=== PATIENT | female | born 2005 | race Caucasian/White ===

== ENCOUNTER 2024-06-20 12:36 | Outpatient (OUT) | payer OTHER, SELFPAY ==
[2024-06-20 12:51] VITALS: BP 132/81; PULSE 130
--- NOTE | 2024-06-20 13:37 | US_ITS ---
[place] [id number] Patient Name: FREYA HERR MRN: [id number] date: 2005 Sex: F Assigned Patient Location: [facility] Current Patient Location: Accession/Order Number: [id number] Exam Date: 06/20/2024 14:36 Report Date: 06/20/2024 14:37 At the request of: KAYODE TOVAR DO Procedure: US OB BPP w non-stress Ultrasound biophysical profile HISTORY: Decreased movement There is adequate breathing movement, gross body movement, tone and amniotic fluid volume for total score of 8 out of 8. Amniotic fluid index is 12.5 cm within normal limits. The heart rate is 156 bpm. US/US OB BPP w non-stress IMPRESSION: Adequate ultrasound biophysical profile. Impression dictated by: Golden Barry M.D.06/20/2024 2:37 PM Dictation Location: [email or web address] Electronically authenticated by: [id number] Y Date: 06/20/2024 14:37
== END 2024-06-20 13:55 | disposition home or self-care (01) ==
LOC: FBCO 12:40 → FBC 12:43
PROVIDERS: PCP Nurse Practitioner Family; Visit Provider Obstetrics & Gynecology
DX: O36.8130 Decreased fetal movements, third trimester, not applicable or unspecified (principal)
CPT/HCPCS: 76818

== ENCOUNTER 2025-01-20 21:21 | Emergency (ER) | payer OTHER, SELFPAY ==
--- OUTSIDE RECORDS SUMMARY | 2023-12-27 08:00 | XMS_ITS ---
Author Organization [facility] Address [address] [facility] [place] [address] Care Team Providers Care Marketing Operations Manager Name Role Phone Manda Randall Primary Care Provider REASON FOR VISIT 3 month f/u Encounters Encounter Location Date Provider Diagnosis [facility] [address] [facility] [place] [address] 12/27/2023 Manda Randall Plan Of Treatment Next Appt Details Provider Name:Carmelina Leighmary anne ruben, 01/24/2025 03:00:00 PM, [address] [place], [address], Progress Notes * FREYA HERR CDOB: [birth year] (19 yo F)Acc No.[id number]:12/27/2023 Behavioral Health Patient: PAULINA RUSSOTINAA Mast Provider:?Manda RandallDOB:2005???Age:18 Y ???Sex:FemaleDate:12/27/2023hone:[phone]:[address] [place], [place]-[address] Subjective: * Chief Complaints: * 3 month f/u * Electronic signature of LEONARD Morillo FNP on 01/20/2025 at 09:31 PM EST Sign off status: Pending * Appointment Provider: Benjamín Randall Date: 1 Generated for Printing/Faxing/eTransmitting on:?01/20/2025 09:31 PM EST
--- OUTSIDE RECORDS SUMMARY | 2024-12-21 09:00 | XMS_ITS ---
Author Organization [facility] Address [address] [facility] [place] [address] Care Team Providers Care Php Developer Name Role Phone Manda Randall Primary Care Provider [phone] Carmelina Wong Unavailable [phone] REASON FOR VISIT BH 1 month f/u Encounters Encounter Location Date Provider Diagnosis [facility] [address] [place] [address] 12/21/2024 Carmelina Wong Plan Of Treatment Next Appt Details Provider Name:Carmelina miranda, 01/24/2025 03:00:00 PM, [address] [place], [address], Progress Notes * FREYA HERR CDOB: [birth year] (19 yo F)Acc No.[id number]:12/21/2024 Behavioral Health Patient: Yvonne FREYA GALLEGO :?Carmelina Wong CNPDOB:2005???Age:19 Y ???Sex:FemaleDate:12/21/2024Phone:[phone]:[address] [place], [place]-[address]Pcp:Manda Randall Subjective: * Chief Complaints: * B H 1 month f/u Billing Information: * Procedure Codes: * Electronic signature of JALEN Palm on 01/20/2025 at 09:31 PM ESTSign off status: Pending * Provider: Chava Wong CNP Date: 1 Generated for Printing/Faxing/eTransmitting on:?01/20/2025 09:31 PM EST
[2025-01-20 21:25] VITALS: BP 162/92; PULSE 117; TEMP 36.6; O2SAT 100; BMI 35.9
--- NOTE | 2025-01-20 21:31 | ED.SOB1 ---
HPI - SOB/Dyspnea General Chief Complaint: Shortness of Breath/Dyspnea Stated Complaint: SOB, NAUSEA Time Seen by Provider: 01/20/25 21:22 Source: patient Mode of arrival: walk-in Limitations: no limitations History of Present Illness HPI Narrative: past history of anxiety attack. Now presents with 2 hour sensation like she is having a hard time breathing. Similar to past panic attacks. No nausea , vomiting or chest pain. No fever. Related Data Home Medications ?Medication ?Instructions ?Recorded ?Confirmed lisdexamfetamine 30 mg capsule 30 mg PO DAILY 01/20/25 01/20/25 (Vyvanse) Allergies Allergy/AdvReac Type Severity Reaction Status Date / Time No Known Drug Allergies Allergy Verified 01/20/25 21:30 Review of Systems ROS Status of ROS 10 or more systems reviewed and unremarkable except as noted in history and below PFSH PFSH Social History Little interest or pleasure in doing things: not at all Feeling down, depressed, or hopeless: not at all Exam Constitutional Vital Signs, click to edit/add: Last Vital Signs Temp 98 F 01/20/25 21:25 Pulse 98 H 01/20/25 22:12 Resp 18 01/20/25 22:12 BP 138/82 01/20/25 22:12 Pulse Ox 99 01/20/25 22:12 O2 Del Method Room Air 01/20/25 22:12 Common normals: average body habitus, oriented x3, no limitations, healthy appearing, alert and well nourished General appearance: anxious HENMT Common normals: normocephalic and head/scalp atraumatic Eye Common normals: EOMs intact bilaterally and conjunctivae normal Respiratory Common normals: normal respiratory effort, no retractions, no use of accessory muscles and clear to auscultation bilaterally Cardio Common normals: S1 normal heart sound and S2 normal heart sound Rate: tachycardic Extremity Common normals: normal to inspection and full ROM Neuro Common normals: oriented x3, CN's II-XII intact bilaterally, moves all extremities and no focal motor deficits Psych Appearance: grossly normal Course Vital Signs Vital signs: Vital Signs Temperature 98 F 01/20/25 21:25 Pulse Rate 117 H 01/20/25 21:25 Respiratory Rate 20 01/20/25 21:25 Blood Pressure 162/92 H 01/20/25 21:25 Pulse Oximetry 100 01/20/25 21:25 Oxygen Delivery Method Room Air 01/20/25 21:25 Temperature 98 F 01/20/25 21:25 Pulse Rate 98 H 01/20/25 22:12 Respiratory Rate 18 01/20/25 22:12 Blood Pressure 138/82 01/20/25 22:12 Pulse Oximetry 99 01/20/25 22:12 Oxygen Delivery Method Room Air 01/20/25 22:12 MDM - SOB/Dyspnea MDM Narrative Medical decision making narrative: patient has past history of anxiety. Presents with 2 hour complaint of feeling like she can't breathe. RA pulse ox 100% and chest is clear. exam normal. Given dose of vistaril and observed in the department. Patient feeling better and requesting to go home. Discharged and advised to follow up with her doctor for recheck Discharge Plan Discharge Chief Complaint: Shortness of Breath/Dyspnea Clinical Impression: Anxiety Patient Disposition: Home, Self-Care Prescriptions / Home Meds: No Action lisdexamfetamine [Vyvanse] 30 mg capsule 30 mg PO DAILY Print Language: Brazilian Instructions: Anxiety (ED) Additional Instructions: follow up with your doctor this week for recheck Referrals: Olivia Back NP [Primary Care Provider] - 1 week
--- OUTSIDE RECORDS SUMMARY | 2025-01-20 21:31 | XMS_ITS | Patient Health Record ---
Author Organization [facility] Address [address] [place] [address] Care Team Providers Care Data Programmer Name Role Phone Manda Randall Primary Care Provider Carmelina Wong Unavailable [phone] Allergies No Known Allergies Reason For Referral No Information Medications Medication SIG (Take, Route, Frequency, Duration) Notes Start Date End Date Status Vyvanse 30 MG Capsule 1 capsule in the m orning Orally Once a day; Duration: 30 days 5ActiveVyvanse 40 MG Capsule1 capsule in the morning Orally Once a day; Duration: 30 daysDNF until Not-Taking/PRNVyvanse 50 MG Capsule1 capsule in the morning Orally Once a day; Duration: 30 days01/01/2025 Active Social History Tobacco Use: Social History Observation Description Date Details (start date - stop date) Current Smoker NA - NA Social History GeneralSocial InfoQuestionAnswerNotesTransition of Care:ER/UC/hospital since last office visit?Yes, report on fileanxiety attack, ER at [facility] 09/09/20 Depression Screening (PHQ-9):Little interest or pleasure in doing thingsNot at allFeeling down, depressed, or hopelessNot at allTrouble falling or staying asleep, or sleeping too muchNot at allFeeling tired or having little energy Several daysPoor appetite or overeatingNearly every dayFeeling bad about yourself-or that you are a failure or have let yourself or your family downNot at allTrouble concentrating on things, such as reading the newspaper or watching televisionNot at allMoving or speaking so slowly that other people could have noticed. Or the opposite being so fidgetyor restless that you have been moving around a lot more than usualNot at allThoughts that you would be better off , or of hurting yourself in some wayNot at allTotal Rgvqk9Ckizdeggojjiu Minimal DepressionSubstance abuse/mental health issues of patient/familyPatient -DeniesDrug/Alcohol:Social InfoQuestionAnswerNotesAUDIT-C (Standard)Did you have a drink containing alcohol in the past year?YoAzlwjd4JwbhapnbwfbnwxMiwpsyyb Tobacco Use:Social VideostripQuestionAnswerNotesTobacco Control (Standard)Tobacco use: Current smoker? How often do you smoke cigarettes?Every day? How many cigarettes a day do you smoke?5 or less? Are you interested in quitting?Ready to quit Problems Problem Type SNOMED Code ICD Code Onset Dates Problem Status W/U Status Risk Notes Problem Attention deficit hy peractivity disorder, predominantly inattentive type (22326359) ADHD, predominantly inattentive type (F90.0) Activeconfirmed Vital Signs Heart Rate 112 /min 01/01/2025 Igusiaduwmv19.3 degrees Wikfwdlxok44/05/4330Gqulswbi16 %01/01/2025lood pressure unnnwfzxh75 mm Hg01/01/20259205Xmlfjc53 in01/01/2025lood pressure vgrfljic615 mm Hg 01/01/20256335Bujhkn542.6 lbs1MI37.14 kg/m201/01/2025 Encounters Encounter Location Date Provider Diagnosis [facility] [address] [place] [address] 11/23/2024 Carmelina Marvin ADHD, predominant ly inattentive type F90.0 [facility] [address] [place] [address] 01/01/2025 Carmelina Marvin ADHD, predominant ly inattentive type F90.0 Assessments Encounter Date Diagnosis (ICD Code) Assessment Notes Treatment Notes Treatment Clinical Notes Section Notes 11/23/2024 ADHD, predominantly inattentive type (ICD-10 - F90.0) Patient meets the criteria for the diagnosis of Attention Deficit Hyperactivity Disorder. Recommended treatment is FDA approved stimulant medication for this age group. At this time, will restart Vyvanse 30mg daily*. Discussed adverse effects from medication including HTN, tachycardia, insomnia, irritability, headache, or decreased appetite. OARRS reviewed, patient history consistent with report.The patient verbalizes understanding with all questions answered thoroughly and is in agreement with treatment plan. Currently at low risk for self harm. Denies ongoing feelings of hopelessness. Denies ongoing suicidal ideation, intent or plan in session. Follow up in 1 month & PRN. 5ADHD, predominantly inattentive type (ICD-10 - F90.0) ADHD symptoms persist. At this time will increase dose of *Vyvanse to 50mg*. Discussed adverse effects from medication including HTN, tachycardia, insomnia, irritability, headache, or decreased appetite. OARRS reviewed, patient history consistent with report. The patient verbalizes understanding with all questions answered thoroughly and is in agreement with treatment plan. Currently at low risk for self harm. Denies ongoing feelings of hopelessness. Denies ongoing suicidal ideation, intent or plan in session. Follow up in 1 month & PRN. Plan Of Treatment Next Appt Details Provider Name:Carmelina miranda, 01/24/2025 03:00:00 PM, [address] [place] [address], [address], Insurance Providers Payer Name Payer Address Payer Phone Subscriber Number Group Number Insured Name Patient Relationship to Insured Coverage Start Date Coverage End Date EMERALD MENDES [address] [place] [address] [phone] [id number] CHAY KRAMER [address] [facility] MedicaidPO [address] [address] [place] [address] [id number] HERR - patient is the [id number] 2024[facility] [address] [place] [id number] Sania HERR - patient is the [id number] 2024 Medical (General) History Medical History History ICD Code cellulitis headachespoor impulse controlchronic concussionslazy eyeherniaADHDSurgical History Surgery Date(Month/Year) I & D debridement of left knee myringotomyc-sectionHospitalization History Reason Date(Month/Year) knee surgery see surgeries
--- OUTSIDE RECORDS SUMMARY | 2025-01-20 21:31 | XMS_ITS | CCD ---
Author Organization [facility] Care Team Providers Care It Service Manager Name Role Phone ТАТЬЯНА CANNON Primary Care Physician Easterwood, Alvarez Unavailable Lacho Andrade Attending Unavailable Miky Sanders Attending Unavailable EASTERWOOD, ALVAREZ Primary Care Physician [place]wood INTERNET MARKETING SPECIALIST, Alvarez Unavailable [phone] Easterwood CNNP, Alvarez Primary Care Provider [phone] RAQUEL Sanabria Attending Provider [phone] Wong, Alvarez J Admitting Unavailable Easterwood, Alvarez J Attending Unavailable POOL, YI E Referring Unavailable EASTERWOOD, ALVAREZ Primary Care Unavailable EASTERWOOD, ALVAREZ Primary Care Unavailable MERYL CANADA Attending Unavailable POOL, YI E Referring Unavailable EASTERWOOD, ALVAREZ Primary Care Unavailable POOL, YI E Referring Unavailable EASTERWOOD, ALVAREZ Primary Care Unavailable POOL, YI E Referring Unavailable EASTERWOOD, ALVAREZ Primary Care Unavailable Nic Arora Admitting Unavailable Nic Arora Attending Unavailable DO Marcus Salazar Attending Unavailable Nic Arora Attending Unavailable EASTERWOOD, ALVAREZ Admitting Unavailable EASTERWOOD, ALVAREZ Attending Unavailable EASTERWOOD, ALVAREZ Admitting Unavailable EASTERWOOD, ALVAREZ Attending Unavailable CINDY GLEASON Attending Unavailable Dangelo Flores DO Primary Care Provider POOL, YI E Referring Unavailable EASTERWOOD, ALVAREZ Primary Care Unavailable POOL, YI E Referring Unavailable EASTERWOOD, ALVAREZ Primary Care Unavailable POOL, YI E Attending Unavailable POOL, YI E Referring Unavailable EASTERWOOD, ALVAREZ Primary Care Unavailable EASTERLEAKEY, ALVAREZ Primary Care Unavailable CECE PIERRE Attending Unavail able CECE PIERRE Admitting Unavail able EASTERWOOD, ALVAREZ Primary Care Unavailable EASTERWOOD, ALVAREZ Primary Care Unavailable POOL, YI E Referring Unavailable EASTERWOOD, ALVAREZ Primary Care Unavailable POOL, YI E Referring Unavailable EASTERLEAKEY, ALVAREZ Primary Care Unavailable EASTERLEAKEY, ALVAREZ Primary Care Unavailable LORRIE MORALES Unavailable LORRIE SÁNCHEZ Admitting Unavailable LORRIE SÁNCHEZ Attending Unavailable Medications Current Medications MedicationDrug Class(es)DatesSig (Normalized)Sig (Original)168 HR ethinyl estradiol 0.07958 MG/HR / norelgestromin 0.66920 MG/HR Transdermal System [Zafemy] (1 source)Start: 21-17-7623Jngieh 150-35 MCG/24HR 1 patch weekly x 3 weeks then 1 week off Transdermal weekly for 90 days May, Activeazithromycin 500 mg oral tablet (1 source)Macrolide AntimicrobialStart: 02-14-2023 End: 96-48-7340mrqd 2 tablets by mouth onceazithromycin (ZITHROMAX) 500 mg tablet Indications: Chlamydia infection during Take 2 tablets by mouth one time only for 1 dose. 2 tablet 0 02/14/2023 02/14/2023 ActiveComment on above:Take 2 tablets by mouth one time only for 1 dose.brompheniramine maleate 0.4 mg/ml / dextromethorphan hydrobromide 2 mg/ml / pseudoephedrine hydrochl oride 6 mg/ml oral solution (5 sources)alpha-Adrenergic Agonist, Uncompetitive K-jzjmgj-S-aspartate Receptor Antagonist, Sigma-1 AgonistStart: 57-62-3543ppfq 10 mL by mouth four times dailyBromfed DM oral syrup 10 mL, Oral, QID for cold symptoms, 200 mL, Refill(s) 1, [facility]ULIA GUY, 152, cm, 06/02/21 12:01:00 EDT, Height/Length Dosing, 67.9, kg, 06/02/21 12:01:00 EDT, Weight Dosing Start Date: 06/02/21 Status: Patmcwf67 ml calcium gluconate 100 mg/ml injection (1 source)Start: 40-90-2173sryrrqiy 300 mg oral capsule (1 source)Cephalosporin AntibacterialStart: 11-30-2021 End: 48-13-9600wnlz 1 capsule by mouth every twelve hourscefdinir 300 mg Cap 300 mg = 1 cap(s), Oral, q12hr, X 7 day(s), # 14 cap(s), Refills(s) 0, Pharmacy: [id number], 152, cm, 11/30/21 8:27:00 EDT, Height/Length Dosing, 67.9, kg, 11/30/21 8:27:00 EDT, Weight Dosing Start Date: 11/30/21 Stop Date: 12/07/21 Status: OrderedCephalexin (2 sources)Cephalosporin AntibacterialStart: 08-01-2024 End: 10-68-6143uzdyEYXLrm (KEFLEX) capsule 500 mgStart: 07-03-2024 End: 01-02-7549itjc 1 capsule by mouth twice dailycephALEXin (KEFLEX) 500 MG capsule Take 1 capsule by mouth 2 times daily for 7 days 14 capsule 07/03/2024 07/10/2024 Activecyclobenzaprine hydrochloride 5 mg oral tablet (4 sources)Muscle RelaxantStart: 89-54-0892wnkb 1 tablet by mouth once daily at bedtimeCyclobenzaprine HCl 5 MG 1 tablet HS Orally Once a day for 7 days Nov, Activedocusate sodium 100 mg oral capsule (6 sources)Start: 08-01-2024 End: 81-11-5729IPHkysutce 10 mg oral capsule (5 sources)Serotonin Reuptake InhibitorStart: 01-10-2024 End: 85-13-6194kxan 1 capsule by mouth once dailyFLUoxetine (PROZAC) 10 MG capsule Take 1 capsule by mouth daily 30 capsule 3 01/10/2024 08/02/2024 D iscontinued (Stop Taking at Discharge)12 hr guaiFENesin 600 mg extended release oral tablet (1 source)Start: 03-16-2024 End: 21-53-7278xaof 1 tablet by mouth twice dailyguaiFENesin (MUCINEX) 600 MG extended release tablet Take 1 tablet by mouth 2 times daily for 5 days 10 tablet 03/16/2024 03/21/2024 Activelabetalol hydrochloride 400 mg oral tablet (11 sources)beta-Adrenergic BlockerStart: 25-40-6232daxs 1 tablet by mouth every eight hourslabetalol 400 MG TABS Take 400 mg by mouth every 8 hours 60 tablet 3 08/05/2024 ActiveStart: 66-71-608986 mg, IntraVENous, ONCE, 1 dose, On 08/04/24 at 0200Start: 49-55-847271 mg, IntraVENous, ONCE, 1 dose, On 08/04/24 at 0230Start: 08-04-2024 End: 55-37-9022zwad 1 dose by mouth three times lesyc859 mg, Oral, EVERY 8 HOURS SCHEDULED (3 times per day), First dose (after last modification) on Tue08/05/24 at 0000, Until DiscontinuedStart: 08-02-2024 End: 83-91-1655ezra 1 tablet by mouth every twelve hourslabetalol (NORMODYNE) 200 MG tablet Take 1 tablet by mouth every 12 hours 60 tablet 3 08/02/2024 Discontinued (Stop Taking at Discharge)Start: 07-31-2024 End: 65-62-2562ivao 1 dose by mouth twice kisvx713 mg, Oral, EVERY 12 HOURS SCHEDULED (2 times per day), First dose on Tue08/01/24 at 0800, Until D iscontinuedStart: 07-30-2024 End: 10-50-4249089 mg, Oral, 2 times daily, First dose on Tue07/30/24 at 2015, Until Discontinued, Hold for BP that is less than 120/80lanolin 1000 mg/ml topical cream (1 source)Start: 23-96-4417ulcsyupnnewqbiau dimesylate 60 mg oral capsule (15 sources)Central Nervous System StimulantStart: 11-14-2023 End: 02-34-8249keaw 1 capsule by mouth once daily in the morningVYVANSE 60 MG CAPS TAKE 1 CAPSULE BY MOUTH DAILY IN THE MORNING 11/14/2023 08/02/2024 Discontinued (Stop Taking at Discharge)Start: 72-85-5703cxoh 1 capsule by mouth once dailyLisdexamfetamine (Vyvanse) 60 mg capsule Active 60 MG PO Daily October 25, 2023 12:00amStart: 10-21-2023 End: 33-48-1858pfub 40 mg by mouth once dailyLisdexamfetamine Discontinued 40 MG PO Daily October 21, 2023 12:00am October 25, 2023 3:04pmtake 1 capsule by mouth every twenty-four hoursVyvanse 40 MG 1 capsule in the morning Orally Once a day Active1 ml methylergonovine maleate 0.2 mg/ml injection (1 source)Ergot DerivativeStart: 12-62-1148eePQPAUZclq 0.1 mg oral tablet (1 source)Prostaglandin E1 AnalogStart: 03-76-2618hcokyurh 500 mg oral tablet (4 sources)Nonsteroidal Anti-inflammatory DrugStart: 87-22-6826hdsf 1 tablet by mouth twice daily as needed for painnaproxen 500 mg Tab 500 mg = 1 tab(s), Oral, BID, PRN Pain, with food, # 20 tab(s), Refills(s) 0, Pharmacy: [facility] #[id number], 154, cm, 08/18/22 15:11:00 EDT, Height/Length Dosing, 73, kg, 0 08/18/22 15:11:00 EDT, Weight Dosing Start Date: 08/18/22 Status: Ordered NIFEdipine 30 mg osmotic 24 hr extended release oral tablet (1 source)Dihydropyridine Calcium Channel BlockerStart: 83-14-4777tdjt 1 tablet by mouth once dailyNIFEdipine (PROCARDIA XL) 30 MG extended release tablet Indications: Pre-eclampsia in period Take 1 tablet by mouth daily 30 tablet 1 08/07/2024 Activeomeprazole 20 mg delayed release oral capsule (8 sources)Proton Pump InhibitorStart: 05-87-2035omdhyebmcb (PRILOSEC) 20 MG delayed release capsule Take by mouth daily 06/11/2024 ActiveStart: 06-11-2024 End: 07-58-1932adqf 1 tablet by mouth once dailyomeprazole (PRILOSEC OTC) 20 MG tablet Indications: 30 weeks gestation of , Heartburn during in third trimester Take 1 tablet by mouth daily 90 tablet 3 06/11/2024 08/02/2024 Discontinued (Stop Taking at Discharge)ondansetron (ZOFRAN-ODT) disintegrating tablet 4 mg (2 sources)Start: 07-29-0206mxtlcdwkqsk (ZOFRAN-ODT) disintegrating tablet 4 mg Start: 18-98-6959fxeycchffuc (ZOFRAN-ODT) disintegrating tablet 4 mgpediatric multivitamin no.49 (FLINTSTONES GUMMIES ORAL) (1 source)pediatric multivitamin no.49 (FLINTSTONES GUMMIES ORAL) Take by mouth. ActivepredniSONE 20 mg oral tablet (4 sources)Start: 03-75-4403amktlrIHYG 20 MG 1 Orally Once a day for 5 days Nov, ActivePrenatal MV-Min-Fe Fum-FA-DHA ( 1 PO) (6 sources) End: 30-05-1137Irucgmxa MV-Min-Fe Fum-FA-DHA ( 1 PO) Take by mouth 08/02/2024 Discontinued (Stop Taking atDischarge) MV-Min-Fe Fum-FA-DHA ( 1 PO) Take by mouth ActivePrenatal MV-Min-Fe Fum-FA-DHA ( 1 PO) Take by mouth 0 Activeprenatal vits62/FA/om3/dha/epa ( GUMMY ORAL) (5 sources) vits62/FA/om3/dha/epa ( GUMMY ORAL) Take by mouth. Activeprenatal vits62/FA/om3/dha/epa ( GUMMY ORAL) Take by mouth. 0 ActiveComment on above:Take by mouth.Robitussin Cough + Chest Congestion DM 20 mg-200 mg/20 mL oral liquid (4 sources)Start: 41-24-5576pwgi 20 mL by mouth every four hoursRobitussin Cough + Chest Congestion DM 20 mg-200 mg/20 mL oral liquid 20 mL, Oral, q4hr, 200 mL, Refill(s) 0 Start Date: 07/16/22 Status: Ordered5 ml sodium chloride 9 mg/ml injection (7 sources)Start: 23-38-3233Lhkpw: 55-18-1116Cupti: 91-63-5648Sippe: 07-31-2024 Start: -40 mL, IntraVENous, PRN, Starting on Tue07/31/24 at 2349, Until Discontinued, Line Care, After every IV line use, For Line Patency: Peripheral IV = 5 mL; Midline or Central Line = 10 mL/lumen. If following IV push medication, administer flush at same rate as the IV push. Flush volume is determined by type of infusion therapy being given. For non-viscous solutions use: Peripheral IV = 5 mL Midline or Central Line = 10 mL/lumen For viscous solutions (i.e. blood components, parenteral nutrition,contrast media, or after obtaining blood sample) use: Peripheral IV = 10 mL Midline or Central Line= 20 mL/lumen, PostpartumStart: 07-30-2024 End: -40 mL, IntraVENous, EVERY 12 HOURS SCHEDULED (2 times per day), First dose on Tue07/30/24 at 2100, Until Discontinued, For Line Patency: Peripheral IV = 5 mL; Midline or Central Line = 10 mL/lumen.If following IV push medication, administer flush at same rate as the IV push. Flush volume is deter mined by type of infusion therapy being given. For non-viscous solutions use: Peripheral IV = 5 mL Midline or Central Line = 10 mL/lumen For viscous solutions (i.e. blood components, parenteral nutrition, contrast media, or after obtaining blood sample) use: Peripheral IV = 10 mL Midline or CentralLine = 20 mL/lumen, Labor and Deliveryterconazole 4 mg/ml vaginal cream (3 sources)Azole AntifungalStart: 07-09-2024 End: 46-38-2433vtxtkvjliba (TERAZOL 7) 0.4 % vaginal cream Indications: 34 weeks gestation of , Vagina, candidiasis Place vaginally nightly. For 7 nights 45 g 07/09/2024 08/02/2024 Discontinued (Stop Taking at Discharge) tranexamic acid (CYKLOKAPRON) 1,000 mg in sodium chloride 0.9 % 100 mL IVPB (Bpez7Bsa) (1 source)Start: 60-22-6955Uyaktw ODT 4 mg Tab-Dis (4 sources)Start: 60-99-7839kexm 1 tablet by mouth every eight hours as needed for nauseaZofran ODT 4 mg Tab-Dis 4 mg = 1 tab(s), Oral, q8hr, PRN Nausea/Vomiting, # 12 tab(s), Refills(s) 0, Pharmacy: [facility] #[id number], 154, cm, 08/18/22 15:11:00 EDT, Height/Length Dosing, 73, kg, 08/18/22 15:11:00 EDT, Weight Dosing Start Date: 08/18/22 Status: Ordered Completed/Discontinued Medications MedicationDrug Class(es)DatesSig (Normalized)Sig (Original)acetaminophen 500 mg oral tablet (8 sources)Start: ,000 mg, Oral, EVERY 6 HOURS PRN, Starting on 08/04/24 at 0254, Until Discontinued, Pain Mild (1-3), allowed for higher pain score per patient request, Maximum dose of acetaminophen is 4000 mg from all sources in 24 hours.Start: 08-02-2024 End: 87-29-6039utyh 2 tablets by mouth every eight hoursacetaminophen (TYLENOL) 500 MG tablet Take 2 tablets by mouth every 8 hours 120 tablet 3 08/02/2024 ActiveStart: ,000 mg, Oral, EVERY 8 HOURS SCHEDULED (3 times per day), First dose on Tue08/01/24 at 0330, UntilDiscontinued, Maximum dose of acetaminophen is 4000mg from all sources in 24 hours. Alternate ibuprofen and acetaminophen every 4 hours., PostpartumStart: 04-48-7371gbbl 1 dose by mouth bnpe299 mg, Oral, ONCE, 1 dose, On Tue07/31/24 at 2030, Administer with sips of water., Labor and DeliveryStart: 07-30-2024 End: 14-81-5402bvmt 4000 mg by mouth every twenty-four hours as plulae538 mg, Oral, EVERY 4 HOURS PRN, Starting on Tue07/30/24 at 1941, Until Tue07/31/24 at 2349, Pain Mild (1-3), allowed for higher pain score per patient request, Fever, Fever >100.5 F (38 C), Maximum dose of acetaminophen is 4000 mg from all sources in 24 hours., Labor and Deliverycalcium chloride 0.0014 meq/ml / potassium chloride 0.004 meq/ml / sodium chloride 0.103 meq/ml / sodium lactate 0.028 meq/ml injectable solution (5 sources)Start: 08-04-2024 End: 67-45-2431BqwcfFRLixh, at 50 mL/hr, CONTINUOUS, Starting on Tue08/04/24 at 1845Start: 07-31-2024 End: ,000 mL, IntraVENous, at 1,000 mL/hr, Administer over 1 Hours, ONCE, On Tue07/31/24 at 2030, For 1dose, Labor and Delivery. Administer bolus one hour prior to surgery., Labor and DeliveryStart: 07-30-2024 End: 71-03-9574TvcifUZWosu, at 125 mL/hr, CONTINUOUS, Starting on Tue08/01/24 at 0100cefOXitin (MEFOXIN) 2,000 mg in sterile water 20 mL IV syringe (1 source)Start: 07-31-2024 End: ,000 mg, IntraVENous, REMARKETING MANAGER TO O.R., 1 dose, On Tue07/31/24 at 2030, Antimicrobial Indications: Surgical Prophylaxis, Administer within 1 hour of incision. Administer as slow IV Push over 5 mins Reconstitute 2 gram vial with 20mL Sterile Water, Labor and Deliverycitric acid 66.8 mg/ml / sodium citrate 100 mg/ml oral solution (1 source)Calculi Dissolution Agent, Anti-coagulantStart: 07-31-2024 End: 17-50-3452jmtg 1 dose by mouth once30 mL, Oral, ONCE, 1 dose, On Tue07/31/24 at 2030, Give prior to epidural placement., Labor and DeliveryStart: 07-31-2024 End: 09-66-4272whlf 1 dose by mouth once30 mL, Oral, ONCE, 1 dose, On Tue07/31/24 at 2030, Give prior to epidural placement., Labor and Delivery diphenhydrAMINE hydrochloride 25 mg oral tablet (1 source)Histamine-1 Receptor AntagonistStart: 24-22-0207drfm 25 mg by mouth every six hours as mg, Oral, EVERY 6 HOURS PRN, Starting on Tue08/04/24 at 1814, Until Discontinued, Itching0.4 ml enoxaparin sodium 100 mg/ml prefilled syringe (1 source)Low Molecular Weight HeparinStart: 88-70-6506ewcrzf 40 mg by subcutaneous injection once daily40 mg, SubCUTAneous, DAILY, First dose on Tue08/01/24 at 0900, Until Discontinued, Indication of Use: Prophylaxis-DVT/PE, Administer by deep subCUTAneous injection with pt lying down. Alternate inject ion sites on abdominal wall. Do not rub site after injection. Check with provider prior to any invasive procedure., Postpartumfamotidine (PEPCID) 20 MG/2ML 20 mg in sodium chloride (PF) 0.9 % 10 mL injection (1 source)Start: 07-31-2024 End: 31-72-827487 mg, IntraVENous, ONCE, 1 dose, On Tue07/31/24 at 2030, Give 60 minutes before surgery., Labor and Deliveryferrous sulfate 325 mg delayed release oral tablet (3 sources)Start: 92-04-9185hnwj 325 mg by mouth once daily at mg, Oral, DAILY WITH BREAKFAST, First dose on Tue08/05/24 at 0800, Until DiscontinuedStart: 08-04-2024 End: 48-47-1803wynx 1 tablet by mouth once daily at breakfastferrous sulfate (IRON 325) 325 (65 Fe) MG tablet Take 1 tablet by mouth daily (with breakfast) 90 tablet 08/04/2024 11/02/2024 Activeibuprofen 600 mg oral tablet (10 sources)Nonsteroidal Anti-inflammatory DrugStart: 83-94-5679mvvp 600 mg by mouth every six hours as needed for gbbr168 mg, Oral, EVERY 6 HOURS PRN, Starting on 08/04/24 at 0254, Until Discontinued, Pain Mild (1-3), allowed for higher pain score per patient requestStart: 08-02-2024 End: 61-37-5385jcyhiuuyx (ADVIL;MOTRIN) 800 MG tablet Take 1 tablet by mouth in the morning and 1 tablet at noon and 1 tablet in the evening. 120 tablet 3 08/02/2024 ActiveStart: 69-93-9662rmyg 1 tablet by mouth every six hours ibuprofen 600 mg Tab 600 mg = 1 tab(s), Oral, q6hr, # 20 tab(s), Refills(s) 0 Start Date: 07/16/22 Status: Orderedloperamide hydrochloride 2 mg oral capsule (1 source)Opioid AgonistStart: 08-04-2024 End: mg, Oral, Once, 1 dose, On 08/04/24 at 0500, After each loose stool.100 ml magnesium sulfate 40 mg/ml injection (3 sources)Start: 08-04-2024 End: ,000 mg, IntraVENous, at 300 mL/hr, Administer over 20 Minutes, ONCE, On 08/04/24 at 0200, For 1 dose, Pre-Infusion: Assess baseline vital signs, breath sounds, oxygen saturation level, intake and output, and neurologic status (deep tendon reflexes, presence or absence of clonus, and level of co nsciousness (LOC). Vitals to include baseline temperature. Temperature to be reassessed every 4 hours if membranes are intact or every 2 hours if membranes have ruptured. Loading Dose/Infusion: Stay with the patient during the loading dose to monitor for adverse drug reactions. - Monitor pulse oximetry continuously throughout the infusion - Monitor vital signs, deep tendon reflexes, and LOC every15 minutes for one hour, then every 30 minutes for one hour, then hourly while infusing Notify careprovider immediately of absent deep tendon reflexes, a urine output of less than 30 mL/hour, respirations of less than 12 breaths/minute, or an oxygen saturation level of less than 90%.Start: 08-04-2024 End: ,000 mg/hr (50 mL/hr), IntraVENous, CONTINUOUS, Starting on 08/04/24 at 0315, Until 08/05/24at 0200, Pre-Infusion: Assess baseline vital signs, breath sounds, oxygen saturation level, intake and output, and neurologic status (deep tendon reflexes, presence or absence of clonus, and level of consciousness (LOC), presence of headaches or visual disturbances, presence or absence of epigastric pain. Vitals to include baseline temperature. Temperature to be reassessed every 4 hours if membranes are intact or every 2 hours if membranes have ruptured. Loading Dose/Infusion: Stay with the patient during the loading dose to monitor for adverse drug reactions. - Monitor pulse oximetry continuously throughout the infusion - Monitor vital signs, deep tendon reflexes, and LOC every 15 minutes for one hour, then every 30 minutes for one hour, then hourly while infusing Notify care provider immediately of absent deep tendon reflexes, a urine output of less than 30 mL/hour, respirations of less than 12 breaths/minute, or an oxygen saturation level of less than 90%. Grams to milligrams conversion table: 1 gram = 1000 mg 2 grams = 2000 mg 4 grams = 4000 mg 6 grams = 6000 mg 20 grams = 20,000 mgmetoclopramide 10 mg oral tablet (2 sources)Dopamine-2 Receptor AntagonistStart: 60-79-1852wamg 10 mg by mouth three times daily before gdhhodyj12 mg, Oral, 3 TIMES DAILY BEFORE MEALS, First dose on Tue08/04/24 at 1830, Until DiscontinuedStart: 07-31-2024 End: mg, IntraVENous, ONCE, 1 dose, On Tue07/31/24 at 2030, Give 60 minutes before surgery., Labor and DeliverymiSOPROStol (CYTOTEC) pre-split tablet TABS 25 mcg (1 source)Start: 07-30-2024 End: mcg, Vaginal, EVERY 4 HOURS, 3 doses, First dose (after last modification) on Tue07/30/24 at 2030, Last dose on Tue07/31/24 at 84723 ml nalbuphine hydrochloride 10 mg/ml injection (1 source)Opioid Agonist/AntagonistStart: 07-30-2024 End: mg, IntraVENous, EVERY 2 HOURS PRN, Starting on Tue07/30/24 at 1941, Until Tue07/31/24 at 2349, Pain Moderate (4-6), allowed for higher pain score per patient request, Pain Severe (7-10), For moderate pain 4-6, PRN for pain, Labor and Delivery2 ml ondansetron 2 mg/ml injection (8 sources)Serotonin-3 Receptor AntagonistStart: 08-04-2024 End: mg, IntraVENous, ONCE, 1 dose, On Tue08/04/24 at 0200Start: 02-29-8859vvie 1 tablet by mouth three times daily as needed for nausea ondansetron (ZOFRAN) 4 MG tablet Take 1 tablet by mouth 3 times daily as needed for Nausea or Vomiting 30 tablet 2 03/08/2024 ActiveoxyCODONE hydrochloride 5 mg oral tablet (5 sources)Opioid AgonistStart: 36-03-1875txft 5 mg by mouth every six hours as needed5 mg, Oral, EVERY 6 HOURS PRN, Starting on Tue08/04/24 at 2038, Until Discontinued, Pain Severe (7-10)Start: 08-02-2024 End: 67-31-1180ttxa 1 tablet by mouth every eight hours as needed for pain oxyCODONE (ROXICODONE) 5 MG immediate release tablet Indications: delivery delivered Take 1 tablet by mouth every 8 hours as needed for Pain for up to 3 days. Max Daily Amount: 15 mg 8 tablet 08/02/2024 08/05/2024 Active Start: 89-79-9784qvlECMCDH (ROXICODONE) immediate release tablet 5 mgoxytocin (PITOCIN) 30 units in 500 mL infusion (1 source)Start: 07-31-2024 End: -24 tye-units/min (1-24 mL/hr), IntraVENous, CONTINUOUS, Starting on Tue07/31/24 at 0900, Until Tue07/31/24 at 2349, Begin infusion at 1 tye-unit/min (1 tye-unit per min = 1 mL per hour) . Then increase by 2 tye-units/min as needed, no faster than every 30 minutes, until labor is achieved.Labor is defined as contractions every 2-3 minutes with cervical changes or Mcgregor units (MVU) greater than 200 in a 10-minute window. Maximum infusion rate: 24 tye-unit/min. Contact provider if maximum rate does not achieve desired response. Provider may order alternative titration goal or other clinically appropriate goal of titration rate (s). Smaller titration increments of 1 tye-units/min, not faster than every 30 minutes, may be used when approaching therapeutic goal after discussion with provider. If unable to increase call provider and let them know. At time of needed increase, Labor and Deliverymicroencapsulated potassium chloride 20 meq extended release oral tablet (1 source)Start: 07-31-2024 End: mEq, Oral, 2 TIMES DAILY, First dose on Tue07/31/24 at 0230, Until Discontinued, Do not crush, chew, or suck on tablet. Tablet may also be broken in half and each half swallowed separately.200 ml ropivacaine hydrochloride 2 mg/ml injection (1 source)Amide Local AnestheticStart: 07-31-2024 End: mL/hr, Epidural, CONTINUOUS, Starting on Tue07/31/24 at 1330, Until Tue07/31/24 at 2349, Labor and Deliverysimethicone 80 mg chewable tablet (1 source)Start: 83-04-3762dyec 80 mg by mouth every six hours as odurvf90 mg, Oral, EVERY 6 HOURS PRN, Starting on Tue08/01/24 at 2005, Until Discontinued, Cramping Problems Active Problems Problem ClassificationProblemDateDocumented DateEpisodic/ChronicAbdominal hernia (7 sources)Umbilical hernia; Translations: [Umbilical hernia without obstruction or gangrene]03-64-7258PkotvvtaTmwpabbgv pain (1 source)Abdominal pain; Translations: [Unspecified abdominal pain]Onset: 76-85-8585UfbnzgibIviewlucj-deficit, conduct, and disruptive behavior disorders (20 sources)Attention deficit hyperactivity disorder; Translations: [Attention- deficit hyperactivity disorder, unspecified type]Onset: 81-97-7040Dbcqoeu Contraceptive and procreative management (1 source)Encounter for initial prescription of transdermal patch hormonal contraceptive deviceEpisodicFetal distress and abnormal forces of labor (4 sources)Failure to progress in first stage of labor; Translations: [Prolonged first stage (of labor)]Onset: [id number] congenital anomalies (2 sources)H/O: kidney disease; Translations: [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]Onset: [id number]u symptoms and ill-defined conditions (11 sources)Dysuria; Translations: [Dysuria]Onset: [id number] Headache; including migraine (7 sources)Uauextps07-33-0557XvqsxsvdNmxjssbezmcj complicating ; childbirth and the puerperium (11 sources)Hypertension AND/OR vomiting complicating childbirth AND/OR puerperium; Translations: [Gestational [-induced] hypertension without significant proteinuria, third trimester]Onset: 07-31-2024 Resolved: [id number] injury (14 sources)Concussion injury of brain; Translations: [History of concussion injury of brain]23-58-1718BggekalbYytpcjh on above:multipleMenstrual disorders (1 source)Amenorrhea, unspecified; Translations: [Amenorrhea, unspecified]Onset: 80-43-1991JxdowsqOgxasov (1 source)Candidiasis of vagina; Translations: [Vagina, candidiasis]07-09-2024 EpisodicOther acquired deformities (15 sources)Scoliosis deformity of spine; Translations: [Scoliosis, unspecified] 21-04-0942LvgjfbtLbqlj acquired deformities (1 source)Scoliosis, unspecifiedChronicOther aftercare (1 source)Long-term current use of drug therapy; Translations: [Other skilled nursing (current) drug therapy]EpisodicOther circulatory disease (1 source)Elevated blood-pressure reading without diagnosis of hypertension; Translations: [Elevated blood-pressure reading, without diagnosis of hypertension]66-17-4648OaalmehqIxewa circulatory disease (1 source)Postural orthostatic tachycardia syndrome ; Translations: [Postural orthostatic tachycardia syndrome (POTS)]Onset: 17-04-3550HhwbiqqsBhazd complications of ; puerperium affecting management of mother (5 sources)Deliveries by ; Translations: [Encounter for delivery without indication]Onset: 073983-77-3107WyjrzbjwWorcd complications of ; puerperium affecting management of mother (1 source)Encounter for delivery without indication; Translations: [Encounter for delivery without indication]Onset: 39-95-5917Gurmoewn Other complications of (1 source)Uncertain viability of ; Translations: [ with inconclusive viability, not applicable or unspecified]47-93-3556Riaawbbj Other complications of (1 source)Swelling of lower limb; Translations: [Gestational edema, third trimester]12-20-6723EpwqiwvzVjslr complications of (1 source)Gestational edema, third trimester; Translations: [Gestational edema, third trimester]Onset: 51-97-6316GiubkjqaZiczy lower respiratory disease (1 source)Cough; Translations: [Cough, unspecified]Onset: 09-74-9552Yqyakqac Other lower respiratory disease (1 source)Dyspnea; Translations: [Shortness of breath]62-94-3979KuovceaoJgkvs lower respiratory disease (1 source)Shortness of breath; Translations: [Shortness of breath]Onset: 21-10-9131UotwgtodXpqsl nutritional; endocrine; and metabolic disorders (3 sources)Obesity; Translations: [Obesity complicating , unspecified trimester]Onset: 087598-26-0116MfeqkliZtivj nutritional; endocrine; and metabolic disorders (1 source)Body mass index 30+ - obesity; Translations: [Body mass index (BMI) 37.0-37.9, adult]91-56-6243DswvoraVamxd nutritional; endocrine; and metabolic disorders (1 source)Hypomagnesemia; Translations: [Hypomagnesemia]Onset: 21-77-8167Mdsljoa Other and delivery including normal (12 sources)Patient encounter status; Translations: [Encounter for supervision of normal , unspecified, first trimester]Onset: 05-15-2024 Resolved: 409464-20-1706BntxbhsiXgsiqib cyst (4 sources)Cyst of ovary; Translations: [Unspecified ovarian cyst, unspecified side]EpisodicResidual codes; unclassified (7 sources)Pnrhnod69-98-6066FpnutwitWbzkqdmi codes; unclassified (2 sources)Gestation period, 26 weeks; Translations: [26 weeks gestation of ]38-14-7952FbygoeqoZpovshpy codes; unclassified (1 source)Gestation period, 27 weeks; Translations: [27 weeks gestation of ]05-94-6335UiirrsjuNrbognvw codes; unclassified (1 source)Gestation period, 36 weeks; Translations: [36 weeks gestation of ]66-98-8381AkjszfdwMiqkdakp codes; unclassified (1 source)36 weeks gestation of ; Translations: [36 weeks gestation of ]Onset: 80-96-0472BzemqmkyDowxwvvh codes; unclassified (1 source)27 weeks gestation of ; Translations: [27 weeks gestation of ]Onset: 22-83-3748QzgnixakUzicghnvrha; intervertebral disc disorders; other back problems (7 sources)Neck gnoo82-24-5480PlpfewksAgiyponmrybq (7 sources)Methicillin resistant Staphylococcus aureus (organism)Onset: 915463-88-3331Oyfvebi on above:MRSA lt knee abscess 03/24/2012Unclassified (1 source)Acute candidiasis of vulva and vagina; Translations: [Acute candidiasis of vulva and vagina]Onset: 07-09-2024 Past or Other Problems Problem ClassificationProblemDateDocumented DateEpisodic/ChronicEssential hypertension (4 sources)Hypertensive disorder; Translations: [Essential (primary) hypertension]Onset: 07-30-2024 Resolved: 318636-40-9290MzsiecsKdbscntrtc during ; abruptio placenta; placenta previa (2 sources)Threatened miscarriage; Translations: [Threatened ]Onset: 52-68-2487HlutfgruZjokh complications of (12 sources)Chlamydial infection; Translations: [Other maternal infectious and parasitic diseases complicating , unspecified trimester]Onset: 02-14-2023 Resolved: 124452-47-1504TeroqtwkSdzda nervous system disorders (8 sources)Coordination problem; Translations: [Unspecified lack of coordination]Onset: 05-23-2012 Resolved: 984003-00-1410ViattznfFsusm nervous system disorders (8 sources)Abnormal gait; Translations: [Unspecified abnormalities of gait and mobility]Onset: 05-23-2012 Resolved: 270295-98-6155DouchlmaPnrga upper respiratory infections (19 sources)Acute pharyngitis; Translations: [Acute pharyngitis, unspecified] Onset: 51-92-6057JcnlljkcOnevodjm codes; unclassified (15 sources)Impulsive character; Translations: [Impulsiveness]Onset: 02-21-2023 39-09-9568UiukedseHdwellao codes; unclassified (2 sources)Less than 8 weeks gestation of ; Translations: [Less than 8 weeks gestation of ]Onset: 20-73-0975DarnlblwVhvptdgm codes; unclassified (7 sources)H/O: miscarriage; Translations: [Personal history of other complications of , childbirth and the puerperium]Onset: 01-30-2024 21-67-5898NvoehcpfRuoxjpmd codes; unclassified (4 sources)Gestation period, 37 weeks; Translations: [37 weeks gestation of ]Onset: 07-31-2024 Resolved: 981936-35-7051UnwpzcdpLccswapb codes; unclassified (1 source)Personal history of other complications of , childbirth and the puerperium; Translations: [Personal history of other complications of , childbirth and the puerperium]Onset: 39-37-7469FjneczlzWkle and subcutaneous tissue infections (15 sources)Pyoderma; Translations: [Cellulitis of right foot]Onset: 03-23-2012 Resolved: 625478-60-9808RrftdpqzRkhvdtawrlu (2 sources)Miscarriage; Translations: [Complete or unspecified spontaneous without complication]Onset: 448316-14-2335SowxydlrRvrzfckfeeng (7 sources)DebridementOnset: 196777-66-0808Xlcunqx on above:I&D of wound in right leg in MarchUnclassified (1 source)Acute left-sided low back pain without sciatica M54.50Viral infection (12 sources)Molluscum contagiosum infection; Translations: [Herpangina]Onset: 338423-13-0250Cxiiphul Results Test NameValueInterpretationReference RangeFacilityCBCon 59-42-7731Rwborkmgmgi distribution width (RBC) [Ratio]13.8 %11.8 - 14.4 %[facility] Hematocrit (Bld) [Volume fraction]28.4 %Low36.3 - 47.1 %[facility] Hemoglobin (Bld) [Mass/Vol]8.8 g/dLLow11.9 - 15.1 g/dLBon [facility] Interpretation and review of laboratory resultsAbnormalBon [facility] MCH (RBC) [Entitic mass]25 pgLow25.2 - 33.5 pgBon Secours Richmond Community HospitalMCHC (RBC) [Mass/Vol]31 g/dL28.4 - 34.8 g/dLBon Community Memorial HospitalMCV (RBC) [Entitic vol] 80.7 fLLow82.6 - 102.9 fLBon Secours Richmond Community HospitalNucleated RBC/100 WBC (Bld) [Ratio]0.2 %High0.0 per 100 WBCBon Community Memorial HospitalPlatelet mean volume (Bld) [Entitic vol]10 fL8.1 - 13.5 fLNorton Community Hospital HealthPlatelets (Bld) [#/Vol]349 10*3/uLBon Community Memorial HospitalRBC (Bld) [#/Vol]3.52 10*6/uLLow3.95 - 5.11 m/uLBon Community Memorial HospitalWBC other (Bld) [#/Vol]8.1Bon SecFroedtert West Bend HospitalErythrocyte distribution width (RBC) [Ratio]13.8 % Pxqmnz36.8-14.4[facility] HospitalComment on above:Performed By: #### FLUABA #### [address] [place] [address] Commercial Real Estate Attorney: Jose Valero MDHematocrit (Bld) [Volume fraction]28.4 %Low 36.3-47.1MHolmes County Joel Pomerene Memorial HospitalComment on above:Performed By: #### FLUABA #### [address] [place], [place] [id number] Commercial Real Estate Attorney: Jose Valero MDHemoglobin (Bld) [Mass/Vol]8.8 g/dLLow11.9-15.1 [facility] HospitalComment on above:Performed By: #### FLUABA #### [address] [place], [facility]83 Commercial Real Estate Attorney: JACKY SánchezCH (RBC) [Entitic mass]25.0 pgLow25.2-33.5[facility] HospitalComment on above:Performed By: #### FLUABA #### [address] [place] [address] Commercial Real Estate Attorney: TIFFANY SánchezC (RBC) [Mass/Vol]31.0 g/fDFdbtkv86.4-34.8[facility] HospitalComment on above:Performed By: #### FLUABA #### [address] [place] [address] Commercial Real Estate Attorney: JACKY SánchezCV (RBC) [Entitic vol]80.7 fLLow82.6-102.9[facility] HospitalComment on above:Performed By: #### FLUABA #### [address] [place] [address] Commercial Real Estate Attorney: PRITESH Sánchez Automated0.2 per [address] HospitalComment on above:Performed By: #### FLUABA #### [address] [place], [place] [id number] Commercial Real Estate Attorney: Vani Sánchez mean volume (Bld) [Entitic vol]10.0 fL Normal8.1-13.5[facility] HospitalComment on above:Performed By: #### FLUABA #### [address] [place] [address] Commercial Real Estate Attorney: Mojgan Sánchez (Bld) [#/Vol]349 10*3/kBRqkzbk368-[address] [facility] HospitalComment on above:Performed By: #### FLUABA #### [address] [place] [address] Commercial Real Estate Attorney: ALLYSON Sánchez (Bld) [#/Vol]3.52 10*6/uLLow3.95-5.11[facility] HospitalComment on above:Performed By: #### FLUABA #### [address] [place], [place] [id number] Commercial Real Estate Attorney: GALDINO Sánchez (Bld) [#/Vol]8.1 10*3/uLNormal4.5-13.5[facility] HospitalComment on above:Performed By: #### FLUABA #### [address] [place] [address] Commercial Real Estate Attorney: Jose Valero MDComp Metabolic Profon 96-23-9010Oyekiyk [Mass/Vol] 3.5 g/dLNormal3.5-5.2[facility] HospitalComment on above:Performed By: #### FLUABA #### [address] [place] [address] Commercial Real Estate Attorney: Jose Valero MDAlbumin/Glob Ratio1.0Ptxvmm5.0-2.5[facility] HospitalComment on above:Performed By: #### FLUABA #### [address] [place] [address] Commercial Real Estate Attorney: Dex Sánchezkaline Ywmk799 U/HXqyn99-177SbemhAvita Health System Ontario HospitalComment on above:Performed By: #### FLUABA #### [address] [place] [address] Commercial Real Estate Attorney: Jose Valero MDALT [Catalytic activity/Vol]12 U/IUplfil15-99AcbnwAvita Health System Ontario HospitalComment on above:Performed By: #### FLUABA #### [address] [place] [address] Commercial Real Estate Attorney: Jose Valero MDAnijennifer gap [Moles/Vol]13 mmol/LNormal9-16[facility] HospitalComment on above:Performed By: #### FLUABA #### [address] [place] [address] Commercial Real Estate Attorney: Jose Valero MDAST [Catalytic activity/Vol]16 U/AKuxtrv45-18HiomsAvita Health System Ontario HospitalComment on above:Performed By: #### FLUABA #### [address] [place] [address] Commercial Real Estate Attorney: Jose Valero MDBilirubin [Mass/Vol]0.2 mg/dLNormal0.00-1.20[facility] HospitalComment on above:Performed By: #### FLUABA #### [address] [place] [address] Commercial Real Estate Attorney: Jose Valero MDBUN/CRE Ytqcu73Yolhhq0-07Yyuub [facility] Comment on above:Performed By: #### FLUABA #### [address] [place], [facility]83 Commercial Real Estate Attorney: SHARAN Sánchezalcium [Mass/Vol]9.2 mg/dLNormal8.6-10.4[facility] HospitalComment on above:Performed By: #### FLUABA #### [address] [place], [place] [phone] Commercial Real Estate Attorney: SHARAN Sánchezhloride [Moles/Vol]103 mmol/BZmgypp86-657BiuzhAvita Health System Ontario HospitalComment on above:Performed By: #### FLUABA #### [address] [place] [address] Commercial Real Estate Attorney: Jose Valero MDCO2 [Moles/Vol]24 mmol/CXudpbd38-25GhlczAvita Health System Ontario HospitalComment on above:Performed By: #### FLUABA #### [address] [place], [place] [phone] Commercial Real Estate Attorney: SHARAN Sánchezreatinine [Mass/Vol]0.6 mg/dLNormal0.50-0.90[facility] HospitalComment on above:Performed By: #### FLUABA #### [address] [place], [facility]83 Commercial Real Estate Attorney: Jose Valero MDGFR/1.73 sq M.predicted among non-blacks MDRD (S/P/Bld) [Vol rate/Area]mL/min/{1.73_m2}Normal>60MerUniversity Hospitals Ahuja Medical Center HospitalComment on above:Result Comment: These results are not intended for use in patients <18 years of age. eGFR results are calculated without a race factor using the 2020 CKD-EPI equation. Careful clinical correlation is recommended, particularly when comparing to results calculated using previous equations. The CKD-EPI equation is less accurate in patients with extremes of muscle mass, extra-renal metabolism of creatine, excessive creatine ingestion, or following therapy that affects renal tubular secretion.Performed By: #### FLUABA #### [address] [place] [id number] Commercial Real Estate Attorney: Jose Valero MDGlucose [Mass/Vol]80 mg/xBMczqla19-38Ghfnu [facility] HospitalComment on above:Performed By: #### FLUABA #### [address] [place] [address] Commercial Real Estate Attorney: HENNY Sánchezotassium [Moles/Vol]4.2 mmol/LNormal3.7-5.3MWooster Community Hospital HospitalComment on above:Performed By: #### FLUABA #### [address] [place] [address] Commercial Real Estate Attorney: Jose Valero MDProtein [Mass/Vol]6.5 g/dLLow6.6-8.7[facility] HospitalComment on above:Performed By: #### FLUABA #### [address] [place] [address] Commercial Real Estate Attorney: Jose Valero MDSodium [Moles/Vol]140 mmol/RXecxnn558-803Iptnb [facility] HospitalComment on above:Performed By: #### FLUABA #### [address] [place] [address] Commercial Real Estate Attorney: Jose Valero MDUrea nitrogen [Mass/Vol]6 mg/dLNormal6-20MerUniversity Hospitals Ahuja [facility] Center HospitalComment on above:Performed By: #### FLUABA #### [address] [place] [facility]42 Commercial Real Estate Attorney: Jose Valero, [facility] Centerensive Metabolic Panelon [phone] [Mass/Vol]3.5 g/dL3.5 - 5.2 g/dLBon SecAtlantic Healthcarey HealthAlbumin/Globulin [Mass ratio]1.2 {ratio}1.0 - 2.5[facility] Bio[facility] HealthALP [Catalytic activity/Vol] 139 U/LHigh35 - 104 U/LBon Secours Bioceptivey HealthALT [Catalytic activity/Vol]12 U/L10 - 35 U/LBon Secours Bioceptivey HealthAnion gap [Moles/Vol]13 mmol/L9 - 16 mmol/LBon Secours Bioceptivey HealthAST [Catalytic activity/Vol]16 U/L10 - 35 U/LBon Secours Bioceptivey HealthBilirubin [Mass/Vol]0.2 mg/dL0.00 - 1.20 mg/dLBon [facility]ours PayDragon HealthCalcium [Mass/Vol]9.2 mg/dL8.6 - 10.4 mg/dLBon [facility] Chloride [Moles/Vol]103 mmol/L98 - 107 mmol/LBon [facility]ours PayDragon HealthCO2 [Moles/Vol]24 mmol/L20 - 31 mmol/LBon [facility]ours PayDragon HealthCreatinine [Mass/Vol] 0.6 mg/dL0.50 - 0.90 mg/dLBon Secours PayDragon HealthEst, Glom Filt Rate- PINFBon SecOilAndGasRecruiterComment on above: These results are not intended for use in patients <18 years of age. eGFR results are calculated without a race factor using the 2020 CKD-EPI equation. Careful clinical correlation is recommended, particularly when comparing to results calculated using previous equations. The CKD-EPI equation is less accurate in patients with extremes of muscle mass, extra-renal metabolism of creatine, excessive creatine ingestion, or following therapy that affects renal tubular secretion. Glucose [Mass/Vol]80 mg/dL74 - 99 mg/dLBon KeTechy HealthInterpretation and review of laboratory resultsAbnormalBon Secours Bioceptivey HealthPotassium [Moles/Vol]4.2 mmol/L3.7 - 5.3 mmol/LBon Secours Bioceptivey HealthProtein [Mass/Vol] 6.5 g/dLLow6.6 - 8.7 g/dLBon Community Memorial HospitalSodium [Moles/Vol]140 mmol/L136 - 145 mmol/LBon Community Memorial HospitalUrea nitrogen [Mass/Vol]6 mg/dL6 - 20 mg/dL [facility] HospitalUrea nitrogen/Creatinine [Mass ratio]10 mg/mg9 - 20Bon [facility] HealthProtein / creatinine ratio, urineon 16-35-8413Ygavbroqia (U) [Mass/Vol]42.5 mg/dL28.0 - 217.0 mg/dLBon [facility] Memorial HospitalInterpretation and review of laboratory resultsAbnormalBon [facility]ours Richmond Community HospitalProtein (U) [Mass/Vol]10 mg/dLBHealthSouth Medical CenterComment on above:No normal range established.Urine Total Protein Creatinine Ratio0.27Oemg0.00 - 0.20 [facility] HospitalProtein,Tot,Alpha Uron 08-07-2024 Creatinine [Mass/Vol]42.5 mg/iPCcxzom28.0-217.0[facility] HospitalComment on above:Performed By: #### FLUABA #### [address] [place] [address] Commercial Real Estate Attorney: Jose Valero MDTotess Prot. Conc.10 mg/dLFirelands Regional Medical Center Comment on above:Result Comment: No normal range established.Performed By: #### FLUABA #### [address] [place] [address] Commercial Real Estate Attorney: Jose Valero MDTP/Cre Ratio0.45Ngec7.00-0.20[facility] Comment on above:Performed By: #### FLUABA #### [address] [place] [address] Commercial Real Estate Attorney: Jose Valero [facility] 44-66-7733Ioixywsfzpb distribution width (RBC) [Ratio]14.2 %11.8 - 14.4 %[facility] HospitalHematocrit (Bld) [Volume fraction]27.1 %Low36.3 - 47.1 %[facility] HospitalHemoglobin (Bld) [Mass/Vol]8.9 g/dLLow11.9 - 15.1 g/dLBon Community Memorial HospitalInterpretation and review of laboratory resultsAbnormalBon [facility] YoungstownH (RBC) [Entitic mass]25.6 pg25.2 - 33.5 pgBon [facility] YoungstownHC (RBC) [Mass/Vol]32.8 g/dL 28.4 - 34.8 g/dLBon [facility] - YoungstownV (RBC) [Entitic vol]77.9 fLLow82.6 - 102.9 fLBon Secours Richmond Community HospitalNucleated RBC/100 WBC (Bld) [Ratio]0 %0.0 per 100 WBCBon Secours Richmond Community HospitalPlatelet mean volume (Bld) [Entitic vol]10.6 fL 8.1 - 13.5 fLBon Secours Richmond Community HospitalPlatelets (Bld) [#/Vol]294 10*3/uLBon Secours Richmond Community HospitalRBC (Bld) [#/Vol]3.48 10*6/uLLow3.95 - 5.11 m/uLBon Secours Richmond Community HospitalWBC other (Bld) [#/Vol]9.4Bon [facility] Regional HospitalErythrocyte distribution width (RBC) [Ratio]14.2 %Esmqps16.8-14.4[facility] Hospitalcy [facility]c Specialty HospitalComment on above:Performed By: #### CBC, CP #### [facility] [address] [place], [place] [id number] Commercial Real Estate Attorney: Devin Mera MDHematocrit (Bld) [Volume fraction]27.1 %Low 36.3-47.1MercKaiser HospitalComment on above:Performed By: #### CBC, CP #### [facility] [address] [place], [place] [address] Commercial Real Estate Attorney: Devin Mera MDHemoglobin (Bld) [Mass/Vol]8.9 g/dLLow11.9-15.1 [facility] SouthComment on above:Performed By: #### CBC, CP #### [place] [address] Commercial Real Estate Attorney: JACKY OvertonCH (RBC) [Entitic mass]25.6 tzFqwbyg27.2-33.5 [facility] SouthComment on above:Performed By: #### CBC, CP #### [place] [address] Commercial Real Estate Attorney: JACKY OvertonCHC (RBC) [Mass/Vol]32.8 g/hRBzadxh10.4-34.8 [facility] SouthComment on above:Performed By: #### CBC, CP #### [place] [address] Commercial Real Estate Attorney: JACKY OvertonCV (RBC) [Entitic vol]77.9 fLLow82.6-102.9[facility] SouthComment on above:Performed By: #### CBC, CP #### [place] [address] Commercial Real Estate Attorney: PRITESH Overton Automated0.0 per 100 WBCNormal0.0[facility] SouthComment on above:Performed By: #### CBC, CP #### [place] [address] Commercial Real Estate Attorney: Bang Overtontelet mean volume (Bld) [Entitic vol]10.6 fL Normal8.1-13.5[facility] SouthComment on above:Performed By: #### CBC, CP #### [place] [address] Commercial Real Estate Attorney: Devin Mera MDPlatelets (Bld) [#/Vol]294 10*3/tCNqmfcz919-631 [facility] SouthComment on above:Performed By: #### CBC, CP #### [address] [address] Commercial Real Estate Attorney: CHELSIE OvertonBC ([facility]) [#/Vol]3.48 10*6/uLLow3.95-5.11[facility] SouthComment on above:Performed By: #### CBC, CP #### [address] [address] Commercial Real Estate Attorney: CHAVA Overton ([facility]) [#/Vol]9.4 10*3/uLNormal4.5-13.5[facility] SouthComment on above:Performed By: #### CBC, CP #### [address] [address] Commercial Real Estate Attorney: SHARAN [facility]toncentral [facility] center Metabolic Profon 34-06-5092Megftdd [Mass/Vol]3.3 g/dLLow3.5-5.2MProvidence Tarzana Medical CenterComment on above: Performed By: #### CBC, CP #### [address] [address] Commercial Real Estate Attorney: Devin Mera MDAlbumin/Glob Ratio1.3Zzsqvy0.0-2.5[facility] SouthComment on above:Performed By: #### CBC, CP #### [address] [address] Commercial Real Estate Attorney: Devin Mera MDAlkaline Tabq857 U/ATrls10-492PclviPremier Health [facility] Hospital SouthComment on above:Performed By: #### CBC, CP #### [address] [address] Commercial Real Estate Attorney: Devin Mera MDALT [Catalytic activity/Vol]11 U/NAmtdln07-85 [facility] SouthComment on above:Performed By: #### CBC, CP #### [address] [place] [address] Commercial Real Estate Attorney: Devin Mera MDAnion gap [Moles/Vol]11 mmol/LNormal9-16[facility] SouthComment on above:Performed By: #### CBC, CP #### [facility] [address] [place] [address] Commercial Real Estate Attorney: Devin Mera MDAST [Catalytic activity/Vol]22 U/BAvivpx25-87 [facility] SouthComment on above:Performed By: #### CBC, CP #### [facility] [address] [place] [address] Commercial Real Estate Attorney: Devin Mera MDBilirubin [Mass/Vol]0.2 mg/dLNormal0.0-1.2MProvidence Tarzana Medical CenterComment on above:Performed By: #### CBC, CP #### [facility] [address] [place] [address] Commercial Real Estate Attorney: Devin Mera MDCalcium [Mass/Vol]9.1 mg/dLNormal8.6-10.4[facility] SouthComment on above:Performed By: #### CBC, CP #### [facility] [address] [place] [address] Commercial Real Estate Attorney: Devin Mera MDChloride [Moles/Vol]106 mmol/UPweeva35-465NwhzfPremier Health [facility] Hospital SouthComment on above:Performed By: #### CBC, CP #### [facility] [address] [place] [address] Commercial Real Estate Attorney: Devin Mera MDCO2 [Moles/Vol]21 mmol/XYtjhps86-24QfnpiPremier Health [facility] Hospital SouthComment on above:Performed By: #### CBC, CP #### [facility] [address] [place] [address] Commercial Real Estate Attorney: SHARAN Overtonreatinine [Mass/Vol]0.6 mg/dLNormal0.6-0.9[facility] SouthComment on above:Performed By: #### CBC, CP #### [facility] [employer] [address] [place] [address] Commercial Real Estate Attorney: Devin Mera MDGFR/1.73 sq M.predicted among non-blacks MDRD (S/P/Bld) [Vol rate/Area]mL/min/{1.73_m2}Normal>60[facility] Hospital SouthComment on above:Result Comment: These results are not intended for use in patients <18 years of age. eGFR results are calculated without a race factor using the 2020 CKD-EPI equation. Careful clinical correlation is recommended, particularly when comparing to results calculated using previous equations. The CKD-EPI equation is less accurate in patients with extremes of muscle mass, extra-renal metabolism of creatine, excessive creatine ingestion, or following therapy that affects renal tubular secretion.Performed By: #### CBC, CP #### [facility] [employer] [address] [place] [address] Commercial Real Estate Attorney: Devin Mera MDGlucose [Mass/Vol]101 mg/zAJorx56-33CpojxProvidence Tarzana Medical CenterComment on above:Performed By: #### CBC, CP #### [facility] [employer] [address] [place] [address] Commercial Real Estate Attorney: HENNY Overtonotassium [Moles/Vol]3.9 mmol/LNormal3.7-5.3 [facility] SouthComment on above:Performed By: #### CBC, CP #### [facility] [employer] [address] [place] [address] Commercial Real Estate Attorney: Devin Mear MDProtein [Mass/Vol]6.1 g/dLLow6.6-8.7Prem[facility] Hospital SouthComment on above:Performed By: #### CBC, CP #### [facility] [employer] [address] [place] [address] Commercial Real Estate Attorney: Devin Mera MDSodium [Moles/Vol]138 mmol/XGskxbz907-013ZdutqPremier Health Miami Valley Hospital SouthComment on above:Performed By: #### CBC, CP #### [facility] [address] [place] [address] Commercial Real Estate Attorney: Devin Mera MDUrea nitrogen [Mass/Vol]9 mg/dLNormal6-20[facility] SouthComment on above:Performed By: #### CBC, CP #### [facility] [address] [place] [address] Commercial Real Estate Attorney: Devin Mera [facility] [place] CITYomprehensive Metabolic Panelon 08-04-2024 Albumin [Mass/Vol]3.3 g/dLLow3.5 - 5.2 g/dLBon [facility] Albumin/Globulin [Mass ratio]1.2 {ratio}1.0 - 2.5Bon SecWillapa Harbor Hospitaly HealthALP [Catalytic activity/Vol]156 U/LHigh35 - 104 U/LBon [facility] HospitalFlyfit HealthALT [Catalytic activity/Vol]11 U/L10 - 35 U/LBon SecWillapa Harbor Hospitaly HealthAnion gap [Moles/Vol]11 mmol/L9 - 16 mmol/LBon SecWillapa Harbor Hospitaly HealthAST [Catalytic activity/Vol]22 U/L10 - 35 U/LBon SecWillapa Harbor Hospitaly HealthBilirubin [Mass/Vol]0.2 mg/dL0.0 - 1.2 mg/dLBon SecWillapa Harbor Hospitaly HealthCalcium [Mass/Vol]9.1 mg/dL8.6 - 10.4 mg/dLBon [facility] Hospitaly HealthChloride [Moles/Vol]106 mmol/L98 - 107 mmol/L Bon SecWill[facility] Hospitaly HealthCO2 [Moles/Vol]21 mmol/L20 - 31 mmol/LBon SecWillapa Harbor Hospitaly HealthCreatinine [Mass/Vol]0.6 mg/dL0.6 - 0.9 mg/dLBon [facility] Hospitaly HealthEst, Glom Filt Rate- PINFBon Community Memorial HospitalComment on above: These results are not intended for use in patients <18 years of age. eGFR results are calculated without a race factor using the 2020 CKD-EPI equation. Careful clinical correlation is recommended, particularly when comparing to results calculated using previous equations. The CKD-EPI equation is less accurate in patients with extremes of muscle mass, extra-renal metabolism of creatine, excessive creatine ingestion, or following therapy that affects renal tubular secretion. Glucose [Mass/Vol]101 mg/uMIlle72 - 99 mg/dLBon [facility] Interpretation and review of laboratory resultsAbnormalBon [facility] Potassium [Moles/Vol]3.9 mmol/L3.7 - 5.3 mmol/LBon [facility] NetworkProtein [Mass/Vol]6.1 g/dLLow6.6 - 8.7 g/dLBon [facility] NetworkSodium [Moles/Vol]138 mmol/L136 - 145 mmol/LBon [facility] NetworkUrea nitrogen [Mass/Vol]9 mg/dL6 - 20 mg/dLBon YabiduEKG 12 LeadOrdered By: Abel Manzano on [id number] [id number] Orthopedic Technologies Work Phone: P Ndep98ykszxkkDnbNOBLE [employer] Work Phone: P-R [id number] [email or web address] Phone: Q-T [id number] [email or web address] Phone: QRS [id number] [email or web address] Phone: QTc Calculation (Bazett)441 [email or web address] Phone: R Gewc93dsxzkawCwlArea [employer] Phone: T Keiw93kaeaknbUmyArea 52 [employer] Phone: Ventricular Afek172GPCDkdKaprica [employer] Phone: Bon [employer] Phone: EKG 12 Leadon [id number] sinus rhythm Normal ECG No previous ECGs availableALLEGHENY HEALTH NETWORKAbel Villarreal MD - 08/04/2024 Normal sinus rhythm Normal ECG No previous ECGs available [facility] HospitalMicroscopic Urinalysison [id number] LM Ql (Urine sed)NoneNoneBon Community Memorial HospitalCasts LM.LPF (Urine sed) [#/Area]0 TO 2 HYALINE Reference range defined for non-centrifuged specimen.[facility] HospitalEpithelial cells LM.HPF (Urine sed) [#/Area]2 TO 5Bon [facility] RBC LM.HPF (Urine sed) [#/Area]50 TO 100Bon [facility] HospitalComment on above:Reference range defined for non-centrifuged specimen.WBC LM.HPF (Urine sed) [#/Area]5 TO 10Bon [facility]wood Regional HospitalProtein / creatinine ratio, urineon 20-50-0292Wvepxrfwto (U) [Mass/Vol]29.3 mg/dL28.0 - 217.0 mg/dLBMary Washington Hospital on above:Reference range defined for 1st morning urineInterpretation and review of laboratory resultsAbnormalBon [facility] Richmond Community HospitalProtein (U) [Mass/Vol]8 mg/dLBon Community Memorial HospitalCommunson healthcare manistee hospital on above:No normal range established.Urine Total Protein Creatinine Ratio0.27 High0.00 - 0.20Bon [facility]-Deadwood Regional HospitalProtein,Tot,Alpha Uron 81-34-4029Hlyxkkasba [Mass/Vol]29.3 mg/aQJjkkof10.0-217.0[facility] Hospital SouthComment on above:Result Comment: Reference range defined for 1st morning urinePerformed By: #### URTPRT #### [employer] [address] [place] [address] Commercial Real Estate Attorney: Estrella Overton Prot. Conc.8 mg/dLNormalPremier Health Miami Valley Hospital SouthCommunson healthcare manistee hospital on above:Result Comment: No normal range established. Performed By: #### URTPRT #### [facility] [address] [place] [id number] Commercial Real Estate Attorney: Devin Mera MDTP/Cre Ratio0.19Jvzj8.00-0.20[facility] Hospital SouthComment on above:Performed By: #### URTPRT #### [facility] [address] [place] [address] Commercial Real Estate Attorney: MARITO Overton w/Reflex Cultureon 96-93-1494Svyiydcjy, SemiQt,UrNegativeNormalNEGPremier Health Miami Valley Hospital SouthComment on above: Performed By: #### UAX, UMICAO #### [facility] [address] [place] [address] Commercial Real Estate Attorney: Urszula Overton UrineLARGEAbnormalHarrison Community HospitalComment on above:Performed By: #### UAX, UMICAO #### [facility] [address] [place] [address] Commercial Real Estate Attorney: SHARAN Overtonlarity (U)ClearNormalCLEARMerFairchild Medical CenterComment on above:Performed By: #### UAX, UMICAO #### [facility] [address] [place] [address] Commercial Real Estate Attorney: SHARAN Overtonolor (U)YellowNormalYELMerFairchild Medical CenterComment on above:Performed By: #### UAX, UMICAO #### [facility] [address] [place] [address] Commercial Real Estate Attorney: Devin Mera MDGlucose Ql (U)NegativeNormalNEGPremier Health Miami Valley Hospital SouthComment on above:Performed By: #### UAX, UMICAO #### [facility] [address] [place] [address] Commercial Real Estate Attorney: Devin Mera MDKetones Ql (U)NegativeNormalNEGPremier Health Miami Valley Hospital SouthComment on above:Performed By: #### UAX, UMICAO #### [facility] [address] [place] [address] Commercial Real Estate Attorney: Devin Mera MDLeukocyte esterase Test strip Ql (U)TRACE AbnormalNEGPremier Health Miami Valley Hospital SouthComment on above:Performed By: #### KELVIN GRULLON #### [facility] [address] [place] [address] Commercial Real Estate Attorney: Scott Overtontrite,UrNegativeNormalNEGPremier Health Miami Valley Hospital SouthComment on above:Performed By: #### MITCHEL UMSAMAN #### [facility] [address] [place] [address] Commercial Real Estate Attorney: HENNY Overton,Ur7.8Zdyyrr4.0-8.0[facility] Hospital SouthComment on above:Performed By: #### KELVIN GRULLON #### [facility] [address] [place] [address] Commercial Real Estate Attorney: HENNY Overtonrotein Ql (U)NegativeNormalNEGPremier Health Miami Valley Hospital SouthComment on above:Performed By: #### KELVIN GRULLON #### [facility] [address] [place] [address] Commercial Real Estate Attorney: JORDEN Overtonpec. Wilson,Ur1.581Imgbkl4.005-1.030[facility] Hospital SouthComment on above:Performed By: #### KELVIN GRULLON #### [facility] [address] [place] [address] Commercial Real Estate Attorney: Devin Mera MDUrobilinogen,UrNormalNormal0.0-1.0[facility] SouthComment on above:Performed By: #### MITCHEL UMICANoy #### [facility] [address] [place] [address] Commercial Real Estate Attorney: Devin Mrea MDUrinalysis with Reflex to Cultureon 08-04-2024 Bilirubin Ql (U)NegativeNEGATIVEBon [facility] HealthClarity (U)ClearClearBon SecThibodaux Regional Medical Center HealthColor (U)YellowYellowBon SecVeterans Health AdministrationGlucose Test strip (U) [Mass/Vol]NegativeNEGATIVE mg/dLBon SecVeterans Health AdministrationHemoglobin Auto test strip Ql (U)LARGEAbnormalNEGATIVEBon [facility] Interpretation and review of laboratory resultsAbnormalBon [facility] Ketones (U) [Mass/Vol]NegativeNEGATIVE mg/dLBon SecVeterans Health AdministrationLeukocyte esterase Test strip Ql (U)TRACEAbnormalNEGATIVEBon SecThibodaux [facility] Center HealthNitrite Ql (U)NegativeNEGATIVEBon SecThibodaux Regional Medical Center HealthpH (U)7 [pH]5.0 - 8.0Bon [facility] HealthProtein (U) [Mass/Vol]NegativeNEGATIVE mg/dLBon [facility] Health Specific gravity (U) [Rel density]1.0061.005 - 1.030[facility] Urobilinogen Qn (U)Normal0.0 - 1.0 EU/dLBon SecFroedtert West Bend HospitalUrinalysis,Microon 92-66-5121ZajvmkjlFvipOzqshnWUALRfeyd St. Vincent Medical CenterComment on above:Performed By: #### KELVIN GRULLON #### [facility] [employer] [address] [place] [address] Commercial Real Estate Attorney: SHARAN Overtonasts0 TO 2 HYALINENormal0-8Prem[facility] Hospital SouthComment on above:Result Comment: Reference range defined for non- centrifuged specimen.Performed By: #### UAX UMICAO #### [facility] [address] [place] [address] Commercial Real Estate Attorney: Devin Mera MDEpithelial cells LM Ql (Urine sed)2 TO 5Normal 0-5[facility] SouthComment on above:Performed By: #### UAX, UMICAO #### [facility] [employer] [address] [place], [place] [phone] Commercial Real Estate Attorney: Tami Overton RBC's50 TO 586Zwipiz8-7NycjePremier Health Miami Valley Hospital SouthComment on above:Result Comment: Reference range defined for non- centrifuged specimen.Performed By: #### KELVIN GRULLON #### [facility] [address] [place] [address] Commercial Real Estate Attorney: Tami Overton WBC's5 TO 19Zaminl6-2AiuqmPremier Health Miami Valley Hospital SouthComment on above:Performed By: #### KELVIN GRULLON #### [facility] [address] [place], [place] [phone] Commercial Real Estate Attorney: Hammad Overton 57-07-7613Pfcwirljfqs distribution width (RBC) [Ratio]13.9 %11.8 - 14.4 %[facility] HospitalHematocrit (Bld) [Volume fraction]30.5 %Low36.3 - 47.1 %[facility] HospitalHemoglobin (Bld) [Mass/Vol]10 g/dLLow11.9 - 15.1 g/dLBon Community Memorial HospitalInterpretation and review of laboratory resultsAbnormalBon [facility] YoungstownH (RBC) [Entitic mass]25.6 pg25.2 - 33.5 pgRiverside Regional Medical CenterHC (RBC) [Mass/Vol]32.8 g/dL 28.4 - 34.8 g/dLBon [facility] YoungstownV (RBC) [Entitic vol]78.2 fLLow82.6 - 102.9 fLBon [facility]ours Richmond Community HospitalNucleated RBC/100 WBC (Bld) [Ratio]0 %0.0 per 100 WBCBon Community Memorial HospitalPlatelet mean volume (Bld) [Entitic vol]10.9 fL 8.1 - 13.5 fLBon Secours Richmond Community HospitalPlatelets (Bld) [#/Vol]266 10*3/uLBon [facility] Memorial HospitalRBC (Bld) [#/Vol]3.9 10*6/uLLow3.95 - 5.11 m/uLBon Community Memorial HospitalWBC other (Bld) [#/Vol]15.3HighBon [facility] HealthBon SecVeterans Health AdministrationErythrocyte distribution width (RBC) [Ratio]13.9 %Wmzgeg24.8-14.[address] [facility] HospitalComment on above:Performed By: #### PRTYS #### [address] [place], [place] [phone] Commercial Real Estate Attorney: Jose Valero MDHematocrit (Bld) [Volume fraction]30.5 %Low 36.3-47.1MWooster Community Hospital HospitalComment on above:Performed By: #### PRTYS #### [address] [place], [place] [phone] Commercial Real Estate Attorney: Jose Valero MDHemoglobin (Bld) [Mass/Vol]10.0 g/dLLow11.9-15.[address] [facility] HospitalComment on above:Performed By: #### PRTYS #### [address] [place], [facility]83 Commercial Real Estate Attorney: JACKY SánchezCH (RBC) [Entitic mass]25.6 vgYajogt33.2-33.[address] [facility] HospitalComment on above:Performed By: #### PRTYS #### [address] [place], [place] [phone] Commercial Real Estate Attorney: TIFFANY SánchezC (RBC) [Mass/Vol]32.8 g/uOLttvra50.4-34.8[facility] HospitalComment on above:Performed By: #### PRTYS #### [address] [place] [address] Commercial Real Estate Attorney: JACKY SánchezCV (RBC) [Entitic vol]78.2 fLLow82.6-102.9[facility] HospitalComment on above:Performed By: #### PRTYS #### [address] [place] [address] Commercial Real Estate Attorney: PRITESH Sánchez Automated0.0 per 100 WBCNormal0.0[facility] HospitalComment on above:Performed By: #### PRTYS #### [address] [place] [address] Commercial Real Estate Attorney: Vani Sánchez mean volume (Bld) [Entitic vol]10.9 fL Normal8.1-13.5[facility] HospitalComment on above:Performed By: #### PRTYS #### [address] [place] [address] Commercial Real Estate Attorney: Mojgan Sánchez (Bld) [#/Vol]266 10*3/nWAuyhpd923-857 [facility] HospitalComment on above:Performed By: #### PRTYS #### [address] [place] [address] Commercial Real Estate Attorney: ALLYSON Sánchez (Bld) [#/Vol]3.90 10*6/uLLow3.95-5.11[facility] HospitalComment on above:Performed By: #### PRTYS #### [address] [place] [address] Commercial Real Estate Attorney: GALDINO Sánchez (Bld) [#/Vol]15.3 10*3/uLHigh4.5-13.5[facility] HospitalComment on above:Performed By: #### PRTYS #### [address] [place] [address] Commercial Real Estate Attorney: MONIQUE Sánchez with Auto Differentialon 17-55-2862Klbzfakso (Bld) [#/Vol]0.05 10*3/uLBon Secours Brown Memorial HospitalBasophils/100 WBC (Bld)0 %0 - 2 %[facility] HospitalEosinophils (Bld) [#/Vol]0.23 10*3/uLBon [facility]ours [facility] Centery HealthEosinophils/100 WBC (Bld)2 %1 - 4 %[facility] HospitalErythrocyte distribution width (RBC) [Ratio]14 %11.8 - 14.4 %[facility] Hematocrit (Bld) [Volume fraction]32 %Low36.3 - 47.1 %[facility] Hemoglobin (Bld) [Mass/Vol]10.3 g/dLLow11.9 - 15.1 g/dLBon [facility] Immature granulocytes (Bld) [#/Vol]0.09 10*3/uLBon Community Memorial HospitalImmature granulocytes/100 WBC (Bld)1 %Hkkz9WsdBon [facility] Community HospitalInterpretation and review of laboratory resultsAbnormalBon [facility]ours Richmond Community HospitalLymphocytes/100 WBC (Bld)15 %Low25 - 45 %[facility] HospitalLymphocytes/100 WBC (Bld)1.77 %[facility] CenterH (RBC) [Entitic mass]25.4 pg25.2 - 33.5 pgBon Secours Richmond Community HospitalMCHC (RBC) [Mass/Vol]32.2 g/dL28.4 - 34.8 g/dLBon Community Memorial HospitalMCV (RBC) [Entitic vol]78.8 fLLow82.6 - 102.9 fLBon [facility]ours [facility] Monocytes/100 WBC (Bld)7 %2 - 8 %[facility] HospitalMonocytes/100 WBC (Bld) 0.86 %[facility] HospitalNeutrophils/100 WBC (Bld)75 %High34 - 64 %[facility] HospitalNucleated RBC/100 WBC (Bld) [Ratio]0 %0.0 per 100 WBCBon Secours Richmond Community HospitalPlatelet mean volume (Bld) [Entitic vol]10.7 fL8.1 - 13.5 fL [facility] HospitalPlatelets (Bld) [#/Vol]230 10*3/uLBon [facility] Memorial HospitalRBC (Bld) [#/Vol]4.06 10*6/uL3.95 - 5.11 m/uLBon [facility] Segmented neutrophils/100 WBC (Bld)8.93 %[facility] HospitalWBC other (Bld) [#/Vol]11.9Bon [facility] with Diffon 70-65-7448Txw. Basophil0.05 k/uLNormal0.00-0.20MerUniversity Hospitals Ahuja Medical Center HospitalComment on above:Performed By: #### FLUABA #### [address] [place] [address] Commercial Real Estate Attorney: Lance Sánchez.Imm.Granulocyte0.09 k/uLNormal0.00-0.30MerUniversity Hospitals Ahuja Medical Center HospitalComment on above:Performed By: #### FLUABA #### [address] [place] [address] Commercial Real Estate Attorney: Lance Sánchez.Neutrophil (Seg)8.93 k/uLHigh1.80-8.00MerUniversity Hospitals Ahuja Medical Center HospitalComment on above:Performed By: #### FLUABA #### [address] [place] [address] Commercial Real Estate Attorney: Jose Valero MDBasophils/100 WBC (Bld)0 %Normal0-2[facility] HospitalComment on above:Performed By: #### FLUABA #### [address] [place] [address] Commercial Real Estate Attorney: Jose Valero MDEosinophils (Bld) [#/Vol]0.23 10*3/uLNormal 0.00-0.44MerUniversity Hospitals Ahuja Medical Center HospitalComment on above:Performed By: #### FLUABA #### [address] [place] [phone] Commercial Real Estate Attorney: GIULIANA Sánchezosinophils/100 WBC (Bld)2 %Normal1-4MerUniversity Hospitals Ahuja Medical Center HospitalComment on above:Performed By: #### FLUABA #### [address] [place] [facility]83 Commercial Real Estate Attorney: Jose Valero MDErythrocyte distribution width (RBC) [Ratio]14.0 % Vcuimi76.8-14.4[facility] HospitalComment on above:Performed By: #### FLUABA #### [address] [place] [address] Commercial Real Estate Attorney: Jose Valero MDHematocrit (Bld) [Volume fraction]32.0 %Low 36.3-47.1MWooster Community Hospital HospitalComment on above:Performed By: #### FLUABA #### [address] [place] [address] Commercial Real Estate Attorney: Jose Valero MDHemoglobin (Bld) [Mass/Vol]10.3 g/dLLow11.9-15.1 [facility] HospitalComment on above:Performed By: #### FLUABA #### [address] [place] [address] Commercial Real Estate Attorney: Jose Valero MDImmature granulocytes/100 WBC (Bld)1 %Laia1UnfcxAvita Health System Ontario HospitalComment on above:Performed By: #### FLUABA #### [address] [place], [place] [address] Commercial Real Estate Attorney: Jose Valero MDLymphocytes (Bld) [#/Vol]1.77 10*3/uLNormal 1.20-5.20[facility] HospitalComment on above:Performed By: #### FLUABA #### [address] [place], [facility]83 Commercial Real Estate Attorney: Nas Sánchezmphocytes/100 WBC (Bld)15 %Axe42-22QnuioAvita Health System Ontario HospitalComment on above:Performed By: #### FLUABA #### [address] [place], [facility]83 Commercial Real Estate Attorney: JACKY SánchezCH (RBC) [Entitic mass]25.4 ynLqvhrg34.2-33.5 [facility] HospitalComment on above:Performed By: #### FLUABA #### [address] [place], [place] [id number] Commercial Real Estate Attorney: JACKY SánchezCHC (RBC) [Mass/Vol]32.2 g/hFCttouz87.4-34.8[facility] HospitalComment on above:Performed By: #### FLUABA #### [address] [place] [address] Commercial Real Estate Attorney: JACKY SánchezCV (RBC) [Entitic vol]78.8 fLLow82.6-102.9[facility] HospitalComment on above:Performed By: #### FLUABA #### [address] [place] [address] Commercial Real Estate Attorney: JACKY Sánchezonocytes (Bld) [#/Vol]0.86 10*3/uLNormal0.10-1.40 [facility] HospitalComment on above:Performed By: #### FLUABA #### [address] [place] [address] Commercial Real Estate Attorney: JACKY Sánchezonocytes/100 WBC (Bld)7 %Normal2-8[facility] HospitalComment on above:Performed By: #### FLUABA #### [address] [place] [address] Commercial Real Estate Attorney: Jose Valero MDNeutrophil (Seg)75 %Fbol34-51HkwghAvita Health System Ontario Hospital Comment on above:Performed By: #### FLUABA #### [address] [place] [address] Commercial Real Estate Attorney: Jose Valero MDNRBC Automated0.0 per 100 WBCNormal0.0[facility] HospitalComment on above:Performed By: #### FLUABA #### [address] [place] [address] Commercial Real Estate Attorney: Vani Sánchez mean volume (Bld) [Entitic vol]10.7 fL Normal8.1-13.5[facility] HospitalComment on above:Performed By: #### FLUABA #### [address] [place] [address] Commercial Real Estate Attorney: Mojgan Sánchez (Bld) [#/Vol]230 10*3/lWEsxfjk297-[address] [facility] HospitalComment on above:Performed By: #### FLUABA #### [address] [place] [address] Commercial Real Estate Attorney: CHELSIE SánchezBC (Bld) [#/Vol]4.06 10*6/uLNormal3.95-5.11[facility] HospitalComment on above:Performed By: #### FLUABA #### [address] [place] [address] Commercial Real Estate Attorney: CHAVA SánchezBC (Bld) [#/Vol]11.9 10*3/uLNormal4.5-13.5[facility] HospitalComment on above:Performed By: #### FLUABA #### [address] [place] [address] Commercial Real Estate Attorney: SHARAN Sánchezomp Metabolic Profon 03-77-1717Qjiqswp [Mass/Vol] 3.6 g/dLNormal3.5-5.2MercMercy Health [facility] Hospital HospitalComment on above:Performed By: #### PRENAT #### [address] [id number] Commercial Real Estate Attorney: Devin Mera MD [address] [place] [address] Commercial Real Estate Attorney: Jose Valero MDAlbumin/Glob Ratio1.9Wqhqak8.0-2.5[facility] HospitalComment on above:Performed By: #### PRENAT #### [facility] [place] [address] Commercial Real Estate Attorney: Devin Mera MD [address] [place] [phone] Commercial Real Estate Attorney: Blaine Sánchezline Dutx243 U/GPfis26-444BnrqrAvita Health System Ontario HospitalComment on above:Performed By: #### PRENAT #### [address] [address] Commercial Real Estate Attorney: Devin Mera MD [address] [place] [phone] Commercial Real Estate Attorney: Jose Valero MDALT [Catalytic activity/Vol]9 U/PCpv70-25Agzpy Tiffin HospitalComment on above:Performed By: #### PRENAT #### [address] [address] Commercial Real Estate Attorney: Devin Mera MD [address] [place] [address] Commercial Real Estate Attorney: Jorge Sánchez gap [Moles/Vol]15 mmol/LNormal9-16[facility] HospitalComment on above:Performed By: #### PRENAT #### [address] [address] Commercial Real Estate Attorney: Devin Mera MD [address] [place] [address] Commercial Real Estate Attorney: Jose Valero MDAST [Catalytic activity/Vol]18 U/OHuosbw94-70Farkm Tiffin HospitalComment on above:Performed By: #### PRENAT #### [address] [address] Commercial Real Estate Attorney: Devin Mera MD [address] [place] [address] Commercial Real Estate Attorney: Jose Valero MDBilirubin [Mass/Vol]0.4 mg/dLNormal0.00-1.20[facility] HospitalComment on above:Performed By: #### PRENAT #### [facility] [address] [place] [address] Commercial Real Estate Attorney: Devin Mera MD [address] [place], [place] [phone] Commercial Real Estate Attorney: Jose Valero MDBUN/CRE Xllpp4Gsn5-87YmzpbAvita Health System Ontario HospitalComment on above:Performed By: #### PRENAT #### [address] [address] Commercial Real Estate Attorney: Devin Mera MD [address] [place] [phone] Commercial Real Estate Attorney: SHARAN Sánchezalcium [Mass/Vol]8.9 mg/dLNormal8.6-10.4[facility] HospitalComment on above:Performed By: #### PRENAT #### [facility] [address] [place] [address] Commercial Real Estate Attorney: Devin Mera MD [address] [place], [place] [address] Commercial Real Estate Attorney: SHARAN Sánchezhloride [Moles/Vol]103 mmol/OSfxdbk08-803ImjqiAvita Health System Ontario HospitalComment on above:Performed By: #### PRENAT #### [facility] [address] [place] [address] Commercial Real Estate Attorney: Devin Mera MD [address] [place], [place] [phone] Commercial Real Estate Attorney: Jose Valero MDCO2 [Moles/Vol]19 mmol/CCnn70-73Gbauo [place] HospitalComment on above:Performed By: #### PRENAT #### [address] [place] [address] Commercial Real Estate Attorney: Devin Mera MD [address] [place] [address] Commercial Real Estate Attorney: SHARAN Sánchezreatinine [Mass/Vol]0.5 mg/dLNormal0.50-0.90[facility] HospitalCommunson healthcare [facility] hospital on above:Performed By: #### PRENAT #### [address] [address] Commercial Real Estate Attorney: Devin Mera MD [address] [place] [address] Commercial Real Estate Attorney: Jose Valero MDGFR/1.73 sq M.predicted among non-blacks MDRD (S/P/Bld) [Vol rate/Area]mL/min/{1.73_m2}Normal>60[facility] HospitalCommunson healthcare manistee hospital on above:Result Comment: These results are not intended for use in patients <18 years of age. eGFR results are calculated without a race factor using the 2020 CKD-EPI equation. Careful clinical correlation is recommended, particularly when comparing to results calculated using previous equations. The CKD-EPI equation is less accurate in patients with extremes of muscle mass, extra-renal metabolism of creatine, excessive creatine ingestion, or following therapy that affects renal tubular secretion.Performed By: #### PRENAT #### [address] [address] Commercial Real Estate Attorney: Devin Mera MD [address] [place], [place] [address]83 Commercial Real Estate Attorney: Jose Valero MDGlucose [Mass/Vol]91 mg/eLDmbnpg12-55MxirsHolmes County Joel Pomerene Memorial HospitalCommunson healthcare [facility]ist[facility] hospital on above:Performed By: #### PRENAT #### [address] [address] Commercial Real Estate Attorney: Devin Mera MD [address] [place] [address] Commercial Real Estate Attorney: Jose Valero MDPotassium [Moles/Vol]3.6 mmol/LLow3.7-5.3MHolmes County Joel Pomerene Memorial HospitalComment on above:Performed By: #### PRENAT #### [facility] [address] [place] [address] Commercial Real Estate Attorney: Devin Mera MD [address] [place] [address] Commercial Real Estate Attorney: Jose Valero MDProtein [Mass/Vol]6.5 g/dLLow6.6-8.7[facility] HospitalComment on above:Performed By: #### PRENAT #### [address] [address] Commercial Real Estate Attorney: Devin Mera MD [address] [place] [address] Commercial Real Estate Attorney: JORDEN Sánchezodium [Moles/Vol]137 mmol/AWlwpvz281-783ZqolnAvita Health System Ontario HospitalComment on above:Performed By: #### PRENAT #### [address] [address] Commercial Real Estate Attorney: Devin Mera MD [address] [place] [address] Commercial Real Estate Attorney: Jose Valero MDUrea nitrogen [Mass/Vol]4 mg/dLLow6-20[facility] HospitalComment on above:Performed By: #### PRENAT #### [facility] [address] [place] [address] Commercial Real Estate Attorney: Devin Mera MD [address] [place] [address] Commercial Real Estate Attorney: SHARAN Sánchezomprehensive Metabolic Panelon [id number] [Mass/Vol]3.6 g/dL3.5 - 5.2 g/dLBon Secours Mercy HealthAlbumin/Globulin [Mass ratio]1.3 {ratio}1.0 - 2.5Bon SecWillapa Harbor HospitalFlyfit HealthALP [Catalytic activity/Vol] 196 U/LHigh35 - 104 U/LBon SecWillapa Harbor HospitalFlyfit HealthALT [Catalytic activity/Vol]9 U/L Low10 - 35 U/LBon SecWillapa Harbor HospitalHugo & Debra NaturalAnion gap [Moles/Vol]15 mmol/L9 - 16 mmol/LBon [facility] HealthAST [Catalytic activity/Vol]18 U/L10 - 35 U/LBon Secours [facility] Hospit[facility] Geneva Medical CenterFlyfit HealthBilirubin [Mass/Vol]0.4 mg/dL0.00 - 1.20 mg/dLBon SecThibodaux Regional [facility] Center HealthCalcium [Mass/Vol]8.9 mg/dL8.6 - 10.4 mg/dLBon [facility] Chloride [Moles/Vol]103 mmol/L98 - 107 mmol/LBon [facility] HealthCO2 [Moles/Vol]19 mmol/LLow20 - 31 mmol/LBon [facility] AugureCreatinine [Mass/Vol]0.5 mg/dL0.50 - 0.90 mg/dLBon [facility] HospitalHugo & Debra NaturalEst, Glom Filt Rate- PINFBon Community Memorial HospitalComment on above: These results are not intended for use in patients <18 years of age. eGFR results are calculated without a race factor using the 2020 CKD-EPI equation. Careful clinical correlation is recommended, particularly when comparing to results calculated using previous equations. The CKD-EPI equation is less accurate in patients with extremes of muscle mass, extra-renal metabolism of creatine, excessive creatine ingestion, or following therapy that affects renal tubular secretion. Glucose [Mass/Vol]91 mg/dL74 - 99 mg/dLBon [facility] HospitalHugo & Debra NaturalInterpretation and review of laboratory resultsAbnormalBon SecWillapa Harbor HospitalHugo & Debra NaturalPotassium [Moles/Vol]3.6 mmol/LLow3.7 - 5.3 mmol/LBon [facility] HospitalFlyfit HealthProtein [Mass/Vol]6.5 g/dLLow6.6 - 8.7 g/dLBon [facility] HospitalFlyfit Avita Health SystemSodium [Moles/Vol]137 mmol/L136 - 145 mmol/LBon [facility] HospitalHugo & Debra NaturalUrea nitrogen [Mass/Vol]4 mg/dL Low6 - 20 mg/dLBon Community Memorial HospitalUrea nitrogen/Creatinine [Mass ratio]8 mg/mgLow9 - 20Bon [facility] HealthProtein / creatinine ratio, urineon 25-84-5540Zrkjhxxvts (U) [Mass/Vol]117 mg/dL28.0 - 217.0 mg/dLBon Community Memorial HospitalInterpretation and review of laboratory resultsAbnormalBon Community Memorial HospitalProtein (U) [Mass/Vol]29 mg/dLBon Community Memorial HospitalComment on above:No normal range established.Urine Total Protein Creatinine Ratio0.60Evig4.00 - 0.20Bon [facility] Regional HospitalProtein,Tot,Alpha Uron 32-33-1411Omksxhundw [Mass/Vol]117.0 mg/dLNormal 28.0-217.0[facility] HospitalComment on above:Performed By: #### URTPRT #### [facility] [address] [place] [address] [place] [address] Commercial Real Estate Attorney: Jose Valero MDTot Prot. Conc.29 mg/dLNoChillicothe Hospital Comment on above:Result Comment: No normal range established.Performed By: #### URTPRT #### [address] [place] [address] Commercial Real Estate Attorney: Jose Valero MDTP/Cre Ratio0.82Wqsw7.00-0.20[facility] Comment on above:Performed By: #### URTPRT #### [address] [place] [address] Commercial Real Estate Attorney: Jose Valero [facility] with Auto Differentialon 86-77-1301Zfibswdrk (Bld) [#/Vol]0.03 10*3/uLBon Community Memorial HospitalBasophils/100 WBC (Bld)0 %0 - 2 %Bon [facility] Memorial HospitalEosinophils (Bld) [#/Vol]0.21 10*3/uLBon [facility] Hospitalours [facility] Memorial HospitalEosinophils/100 WBC (Bld)2 %1 - 4 %[facility] HospitalErythrocyte distribution width (RBC) [Ratio]13.8 %11.8 - 14.4 %[facility] Hematocrit (Bld) [Volume fraction]31.8 %Low36.3 - 47.1 %[facility] Hemoglobin (Bld) [Mass/Vol]10.4 g/dLLow11.9 - 15.1 g/dLBon [facility] Immature granulocytes (Bld) [#/Vol]0.09 10*3/uLBon Community Memorial HospitalImmature granulocytes/100 WBC (Bld)1 %Jgjx4Adi Community Memorial HospitalInterpretation and review of laboratory resultsAbnormalBon Community Memorial HospitalLymphocytes/100 WBC (Bld)14 %Low25 - 45 %[facility] HospitalLymphocytes/100 WBC (Bld)1.29 %[facility] CenterH (RBC) [Entitic mass]25.1 pgLow25.2 - 33.5 pgRiverside Regional Medical CenterHC (RBC) [Mass/Vol]32.7 g/dL28.4 - 34.8 g/dLBon [facility] Hospital - YoungstownV (RBC) [Entitic vol]76.8 fLLow82.6 - 102.9 fLBon Secours [facility] Monocytes/100 WBC (Bld)8 %2 - 8 %[facility] HospitalMonocytes/100 WBC (Bld) 0.75 %[facility] HospitalNeutrophils/100 WBC (Bld)75 %High34 - 64 %[facility] HospitalNucleated RBC/100 WBC (Bld) [Ratio]0 %0.0 per 100 WBCBon Secours Richmond Community HospitalPlatelet mean volume (Bld) [Entitic vol]10.9 fL8.1 - 13.5 fL [facility] HospitalPlatelets (Bld) [#/Vol]246 10*3/uLBon Community Memorial HospitalRBC (Bld) [#/Vol]4.14 10*6/uL3.95 - 5.11 m/uLBon [facility] Segmented neutrophils/100 WBC (Bld)6.88 %[facility] HospitalWBC other (Bld) [#/Vol]9.3Bon [facility] Memorial HospitalBon [facility] with Diffon 20-12-2689Qqf. Basophil0.03 k/uLNormal0.00-0.20[facility] HospitalComment on above:Performed By: #### PRENAT #### [address] [address] Commercial Real Estate Attorney: Devin Mera MD [address] [place] [address] Commercial Real Estate Attorney: Lance Sánchez.Imm.Granulocyte0.09 k/uLNormal0.00-0.30[facility] HospitalComment on above:Performed By: #### PRENAT #### [place] [address] Commercial Real Estate Attorney: Devin Mera MD [address] [place] [address] Commercial Real Estate Attorney: Lance Sánchez.Neutrophil (Seg)6.88 k/uLNormal1.80-8.00[facility] HospitalComment on above:Performed By: #### PRENAT #### [place] [address] Commercial Real Estate Attorney: Devin Mera MD [address] [place] [address] Commercial Real Estate Attorney: Jose Valero MDBasophils/100 WBC (Bld)0 %Normal0-2MHolmes County Joel Pomerene Memorial HospitalComment on above:Performed By: #### PRENAT #### [place] [address] Commercial Real Estate Attorney: Devin Mera MD [address] [place] [address] Commercial Real Estate Attorney: Jose Valero MDEosinophils (Bld) [#/Vol]0.21 10*3/uLNormal 0.00-0.44[facility] HospitalComment on above:Performed By: #### PRENAT #### [address] [address] Commercial Real Estate Attorney: Devin Mera MD [address] [place] [phone] Commercial Real Estate Attorney: Jose Valero MDEosinophils/100 WBC (Bld)2 %Normal1-4[facility] HospitalComment on above:Performed By: #### PRENAT #### [address] [address] Commercial Real Estate Attorney: Devin Mera MD [address] [place] [phone] Commercial Real Estate Attorney: Jose Valero MDErythrocyte distribution width (RBC) [Ratio]13.8 % Jtbqir34.8-14.4[facility] HospitalComment on above:Performed By: #### PRENAT #### [address] [address] Commercial Real Estate Attorney: Devin Mera MD [address] [place] [phone] Commercial Real Estate Attorney: Jose Valero MDHematocrit (Bld) [Volume fraction]31.8 %Low 36.3-47.1MHolmes County Joel Pomerene Memorial HospitalComment on above:Performed By: #### PRENAT #### [address] [address] Commercial Real Estate Attorney: Devin Mera MD [address] [place] [address] Commercial Real Estate Attorney: Jose Valero MDHemoglobin (Bld) [Mass/Vol]10.4 g/dLLow11.9-15.1 [facility] HospitalComment on above:Performed By: #### PRENAT #### [address] [address] Commercial Real Estate Attorney: Devin Mera MD [address] [place] [address] Commercial Real Estate Attorney: Jose Valero MDImmature granulocytes/100 WBC (Bld)1 %Qozq7MgmpyAvita Health System Ontario HospitalComment on above:Performed By: #### PRENAT #### [address] [place] [address] Commercial Real Estate Attorney: Devin Mera MD [address] [place] [address] Commercial Real Estate Attorney: Jose Valero MDLymphocytes (Bld) [#/Vol]1.29 10*3/uLNormal 1.20-5.20[facility] HospitalComment on above:Performed By: #### PRENAT #### [address] [address] Commercial Real Estate Attorney: Devin Mera MD [address] [place] [address] Commercial Real Estate Attorney: Jose Valero MDLymphocytes/100 WBC (Bld)14 %Rfk34-22DjqkoAvita Health System Ontario HospitalComment on above:Performed By: #### PRENAT #### [address] [address] Commercial Real Estate Attorney: Devin Mera MD [address] [place] [address] Commercial Real Estate Attorney: TIFFANY Sánchez (RBC) [Entitic mass]25.1 pgLow25.2-33.5[facility] HospitalComment on above:Performed By: #### PRENAT #### [address] [address] Commercial Real Estate Attorney: Devin Mera MD [address] [place] [address] Commercial Real Estate Attorney: TIFFANY SánchezC (RBC) [Mass/Vol]32.7 g/rRBictuu58.4-34.8[facility] HospitalComment on above:Performed By: #### PRENAT #### [facility] [address] [place] [address] Commercial Real Estate Attorney: Devin Mera MD [facility] [address] [place] [address] [place]. [place], [place] [phone] Commercial Real Estate Attorney: JACKY SánchezCV (RBC) [Entitic vol]76.8 fLLow82.6-102.9[facility] HospitalComment on above:Performed By: #### PRENAT #### [address] [address] Commercial Real Estate Attorney: Devin Mera MD [address] [place] [phone] Commercial Real Estate Attorney: JACKY Sánchezonocytes (Bld) [#/Vol]0.75 10*3/uLNormal0.10-1.40 [facility] HospitalComment on above:Performed By: #### PRENAT #### [address] [address] Commercial Real Estate Attorney: Devin Mera MD [address] [place] [phone] Commercial Real Estate Attorney: JACKY Sánchezonocytes/100 WBC (Bld)8 %Normal2-8[facility] HospitalComment on above:Performed By: #### PRENAT #### [facility] [address] [place] [address] Commercial Real Estate Attorney: Devin Mera MD [facility] [address] [place] [address] Dr. [place] [phone] Commercial Real Estate Attorney: Jose Valero MDNeutrophil (Seg)75 %Yurm91-50KrdflAvita Health System Ontario Hospital Comment on above:Performed By: #### PRENAT #### [address] [address] Commercial Real Estate Attorney: Devin Mear MD [address] [place] [address] Commercial Real Estate Attorney: PRITESH Sánchez Automated0.0 per 100 WBCNormal0.0[facility] HospitalComment on above:Performed By: #### PRENAT #### [address] [address] Commercial Real Estate Attorney: Devin Mera MD [address] [place] [address] Commercial Real Estate Attorney: Vani Sánchez mean volume (Bld) [Entitic vol]10.9 fL Normal8.1-13.5[facility] HospitalComment on above:Performed By: #### PRENAT #### [address] [address] Commercial Real Estate Attorney: Devin Mera MD [address] [place] [address] Commercial Real Estate Attorney: Mojgan Sánchez (Bld) [#/Vol]246 10*3/kSAkqnwx290-098 [facility] HospitalComment on above:Performed By: #### PRENAT #### [address] [address] Commercial Real Estate Attorney: Devin Mera MD [address] [place] [address] Commercial Real Estate Attorney: ALLYSON Sánchez (Bld) [#/Vol]4.14 10*6/uLNormal3.95-5.11[facility] HospitalComment on above:Performed By: #### PRENAT #### [address] [address] Commercial Real Estate Attorney: Devin Mera MD [address] [place] [phone] Commercial Real Estate Attorney: Jose Sturtz, MDWBC (Bld) [#/Vol]9.3 10*3/uLNormal4.5-13.5[facility] Hospitalcy Dayton HospitalComment on above:Performed By: #### PRENAT #### [facility] [address] [place] [address] Commercial Real Estate Attorney: Devin Mera MD [address] [place], [place] [address] Commercial Real Estate Attorney: SHARAN Sánchezcentral valley medical center Metabolic Profon 37-29-4910Vdaxfsr [Mass/Vol] 3.6 g/dLNormal3.5-5.2[facility] [place] HospitalComment on above:Performed By: #### PRENAT #### [address] [address] Commercial Real Estate Attorney: Devin Mera MD [address] [place] [phone] Commercial Real Estate Attorney: Jose Valero MDAlbumin/Glob Ratio1.6Aivzfy9.0-2.5[facility] HospitalComment on above:Performed By: #### PRENAT #### [address] [address] Commercial Real Estate Attorney: Devin Mera MD [address] [place] [address] Commercial Real Estate Attorney: Donya Sánchez Vmat394 U/QXrdp05-574YliheAvita Health System Ontario HospitalComment on above:Performed By: #### PRENAT #### [facility] [address] [place] [address] Commercial Real Estate Attorney: Devin Mera MD [address] [place] [phone] Commercial Real Estate Attorney: Jose Valero MDALT [Catalytic activity/Vol]9 U/CAje97-79Cnwce [facility]iffin HospitalComment on above:Performed By: #### PRENAT #### [address] [address] Commercial Real Estate Attorney: Devin Mera MD [address] [place] [address] Commercial Real Estate Attorney: Jorge Sánchez gap [Moles/Vol]15 mmol/LNormal9-16[facility] HospitalComment on above:Performed By: #### PRENAT #### [address] [place] [address] Commercial Real Estate Attorney: Devin Mera MD [address] [place] [phone] Commercial Real Estate Attorney: Jose Valero MDAST [Catalytic activity/Vol]18 U/YVbdiuj87-76RindgAvita Health System Ontario HospitalComment on above:Performed By: #### PRENAT #### [address] [address] Commercial Real Estate Attorney: Devin Mera MD [facility] [address] [place] [address] [place] [address] Commercial Real Estate Attorney: Jose Valero MDBilirubin [Mass/Vol]0.3 mg/dLNormal0.00-1.20[facility] HospitalComment on above:Performed By: #### PRENAT #### [address] [address] Commercial Real Estate Attorney: Devin Mera MD [address] [place] [address] Commercial Real Estate Attorney: Jose Valero MDBUN/CRE Xgruc17Iykkyp9-28Oesrm [facility] Comment on above:Performed By: #### PRENAT #### [facility] [address] [place] [address] Commercial Real Estate Attorney: Devin Mera MD [address] [place] [address] Commercial Real Estate Attorney: SHARAN Sánchezalcium [Mass/Vol]9.1 mg/dLNormal8.6-10.4Mer [place] HospitalComment on above:Performed By: #### PRENAT #### [facility] [address] [place] [address] Commercial Real Estate Attorney: Devin Mera MD [facility] [address] [place] [address] [place]. [place], [place] [address]83 Commercial Real Estate Attorney: SHARAN Sánchezhloride [Moles/Vol]103 mmol/QNggsnp76-354NbnpnAvita Health System Ontario HospitalComment on above:Performed By: #### PRENAT #### [address] [address] Commercial Real Estate Attorney: Devin Mera MD [address] [place] [phone] Commercial Real Estate Attorney: Jose Valero MDCO2 [Moles/Vol]18 mmol/TPmf10-04AkpxwAvita Health System Ontario HospitalComment on above:Performed By: #### PRENAT #### [address] [address] Commercial Real Estate Attorney: Devin Mera MD [address] [place] [address] Commercial Real Estate Attorney: SHARAN Sánchezreatinine [Mass/Vol]0.4 mg/dLLow0.50-0.90[facility] HospitalComment on above:Performed By: #### PRENAT #### [address] [address] Commercial Real Estate Attorney: Devin Mera MD [facility] [address] [place] [address] [address]. [place] [phone] Commercial Real Estate Attorney: Jose Valreo MDGFR/1.73 sq M.predicted among non-blacks MDRD (S/P/Bld) [Vol rate/Area]mL/min/{1.73_m2}Normal>60[facility] HospitalComment on above:Result Comment: These results are not intended for use in patients <18 years of age. eGFR results are calculated without a race factor using the 2020 CKD-EPI equation. Careful clinical correlation is recommended, particularly when comparing to results calculated using previous equations. The CKD-EPI equation is less accurate in patients with extremes of muscle mass, extra-renal metabolism of creatine, excessive creatine ingestion, or following therapy that affects renal tubular secretion.Performed By: #### PRENAT #### [facility] CenterFlyfit [address] [address] Commercial Real Estate Attorney: Devin Mera MD [address] [place] [address] Commercial Real Estate Attorney: Jose Valero MDGlucose [Mass/Vol]90 mg/sBMryxpd51-10NxppxHolmes County Joel Pomerene Memorial HospitalComment on above:Performed By: #### PRENAT #### [address] [address] Commercial Real Estate Attorney: Devin Mera MD [address] [place] [address] Commercial Real Estate Attorney: HENNY Sánchezotassium [Moles/Vol]3.4 mmol/LLow3.7-5.3MWooster Community Hospital HospitalComment on above:Performed By: #### PRENAT #### [address] [address] Commercial Real Estate Attorney: Devin Mera MD [address] [place] [address] Commercial Real Estate Attorney: Jose Valero MDProtein [Mass/Vol]6.5 g/dLLow6.6-8.7[facility] HospitalComment on above:Performed By: #### PRENAT #### [address] [address] Commercial Real Estate Attorney: Devin Mera MD [address] [place] [address] Commercial Real Estate Attorney: Jose Valero MDSodium [Moles/Vol]136 mmol/RYjobkf355-604Spxcr [facility] HospitalComment on above:Performed By: #### PRENAT #### [facility] [address] [place] [address] Commercial Real Estate Attorney: Devin Mera MD [facility] [address] [place] [address] Commercial Real Estate Attorney: Jose Valero MDUrea nitrogen [Mass/Vol]6 mg/dLNormal6-20[facility] HospitalComment on above:Performed By: #### PRENAT #### [facility] [address] [place] [address] Commercial Real Estate Attorney: Devin Mera MD [facility] [address] [place] [address] Commercial Real Estate Attorney: Jose Valero [facility] OK[facility]HOMA CITYomprehensive Metabolic Panelon 45-56-9586Hvjjqdw [Mass/Vol]3.6 g/dL3.5 - 5.2 g/dLBon Community Memorial HospitalAlbumin/Globulin [Mass ratio]1.3 {ratio}1.0 - 2.5Bon [facility] HealthALP [Catalytic activity/Vol] 190 U/LHigh35 - 104 U/LBon Community Memorial HospitalALT [Catalytic activity/Vol]9 U/L Low10 - 35 U/LBon Community Memorial HospitalAnion gap [Moles/Vol]15 mmol/L9 - 16 mmol/LBon [facility] HealthAST [Catalytic activity/Vol]18 U/L10 - 35 U/LBon Community Memorial HospitalBilirubin [Mass/Vol]0.3 mg/dL0.00 - 1.20 mg/dLBon Community Memorial HospitalCalcium [Mass/Vol]9.1 mg/dL8.6 - 10.4 mg/dLBon [facility] Chloride [Moles/Vol]103 mmol/L98 - 107 mmol/LBon [facility] HealthCO2 [Moles/Vol]18 mmol/LLow20 - 31 mmol/LBon Community Memorial HospitalCreatinine [Mass/Vol]0.4 mg/dLLow0.50 - 0.90 mg/dLBon Community Memorial HospitalEst, Glom Filt Rate- PINFBon Community Memorial HospitalComment on above: These results are not intended for use in patients <18 years of age. eGFR results are calculated without a race factor using the 2020 CKD-EPI equation. Careful clinical correlation is recommended, particularly when comparing to results calculated using previous equations. The CKD-EPI equation is less accurate in patients with extremes of muscle mass, extra-renal metabolism of creatine, excessive creatine ingestion, or following therapy that affects renal tubular secretion. Glucose [Mass/Vol]90 mg/dL74 - 99 mg/dLBon Secours Mercy HealthInterpretation and review of laboratory resultsAbnormalBon Secours Mercy HealthPotassium [Moles/Vol]3.4 mmol/LLow3.7 - 5.3 mmol/LBon Secours Mercy HealthProtein [Mass/Vol]6.5 g/dLLow6.6 - 8.7 g/dLBon Secours Mercy HealthSodium [Moles/Vol]136 mmol/L136 - 145 mmol/LBon Secours Mercy HealthUrea nitrogen [Mass/Vol]6 mg/dL6 - 20 mg/dLBon Secours Mercy HealthUrea nitrogen/Creatinine [Mass ratio]15 mg/mg9 - 20[facility] HealthDRUG SCREEN MULTI URINEon 75-95-5416Wsmdgplpmxsz Ql (U)NegativeNEGATIVEBon Secours Mercy HealthComment on above:Cutoff: 1000 ng/mL Barbiturates Screen Ql (U)NegativeNEGATIVEBon Secours Mercy HealthComment on above:Cutoff: 200 ng/mlBenzodiazepines Ql (U)NegativeNEGATIVEBon Secours Mercy HealthComment on above:Cutoff: 200 ng/mlCannabinoids Screen Ql (U)Negative NEGATIVEBon Secours Mercy HealthComment on above:Cutoff: 50 ng/mlCocaine Ql (U) NegativeNEGATIVEBon Secours Mercy HealthComment on above:Cutoff: 300 ng/ml fentaNYL Ql (U)NegativeNEGATIVEBon Secours Mercy HealthComment on above:Cutoff: 5 ng/mlMethadone Ql (U)NegativeNEGATIVEBon Secours Mercy HealthComment on above: Cutoff: 300 ng/mlOpiates Screen Ql (U)NegativeNEGATIVEBon Secours [facility] Health Comment on above:Cutoff: 300 ng/ml Note: The Opiate screen is not intended to detect Oxycodone. oxyCODONE Ql (U)NegativeNEGATIVEBon [facility]ours Mercy HealthComment on above:Cutoff: 100 ng/mlPhencyclidine Ql (U)NegativeNEGATIVEBon Secours Richmond Community HospitalComment on above:Cutoff: 25 ng/mlTest InformationThis method is a screening test to detect only these drug classes as part of a medical workup. Confirmatory testing by another method should be ordered if clinically indicated.Bon [facility] Regional HospitalDrug Scr, Abuse, Uron 61-11-7074Jmepwwpa, Urine NegativeNormalNEGMercy Dayton HospitalComment on above:Result Comment: Cutoff: 5 ng/mlPerformed By: #### PRENAT #### [address] [address] Commercial Real Estate Attorney: Devin Mera MD [address] [place] [address] Commercial Real Estate Attorney: Jose Valero MDAmphetamine(s),UrNegativeNormalNEGMercy Dayton HospitalComment on above:Result Comment: Cutoff: 1000 ng/mLPerformed By: #### PRENAT #### [address] [address] Commercial Real Estate Attorney: Devin Mera MD [address] [place] [address] Commercial Real Estate Attorney: Jose Valero MDBarbiturate(s),UrNegativeNormalNEGMercy Dayton HospitalComment on above:Result Comment: Cutoff: 200 ng/mlPerformed By: #### PRENAT #### [address] [address] Commercial Real Estate Attorney: Devin Mera MD [address] [place] [address] Commercial Real Estate Attorney: Jose Valero MDBenzodiazepine(s)NegativeNormalNEGMercy Dayton HospitalComment on above:Result Comment: Cutoff: 200 ng/mlPerformed By: #### PRENAT #### [address] [address] Commercial Real Estate Attorney: Devin Mera MD [address] [place] [address] Commercial Real Estate Attorney: SHARAN Sánchezannabinoid(s),UrNegativeNormalNEGMercy Stamford HospitalCommunson healthcare manistee hospital on above:Result Comment: Cutoff: 50 ng/mlPerformed By: #### PRENAT #### [address] [address] Commercial Real Estate Attorney: Devin Mera MD [address] [place] [address] Commercial Real Estate Attorney: SHARAN Sánchezocaine MetaboliteNegativeNormalNEGMerHospital for Special CareCommunson healthcare manistee hospital on above:Result Comment: Cutoff: 300 ng/mlPerformed By: #### PRENAT #### [address] [address] Commercial Real Estate Attorney: Devin Mera MD [address] [place] [address] Commercial Real Estate Attorney: Jose Valero MDInterpretive InfoThis method is a screening test to detect only these drug classes as part of aNormalMercy Stamford HospitalComment on above:Result Comment: medical workup. Confirmatory testing by another method should be ordered if clinically indicated.Performed By: #### PRENAT #### [address] [address] Commercial Real Estate Attorney: Devin Mera MD [address] [place] [address] Commercial Real Estate Attorney: JACKY Sánchezethadone Ql (U)NegativeNormalNEGMercy Stamford HospitalCommunson healthcare [facility]ist[facility] hospital on above:Result Comment: Cutoff: 300 ng/mlPerformed By: #### PRENAT #### [facility] [address] [place] [address] Commercial Real Estate Attorney: Devin Mera MD [address] [place] [address] Commercial Real Estate Attorney: Jose Valero MDOpiate(s), UrNegativeNormalNEGMerHospital for Special CareComment on above:Result Comment: Cutoff: 300 ng/ml Note: The Opiate screen is not intended to detect Oxycodone.Performed By: #### PRENAT #### [address] [address] Commercial Real Estate Attorney: Devin Mera MD [address] [place] [address] Commercial Real Estate Attorney: Jose Valero MDOxycodone, UrineNegativeNormalNEGAvita Health System Ontario HospitalComment on above:Result Comment: Cutoff: 100 ng/mlPerformed By: #### PRENAT #### [address] [address] Commercial Real Estate Attorney: Devin Mera MD [address] [place] [address] Commercial Real Estate Attorney: Patience Sánchezcyclidine, UrNegativeNormalNEGAvita Health System Ontario HospitalComment on above:Result Comment: Cutoff: 25 ng/mlPerformed By: #### PRENAT #### [address] [address] Commercial Real Estate Attorney: Devin Mera MD [address] [place] [address] Commercial Real Estate Attorney: Jose Valero MDLactate Dehydrogenaseon [id number] [Catalytic activity/Vol]172 U/L135 - 214 U/LBon Community Memorial HospitalLD [Catalytic activity/Vol]172 U/ARtlcgy326-033AhgamAvita Health System Ontario HospitalComment on above:Performed By: #### PRTYS #### [address] [place], [place] [address] Commercial Real Estate Attorney: Jose Valero MDNo Panel Informationon 65-50-9018Lgb [facility] HospitalProtein / creatinine ratio, urineon 39-99-6099Syvmgyxvii (U) [Mass/Vol] 94.4 mg/dL28.0 - 217.0 mg/dLBon Community Memorial HospitalProtein (U) [Mass/Vol]11 mg/dLBon Community Memorial HospitalComment on above:No normal range established.Urine Total Protein Creatinine Ratio0.120.00 - 0.20Bon [facility] HospitalProtein,Tot,Alpha Uron 63-22-6306Vcdfgyitdd [Mass/Vol]94.4 mg/dL Ahnsvs75.0-217.0Avita Health System Ontario HospitalComment on above:Performed By: #### URTPRT #### [facility] [address] [place] [address] [place] [address] Commercial Real Estate Attorney: Jose Valero MDTot Prot. Conc.11 mg/dLNoChillicothe Hospital Comment on above:Result Comment: No normal range established.Performed By: #### URTPRT #### [address] [place] [phone] Commercial Real Estate Attorney: Jose Valero MDTP/Cre Ratio0.74Ehxzas4.00-0.20[facility] Ontario HospitalComment on above:Performed By: #### URTPRT #### [address] [place] [address] Commercial Real Estate Attorney: Jose Valero MDTYPE AND SCREENon 71-30-5977IMB and Rh group Nom (Bld)Blood group A Rh(D) positiveBon Secours Richmond Community HospitalArm Band EamwmeVN[address]007 [facility] Centerood Bank Sample Bisfiobatl54/15/2025,2359Bon Community Memorial HospitalBlood group antibodies identified NomNegativeCarilion Stonewall Jackson HospitalType + Screenon [id number] + ScreenSample Expiration 08/02/2024,2359 Arm Band Number [id number] ABO/Rh(D) A POSITIVE Antibody Screen NEGATIVENormAdena Health SystemComment on above:Performed By: #### FLUABA #### [facility] [address] [place] [address] Commercial Real Estate Attorney: Sharon Sánchez Out Grp.B Strepon [id number] Out Grp.B StrepSpecimen Description .VAGINA Special Requests Site: Genital Culture STREPTOCOCCI, BETA HEMOLYTIC GROUP B Report Status FINAL 07/25/2024NoChillicothe HospitalComment on above: Performed By: #### PRENAT #### [facility] [address] [place], [place] [id number] Commercial Real Estate Attorney: Devin Mera MD [facility] [address] [place] [address] Commercial Real Estate Attorney: Jose Valero [facility] [place] – OKLAHOMA CITYBC with Auto Differentialon [id number] (Bld) [#/Vol]0.03 10*3/uLBon [facility] Hospitalours [facility] Memorial HospitalBasophils/100 WBC (Bld)0 %0 - 2 %[facility] HospitalEosinophils (Bld) [#/Vol]0.17 10*3/uLBon Secours Brown Memorial HospitalEosinophils/100 WBC (Bld)2 %1 - 4 %[facility] HospitalErythrocyte distribution width (RBC) [Ratio]13.3 %11.8 - 14.4 %[facility] Hematocrit (Bld) [Volume fraction]33.7 %Low36.3 - 47.1 %[facility] Hemoglobin (Bld) [Mass/Vol]11.1 g/dLLow11.9 - 15.1 g/dLBon [facility] Immature granulocytes (Bld) [#/Vol]0.06 10*3/uLBon Community Memorial HospitalImmature granulocytes/100 WBC (Bld)1 %Sxdj0Exk [facility] HospitalInterpretation and review of laboratory resultsAbnormalBon SecWillapa Harbor Hospitaly Avita Health SystemLymphocytes/100 WBC (Bld)18 %Low25 - 45 %Bon SecWillapa Harbor Hospitaly Avita Health SystemLymphocytes/100 WBC (Bld)1.45 %Bon [facility] Memorial HospitalMCH (RBC) [Entitic mass]25.8 pg25.2 - 33.5 pgBon [facility] Hospital - YoungstownHC (RBC) [Mass/Vol]32.9 g/dL28.4 - 34.8 g/dLBon Community Memorial HospitalMCV (RBC) [Entitic vol]78.4 fLLow82.6 - 102.9 fLBon Secours Richmond Community Hospital Monocytes/100 WBC (Bld)8 %2 - 8 %[facility] HospitalMonocytes/100 WBC (Bld) 0.65 %[facility] HospitalNeutrophils/100 WBC (Bld)71 %High34 - 64 %[facility] HospitalNucleated RBC/100 WBC (Bld) [Ratio]0 %0.0 per 100 WBCBon Secours Richmond Community HospitalPlatelet mean volume (Bld) [Entitic vol]10.9 fL8.1 - 13.5 fL [facility] Richmond Community HospitalPlatelets (Bld) [#/Vol]260 10*3/uLBon Community Memorial HospitalRBC (Bld) [#/Vol]4.3 10*6/uL3.95 - 5.11 m/uLBon [facility] Segmented neutrophils/100 WBC (Bld)5.81 %[facility] Community HospitalWBC other (Bld) [#/Vol]8.2Bon [facility] HospitalCBC with Diffon [id number]. Basophil0.03 k/uLNormal0.00-0.20[facility] Ontario HospitalComment on above:Performed By: #### PRENAT #### [employer] [address] [place] [address] Commercial Real Estate Attorney: Devin Mera MD [facility] [address] [place] [address] [place] [address] Commercial Real Estate Attorney: Lance Sánchez.Imm.Granulocyte0.06 k/uLNormal0.00-0.30[facility] HospitalComment on above:Performed By: #### PRENAT #### [employer] [facility] [place] [address] Commercial Real Estate Attorney: Devin Mera MD [facility] [address] [place] [phone] Commercial Real Estate Attorney: Lance Sánchez.Neutrophil (Seg)5.81 k/uLNormal1.80-8.00[facility] HospitalComment on above:Performed By: #### PRENAT #### [address] [address] Commercial Real Estate Attorney: Devin Mera MD [address] [place] [address] Commercial Real Estate Attorney: Jose Valero MDBasophils/100 WBC (Bld)0 %Normal0-2MercMercy Health Perrysburg Hospital HospitalComment on above:Performed By: #### PRENAT #### [address] [address] Commercial Real Estate Attorney: Devin Mera MD [address] [place] [address] Commercial Real Estate Attorney: Jose Valero MDEosinophils (Bld) [#/Vol]0.17 10*3/uLNormal 0.00-0.44[facility] HospitalComment on above:Performed By: #### PRENAT #### [address] [address] Commercial Real Estate Attorney: Devin Mera MD [address] [place] [address] Commercial Real Estate Attorney: Jose Valero MDEosinophils/100 WBC (Bld)2 %Normal1-4[facility] HospitalComment on above:Performed By: #### PRENAT #### [address] [address] Commercial Real Estate Attorney: Devin Mera MD [address] [place] [address] Commercial Real Estate Attorney: Jose Valero MDErythrocyte distribution width (RBC) [Ratio]13.3 % Lizsgw87.8-14.4[facility] HospitalComment on above:Performed By: #### PRENAT #### [address] [place] [address] Commercial Real Estate Attorney: Devin Mera MD [address] [place] [phone] Commercial Real Estate Attorney: Jose Valero MDHematocrit (Bld) [Volume fraction]33.7 %Low 36.3-47.1MHolmes County Joel Pomerene Memorial HospitalComment on above:Performed By: #### PRENAT #### [address] [address] Commercial Real Estate Attorney: Devin Mera MD [address] [place] [address] Commercial Real Estate Attorney: Jose Valero MDHemoglobin (Bld) [Mass/Vol]11.1 g/dLLow11.9-15.1 [facility] HospitalComment on above:Performed By: #### PRENAT #### [address] [address] Commercial Real Estate Attorney: Devin Mera MD [address] [place] [address] Commercial Real Estate Attorney: Jose Valero MDImmature granulocytes/100 WBC (Bld)1 %Ubiv9EbbtnAvita Health System Ontario HospitalComment on above:Performed By: #### PRENAT #### [address] [address] Commercial Real Estate Attorney: Devin Mera MD [address] [place] [address] Commercial Real Estate Attorney: Jose Valero MDLymphocytes (Bld) [#/Vol]1.45 10*3/uLNormal 1.20-5.20[facility] HospitalComment on above:Performed By: #### PRENAT #### [address] [address] Commercial Real Estate Attorney: Devin Mera MD [address] [place], [place] [address] Commercial Real Estate Attorney: Jose Valero MDLymphocytes/100 WBC (Bld)18 %Urs58-80FprwiAvita Health System Ontario HospitalComment on above:Performed By: #### PRENAT #### [address] [id number] Commercial Real Estate Attorney: Devin Mera MD [address] [place] [phone] Commercial Real Estate Attorney: JACKY SánchezCH (RBC) [Entitic mass]25.8 iaHwgvhd92.2-33.5 [facility] HospitalComment on above:Performed By: #### PRENAT #### [address] [address] Commercial Real Estate Attorney: Devin Mera MD [address] [place] [address] Commercial Real Estate Attorney: JACKY SánchezCHC (RBC) [Mass/Vol]32.9 g/lTYboylt82.4-34.8[facility] HospitalComment on above:Performed By: #### PRENAT #### [address] [address] Commercial Real Estate Attorney: Devin Mera MD [address] [place] [phone] Commercial Real Estate Attorney: JACKY SánchezCV (RBC) [Entitic vol]78.4 fLLow82.6-102.9[facility] HospitalComment on above:Performed By: #### PRENAT #### [address] [address] Commercial Real Estate Attorney: Devin Mera MD [address] [place] [phone] Commercial Real Estate Attorney: JACKY Sánchezonocytes (Bld) [#/Vol]0.65 10*3/uLNormal0.10-1.40 [facility] HospitalComment on above:Performed By: #### PRENAT #### [facility] [address] [place] [address] Commercial Real Estate Attorney: Devin Mera MD [facility] [address] [place] [address] [place]. [place], [place] [phone] Commercial Real Estate Attorney: JACKY Sánchezonocytes/100 WBC (Bld)8 %Normal2-8[facility] HospitalComment on above:Performed By: #### PRENAT #### [address] [address] Commercial Real Estate Attorney: Devin Mera MD [address] [place] [phone] Commercial Real Estate Attorney: Jose Valero MDNeutrophil (Seg)71 %Egtb79-36LiarxAvita Health System Ontario Hospital Comment on above:Performed By: #### PRENAT #### [facility] [address] [place] [address] Commercial Real Estate Attorney: Devin Mera MD [address] [place] [phone] Commercial Real Estate Attorney: Jose Valero MDNRBC Automated0.0 per 100 WBCNormal0.0[facility] HospitalComment on above:Performed By: #### PRENAT #### [facility] [address] [place] [address] Commercial Real Estate Attorney: Devin Mera MD [facility] [address] [place] [address] Dr. [place], [facility]83 Commercial Real Estate Attorney: HENNY Sánchezlatelet mean volume (Bld) [Entitic vol]10.9 fL Normal8.1-13.5[facility] HospitalComment on above:Performed By: #### PRENAT #### [facility] [address] [place] [address] Commercial Real Estate Attorney: Devin Mera MD [address] [place] [address] Commercial Real Estate Attorney: Mojgan Sánchez (tomas) [#/Vol]260 10*3/sMFlxcpa490-607 [facility] HospitalComment on above:Performed By: #### PRENAT #### [address] [place] [address] Commercial Real Estate Attorney: Devin Mera MD [address] [place] [address] Commercial Real Estate Attorney: ALLYSON Sánchez (Bltomas) [#/Vol]4.30 10*6/uLNormal3.95-5.11[facility] HospitalComment on above:Performed By: #### PRENAT #### [address] [address] Commercial Real Estate Attorney: Devin Mera MD [address] [place] [address] Commercial Real Estate Attorney: GALDINO Sánchez (Bld) [#/Vol]8.2 10*3/uLNormal4.5-13.5[facility] HospitalComment on above:Performed By: #### PRENAT #### [address] [address] Commercial Real Estate Attorney: Devin Mera MD [address] [place] [phone] Commercial Real Estate Attorney: SHARAN Sánchezcentral valley medical center Metabolic Profon 37-76-1159Hqngcoz [Mass/Vol] 3.8 g/dLNormal3.5-5.2MHolmes County Joel Pomerene Memorial HospitalComment on above:Performed By: #### PRENAT #### [facility] [address] [place] [address] Commercial Real Estate Attorney: Devin Mera MD [address] [place] [phone] Commercial Real Estate Attorney: Jose Valero MDAlbumin/Glob Ratio1.2Aimche6.0-2.5[facility] HospitalComment on above:Performed By: #### PRENAT #### [facility] [address] [place] [address] Commercial Real Estate Attorney: Devin Mera MD [address] [place], [place] [address] Commercial Real Estate Attorney: Blaine Sánchezline Efeo010 U/CIpzu02-741Ntwbf [facility] HospitalComment on above:Performed By: #### PRENAT #### [facility] [address] [place] [address] Commercial Real Estate Attorney: Devin Mera MD [address] [place] [phone] Commercial Real Estate Attorney: Jose Valero MDALT [Catalytic activity/Vol]11 U/LWxacqg73-46Ylacd [facility] HospitalComment on above:Performed By: #### PRENAT #### [facility] [address] [place] [address] Commercial Real Estate Attorney: Devin Mera MD [address] [place] [phone] Commercial Real Estate Attorney: Jorge Sánchez gap [Moles/Vol]13 mmol/LNormal9-16[facility] HospitalComment on above:Performed By: #### PRENAT #### [facility] [address] [place] [address] Commercial Real Estate Attorney: Devin Mera MD [facility] [address] [place] [address] [place], [place] [phone] Commercial Real Estate Attorney: Jose Valero MDAST [Catalytic activity/Vol]19 U/BQvoijm53-96KjmryAvita Health System Ontario HospitalComment on above:Performed By: #### PRENAT #### [facility] [address] [place] [address] Commercial Real Estate Attorney: Devin Mera MD [address] [place], [place] [phone] Commercial Real Estate Attorney: Jose Valero MDBilirubin [Mass/Vol]0.3 mg/dLNormal0.00-1.20[facility] HospitalComment on above:Performed By: #### PRENAT #### [facility] [address] [place] [address] Commercial Real Estate Attorney: Devin Mera MD [address] [place], [place] 2872483 Commercial Real Estate Attorney: Jose Valero MDBUN/CRE Pudjr9Ysp2-86KztwtAvita Health System Ontario HospitalComment on above:Performed By: #### PRENAT #### [facility] [address] [place] [address] Commercial Real Estate Attorney: Devin Mera MD [address] [place] [phone] Commercial Real Estate Attorney: SHARAN Sánchezalcium [Mass/Vol]9.0 mg/dLNormal8.6-10.4[facility] HospitalComment on above:Performed By: #### PRENAT #### [facility] [address] [place] [address] Commercial Real Estate Attorney: Devin Mera MD [address] [place], [facility]83 Commercial Real Estate Attorney: SHARAN Sánchezhloride [Moles/Vol]104 mmol/OOrecfk43-045HyiqoAvita Health System Ontario HospitalComment on above:Performed By: #### PRENAT #### [facility] [address] [place] [address] Commercial Real Estate Attorney: Devin Mera MD [address] [place], [place] 1076483 Commercial Real Estate Attorney: Jose Valero MDCO2 [Moles/Vol]19 mmol/WKcf01-77Pdubu [facility] HospitalComment on above:Performed By: #### PRENAT #### [address] [place] [address] Commercial Real Estate Attorney: Devin Mera MD [address] [place], [place] 6328783 Commercial Real Estate Attorney: SHARAN Sánchezreatinine [Mass/Vol]0.5 mg/dLNormal0.50-0.90[facility] HospitalCommunson healthcare [facility]istee hospital on above:Performed By: #### PRENAT #### [address] [address] Commercial Real Estate Attorney: Devin Mera MD [address] [place] [phone] Commercial Real Estate Attorney: Jose Valero MDGFR/1.73 sq M.predicted among non-blacks MDRD (S/P/Bld) [Vol rate/Area]mL/min/{1.73_m2}Normal>60[facility] HospitalComment on above:Result Comment: These results are not intended for use in patients <18 years of age. eGFR results are calculated without a race factor using the 2020 CKD-EPI equation. Careful clinical correlation is recommended, particularly when comparing to results calculated using previous equations. The CKD-EPI equation is less accurate in patients with extremes of muscle mass, extra-renal metabolism of creatine, excessive creatine ingestion, or following therapy that affects renal tubular secretion.Performed By: #### PRENAT #### [address] [address] Commercial Real Estate Attorney: Devin Mera MD [address] [place], [place] [phone] Commercial Real Estate Attorney: Jose Valero MDGlucose [Mass/Vol]83 mg/iWUjjynx06-00VaqsoHolmes County Joel Pomerene Memorial HospitalCommunson healthcare [facility]istee hospital on above:Performed By: #### PRENAT #### [facility] [address] [place] [address] Commercial Real Estate Attorney: Devin Mera MD [address] [place] [facility]83 Commercial Real Estate Attorney: HENNY Sánchezotassium [Moles/Vol]3.8 mmol/LNormal3.7-5.3MHolmes County Joel Pomerene Memorial HospitalComment on above:Performed By: #### PRENAT #### [facility] [address] [place] [address] Commercial Real Estate Attorney: Devin Mera MD [address] [place] [phone] Commercial Real Estate Attorney: Jose Valero MDProtein [Mass/Vol]6.8 g/dLNormal6.6-8.7[facility] HospitalComment on above:Performed By: #### PRENAT #### [address] [address] Commercial Real Estate Attorney: Devin Mera MD [address] [place] [address] Commercial Real Estate Attorney: JORDEN Sánchezodium [Moles/Vol]136 mmol/CUnaxcf872-017XeoarAvita Health System Ontario HospitalComment on above:Performed By: #### PRENAT #### [address] [address] Commercial Real Estate Attorney: Devin Mera MD [address] [place] [address] Commercial Real Estate Attorney: Jose Valero MDUrea nitrogen [Mass/Vol]4 mg/dLLow6-20[facility] Ontario HospitalComment on above:Performed By: #### PRENAT #### [address] [address] Commercial Real Estate Attorney: Devin Mera MD [address] [place] [phone] Commercial Real Estate Attorney: SHARAN Sánchezomprehensive Metabolic Panelon [id number] [Mass/Vol]3.8 g/dL3.5 - 5.2 g/dLBon SecVeterans Health AdministrationAlbumin/Globulin [Mass ratio]1.3 {ratio}1.0 - 2.5[facility] Centery HealthALP [Catalytic activity/Vol] 203 U/LHigh35 - 104 U/LBon Secours [facility] Centery HealthALT [Catalytic activity/Vol]11 U/L10 - 35 U/LBon Secours Mercy HealthAnion gap [Moles/Vol]13 mmol/L9 - 16 mmol/LBon [facility] Centery HealthAST [Catalytic activity/Vol]19 U/L10 - 35 U/LBon [facility] HealthBilirubin [Mass/Vol]0.3 mg/dL0.00 - 1.20 mg/dLBon [facility] HealthCalcium [Mass/Vol]9 mg/dL8.6 - 10.4 mg/dLBon SecTh[facility] Health Chloride [Moles/Vol]104 mmol/L98 - 107 mmol/LBon SecThibodaux [facility] Center HealthCO2 [Moles/Vol]19 mmol/LLow20 - 31 mmol/LBon [facility] HealthCreatinine [Mass/Vol]0.5 mg/dL0.50 - 0.90 mg/dLBon Secours [facility] Medical CenterFlyfit HealthEst, Glom Filt Rate- PINFBon Community Memorial HospitalComment on above: These results are not intended for use in patients <18 years of age. eGFR results are calculated without a race factor using the 2020 CKD-EPI equation. Careful clinical correlation is recommended, particularly when comparing to results calculated using previous equations. The CKD-EPI equation is less accurate in patients with extremes of muscle mass, extra-renal metabolism of creatine, excessive creatine ingestion, or following therapy that affects renal tubular secretion. Glucose [Mass/Vol]83 mg/dL74 - 99 mg/dLBon [facility] HealthInterpretation and review of laboratory resultsAbnormalBon [facility] Centery HealthPotassium [Moles/Vol]3.8 mmol/L3.7 - 5.3 mmol/LBon Secnemours foundation Bioceptivey HealthProtein [Mass/Vol] 6.8 g/dL6.6 - 8.7 g/dLBon SecThibodaux [facility] HealthSodium [Moles/Vol]136 mmol/L136 - 145 mmol/LBon [facility] HealthUrea nitrogen [Mass/Vol]4 mg/dLLow6 - 20 mg/dL [facility] HospitalUrea nitrogen/Creatinine [Mass ratio]8 mg/mgLow9 - 20Bon [facility] HospitalProtein / creatinine ratio, urineon [id number] (U) [Mass/Vol]69.1 mg/dL28.0 - 217.0 mg/dLBon Community Memorial HospitalInterpretation and review of laboratory resultsAbnormalBon Community Memorial HospitalProtein (U) [Mass/Vol]17 mg/dLBon Community Memorial HospitalComment on above:No normal range established.Urine Total Protein Creatinine Ratio0.55Mubp9.00 - 0.20 [facility] HospitalProtein,Tot,Alpha Uron 07-23-2024 Creatinine [Mass/Vol]69.1 mg/dJKokzfp27.0-217.0[facility] Ontario HospitalComment on above:Performed By: #### PRTYS #### [address] [place] [address] Commercial Real Estate Attorney: Jose Valero MDTot Prot. Conc.17 mg/dLNoChillicothe Hospital Comment on above:Result Comment: No normal range established.Performed By: #### PRTYS #### [address] [place] [address] Commercial Real Estate Attorney: Jose Valero MDTP/Cre Ratio0.53Faqg5.00-0.20[facility] Comment on above:Performed By: #### PRTYS #### [address] [place] [phone] Commercial Real Estate Attorney: Jose Valero MDVaginitis DNA Probeon [id number] AbnormalNEGAvita Health System Ontario HospitalComment on above:Result Comment: for Miranda sp. Method of testing is a DNA probe intended for detection and identification of Miranda species, Gardnerella vaginalis, and Trichomonas vaginalis nucleic acid in vaginal fluid specimens from patients with symptoms of vaginitis/vaginosis. Performed By: #### PRENAT #### [address] [address] Commercial Real Estate Attorney: Devin Mera MD [facility] [address] [place] [address] [place], [place] [phone] Commercial Real Estate Attorney: Jordan SánchezdnerellaNegativeNGalion Community Hospital Comment on above:Result Comment: for Gardnerella vaginalisPerformed By: #### PRENAT #### [address] [address] Commercial Real Estate Attorney: Devin Mera MD [address] [place] [phone] Commercial Real Estate Attorney: Jose Valero MDCaldwell Medical CenterhomonasNegativeRiverview Health Institute Comment on above:Result Comment: for Trichomonas VaginalisPerformed By: #### PRENAT #### [address] [address] Commercial Real Estate Attorney: Devin Mera MD [address] [place] [phone] Commercial Real Estate Attorney: Jose Valero MDVaginitis DNA Probeon [id number].VAGINAL SWABNoChillicothe HospitalComment on above:Performed By: #### PRENAT #### [address] [address] Commercial Real Estate Attorney: Devin Mera MD [address] [place], [place] 1539383 Commercial Real Estate Attorney: SHARAN Sánchezult,Urineon [id number],UrineSpecimen Description .URINE Culture NO SIGNIFICANT GROWTH Report Status FINAL 07/06/2024[facility] Medical CenterComment on above: Performed By: #### URC #### [address] [address] Commercial Real Estate Attorney: SHARAN Overton with Diffon [id number]. Basophil0.04 k/uL Normal0.00-0.20[facility] Ontario HospitalComment on above:Performed By: #### CP, MG, CDP #### [address] [place], [place] [address] Commercial Real Estate Attorney: MDAbs. GonzaloImm.Granulocyte0.10 k/uLNormal0.00-0.30[facility] Ontario HospitalComment on above:Performed By: #### CP, MG, CDP #### [address] [place], [place] [address] Commercial Real Estate Attorney: Lance Sánhcez.Neutrophil (Seg)9.04 k/uLHigh1.80-8.00[facility] HospitalComment on above:Performed By: #### CP, MG, CDP #### [address] [place], [place] [address] Commercial Real Estate Attorney: Jose Valero MDBasophils/100 WBC (Bld)0 %Normal0-2MWooster Community Hospital HospitalComment on above:Performed By: #### NORRIS, MG, CDP #### [address] [place], [place] [address] Commercial Real Estate Attorney: Jose Valero MDEosinophils (Bld) [#/Vol]0.15 10*3/uLNormal 0.00-0.44[facility] Ontario HospitalComment on above:Performed By: #### CP, MG, CDP #### [address] [place], [place] [address] Commercial Real Estate Attorney: GIULIANA Sánchezosinophils/100 WBC (Bld)1 %Normal1-4[facility] Ontario HospitalComment on above:Performed By: #### CP, MG, CDP #### [address] [place], [facility]83 Commercial Real Estate Attorney: Jose Valero MDErythrocyte distribution width (RBC) [Ratio]13.1 % Ryeyao56.8-14.4[facility] HospitalComment on above:Performed By: #### CP, MG, CDP #### [address] [place], [place] [phone] Commercial Real Estate Attorney: Jose Valero MDHematocrit (Bld) [Volume fraction]33.9 %Low 36.3-47.1MWooster Community Hospital HospitalComment on above:Performed By: #### CP, MG, CDP #### [address] [place], [facility]83 Commercial Real Estate Attorney: Jose Valero MDHemoglobin (Bld) [Mass/Vol]11.3 g/dLLow11.9-15.[address] [facility] HospitalComment on above:Performed By: #### NORRIS, MG, CDP #### [address] [place], [facility]83 Commercial Real Estate Attorney: Roland Sánchezmature granulocytes/100 WBC (Bld)1 %Ahcc8OyrpuMercy Health St. [facility] HospitalComment on above:Performed By: #### NORRIS, MG, CDP #### [address] [place], [facility]83 Commercial Real Estate Attorney: Jose Valero MDLymphocytes (Bld) [#/Vol]1.50 10*3/uLNormal 1.20-5.20[facility] HospitalComment on above:Performed By: #### CP, MG, CDP #### [address] [place], [place] [address] Commercial Real Estate Attorney: Nas Sánchezmphocytes/100 WBC (Bld)13 %Xaj25-25Icsvk Tiffin HospitalComment on above:Performed By: #### CP, MG, CDP #### [address] [place], [facility]83 Commercial Real Estate Attorney: JACKY SánchezCH (RBC) [Entitic mass]26.7 zrPcapad69.2-33.5 [facility] HospitalComment on above:Performed By: #### CP, MG, CDP #### [address] [place] [address] Commercial Real Estate Attorney: JACKY SánchezCHC (RBC) [Mass/Vol]33.3 g/cFWnzpwd58.4-34.8[facility] HospitalComment on above:Performed By: #### CP, MG, CDP #### [address] [place], [facility]83 Commercial Real Estate Attorney: JACKY SánchezCV (RBC) [Entitic vol]80.0 fLLow82.6-102.9[facility] HospitalComment on above:Performed By: #### CP, MG, CDP #### [address] [place], [facility]83 Commercial Real Estate Attorney: JACKY Sánchezonocytes (Bld) [#/Vol]0.79 10*3/uLNormal0.10-1.40 [facility] HospitalComment on above:Performed By: #### CP, MG, CDP #### [address] [place], [facility]83 Commercial Real Estate Attorney: JACKY Sánhcezonocytes/100 WBC (Bld)7 %Normal2-8[facility] HospitalComment on above:Performed By: #### CP, MG, CDP #### [address] [place], [facility]83 Commercial Real Estate Attorney: Jose Valero MDNeutrophil (Seg)78 %Yarp40-08KymrnAvita Health System Ontario Hospital Comment on above:Performed By: #### CP, MG, CDP #### [address] [place], [place] [phone] Commercial Real Estate Attorney: Jose Valero MDNRBC Automated0.0 per 100 WBCNormal0.0[facility] HospitalComment on above:Performed By: #### CP, MG, CDP #### [address] [place] [address] Commercial Real Estate Attorney: Vani Sánchez mean volume (Bld) [Entitic vol]10.4 fL Normal8.1-13.5[facility] HospitalComment on above:Performed By: #### CP, MG, CDP #### [address] [place], [place] [address] Commercial Real Estate Attorney: Mojgan Sánchez (Bld) [#/Vol]252 10*3/oJDztapz360-[address] HospitalComment on above:Performed By: #### CP, MG, CDP #### [address] [place], [facility]83 Commercial Real Estate Attorney: CHELSIE SánchezBC (Bld) [#/Vol]4.24 10*6/uLNormal3.95-5.11[facility] HospitalComment on above:Performed By: #### CP, MG, CDP #### [address] [place], [place] [address] Commercial Real Estate Attorney: CHAVA SánchezBC (Bld) [#/Vol]11.6 10*3/uLNormal4.5-13.5[facility] HospitalComment on above:Performed By: #### CP, MG, CDP #### [address] [place], [facility]83 Commercial Real Estate Attorney: SHARAN Sánchezomp Metabolic Profon [id number] [Mass/Vol] 3.8 g/dLNormal3.5-5.2[facility] HospitalComment on above:Performed By: #### FLUABA #### [address] [place] [address] Commercial Real Estate Attorney: Jose Valero MDAlbumin/Glob Ratio1.8Naopfq0.0-2.5[facility] HospitalComment on above:Performed By: #### FLUABA #### [facility] [address] [place] [address] [place] [address] Commercial Real Estate Attorney: Donya Sánchez Cksm214 U/DDpex35-054FegplAvita Health System Ontario HospitalComment on above:Performed By: #### FLUABA #### [facility] [address] [place] [address] [place] [address] Commercial Real Estate Attorney: Jose Valero MDALT [Catalytic activity/Vol]8 U/CJho84-62IenavAvita Health System Ontario HospitalComment on above:Performed By: #### FLUABA #### [address] [place] [address] Commercial Real Estate Attorney: Jose Valero MDAnion gap [Moles/Vol]13 mmol/LNormal9-16[facility] HospitalComment on above:Performed By: #### FLUABA #### [address] [place] [address] Commercial Real Estate Attorney: Jose Valero MDAST [Catalytic activity/Vol]15 U/XJzlvbl62-45AfercAvita Health System Ontario HospitalComment on above:Performed By: #### FLUABA #### [address] [place] [address] Commercial Real Estate Attorney: Jose Valero MDBilirubin [Mass/Vol]mg/dLNormal0.00-1.20[facility] HospitalComment on above:Performed By: #### FLUABA #### [facility] [address] [place] [address] [place] [address] Commercial Real Estate Attorney: Jose Valero MDBUN/CRE Zfvmv24Dzoali2-67Mnsaw [facility] Comment on above:Performed By: #### FLUABA #### [facility] [address] [place] [address] [place]. [place], [place] [phone] Commercial Real Estate Attorney: SHARAN Sánchezalcium [Mass/Vol]9.6 mg/dLNormal8.6-10.4[facility] HospitalComment on above:Performed By: #### FLUABA #### [address] [place], [place] 8[address]2583 Commercial Real Estate Attorney: SHARAN Sánchezhloride [Moles/Vol]103 mmol/DDaivwf20-634LtosrAvita Health System Ontario HospitalComment on above:Performed By: #### FLUABA #### [address] [place], [place] 9375883 Commercial Real Estate Attorney: Jose Valero MDCO2 [Moles/Vol]21 mmol/CRnzfxr02-55WhigfAvita Health System Ontario HospitalComment on above:Performed By: #### FLUABA #### [address] [place], [place] [phone] Commercial Real Estate Attorney: SHARAN Sánchezreatinine [Mass/Vol]0.5 mg/dLNormal0.50-0.90[facility] HospitalComment on above:Performed By: #### FLUABA #### [address] [place], [place] 8395083 Commercial Real Estate Attorney: Jose Valero MDGFR/1.73 sq M.predicted among non-blacks MDRD (S/P/Bld) [Vol rate/Area]mL/min/{1.73_m2}Normal>60[facility] HospitalComment on above:Result Comment: These results are not intended for use in patients <18 years of age. eGFR results are calculated without a race factor using the 2020 CKD-EPI equation. Careful clinical correlation is recommended, particularly when comparing to results calculated using previous equations. The CKD-EPI equation is less accurate in patients with extremes of muscle mass, extra-renal metabolism of creatine, excessive creatine ingestion, or following therapy that affects renal tubular secretion.Performed By: #### FLUABA #### [address] [place] [address] Commercial Real Estate Attorney: Jose Valero MDGlucose [Mass/Vol]82 mg/pAXnmqnx43-51Neubb [facility] HospitalComment on above:Performed By: #### FLUABA #### [address] [place] [address] Commercial Real Estate Attorney: Jose Valero MDPotassium [Moles/Vol]3.9 mmol/LNormal3.7-5.3[facility] HospitalComment on above:Performed By: #### FLUABA #### [address] [place] [address] Commercial Real Estate Attorney: Jose Valero MDProtein [Mass/Vol]6.7 g/dLNormal6.6-8.7MerUniversity Hospitals Ahuja Medical Center HospitalComment on above:Performed By: #### FLUABA #### [address] [place] [address] Commercial Real Estate Attorney: Jose Valero MDSodium [Moles/Vol]137 mmol/NLytiqu218-754Diviv [facility] HospitalComment on above:Performed By: #### FLUABA #### [address] [place] [address] Commercial Real Estate Attorney: Jose Valero MDUrea nitrogen [Mass/Vol]5 mg/dLLow6-20MerUniversity Hospitals Ahuja Medical Center HospitalComment on above:Performed By: #### FLUABA #### [address] [place] [address] Commercial Real Estate Attorney: Jose Valero MDMagnesiumon 39-69-6146Fgdgrzbdo [Mass/Vol]1.5 mg/dLLow1.6-2.6[facility] HospitalComment on above:Performed By: #### FLUABA #### [address] [place], [place] 0753683 Commercial Real Estate Attorney: Jose Valero MDUA w/Reflex Cultureon 59-89-5207Sjohkbpdl, SemiQt,UrNegativeNormalNEGMerUniversity Hospitals Ahuja Medical Center HospitalComment on above:Performed By: #### PRENAT #### [facility] [address] [place] [address] Commercial Real Estate Attorney: Devin Mera MD [facility] [address] [place] [address] [place]. [place], [place] [phone] Commercial Real Estate Attorney: Urszula Sánchez, UrineNegativeNoalNEGAvita Health System Ontario Hospital Comment on above:Performed By: #### PRENAT #### [address] [address] Commercial Real Estate Attorney: Devin Mera MD [facility] [address] [place] [address] [place] [address] Commercial Real Estate Attorney: SHARAN Sánchezlarity ()ClearNormalCLEARAvita Health System Ontario Hospital Comment on above:Performed By: #### PRENAT #### [address] [address] Commercial Real Estate Attorney: Devin Mera MD [facility] [address] [place] [address] Dr. [place], [facility]83 Commercial Real Estate Attorney: SHARAN Sánchezolor (U)YellowNormalYSumma Health Comment on above:Performed By: #### PRENAT #### [facility] [address] [place] [address] Commercial Real Estate Attorney: Devin Mera MD [facility] [address] [place] [address] Dr[place], [facility]83 Commercial Real Estate Attorney: Jose Valero MDGlucose Ql (U)NegativeNormalNEGAvita Health System Ontario HospitalComment on above:Performed By: #### PRENAT #### [address] [address] Commercial Real Estate Attorney: Devin Mera MD [facility] [address] [place] [address] Dr. [place], [place] [phone] Commercial Real Estate Attorney: Jose Valero MDKetones Ql (U)1+ mg/dLAbnormalNEGMercy Dayton HospitalComment on above:Performed By: #### PRENAT #### [facility] [address] [place] [address] Commercial Real Estate Attorney: Devin Mera MD [address] [place] [address] Commercial Real Estate Attorney: Jose Valero MDLeukocyte esterase Test strip Ql (U)SMALLAbnormal NEGAvita Health System Ontario HospitalComment on above:Performed By: #### PRENAT #### [address] [address] Commercial Real Estate Attorney: Devin Mera MD [address] [place] [phone] Commercial Real Estate Attorney: Jose Valero MDNitrite,UrNegativeNormalNEGAvita Health System Ontario Hospital Comment on above:Performed By: #### PRENAT #### [address] [address] Commercial Real Estate Attorney: Devin Mera MD [address] [place] [address]683 Commercial Real Estate Attorney: HENNY Sánchez,Ur6.8Tsskfb8.0-9.0[facility] HospitalComment on above:Performed By: #### PRENAT #### [address] [address] Commercial Real Estate Attorney: Devin Mera MD [facility] [address] [place] [address] [place] [address] Commercial Real Estate Attorney: HENNY Sánchezrotein Ql (U)NegativeNormalNEGAvita Health System Ontario HospitalComment on above:Performed By: #### PRENAT #### [facility] [address] [place] [address] Commercial Real Estate Attorney: Devin Mera MD [facility] [address] [place] [address] [place]. [place], [place] 7186283 Commercial Real Estate Attorney: JORDEN Sánchezpec. Wilson,Ur1.803Xlsqgi5.010-1.020[facility] HospitalComment on above:Performed By: #### PRENAT #### [place] [address] [place] [address] Commercial Real Estate Attorney: Devin Mera MD [facility] [address] [place] [address] [place]. [place], [place] [phone] Commercial Real Estate Attorney: Isaac Sánchezinogen,UrNormalNormal0.0-1.0[facility] HospitalComment on above:Performed By: #### PRENAT #### [address] [address] Commercial Real Estate Attorney: Devin Mera MD [address] [place], [place] 050[address]83 Commercial Real Estate Attorney: Donny Sánchezirubin, SemiQt,UrNegativeNormalNEGAvita Health System Ontario HospitalComment on above:Performed By: #### UAX, UMICAO #### [facility] [address] [place] [address] [place] [address] Commercial Real Estate Attorney: Urszula Sánchez, UrineNegativeNormalNEGAvita Health System Ontario Hospital Comment on above:Performed By: #### UAX, UMICAO #### [facility] [address] [place] [address] [place], [place] 232[address]83 Commercial Real Estate Attorney: Kimmie Sánchezty (U)SLIGHTLY CLOUDYAbnormalCLEARMercYale New Haven HospitalComment on above:Performed By: #### UAX, UMICAO #### [facility] [address] [place] [address] [place]. [place], [place] [phone] Commercial Real Estate Attorney: Ruben Sánchez (U)YellowNormalYSumma Health Comment on above:Performed By: #### UAX, UMICAO #### [facility] [address] [place] [address] [place], [place] [phone] Commercial Real Estate Attorney: Jose Sturtz, MDGlucose Ql (U)NegativeNormalNEGMercy Dayton HospitalComment on above:Performed By: #### UAX, UMICAO #### [address] [place], [place] [phone] Commercial Real Estate Attorney: Jose Valero MDKetones Ql (U)NegativeNormalNEGMercy Dayton HospitalComment on above:Performed By: #### UAX, UMICAO #### [facility] [address] [place] [address] [place] [address] Commercial Real Estate Attorney: Jose Valero MDLeukocyte esterase Test strip Ql (U)MODERATE AbnormalNEGMercy Stamford HospitalComment on above:Performed By: #### UAX, UMICAO #### [address] [place], [place] [phone] Commercial Real Estate Attorney: Scott Sáncheztrite,UrNegativeNormalNEGWayne Hospital on above:Performed By: #### UAX, UMICAO #### [address] [place], [place] 9125583 Commercial Real Estate Attorney: HENNY Sánchez,Ur6.8Xrgymq9.0-9.0Mercy Stamford HospitalComment on above:Performed By: #### UAAlissa, UMICAO #### [address] [place], [place] [address] Commercial Real Estate Attorney: HENNY Sánchezrotein Ql (U)NegativeNormalNEGMercy Dayton HospitalComment on above:Performed By: #### UAX, UMICAO #### [facility] [address] [place] [address] [place], [place] [phone] Commercial Real Estate Attorney: JORDEN Sánchezpec. Wilson,Ur1.529Rbmvfv4.010-1.020[facility] HospitalComment on above:Performed By: #### UAX, UMICAO #### [facility] [address] [place] [address] [place] [address] Commercial Real Estate Attorney: Jose Valero MDUrobilinogen,UrNormalNormal0.0-1.0[facility] HospitalComment on above:Performed By: #### UAX, UMICAO #### [facility] [address] [place] [address] [place] [address] Commercial Real Estate Attorney: Jose Valero MDUrinalysis,Microon 43-63-5977Zmcwrglm0+Abnormal NONEAvita Health System Ontario HospitalComment on above:Performed By: #### PRENAT #### [facility] [address] [place] [address] Commercial Real Estate Attorney: Devin Mera MD [facility] [address] [place] [address] [place] [address] Commercial Real Estate Attorney: Jose Valero MDEpithelial cells LM Ql (Urine sed)0 TO 5Lmvokh8-75 [facility] HospitalComment on above:Performed By: #### PRENAT #### [facility] [address] [place] [address] Commercial Real Estate Attorney: Devin Mera MD [facility] [address] [place] [address] [place] [address] Commercial Real Estate Attorney: Tami Sánchez RBC'sNoneNormal0-2MHolmes County Joel [facility] Comment on above:Performed By: #### PRENAT #### [facility] [address] [place] [address] Commercial Real Estate Attorney: Devin Mera MD [facility] [address] [place] [address] [place] [address] Commercial Real Estate Attorney: Tami Sánchez WBC's2 TO 7Cvfvmf9-0WrclrAvita Health System [facility] Hospital Comment on above:Performed By: #### PRENAT #### [facility] [address] [place] [address] Commercial Real Estate Attorney: Devin Mera MD [facility] [address] [place] [address] [place]. [place] [phone] Commercial Real Estate Attorney: Jose Valero MDBacteria3+AbnormalNONEMercy Stamford HospitalComment on above:Performed By: #### UAX, UMICAO #### [facility] [address] [place], [place] 832[address]83 Commercial Real Estate Attorney: Jose Valero MDEpithelial cells LM Ql (Urine sed)20 TO 50Normal 0-25[facility] Ontario HospitalComment on above:Performed By: #### UAX, UMICAO #### [facility] [address] [place], [place] [address] Commercial Real Estate Attorney: Hadley Sánchez ObservationsUrine Reflexed to Culture AbnormalNREQAvita Health System Ontario HospitalComment on above:Performed By: #### UAX, UMICAO #### [facility] [address] [place] [id number] Commercial Real Estate Attorney: Tami Sánchez RBC's0 TO [id number] County [facility] Comment on above:Performed By: #### UAAlissa, UMICAO #### [facility] [address] [place] [id number] Commercial Real Estate Attorney: Tami Sánchez WBC's20 TO [id number] Health System Ontario Hospital Comment on above:Performed By: #### ROBBIEX, UMICAO #### [facility] [address] [place] [id number] Commercial Real Estate Attorney: CECILIO Sánchez OB BPP W NON-STRESSon [id number] [address] Ultrasound Report Signed Patient: BRAXTON GREEN MR#: [id number] : 2005 Acct:[id number] Age/Sex: 19 / F ADM Date: 06/20/24 Loc: FBCO Attending Dr: Renzo Leiva D.O. Ordering Physician: Cali,Renzo D.O. Date of Service: 06/20/24 Procedure(s): US OB BPP w non-stress Accession Number(s): [id number] cc: Alvarez Sanabria CRATE OPENER; Renzo Leiva D.O. The [place] [id number] Patient Name: BRAXTON GREEN MRN: [id number] date: 2005 Sex: F Assigned Patient Location: [facility] Current Patient Location: Accession/Order Number: [id number] Exam Date: 06/20/2024 14:36 Report Date: 06/20/2024 14:37 At the request of: RENZO LEIVA DO Procedure: US OB BPP w non-stress Ultrasound biophysical profile HISTORY: Decreased movement There is adequate breathing movement, gross body movement, tone and amniotic fluid volume for total score of 8 out of 8. Amniotic fluid index is 12.5 cm within normal limits. The heart rate is 156 bpm. US/US OB BPP w non-stress IMPRESSION: Adequate ultrasound biophysical profile. Impression dictated by: Golden Barry M.D.06/20/2024 2:37 PM Dictation Location: [place] [address] Electronically authenticated by: [id number] Y Date: 06/20/2024 14:37 Dictated By: Golden Barry D.O. Signed By: 06/20/24 1440 DD/ 1437 TD/TT: Custom Garment Designer:BOBBYHRadiology, Radiologist, - 06/20/2024 [place] [address] Ultrasound Report Signed Patient: BRAXTON GREEN MR#: [id number] : 2005 Acct:[id number] Age/Sex: 19 / F ADM Date: 06/20/24 Loc: FBCO Attending Dr: Renzo Leiva D.O. Ordering Physician: Renzo Leiva D.O. Date of Service: 06/20/24 Procedure(s): US OB BPP w non-stress Accession Number(s): [id number] cc: Alvarez Sanabria CRATE OPENER; Renzo Leiva D.O. [place] [id number] Patient Name: BRAXTON GREEN MRN: [id number] date: 2005 Sex: F Assigned Patient Location: [facility] Current Patient Location: Accession/Order Number: [id number] Exam Date: 06/20/2024 14:36 Report Date: 06/20/2024 14:37 At the request of: RENZO LEIVA DO Procedure: US OB BPP w non-stress Ultrasound biophysical profile HISTORY: Decreased movement There is adequate breathing movement, gross body movement, tone and amniotic fluid volume for total score of 8 out of 8. Amniotic fluid index is 12.5 cm within normal limits. The heart rate is 156 bpm. US/US OB BPP w non-stress IMPRESSION: Adequate ultrasound biophysical profile. Impression dictated by: Golden Barry M.D.06/20/2024 2:37 PM Dictation Location: [employer] Electronically authenticated by: [id number] Y Date: 06/20/2024 14:37 Dictated By: Golden Barry D.O. Signed By: 06/20/24 1440 DD/ 143 TD/TT: Custom Garment Designer: ANTHONY HealthcareRadiology Study observation (narrative)NOMS HealthcareUS OB BPP W NON-STRESSOrdered By: Radiologist Radiology on [id number] Healthcare Work Phone: bacteria Ur Culton [id number] identified Cx Nom (U)ORGANISM ID: 1 >=100,000 CFU/ml Normal urogenital floraNormalCWooster Community HospitalComment on above:Performed By: #### 630-4 #### [facility] CLIA [id number] [address] [place] [address] [place] [address] [place] OF AMERICAURINE OB DIP B/Oon 68-55-4909Jzvywpf Ql (U)NegativeNeg mg/dLAultman Orrville HospitalProtein.monoclonal (U) [Mass/Vol]NegativeNeg mg/dLCoshocton Regional Medical CenterCNPNon [id number] Telephone (WHQ) CARMENZAPAULINATIANA ([id number]) 3 F Date Time Provider Department 05/08/24 SELF WHQ During your visit today, we recorded the following information about you: Kayy Vidales 05/08/2024 3:29 PM Signed Patient calling wanting to transfer care to CC. Currently 25 weeks . Marline Stevens, KHUSHBOO 05/08/2024 4:25 PM Signed Call placed to patient to triage for new OB appt. No answer, LMTCB. Marline Stevens, KHUSHBOO 05/09/2024 8:17 AM Signed Call placed to patient to triage for new OB appt. Name and verified. Patient wishes to transfer to F for OB care. ALESSANDRO? 08/19/2024 Gestational age? 25w Patient aware to sign up for My Chart so she can receive the healthcare marketer messages. What facility is she transferring from? [facility] When was her last office visit or will be the last visit with the current facility? 05/01/2024. Does patient have records she is bringing with her? In CE Any current pelvic pain/vaginal bleeding or any medical concerns that affect the ? No - patient is not happy with care Has patient tested + for GDM or HTN with this ? No glucose yet. BP is 140's over 80's. Patient checks at home with BLAND. No meds at this time. Have you had your anatomy scan? WNL Which office/provider would the patient like to establish in? Gilda Will route this encounter to the desired office. Ange Hill 05/09/2024 3:29 PM Signed Lvm for patient to call and get scheduled for her NOB appt shipping lead person or Doctor. Fawn Marquez 05/09/2024 3:37 PM Signed The patient is scheduled for 05/15. 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 Problem List As Of Date 05/08/2024 Noted Resolved ADHD [F90.9] 02/09/2023 Chlamydia infection during [O98.819, *02/14/2023 Encounter Status:Closed by ANGE MAHER on 05/09/24[facility] HospitalCOVID-19, Rapidon 27-14-0449AMUD-CoV-2 (COVID-19) RdRp gene CADY+probe Ql (Resp)Not detectedNot [facility] on above: Rapid NAAT: The specimen is NEGATIVE for SARS-CoV-2, the novel coronavirus associated with COVID-19. The ID NOW COVID-19 assay is designed to detect the virus that causes COVID-19 in patients with signs and symptoms of infection who are suspected of COVID-19. An individual without symptoms of COVID-19 and who is not shedding SARS-CoV-2 virus would expect to have a negative (not detected) result in this assay. Negative results should be treated as presumptive and, if inconsistent with clinical signs and symptoms or necessary for patient management, should be tested with an alternative molecular assay. Negative results do not preclude SARS-CoV-2 infection and should not be used as the sole basis for patient management decisions. Methodology: Isothermal Nucleic Acid Amplification Specimen Description.NASOPHARYNGEAL SWABBon Lead-Deadwood Regional HospitalFlu A/B Ag Detectionon 75-85-5335Zdn A Ag DetectionNegativeNormalNEG [facility] on above:Result Comment: for Influenza A Antigen Performed By: #### FLUABA #### [facility] [address] [place] [address] [place] [address] Commercial Real Estate Attorney: Jose Sturtz, MDFlu B Ag DetectionNegativeNormalNEGMerHospital for Special CareComment on above:Result Comment: for Influenza B Antigen.Performed By: #### FLUSTEPH #### [facility] [address] [place] [address] Commercial Real Estate Attorney: Jose Valero MDRapid Strep Screenon 25-06-5433Naqqvsxw source Nom (Unsp spec).THROAT SWABBon Secours Brown Memorial HospitalStrep A, MolecularNegative NEGATIVEBon Secours Brown Memorial HospitalBon SecVeterans Health AdministrationRapid influenza A/B antigenson 33-22-5491TBIKD Ag Ql (Unsp spec)NegativeNEGATIVEBon Community Memorial HospitalComment on above:for Influenza A AntigenFLUBV Ag Ql (Unsp spec)Negative NEGATIVEBon Community Memorial HospitalComment on above:for Influenza B Antigen.Bon SecVeterans Health AdministrationMdgfoyURCA-WbT-2ie 37-81-7532GZUJ-CoV-2 (COVID-19) RNA CADY+probe Ql (Unsp spec)Not detectedNormalNOTDETMercYale New Haven HospitalComment on above: Result Comment: Rapid NAAT: The specimen is NEGATIVE for SARS-CoV-2, the novel coronavirus associated with COVID-19. The ID NOW COVID-19 assay is designed to detect the virus that causes COVID-19 in patients with signs and symptoms of infection who are suspected of COVID-19. An individual without symptoms of COVID-19 and who is not shedding SARS-CoV-2 virus would expect to have a negative (not detected) result in this assay. Negative results should be treated as presumptive and, if inconsistent with clinical signs and symptoms or necessary for patient management, should be tested with an alternative molecular assay. Negative results do not preclude SARS-CoV-2 infection and should not be used as the sole basis for patient management decisions. Methodology: Isothermal Nucleic Acid AmplificationPerformed By: #### FLUABA #### [facility] [address] [place] [address] Commercial Real Estate Attorney: Jose Valero MDStrep Group A, Rapidon 05-37-6603Gfbcr A, MolecularNegativeNormalNEGMercy Stamford HospitalComment on above:Performed By: #### FLUABA #### [facility] [address] [place] [address] Commercial Real Estate Attorney: Sae Sánchez.THROAT SWABNormalMerHospital for Special Care Comment on above:Performed By: #### FLUABA #### [facility] [address] [place], [place] [address] Commercial Real Estate Attorney: Jose Valero MDAmbulatory Visit Summaryon 60-77-5620Zemaovscjc Visit SummaryAmbulatory Visit Summary BRAXTON GREEN :2005 Visit Date:02/08/2024 Ambulatory Visit Instructions Your Diagnosis Viral URI Cough Your Care Team Attending Physician - Nic Arora PA-C Primary Care Physician - ALVAREZ SANABRIA CNP Procedures Performed i&d of left knee, Myringotomy and insertion of tympanic ventilation tube. Discharge Vitals Temperature (Tympanic) 35.9 ???C Heart Rate (Peripheral) 91 Blood Pressure 122/68 Height 155 cm Height 61 in Weight 81.6 kg Weight 179.897 lb BMI 33.96 What to do next You Need to Schedule the Following Appointments Follow Up with [facility] When: Within 7 to 10 days Comments: Call today to schedule your follow up Where: [address] [place] [phone] Allergies No Known Allergies Problems Ongoing - Any problem that you are currently receiving treatment for. Acute URI Cellulitis Headache Hx of concussion Memory loss Molluscum Contagiosum Neck pain Pharyngitis Poor impulse control Historical - Any problem that you are no longer receiving treatment for. Brain concussion Debridement tubes in ears Patient Survey You may receive a survey via text or e-mail asking about your office visit. Please share your experience with us by completing your survey. We appreciate your feedback and thank you for choosing us for your care. Education Materials Upper Respiratory Infection, Adult An upper respiratory infection (URI) is a common viral infection of the nose, throat, and upper airpassages that lead to the lungs. The most common type of URI is the common cold. URIs usually get better on their own, without medical treatment. What are the causes? A URI is caused by a virus. You may catch a virus by: ??? Breathing in droplets from an infected person's cough or sneeze. ??? Touching something that has been exposed to the virus (is contaminated) and then touching your mouth, nose, or eyes. What increases the risk? You are more likely to get a URI if: ??? You are very young or very old. ??? You have close contact with others, such as at work, school, or a health care facility. ??? You smoke. ??? You have long-term (chronic) heart or lung disease. ??? You have a weakened disease-fighting system (immune system). ??? You have nasal allergies or asthma. ??? You are experiencing a lot of stress. ??? You have poor nutrition. What are the signs or symptoms? A URI usually involves some of the following symptoms: ??? Runny or stuffy (congested) nose. ??? Cough. ??? Sneezing. ??? Sore throat. ??? Headache. ??? Fatigue. ??? Fever. ??? Loss of appetite. ??? Pain in your forehead, behind your eyes, and over your cheekbones (sinus pain). ??? Muscle aches. ??? Redness or irritation of the eyes. ??? Pressure in the ears or face. How is this diagnosed? This condition may be diagnosed based on your medical history and symptoms, and a physical exam. Your health care provider may use a swab to take a mucus sample from your nose (nasal swab). This sample can be tested to determine what virus is causing the illness. How is this treated? URIs usually get better on their own within 7???10 days. Medicines cannot cure URIs, but your health care provider may recommend certain medicines to help relieve symptoms, such as: ??? Cdvh-wkf-lazrrcn cold medicines. ??? Cough suppressants. Coughing is a type of defense against infection that helps to clear the respiratory system, so take these medicines only as recommended by your health care provider. ??? Fever-reducing medicines. Follow these instructions at home: Activity ??? Rest as needed. ??? If you have a fever, stay home from work or school until your fever is gone or until your health care provider says your URI cannot spread to other people (is no longer contagious). Your health care provider may have you wear a face mask to prevent your infection from spreading. Relieving symptoms ??? Gargle with a mixture of salt and water 3???4 times a day or as needed. To make salt water, completely dissolve ?1 tsp (3???6 g) of salt in 1 cup (237 mL) of warm water. ??? Use a cool-mist humidifier to add moisture to the air. This can help you breathe more easily. Eating and drinking ??? Drink enough fluid to keep your urine pale yellow. ??? Eat soups and other clear broths. General instructions ??? Take daut-ywb-rszpgge and prescription medicines only as told by your health care provider. These include cold medicines, fever reducers, and cough suppressants. ??? Do not use any products that contain nicotine or tobacco. These products include cigarettes, chewing tobacco, and vaping devices, such as e-cigarettes. If you need help quitting, ask your health careprovider. ??? Sta (more content not included)...[facility] HospitalFachoate memorial hospital Medicine Office/Clinic Noteon 46-21-3964Backdz Medicine Office/Clinic NoteFami Medicine Office/Clinic Note Chief Complaint Head cold, scratchy throat HPI Staff Braxton is a 18 year old female presenting with head cold, sore throat x 2 days. OTC: NONE History of Present Illness I have reviewed and verified the staff HPI to be accurate for this encounter. Portions of this record have been created with voice recognition software. Occasional wrong-word or???plrsf-b-blkx??? substitutions may have occurred due to the inherent limitations of voice recognition software. 18-year-old female 12-week gestation present to the clinic with a complaint of headache, cold,and sore throat for 2 days. Denies taking oalb-xhq-qemvhft medication for her symptoms. Patient states she has sore throat this morning but was able to drink and eat. Patient was exposed to her niecewho was sick with a similar symptoms. Denies nausea, vomiting, abdominal pain, cramping, diarrhea, b lexa ache, ear pain, chest pain and difficulty in breathing. No further concern at this visit. Review of Systems PHQ Score Initial Depression Screen Score: 0 SCORE ROS negative unless otherwise stated in HPI. Physical Exam Vitals & Measurements T: 35.9 ???C(Tympanic) HR: 91(Peripheral) BP: 122/68 SpO2: 99% HT: 61 in HT: 155 cm WT: 81.6 kg WT: 179.897 lb BMI: 33.96 General: Well developed, well nourished, in no acute distress Eyes: Pupils equal, round, and reactive to light. Conjunctivae and sclerae normal, and extraocular movements intact Ears: No deformity or lesion of external ear. Canals and TM appear normal bilaterally. TM???s intact, not inflamed, with normal light reflex. Hearing grossly normal to conversational speech Nose: Erythema to bilateral nasal turbuinates without any drainage. Mouth: Mucous membranes moist. Normal oropharynx, and posterior pharynx without lesions or exudates. Tongue normal Neck: Palpable anterior cervical nodes bilaterally Lungs: Normal respiratory effort and clear to auscultation Cardio: regular rate and rhythm, no murmur Abdomen: not assessed Musculoskeletal: not assessed Extremity: not assessed Neurologic: not assessed Skin: not assessed Mental Status: Alert and oriented x3. Normal mood and affect Assessment/Plan Based on history and physical examination patient could have strep throat or URI symptoms. Discuss doing COVID 19, influenza and rapid strep test in the clinic. COVID 19,influenza and rapid strep test done in the clinic and resulted back negative. Result notified to the patient. Instructed patient to use mdwi-vhn-meaubwe Tylenol if she feels pain or headache. Advised patient to drink plenty of fluids, get enough rest, and eat adequate diet for better recovery. Work note provided to the patient as per patient request. Advised patient to return back to the clinic if her symptoms get worse. Patient verbalized understanding and agreed with the treatment plan. 1. Viral URI (J06.9: Acute upper respiratory infection, unspecified) Discussed exam and hx are consistent with viral illness. Advised of typical duration. Discussed antibiotics unfortunately do not treat viral illnesses, it will take time to run course- usually 7-14 days. Fluids/rest encouraged, PRN tylenol/ibuprofen for any pain. May use OTC for symptomatic tx. Follow up with PCP if not improving over next 7-10 days or significantly worsening symptoms. Patient verbalized understanding of tx plan. Cough (R05.9: Cough, unspecified) COVID-19, Rapid strep and influenza test done and resulted negative. Follow-up With When Contact Information [facility] Within 7 to [address] [place] [phone] Additional Instructions: Call today to schedule your follow up Patient Education Upper Respiratory Infection, Adult Problem List/Past Medical History Ongoing Acute URI Cellulitis Headache Hx of concussion Memory loss Molluscum Contagiosum Neck pain Pharyngitis Poor impulse control Historical Brain concussion Debridement tubes in ears Procedure/Surgical History i&d of left knee, Myringotomy and insertion of tympanic ventilation tube. Medications No active medications Allergies No Known Allergies Social History Alcohol - Denies Alcohol Use, 07/16/2022 Substance Abuse - Denies Substance Abuse, 07/16/2022 Tobacco - Denies Tobacco Use, 07/16/2022 Never (less than 100 in lifetime) Tobacco Use:. Never Smokeless Tobacco Use:. Household tobacco concerns: No., 02/08/2024 Vaping, 09/08/2020 Immunizations Vaccine Date Status Comments influenza virus vaccine, inactivated - Not Given Postpone due to refusal meningococcal conjugate vaccine 10/26/2016 Recorded tetanus toxoid 10/26/2016 Recorded poliovirus vaccine, inactivated 2004 Recorded hepatitis B pediatric vaccine 2004 Recorded diphtheria/pertussis, acel/tetanus ped 2004 Recorded pneumococcal 13-valent vaccine 2004 Recorded haemophilus b conj (PRP-OMP) vaccine 2004 Recorded po (more content not included)...[facility] HospitalComment on above:Result Comment: Electronically Signed By: Ulysses HERNANDEZ, Nic Castillo\.br\Date and Time Signed: 02/07/2413:56 ESTPatient Letter FTMCon 20-48-0783Vlmkrzj Letter FTMCPatient Letter FT [address], [place] [phone] February 08, 2024 BRAXTON GREEN [address] [place] [address] : 2005 Please excuse BRAXTON GREEN from work . Date and/or Time of Absence: From: 02/08/24 To: 02/09/24 May return to work on: 02/09/24 Restrictions: None Comments: Please excuse due to an acute illness. Provider Signature: Nic Arora PA-C Physician Commercial Account Executive [address] [place] [address] [place] [address] [facility] HospitalChlamydia/GC DNA, Uron 88-94-6829Aqdrktyku Probe, UrNegativeNormwaNEGAvita Health System Ontario HospitalComment on above:Result Comment: CHLAMYDIA TRACHOMATIS DNA not detected by nucleic acid amplification. This test is intended for medical purposes only and is not valid for the evaluation of suspected sexual abuse or for other forensic purposes. In certain contexts, culture may be required to meet applicable laws and regulations for diagnosis of C. trachomatis and N. gonorrhoeae infections. Per 2014 CDC recommendations, this test does not include confirmation of positive results by an alternative nucleic acid target.Performed By: #### FLUABA #### [address] [place] [address] Commercial Real Estate Attorney: Lenka Sánchez Probe, UrNegativeRiverview Health InstituteCommunson healthcare manistee hospital on above:Result Comment: NEISSERIA GONORRHOEAE DNA not detected by nucleic acid amplification. This test is intended for medical purposes only and is not valid for the evaluation of suspected sexual abuse or for other forensic purposes. In certain contexts, culture may be required to meet applicable laws and regulations for diagnosis of C. trachomatis and N. gonorrhoeae infections. Per 2014 CDC recommendations, this test does not include confirmation of positive results by an alternative nucleic acid target.Performed By: #### FLUABA #### [address] [place] [address] Commercial Real Estate Attorney: HENNY Sánchezrenatal Profileon 12-30-2023T.pallidum Ab Screen Non-ReactiveUniversity Hospitals St. John Medical CenterComment on above:Result Comment: T. pallidum antibodies are not detected. There is no serological evidence of infection with T. pallidum (early primary syphilis cannot be excluded). Retest in 2-4 weeks if syphilis is clinically suspect.Performed By: #### PRENAT #### [facility] [address] [place], [place] [id number] Commercial Real Estate Attorney: Devin Mera MD [address] [place], [place] [id number] Commercial Real Estate Attorney: Jose Valero MDHCCandie, [place] 32-22-5871NZZ, Faatx44073.0 mIU/mL [facility] [place], [place] [address]Comment on above:Result Comment: Non-preg premeno <=5 Postmeno <=8 Male <=3 If HCG results do not concur with clinical observations, additional testing to confirm results is recommended.Performed By: #### BHCG #### [address] [place], [place] [id number] Commercial Real Estate Attorney: Jose Valero MDHIV Ag/Abon 75-90-0016NSR Ag/AbNon-ReactiveNormal CentervilleComment on above:Result Comment: No laboratory evidence of HIV infection. If acute HIV infection is suspected, consider testing for HIV-1 RNA.Performed By: #### PRTYS #### [address] [place], [place] [phone] Commercial Real Estate Attorney: Maykel Sánchez C Abon 28-69-9999Mrj C AbNon-ReactiveNormalSalem Regional Medical CenterComment on above:Result Comment: The hepatitis C procedure used in our laboratory is a Chemiluminescent test specific for three recombinant HCV antigens. A negative anti-HCV result indicates that the antibodies to hepatitis C virus are not present at this time. Individuals with reactive anti-HCV should be considered infected and infectious until proven otherwise. Confirmation of all equivocal or reactive results is recommended by ordering HCV RNA by PCR.Performed By: #### PRTYS #### [address] [place], [place] [address] Commercial Real Estate Attorney: Alfonso Sánchez Profileon 60-62-2794Hep B Surf Ag Non-ReactiveUniversity Hospitals St. John Medical CenterComment on above:Performed By: #### PRENAT #### [address] [address] Commercial Real Estate Attorney: Devin Mera MD [facility] [address] [place] [address] [place] [id number] Commercial Real Estate Attorney: Ángel Sánchez Ab, IgG>500.0[facility] Comment on above:Result Comment: <10 NON REACTIVE Negative for Anti-Rubella IgG >=10 REACTIVE Positive for Anti Rubella IgG The presence of IgG antibody to Rubella virus is an indication of previous exposure either by prior infection or vaccination.Performed By: #### PRENAT #### [address] [address] Commercial Real Estate Attorney: Devin Mera MD [address] [place] [phone] Commercial Real Estate Attorney: MDAbs. Gonzalo Basophil0.05 k/uLNormal0.00-0.20[facility] Ontario HospitalComment on above:Performed By: #### PRENAT #### [address] [address] Commercial Real Estate Attorney: Devin Mera MD [facility] [address] [place] [address] [place] [phone] Commercial Real Estate Attorney: MDAbs. GonzaloImm.Granulocyte0.03 k/uLNormal0.00-0.30[facility] Ontario HospitalComment on above:Performed By: #### PRENAT #### [address] [address] Commercial Real Estate Attorney: Devin Mera MD [facility] [address] [place] [address] [place] [address] Commercial Real Estate Attorney: MDAbs. GonzaloNeutrophil (Seg)4.62 k/uLNormal1.80-8.00[facility] Ontario HospitalComment on above:Performed By: #### PRENAT #### [address] [address] Commercial Real Estate Attorney: Devin Mera MD [address] [place] [phone] Commercial Real Estate Attorney: Jose Valero MDBasophils/100 WBC (Bld)1 %Normal0-2MHolmes County Joel Pomerene Memorial HospitalComment on above:Performed By: #### PRENAT #### [address] [address] Commercial Real Estate Attorney: Devin Mera MD [address] [place] [address] Commercial Real Estate Attorney: Jose Valero MDEosinophils (Bld) [#/Vol]0.22 10*3/uLNormal 0.00-0.44[facility] Ontario HospitalComment on above:Performed By: #### PRENAT #### [address] [address] Commercial Real Estate Attorney: Devin Mera MD [address] [place] [address] Commercial Real Estate Attorney: Jose Valero MDEosinophils/100 WBC (Bld)3 %Normal1-4[facility] HospitalComment on above:Performed By: #### PRENAT #### [address] [address] Commercial Real Estate Attorney: Devin Mera MD [address] [place] [phone] Commercial Real Estate Attorney: Jose Valero MDErythrocyte distribution width (RBC) [Ratio]12.2 % Sxnfbg36.8-14.4[facility] Ontario HospitalComment on above:Performed By: #### PRENAT #### [address] [address] Commercial Real Estate Attorney: Devin Mera MD [address] [place] [phone] Commercial Real Estate Attorney: Jose Valero MDHematocrit (Bld) [Volume fraction]42.7 %Normal 36.3-47.1MHolmes County Joel Pomerene Memorial HospitalComment on above:Performed By: #### PRENAT #### [address] [address] Commercial Real Estate Attorney: Devin Mera MD [address] [place] [phone] Commercial Real Estate Attorney: Jose Valero MDHemoglobin (Bld) [Mass/Vol]14.0 g/dLNormal 11.9-15.1MHolmes County Joel Pomerene Memorial HospitalComment on above:Performed By: #### PRENAT #### [address] [address] Commercial Real Estate Attorney: Devin Mera MD [address] [place] [phone] Commercial Real Estate Attorney: Jose Valero MDImmature granulocytes/100 WBC (Bld)0 %Oocqzr9Yfaiu[address] [place], [place] [address]Comment on above:Performed By: #### PRENAT #### [address] [address] Commercial Real Estate Attorney: Devin Mera MD [address] [place] [address] Commercial Real Estate Attorney: Nas Sánchezmphocyttrudy (Bld) [#/Vol]1.48 10*3/uLNormal 1.20-5.20[facility] Ontario HospitalComment on above:Performed By: #### PRENAT #### [address] [address] Commercial Real Estate Attorney: Devin Mera MD [address] [place] [phone] Commercial Real Estate Attorney: Jsoe Sturtz, MDLymphocytes/100 WBC (Bld)21 %Trk87-57GqisjAvita Health System Ontario HospitalComment on above:Performed By: #### PRENAT #### [place] [address]32 [place] [address] Commercial Real Estate Attorney: Devin Mera MD [address] [place] [phone] Commercial Real Estate Attorney: JACKY SánchezCH (RBC) [Entitic mass]27.7 zgSomhyz07.2-33.[address] [facility] HospitalComment on above:Performed By: #### PRENAT #### [address] [address] Commercial Real Estate Attorney: Devin Mera MD [address] [place] [phone] Commercial Real Estate Attorney: TIFFANY SánchezC (RBC) [Mass/Vol]32.8 g/mEIjxwnx65.4-34.8[facility] HospitalComment on above:Performed By: #### PRENAT #### [address] [address] Commercial Real Estate Attorney: Devin Mera MD [address] [place] [phone] Commercial Real Estate Attorney: JACKY SánchezCV (RBC) [Entitic vol]84.6 bUHukyug35.6-102.[address] [facility] HospitalComment on above:Performed By: #### PRENAT #### [address] [address] Commercial Real Estate Attorney: Devin Mera MD [address] [place] [phone] Commercial Real Estate Attorney: JACKY Sánchezonocytes (Bld) [#/Vol]0.62 10*3/uLNormal0.10-1.[address] [facility] HospitalComment on above:Performed By: #### PRENAT #### [facility] [address] [place] [address] Commercial Real Estate Attorney: Devin Mera MD [address] [place], [place] [phone] Commercial Real Estate Attorney: JACKY Sánchezonocytes/100 WBC (Bld)9 %High2-8[facility] HospitalComment on above:Performed By: #### PRENAT #### [facility] [address] [place] [address] Commercial Real Estate Attorney: Devin Mera MD [address] [place], [place] [phone] Commercial Real Estate Attorney: Ton Sánchezophil (Seg)66 %Wxou03-12TyctfAvita Health System Ontario Hospital Comment on above:Performed By: #### PRENAT #### [address] [address] Commercial Real Estate Attorney: Devin Mera MD [address] [place], [facility]83 Commercial Real Estate Attorney: Jose Valero MDNRBC Automated0.0 per 100 WBCNormal0.0[facility] HospitalComment on above:Performed By: #### PRENAT #### [facility] [address] [place] [address] Commercial Real Estate Attorney: Devin Mera MD [address] [place], [facility]83 Commercial Real Estate Attorney: Vani Sánchez mean volume (Bld) [Entitic vol]9.8 fL Normal8.1-13.5[facility] HospitalComment on above:Performed By: #### PRENAT #### [facility] [address] [place] [address] Commercial Real Estate Attorney: Devin Mera MD [address] [place], [facility]83 Commercial Real Estate Attorney: Mojgan Sánchez (Bld) [#/Vol]369 10*3/tVYirmuu867-950 [facility] HospitalComment on above:Performed By: #### PRENAT #### [facility] [employer] [address] [place] [address] Commercial Real Estate Attorney: Devin Mera MD [facility] [address] [place] [address] Dr. [place], [place] [phone] Commercial Real Estate Attorney: ALLYSON Sánchez ([facility]) [#/Vol]5.05 10*6/uLNormal3.95-5.11[facility] HospitalComment on above:Performed By: #### PRENAT #### [facility] [address] [place] [address] Commercial Real Estate Attorney: Devin Mera MD [address] [place] [phone] Commercial Real Estate Attorney: GALDINO Sánchez ([facility]) [#/Vol]7.0 10*3/uLNormal4.5-13.5[facility] HospitalComment on above:Performed By: #### PRENAT #### [facility] [address] [place] [address] Commercial Real Estate Attorney: Devin Mera MD [address] [place] [address] Commercial Real Estate Attorney: HENNY Sánchezrenatal Type + Scrnon 25-70-4679Fzsngtfg Type + ScrnNegativeNormalMercy Health St. [facility] HospitalComment on above:Performed By: #### PRTYS #### [address] [place] [address] Commercial Real Estate Attorney: Jose Valero MDHCG, Quanton 36-43-0879DYB, Zgyyr41873.0 mIU/mL High<5[facility] Hospitalcy Fordyce HospitalComment on above:Result Comment: Non-preg premeno <=5 Postmeno <=8 Male <=3 If HCG results do not concur with clinical observations, additional testing to confirm results is recommended.Performed By: #### BHCG #### [facility] [address] [place] [address] Commercial Real Estate Attorney: Jose Valero MDBacteria [Presence] in Urine by AutomatedOrdered By: Alvarez Sanabria on 41-42-0795Zzlmgymo Auto Ql (U)4+ [HPF]HighNone Seen [facility] County HospitalBilirubin Test strip Ql (U)Ordered By: Alvarez Sanabria on 40-59-9749Hunxgyzeq Ql (U)NegativeNegativeDelaware County HospitalChlamydia/GC/Trich NAAon 29-33-2303Qpdefjhiq Trachomotis, CADY NegativeNormalNegativeThe Formerly [facility] Physician GroupComment on above:Performed By: #### GCCHLAMTRI #### [facility] ,Neisseria Gonorrhoeae, NAANegativeNormalNegativeThe [facility] Comment on above:Performed By: #### GCCHLAMTRI #### [facility] ,Trichomonas NAANegativeNormalNegativeThe [facility] Physician GroupComment on above:Result Comment: Performed at: =[facility] [id number] Commercial Real Estate Attorney: Diann Luo MD, Phone: [phone] PERFORMED BY: [address] [address] PATHOLOGIST DIRECTOR SURGICAL STEFAN JENSEN M.D.Performed By: #### GCCHLAMTRI #### [facility] ,Color of Urine by AutoOrdered By: Alvarez Sanabria on 46-58-6020Fhbee (U) Light-yellowNormalYellowDelaware County HospitalComment on above:Order Comment: Name Collection Type:: Clean-Voided MidstreamPerformed By: #### ADDONUAPLUS, CUU #### [facility] [address] [place] [address] USADipstick and Microscopicon 38-81-7418Qfnrctxl,Urine4+High None SeenThe [facility]ly [facility] Physician GroupComment on above:Order Comment: Name Collection Type:: Clean-Voided MidstreamPerformed By: #### ADDONUAPLUS, CUU #### [place] [address] USABilirubin,UrineNegativeNormalNegativeThe [facility] Physician GroupComment on above:Order Comment: Name Collection Type:: Clean- Voided MidstreamPerformed By: #### ADDONUAPLUS, CUU #### [place] [address] USAGlucose Ql (U)NormalNormalNormalThe [facility] Physician GroupComment on above:Order Comment: Name Collection Type:: Clean-Voided MidstreamPerformed By: #### ADDONUAPLUS, CUU #### [place] [address] USAHyaline Casts,UrineNoneNormal0-8The [facility] Physician GroupComment on above:Order Comment: Name Collection Type:: Clean-Voided MidstreamPerformed By: #### ADDONUAPLUS, CUU #### [place] [address] USAMucus,UrineRareNormalThe [facility] Physician GroupComment on above:Order Comment: Name Collection Type:: Clean-Voided MidstreamResult Comment: PERFORMED BY: [place] [address] PATHOLOGIST DIRECTOR SURGICAL STEFAN JENSEN M.D.Performed By: #### ADDONUAPLUS, CUU #### [place] [address] USANitrite,UrineNegativeNormalNegativeShorepoint Health Punta Gorda Physician GroupComment on above:Order Comment: Name Collection Type:: Clean-Voided MidstreamPerformed By: #### ADDONUAPLUS, CUU #### [place] [id number] USAOccult Blood,Urine2+HighNegativeThe [facility] Physician GroupComment on above:Order Comment: Name Collection Type:: Clean-Voided MidstreamResult Comment: PERFORMED BY: [place] [address] PATHOLOGIST DIRECTOR SURGICAL STEFAN JENSEN M.D.Performed By: #### ADDONUAPLUS, CUU #### [place] [address] USAProtein,UrineNegativeNormalNegativeShorepoint Health Punta Gorda Physician GroupComment on above:Order Comment: Name Collection Type:: Clean-Voided MidstreamPerformed By: #### ADDONUAPLUS, CUU #### [place] [address] USARBC,Qwqqu4-5Aerhwe5-3Jhl [facility] Physician GroupComment on above:Order Comment: Name Collection Type:: Clean-Voided MidstreamPerformed By: #### ADDONUAPLUS, CUU #### [place] [address] USASpecificy Wilson,Urine1.361Umqtar5.001-1.030The [facility] Physician GroupComment on above:Order Comment: Name Collection Type:: Clean- Voided MidstreamPerformed By: #### ADDONUAPLUS, CUU #### [place] [address] USASquamous Epithelial Cell,Jjlbg58-51Fdhx8-0Ggf [facility] Physician GroupComment on above:Order Comment: Name Collection Type:: Clean- Voided MidstreamPerformed By: #### ADDONUAPLUS, CUU #### [place] [address] USAUrobilinogen,UrineNormalNormalNormalThe [facility] Physician GroupComment on above:Order Comment: Name Collection Type:: Clean- Voided MidstreamPerformed By: #### ADDONUAPLUS, CUU #### [place] [address] USAWBC,Hfzrb9-6Jsyy3-2Pgn [facility] Physician GroupComment on above:Order Comment: Name Collection Type:: Clean-Voided MidstreamPerformed By: #### ADDONUAPLUS, CUU #### [address] [place] [address] USAEpithelial cells.squamous [#/area] in Urine sediment by Automated countOrdered By: Alvarez Sanabria on 30-41-1330Kkqmwcphzp cells.squamous Auto (Urine sed) [#/Area]10-19 [HPF]High0-2FMartins Ferry HospitalErythrocytes [#/area] in Urine sediment by Automated countOrdered By: Alvarez Sanabria on 77-09-4775KAP Auto (Urine sed) [#/Area]1-2 [HPF]0-4 [facility] HospitalGlucose [Mass/volume] in Urine by Test strip Ordered By: Alvarez Sanabria on 67-89-8043Pettwkh Test strip (U) [Mass/Vol]Normal mg/dLNormHolzer Health SystemHemoglobin Test strip Ql (U)Ordered By: Alvarez Sanabria on 92-81-2049Fpleqpfaac Ql (U)2+HighNegMercy Health Perrysburg HospitalHyaline casts [#/area] in Urine sediment by Automated countOrdered By: Alvarez Sanabria on 64-89-7348Bztuzdj casts Auto (Urine sed) [#/Area]None [LPF]0-8Del[facility] County HospitalKetones [Presence] in Urine by Test stripOrdered By: Alvarez Sanabria on 47-55-9269Oszbymg Ql (U) NegativeNormalNegMercy Health Perrysburg HospitalComment on above:Order Comment: Name Collection Type:: Clean-Voided MidstreamPerformed By: #### ADDONUAPLUS, CUU #### [facility] [address] [place] [id number] USALeukocyte esterase [Presence] in Urine by Test strip Ordered By: Alvarez Sanabria on 91-24-2546Bzzofweaa esterase Test strip Ql (U)2+ HighNegMercy Health Perrysburg HospitalComment on above:Order Comment: Name Collection Type:: Clean-Voided MidstreamPerformed By: #### ADDONUAPLUS, CUU #### [facility] [address] [place] [id number] USALeukocytes [#/area] in Urine sediment by Automated count Ordered By: Alvarez Sanabria on 88-29-9968YKX Auto (Urine sed) [#/Area]5-9 [HPF] High0-4FMartins Ferry HospitalMucus [Presence] in Urine by Automated Ordered By: Alvarez Sanabria on 05-97-3208Onsrt Auto Ql (U)Rare [LPF][facility] County HospitalNitrite Test strip Ql (U)Ordered By: Alvarez Sanabria on 47-47-7666Ujpucct Ql (U)NegativeNegativeDelaware County HospitalProtein Test strip (U) [Mass/Vol]Ordered By: Alvarez Sanabria on 27-99-7098Rgotxzn (U) [Mass/Vol]NegativeNegChildren's Hospital for Rehabilitationpecific gravity Test strip (U) [Rel density]Ordered By: Alvarez Sanabria on 45-87-6228Novdqvck gravity (U) [Rel density]1.0121.001-1.030Del[facility] County HospitalUrine Cultureon 70-41-2405Gpjcmdkv identified Cx Nom (U)ORGANISM: Escherichia coli (O:ESCCOL) [place] Count >100,000 Aerobic JUSTO Charge (NMIC56) SUSCEPTIBILITY ORGANISM: O:ESCCOL ANTIBIOTIC INTERPRETATION JUSTO Amikacin S <16 Amoxacillin/K Clavulanate S <8 Ampicillin S <8 Ampicillin/Sulbactam S <4 Aztreonam S <4 Cefazolin S <2 Cefepime S <2 Ceftazidime S <1 Ceftazidime/Avibactam S <4 Ceftolozane/Tazobactam S <2 Ceftriaxone S <1 Cefuroxime S <4 Ciprofloxacin S <0.25 Ertapenem S <0.5 Gentamicin S <2 Levofloxacin S <0.5 Meropenem S <1 Meropenem/Vaborbactam S <2 Nitrofurantoin S <32 Piperacillin/Tazobactam S <8 Tetracycline S <4 Tigecycline S <2 Tobramycin S <2 Trimethoprim/Sulfamethoxazole S <0.5 S = SUSCEPTIBLE I = INTERMEDIATE R = RESISTANT BLANK = DATA NOT AVAILABLE, OR DRUG NOT ADVISABLE OR TESTED R* = RESISTANCE DUE TO EXTENDED SPECTRUM BETA-LACTAMASES ESBL = EXTENDED SPECTRUM BETA-LACTAMASE TFG = THYMIDINE-DEPENDENT STRAIN PAPITO = BETA-LACTAMASE POSITIVE IB = INDUCIBLE BETA-LACTAMASE. APPEARS IN PLACE OF 'S' WITH SPECIES KNOWN TO POSSESS INDUCIBLE BETA-LACTAMASES. POTENTIALLY THEY MAY BECOME RESISTANT TO ALL B-LACTAM DRUGS. PERFORMED BY: [place] [address] PATHOLOGIST DIRECTOR SURGICAL STEFAN JENSEN M.D.[facility] Physician GroupComment on above:Performed By: #### TAMARA, CUU #### [place] [id number] USABacteria identified Cx Nom (U)ORGANISM: Escherichia coli (O:ESCCOL) [place] Count >100,000 Duplicate order. Please refer to [id number] for susceptibility results. @This was a reflex urine that was set up. (SHARLA) Prior result reported: E. coli >100,000 CFU/ml PERFORMED BY: [place] [address] PATHOLOGIST DIRECTOR SURGICAL STEFAN JENSEN M.D.[facility] Physician GroupComment on above:Performed By: #### CUU #### [place] [id number] USAUrine appearanceOrdered By: Alvarez Sanabria on 10-25-2023 Appearance (U)CloudyCritically abnormalCleOhioHealth Grady Memorial Hospital Comment on above:Order Comment: Name Collection Type:: Clean-Voided Midstream Performed By: #### TAMARA, CUU #### [place] [id number] USAUrobilinogen Test strip (U) [Mass/Vol]Ordered By: Alvarez Sanabria on 68-39-6945Kxpdutonykam (U) [Mass/Vol]Normal mg/dLNormHolzer Health SystempH of Urine by Test stripOrdered By: Alvarez Sanabria on 49-10-5243fW (U)6.5 [pH]Normal5.0-9.0[facility] County HospitalComment on above:Order Comment: Name Collection Type:: Clean-Voided MidstreamPerformed By: #### ADDONUAPLUS, CUU #### [facility] [address] [place] [id number] USAPhysician Orderon 00-48-4177Bpxhlpdap Order [id number]#1.00TIFFNormalFisher Saint Luke InstitutePhysician [id number]#1.00TIFFNormal Abel Saint Luke InstituteHCG, Quanton 24-20-9587WMB, Quant<1.0Normal<5[facility] City HospitalComment on above:Result Comment: Non-preg premeno <=5 Postmeno <=8 Male <=3 If HCG results do not concur with clinical observations, additional testing to confirm results is recommended.Performed By: #### BHCG #### [facility] [address] [place] 9[address]3090 Commercial Real Estate Attorney: ANAHI Sánchez, Quanton 35-36-7684VDM, Quant6.7 mIU/mLHigh<5 [facility] HospitalCommunson healthcare manistee hospital on above:Result Comment: Non-preg premeno <=5 Postmeno <=8 Male <=3 If HCG results do not concur with clinical observations, additional testing to confirm results is recommended.Performed By: #### BHCG #### [facility] [address] [place] [address]3090 Commercial Real Estate Attorney: ANAHI Sánchez, Quantitative, Pregnancyon 00-74-1849HER.beta subunit Qn6.7 m[IU]/mLHighNINFCENTRA VIRGINIA BAPTIST HOSPITALCommunson healthcare manistee hospital on above: Non-preg premeno <=5 Postmeno <=8 Male <=3 If HCG results do not concur with clinical observations, additional testing to confirm results is recommended. Interpretation and review of laboratory resultsAbnormalBON REGIONAL HEALTH RAPID CITY HOSPITALHCG, Quanton 75-03-1209UUM, Hknvd041.0 mIU/mLHigh<5MerWestchester Medical CenterComment on above:Result Comment: Non-preg premeno <=5 Postmeno <=8 Male <=3 If HCG results do not concur with clinical observations, additional testing to confirm results is recommended.Performed By: #### BHCG #### [facility] [address] [place] [phone] Commercial Real Estate Attorney: SHARAN Sánchez with Diffon 81-08-3368Hmk. Basophil0.06 k/uL Normal0.00-0.20MerWestchester Medical CenterComment on above:Performed By: #### CDP #### [facility] [address] [place] [address] Commercial Real Estate Attorney: Lance Sánchez.Imm.Granulocyte0.01 k/uLNormal0.00-0.30MerWestchester Medical CenterComment on above:Performed By: #### CDP #### [facility] [address] [place] [address] Commercial Real Estate Attorney: Lance Sánchez.Neutrophil (Seg)4.41 k/uLNormal2.5-7.0[facility] City HospitalComment on above:Performed By: #### CDP #### [facility] [address] [place] [address] Commercial Real Estate Attorney: Jose Valero MDBasophils/100 WBC (Bld)1 %Normal0-2MercPorterville Developmental CenterComment on above:Performed By: #### CDP #### [facility] [address] [place] [phone] Commercial Real Estate Attorney: Jose Valero MDEosinophils (Bld) [#/Vol]0.32 10*3/uLNormal 0.00-0.40T[facility] City HospitalComment on above:Performed By: #### CDP #### [facility] [address] [place] [phone] Commercial Real Estate Attorney: Jose Valero MDEosinophils/100 WBC (Bld)4 %Normal0-5T[facility] City HospitalComment on above:Performed By: #### CDP #### [facility] [address] [place], [place] [phone] Commercial Real Estate Attorney: Jose Valero MDErythrocyte distribution width (RBC) [Ratio]11.8 % Low12.1-15.2MPike Community HospitalComment on above:Performed By: #### CDP #### [facility] [address] [place], [place] [phone] Commercial Real Estate Attorney: Jose Valero MDHematocrit (Bld) [Volume fraction]37.2 %Normal 36.0-46.0[facility] City HospitalComment on above:Performed By: #### CDP #### [facility] [address] [place] [address] Commercial Real Estate Attorney: Jose Valero MDHemoglobin (Bld) [Mass/Vol]13.0 g/dLNormal 12.0-16.0[facility] HospitalComment on above:Performed By: #### CDP #### [facility] [address] [place], [place] 5802190 Commercial Real Estate Attorney: Jose Valero MDImmature granulocytes/100 WBC (Bld)0 %Normal0-5 [facility] HospitalComment on above:Performed By: #### CDP #### [facility] [address] [place] [address] Commercial Real Estate Attorney: Jose Valero MDLymphocytes (Bld) [#/Vol]1.88 10*3/uLNormal 1.20-5.20[facility] HospitalCommunson healthcare manistee hospital on above:Performed By: #### CDP #### [facility] [address] [place], [place] [phone] Commercial Real Estate Attorney: Nas Sánchezmphocytes/100 WBC (Bld)26 %Qipicq62-26JgjvrTwin City HospitalComment on above:Performed By: #### CDP #### [facility] [address] [place] [address] Commercial Real Estate Attorney: JACKY SánchezCH (RBC) [Entitic mass]28.1 dsFjbgvu75.0-35.0 [facility] HospitalComment on above:Performed By: #### CDP #### [facility] [address] [place] [address] Commercial Real Estate Attorney: JACKY SánchezCHC (RBC) [Mass/Vol]34.9 g/pKXbzfoq09.0-37.0[facility] City HospitalComment on above:Performed By: #### CDP #### [facility] [address] [place] [address] Commercial Real Estate Attorney: JACKY SánchezCV (RBC) [Entitic vol]80.5 cGBaoiia23.0-102.0 [facility] HospitalComment on above:Performed By: #### CDP #### [facility] [address] [place] [address] Commercial Real Estate Attorney: JACKY Sánchzeonocytes (Bld) [#/Vol]0.62 10*3/uLNormal0.00-1.00 [facility] on above:Performed By: #### CDP #### [facility] [address] [place] [phone] Commercial Real Estate Attorney: JACKY Sánchezonocytes/100 WBC (Bld)9 %High4-8[facility] City HospitalComment on above:Performed By: #### CDP #### [facility] [address] [place] [phone] Commercial Real Estate Attorney: Jose Valero MDNeutrophil (Seg)60 %Iovgbm24-45NqhcxTwin City HospitalComment on above:Performed By: #### CDP #### [facility] [address] [place], [place] [phone] Commercial Real Estate Attorney: Vani Sánchez mean volume (Bld) [Entitic vol]9.1 fL Normal6.0-12.0[facility] on above:Performed By: #### CDP #### [facility] [address] [place], [place] [phone] (567) Commercial Real Estate Attorney: Mojgan Sánchez (Bld) [#/Vol]310 10*3/zCOpmhht746-964 [facility] HospitalComment on above:Performed By: #### CDP #### [facility] [address] [place] [address] Commercial Real Estate Attorney: ALLYSON Sánchez (Bld) [#/Vol]4.62 10*6/uLNormal4.00-5.20[facility] HospitalCommunson healthcare [facility] on above:Performed By: #### CDP #### [facility] [address] [place], [place] [id number] Commercial Real Estate Attorney: GALDINO Sánchez (Bld) [#/Vol]7.3 10*3/uLNormal4.5-13.5[facility] City HospitalComment on above:Performed By: #### CDP #### [facility] [address] [place], [place] [address] Commercial Real Estate Attorney: ANAHI Sánchez, Quanton 66-05-6317CFT, Ikjyi00156.0 mIU/mL High<5[facility] City HospitalComment on above:Result Comment: Non-preg premeno <=5 Postmeno <=8 Male <=3 If HCG results do not concur with clinical observations, additional testing to confirm results is recommended.Performed By: #### BHCG #### [facility] [address] [place], [place] [address] Commercial Real Estate Attorney: MARIE Sánchez/Solomon 39-20-6601ERB/RhPositiveInvalid Interpretation CodeMercy Health St. Rita'S Medical CenterComment on above:Performed By: #### [id number] ####[address] [address]Gool Diffon 67-60-0630Pbhxmoibu/100 WBC (Bld)1.3 %Normal0.0-2.0[facility]. Rita'S Medical CenterComment on above:Order Comment: Order Added by Discern Expert.Performed By: #### [id number], [id number] ####[address] [address]Jmpbroqsg/Leukocytes Auto (Bld) [Pure # fraction]0.1 E9/LNormal0.0-0.2FTriHealth Good Samaritan HospitalComment on above: Order Comment: Order Added by Discern Expert.Performed By: #### [id number], [id number] ####[address] [address] Eosinophils/100 WBC (Bld)4.5 %Normal0.0-8.0[facility]. Rita'S Medical CenterComment on above:Order Comment: Order Added by Discern Expert.Performed By: #### [id number], [id number] ####[address] [address]Ctqpmdvlakm/Leukocytes Auto (Bld) [Pure # fraction]0.3 E9/LNormal0.0-0.[address] Rita'S Medical CenterComment on above:Order Comment: Order Added by Discern Expert.Performed By: #### [id number], [id number] ####[address] [address]Xrumwvzfsdv/100 WBC (Bld)34.1 %Auwvnr48.0-50.0[facility]. Rita'S Medical CenterComment on above:Order Comment: Order Added by Discern Expert.Performed By: #### [id number], [id number] ####[address] [address]Kgmgeqtrqcp/Leukocytes Auto (Bld) [Pure # fraction]2.6 E9/LNormal1.0-4.0[facility] Comment on above:Order Comment: Order Added by Discern Expert.Performed By: #### [id number], [id number] ####[address] [address]Zlssvihgz/100 WBC (Bld)9.7 %Normal4.0-14.0[facility]. Rita'S Medical CenterComment on above:Order Comment: Order Added by Discern Expert. Performed By: #### [id number], [id number] ####[address] [address]Uiwonyyrr/Leukocytes Auto (Bld) [Pure # fraction]0.7 E9/LNormal0.2-1.0[facility] Rita'S Medical CenterComment on above: Order Comment: Order Added by Discern Expert.Performed By: #### [id number], [id number] ####[address] [address] Neutrophils/100 WBC (Bld)50.4 %Sajqyt39.0-75.0[facility] Rita'S Medical CenterComment on above:Order Comment: Order Added by Discern Expert.Performed By: #### [id number], 5655921 ####[address] [address]Homjeivicyr/Leukocytes Auto (Bld) [Pure # fraction]3.9 E9/L Normal2.0-7.5FTriHealth Good Samaritan HospitalComment on above:Order Comment: Order Added by Discern Expert.Performed By: #### [id number], [id number] ####[address] [address]GIVTJ BANKOrdered By: Marilyn Uriarte on 06-65-2985DAU/Rh InterpPositiveInvalid Interpretation [facility] BB SubsectionBMPon 27-41-5748Plwfafvfyr [Mass/Vol]0.6 mg/dLNormal0.5-1.3FTriHealth Good Samaritan HospitalComment on above:Performed By: #### [id number], 5728286, 9233602, 3882954, [id number] ####[facility]272 [address]Norst. j[facility] ep[facility] [place], [place] [address]Qtmw nitrogen [Mass/Vol]14 mg/dLNormal5-21[facility]. Rita'S Medical CenterComment on above:Performed By: #### 9847153, 6292866, 1450969, 8738220, 15806014 ####[facility] Zpdbxhgiqb[address] AveNday kimball hospitalkM[place], [place] [address]Ihfv nitrogen/Creatinine [Mass ratio]23 No Units Otbx36-75WukekmMercy Health St. Rita'S Medical CenterComment on above:Performed By: #### 4188422, 7973737, 1387070, 7543645, 16050001 ####[facility] [address] [place], [place] [address]Cvbpw gap [Moles/Vol]10 mmol/LNormal6-[address] Rita'S Medical CenterComment on above:Performed By: #### 0053600, 8714317, 2054766, 5482354, 24523629 ####[facility] [address] [place], [place] [address]Pjtefaw [Mass/Vol]9.1 mg/dLNormal8.9-11.1FTriHealth Good Samaritan HospitalComment on above:Performed By: #### 4394085, 6662872, 7326452, 4186010, 59286576 ####[facility] Zduufaucgd[address] AveNCottond[place], [place] [address]Ohjtbpat [Moles/Vol]105 mmol/HVwnqhi794-646KlsnkiMercy Health St. Rita'S Medical CenterComment on above:Performed By: #### 8300274, 8985012, 7666461, 7542697, 86259760 ####[facility] Ahjdmghhxq[address] AveNday kimball hospitalkM[place], [place] [address]IQ0 [Moles/Vol]25 mmol/QLuwmpv70-90LbtarlMercy Health St. Rita'S Medical CenterComment on above:Performed By: #### 2640813, 0304505, 7064360, 2609214, 01431767 ####[facility] Ppdpjakyoh[address] AveNday kimball hospitalk, [place] [address]Jnesnbq [Mass/Vol]101 mg/cZXsdtyn84-534EwkmauMercy Health St. Rita'S Medical CenterComment on above:Result Comment: If this glucose result represents a fasting glucose, interpretation should refer tothe following reference range: 55-99 mg/dLPerformed By: #### 0211258, 7714987, 3977228, 5997896, 91784481 ####[facility] [address] [place] [address] Potassium [Moles/Vol]3.6 mmol/LNormal3.5-5.3FTriHealth Good Samaritan HospitalComment on above:Performed By: #### 0187291, 0173680, 5370678, 9624800, 36466905 ####[facility] [address] [place] [address] Sodium [Moles/Vol]136 mmol/HAuojkz254-457CbdbmxMercy Health St. Rita'S Medical CenterComment on above:Performed By: #### 2623013, 5558226, 1620565, 2874104, 55345861 ####[facility] [address] [place], [place] [address]XnHN Quanton 39-20-6195NRU.beta subunit Gu76051 m[IU]/mLHigh1-3FTriHealth Good Samaritan Hospital Comment on above:Result Comment: GESTATIONAL AGE HCG RANGE (mIU/mL) NON- <1-3 0.2-1 WEEKS 5-50 1-2 WEEKS 50-500 2-3 WEEKS 100-5,000 3-4 WEEKS 500-10,000 4-5 WEEKS 1,000-50,000 5-6 WEEKS 10,000-100,000 6-8 WEEKS 15,000-200,000 8-12 WEEKS 10,000-100,000Performed By: #### 5522987, 7596931, 3773152, 4345982, 33304081 ####[facility] [address] [place], [place] [address]PLG w/ Auto Diffon 14-08-3333Irqbviksafs distribution width (RBC) [Ratio] 12.5 %Umfgnj30.9-14.2FTriHealth Good Samaritan HospitalComment on above:Performed By: #### 0396408, 7328313 ####[address] [address]Ufjtxjxpva (Bld) [Volume fraction]39.5 %Olgolx96.0-46.[address] Rita'S Medical CenterComment on above:Performed By: #### 6203474, 7845598 ####[address] [address] Hemoglobin (Bld) [Mass/Vol]13.4 g/cMNgqogn55.0-16.0[facility] Comment on above:Performed By: #### 1268226, 0080563 ####[address] [address]IZN (RBC) [Entitic mass]28.1 zhQkvsod17.0-34.0[facility] Rita'S Medical CenterComment on above:Performed By: #### 1408070, 4005342 ####[address] [address]NGYT (RBC) [Mass/Vol]34.0 g/fTInxfut60.4-36.0[facility] Rita'S Medical CenterComment on above:Performed By: #### 2819716, 6878569 ####[address] [address]ZHV (RBC) [Entitic vol]82.7 yOJswcqr32.0-100.0[facility] Rita'S Medical CenterComment on above: Performed By: #### 4300157, 5718720 ####[address] [address]Jctcqewv mean volume (Bld) [Entitic vol]7.7 fLNormal6.4-10.8[facility]. Rita'S Medical CenterComment on above:Performed By: #### 6183024, 8816169 ####[address] [address]Dbjxvxuek (Bld) [#/Vol]357.0 E9/QRczguz891.0-500.0[facility] Rita'S Medical CenterComment on above:Performed By: #### 5022928, 2715933 ####[facility] [address] [place], [place] [address]ZRL (Bld) [#/Vol]4.8 E12/LNormal4.3-5.9[facility] Rita'S Medical CenterComment on above: Performed By: #### 7024971, 0632573 ####[facility] [address] [place], [place] [address]ZNV corrected for nucl RBC Auto (Bld) [#/Vol]7.7 E9/LNormal4.0-11.0[facility] Rita'S Medical CenterComment on above: Performed By: #### 2456647, 6378581 ####[facility] [address] [place], [place] [address]SGQJQRZHMDwmoazt By: SYSTEM SYSTEM on 21-43-7229Hzrbmpv [Mass/Vol]3.9 g/dLNormal3.3 - 5.0 gm/dLFTMC Remisol Albumin/Globulin [Mass ratio]1.3 {ratio}Normal1.1 - 2.2FT[facility] RemisolALP [Catalytic activity/Vol]51 [iU]/pBivxyf49 - 98 Int._Unit/LFTMC RemisolALT No additional P-5'-P [Catalytic activity/Vol]25 [iU]/dNormal6 - 46 Int._Unit/LFTMC RemisolAnion gap [Moles/Vol]10 mmol/LNormal6 - 16 mEq/LFTMC RemisolAST [Catalytic activity/Vol]21 [iU]/dNormal5 - 43 Int._Unit/LFTMC RemisolBilirubin [Mass/Vol]0.6 mg/dLNormal0.0 - 1.1 mg/dLFTMC RemisolBilirubin.direct [Mass/Vol] 0.1 mg/dLNormal0.1 - 0.4 mg/dLFTMC RemisolBilirubin.indirect [Mass or moles/Vol] 0.5 mg/dLNormal0.1 - 0.9 mg/dLFTMC RemisolCalcium [Mass/Vol]9.1 mg/dLNormal8.9 - 11.1 mg/dLFTMC RemisolChloride [Moles/Vol]105 mmol/ZEixbzj474 - 111 mmol/LFTMC RemisolCO2 [Moles/Vol]25 mmol/WUswknb36 - 31 mmol/LFTMC RemisolCreatinine [Mass/Vol]0.6 mg/dLNormal0.5 - 1.3 mg/dLFTMC RemisolGFR/1.73 sq M.predicted among non-blacks MDRD (S/P/Bld) [Vol rate/Area]133 mL/min/1.73 q6Attpvu >=59mL/min/1.73 m2[facility] Chem SComment on above:Interpretive Data: Chronic kidney disease could be indicated at eGFR's of less than 60 mL/min/1.73m2. Kidney failure is indicated at less than 15 mL/min/1.73m2.Globulin (S) [Mass/Vol]3.1 g/dLNormal1.4 - 4.0 gm/dLFTMC RemisolGlucose [Mass/Vol]101 mg/sOJrguoz52 - 199 mg/dLBEAVER COUNTY [facility] RemisolComment on above:Interpretive Data: If this glucose result represents a fasting glucose, interpretation should referto the following reference range: 55-99 mg/dLLipase [Catalytic activity/Vol]36 U/ICimbdx24 - 58 unit/LFTMC RemisolPotassium [Moles/Vol]3.6 mmol/LNormal3.5 - 5.3 mmol/LFTMC RemisolProtein [Mass/Vol]7.0 g/dLNormal6.0 - 7.8 gm/dLFTMC RemisolSodium [Moles/Vol]136 mmol/NPhaxfk775 - 145 mmol/LFTMC RemisolUrea nitrogen [Mass/Vol] 14 mg/dLNormal5 - 21 mg/dLFTMC RemisolUrea nitrogen/Creatinine [Mass ratio]23 mg/orQdhw55 - 20[facility] RemisolCHEMISTRYOrdered By: Mary Lake on 02-26-2023 HCG.beta subunit Pe25105 m[IU]/mLHigh1 - 3 mIU/mLBEAVER COUNTY [facility] Chem SComment on above: Interpretive Data: GESTATIONAL AGE HCG RANGE (mIU/mL) NON- <1-3 0.2-1 WEEKS 5-50 1-2 WEEKS 50-500 2-3 WEEKS 100-5,000 3-4 WEEKS 500-10,000 4-5 WEEKS 1,000-50,000 5-6 WEEKS 10,000-100,000 6-8 WEEKS 15,000-200,000 8-12 WEEKS 10,000-100,000Consent for Treatmenton 36-43-8885Kaywvus for Treatment [id number]#1.00[facility] HospitalDischarge Instructionson 08-71-5690Jzjzkoxrh Instructions [id number]#1.00[facility] Clinical Summaryon [id number] Clinical Summary [place] [id number] ED Clinical Summary Person Information Name: BRAXTON GREEN Aras[facility] Age: 17 Years : 2005 Sex: Female Language: Chilean PCP: ALVAREZ SANABRIA CNP Marital Status: Single Visit Id: Visit Reason: Nausea and vomiting; Vaginal bleeding - < 20 wks ; Abdominal pain - ; 7 WEEKS / BLEEDING Speciality: Acuity: 3 Enc Type: Emergency Med Service: Emergency Arrival: 02/26/2023 20:43:29 Discharge: 02/26/2023 22:37:49 LOS: 000 01:54 Checkin: 02/26/2023 20:43:29 Checkout: 02/26/2023 22:37:49 Dispo Type: Home (Routine DC) EVENTS: Event Name Event Status Request Date/Time Start Date/Time Complete Date/Time Arrive Complete 02/26/2023 20:43:29 02/26/2023 20:43:29 02/26/2023 20:43:29 Document Home Meds Request 02/26/2023 20:43:29 Triage Complete 02/26/2023 20:43:29 02/26/2023 20:51:10 02/26/2023 20:51:10 Bed Assign Complete 02/26/2023 20:51:18 02/26/2023 20:51:18 02/26/2023 20:51:18 Dr Exam Complete 02/26/2023 20:51:18 02/26/2023 20:52:21 02/26/2023 20:52:21 RN Exam Complete 02/26/2023 20:51:18 02/26/2023 21:19:04 02/26/2023 21:19:04 Registration Complete 02/26/2023 20:52:21 02/26/2023 20:58:12 02/26/2023 20:58:12 Meds Admin Complete 02/26/2023 20:53:57 02/26/2023 21:14:16 Pending Labs Complete 02/26/2023 20:53:57 02/26/2023 22:19:54 Blood Collect Request 02/26/2023 20:53:57 Lab Complete 02/26/2023 20:53:57 02/26/2023 22:19:54 Urine Collect Complete 02/26/2023 20:53:57 02/26/2023 22:12:14 Patient Care Complete 02/26/2023 20:53:57 02/26/2023 21:16:56 Reg Complete Request 02/26/2023 20:58:12 Reg Bed Request Complete 02/26/2023 20:58:12 02/26/2023 20:58:12 02/26/2023 20:58:12 Pending Labs Complete 02/26/2023 21:11:58 02/26/2023 21:11:58 02/26/2023 21:36:14 Lab Complete 02/26/2023 21:11:58 02/26/2023 21:11:58 02/26/2023 21:36:14 Pending Labs Complete 02/26/2023 21:11:59 02/26/2023 21:11:59 02/26/2023 21:36:15 Lab Complete 02/26/2023 21:11:59 02/26/2023 21:11:59 02/26/2023 21:36:15 Pending Labs Complete 02/26/2023 21:15:38 02/26/2023 21:15:38 02/26/2023 21:15:43 Lab Complete 02/26/2023 21:15:38 02/26/2023 21:15:38 02/26/2023 21:15:43 Meds Admin Complete 02/26/2023 22:25:39 02/26/2023 22:32:33 Discharge Complete 02/26/2023 22:27:04 02/26/2023 22:37:55 02/26/2023 22:37:55 Transfer Complete 02/26/2023 22:37:55 02/26/2023 22:37:55 02/26/2023 22:37:55 ADDRESS: [address] [place] [phone] PHYS DOC NOTES: MEDICAL INFORMATION: Prescriptions Given: Medications to Continue with No Changes Other Medications brompheniramine/dextromethorphan/PSE (Bromfed DM oral syrup) 10 Milliliter By Mouth 4 times a day as needed for cold symptoms. Refills: 1. dextromethorphan-guaifenesin (Robitussin Cough + Chest Congestion DM 20 mg-200 mg/20 mL oral liquid) 20 Milliliter By Mouth every 4 hours. Refills: 0. ibuprofen (ibuprofen 600 mg Tab) 1 Tablets By Mouth every 6 hours. Refills: 0. naproxen (naproxen 500 mg Tab) 1 Tablets By Mouth 2 times a day as needed Pain. with food. Refills:0. ondansetron (Zofran ODT 4 mg Tab-Dis) 1 Tablets By Mouth every 8 hours as needed Nausea/Vomiting. Refills: 0. PATIENT EDUCATION INFORMATION: Instructions: Threatened Miscarriage Follow up: With: Address: When: Your established OBGYN In 2 days 02/28/2023 With: Address: When: ALVAREZ WALTERLEAKEY [address] [place] [phone] Business (1) In 3 days DIAGNOSIS: Threatened miscarriageNormalFisher Highlands Medical CenterED Note-Physicianon [id number] Note-PhysicianBasic Information Time Seen: Marcus Salazar DO 02/26/2023 20:52 Chief Complaint pt arrives sfor c/o 7 weeks . pt states started bleeding yesturday with cramps and abd pain. today pt states the blood got darker History of Present Illness HPI: Patient is a G1, P0 17-year-old female who is approximately 7 weeks who presents the ED for vaginal bleeding and pelvic cramping. Patient states that yesterday she started with some very light spotting but had otherwise felt well. Today the bleeding has darkened and she is started to have some pelvic cramping. She states that she follows with an [employer]PA[employer] and [place] and has had a ultrasound that showed a single viable IUP. She reports that her blood type is a positive. ROS: Pertinent review of systems conducted and is negative except as noted above. Physical exam: General: nontoxic appearing and in no distress HEENT: Mucous membranes moist Neuro: awake and alert Neck: supple, trachea midline Card: Heart regular rate and rhythm no murmur Resp: Lungs clear to auscultation no wheeze or rhonchi Abd: Soft and nondistended. Slight tenderness in bilateral lower quadrants without rebound or guarding. Ext: No gross deformity or edema Physical Exam Vitals & Measurements T: 36.6 ?C(Oral) HR: 98(Peripheral) RR: 17 BP: 127/79 SpO2: 99% HT: 152 cm WT: 67.5 kg BMI: 29.22 Medical Decision Making MEDICAL DECISION MAKING Number and Complexity of Problems Differential Diagnosis: [] [facility] Data External documents reviewed: N/A My EKG interpretation: Noted in chart if applicable My CT interpretation: N/A My X-ray interpretation: Noted in chart if applicable My Ultrasound interpretation: N/A Decision rules/scores evaluated: N/A Discussed with: N/A Treatment and Disposition ED Course: Patient is nontoxic-appearing and in no distress. She is having some bleeding and cramping in the first trimester of her . She has already had an outpatient ultrasound showing a single live IUP. I do not suspect ectopic at this time. We will obtain blood work includinga quantitative hCG and ABO Rh. Patient's blood type is a positive. Her hCG has increased since her previous blood work done earlier this month. I discussed with her the diagnosis of threatened miscarriage. We discussed the need for follow-up with her AIRCRA[employer] REPA[employer]ER in 48 hours for reevaluation and possible hCG check at that time. Shared decision making: As above Code status: N/A Assessment/Plan Threatened miscarriage (O20.0: Threatened ) Orders: acetaminophen, 650 mg = 2 tab(s), Tab, Oral, Once, Stop date 02/26/23 22:25:00 EST, STAT, Start date 02/26/23 22:25:00 EST, 02/26/23 22:25:00 EST Sodium Chloride 0.9% intravenous solution, 1,000 mL, Soln-IV, IV, Once, Stop date 02/26/23 20:53:00EST, STAT, Start date 02/26/23 20:53:00 EST, Infuse over 61, minute(s) ABO/Rh Automated Diff Basic Metabolic Panel Beta hCG Quantitative CBC w/ Auto Diff eGFR Hepatic Function Panel Lipase Level Saline Lock Insert UA With Cult Reflex Medications Administered Given NS 1000 ml Bolus, 1000 mL, IV Disposition Plan Discharge Prescription List Prescriptions No active prescription medications Follow-up With When Contact Information Your established OBGYN In 2 days 02/28/2023 EST Additional Instructions: ALVAREZ SANABRIA In 3 days [address] [place] [address] [phone] Business (1) Additional Instructions: Patient Education Threatened Miscarriage Problem List/Past Medical History Ongoing Acute URI Cellulitis Headache Hx of concussion Memory loss Molluscum Contagiosum Neck pain Pharyngitis Poor impulse control Historical Brain concussion Debridement tubes in ears Procedure/Surgical History i&d of left knee, Myringotomy and insertion of tympanic ventilation tube. Medications Inpatient NS 1000 ml Bolus, 1000 mL, IV, Once Home Bromfed DM oral syrup, 10 mL, Oral, QID, PRN, 1 refills ibuprofen 600 mg Tab, 600 mg= 1 tab(s), Oral, q6hr naproxen 500 mg Tab, 500 mg= 1 tab(s), Oral, BID, PRN Robitussin Cough + Chest Congestion DM 20 mg-200 mg/20 mL oral liquid, 20 mL, Oral, q4hr Zofran ODT 4 mg Tab-Dis, 4 mg= 1 tab(s), Oral, q8hr, PRN Allergies No Known Allergies Social History Alcohol - Denies Alcohol Use, 07/16/2022 Substance Abuse - Denies Substance Abuse, 07/16/2022 Tobacco - Denies Tobacco Use, 07/16/2022 Never (less than 100 in lifetime) Tobacco Use:. Never Smokeless Tobacco Use:. Household tobacco concerns: No., 10/20/2020 Vaping, 09/08/2020 Lab Results WBC: 7.7 E9/L (02/26/23 21:05:00) RBC: 4.8 E12/L (02/26/23 21:05:00) HGB: 13.4 gm/dL (02/26/23 21:05:00) Hct: 39.5 % (02/26/23 21:05:00) MCV: 82.7 fL (02/26/23 21:05:00) MCH: 28.1 pg (02/26/23 21:05:00) MCHC: 34 gm/dL (02/26/23 21:05:00) RDW: 12.5 % (02/26/23 21:05:00) Platelet: 357 E9/L (02/26/23 21:05:00) MPV: 7.7 fL (02/26/23 21:05:00) Neutro Auto: 50 (more content not included)...[facility] Comment on above:Result Comment: Electronically Signed By: Marcus Salazar DO\.br\Date and Time Signed: 02/26/23 22:28 SAKINA Patient Education Noteon [id number] Patient Education NoteObstetrics and Gynecology Your Hcg today: 20,869 Threatened Miscarriage A threatened miscarriage occurs when a woman has vaginal bleeding during the first 20 weeks of but the has not ended. If vaginal bleeding occurs during this time, the health care provider will do tests to make sure the woman is still . The woman's condition may be considered a threatened miscarriage if the tests show: ? That she is still . ? That the embryo or unborn baby (fetus) inside the uterus is still growing. A threatened miscarriage does not mean your will end, but it does increase the risk of losing your (miscarriage). What are the causes? The cause of this condition is usually not known. What increases the risk? The following factors may make a woman more likely to have a miscarriage: Certain medical conditions ? Conditions that affect the hormone balance in the body, such as thyroid disease or polycystic ovary syndrome. ? Diabetes. ? Autoimmune disorders. ? Infections. ? Bleeding disorders. ? Obesity. Lifestyle factors ? Using products with tobacco or nicotine or being exposed to tobacco smoke. ? Having alcohol. ? Having large amounts of caffeine. ? Recreational drug use. Problems with reproductive organs or structures ? Cervical insufficiency. This is when the the lowest part of the uterus (cervix) opens and thins before is at term. ? Having a condition called Asherman syndrome, which causes scarring in the uterus or causes the uterus to be abnormal in structure. ? Fibrous growths, called fibroids, in the uterus. ? Congenital abnormalities. These problems are present at . ? Infection of the cervix or uterus. Personal or medical history ? Injury (trauma). ? Having had a miscarriage before. ? Being younger than age 18 or older than age 35. ? Exposure to harmful substances in the environment. This may include radiation or heavy metals, such as lead. ? Using certain medicines. What are the signs or symptoms? Symptoms of this condition include: ? Vaginal bleeding or spotting, with or without cramps or pain. ? Mild pain or cramps in your abdomen. How is this diagnosed? You may have tests to check whether you are still . These tests will be done if you have bleeding, with or without pain, in your abdomen before the 20th week of . These tests include: ? Ultrasound. ? A physical exam. ? Measurement of your baby's heart rate. ? Lab tests, such as blood tests, urine tests, or swabs for infection. You may be diagnosed with a threatened miscarriage if: ? Ultrasound testing shows that you are still . ? Your baby's heart rate is strong. ? A physical exam shows that your cervix is closed. ? Blood tests confirm that you are still . How is this treated? No treatments have been shown to prevent a threatened miscarriage from going on to a complete miscarriage. However, the right home care is important. Follow these instructions at home: ? Get plenty of rest. ? Do not have sex, douche, or put anything in your vagina, such as tampons, until your health care provider says it is okay. ? Do not smoke or use recreational drugs. ? Do not drink alcohol. ? Avoid caffeine. ? Keep all follow-up visits. This is important. Contact a health care provider if: ? You have light vaginal bleeding or spotting while . ? You have pain or cramping in your abdomen. ? You have a fever. Get help right away if: ? Heavy bleeding soaks through 2 large sanitary pads an hour for more than 2 hours. ? Blood clots come out of your vagina. ? Tissue comes out of your vagina. ? You leak fluid, or you have a gush of fluid from your vagina. ? You have severe low back pain or cramps in your abdomen. ? You have a fever, chills, and severe pain in the abdomen. Summary ? A threatened miscarriage occurs when a woman bleeds from the vagina during the first 20 weeks of but the has not ended. ? The cause of a threatened miscarriage is usually not known. ? Symptoms of this condition may include vaginal bleeding and mild pain or cramps in your abdomen. ? No treatments have been shown to prevent a threatened miscarriage from going on to a complete miscarriage. ? Keep all follow-up visits. This is important. This information is not intended to replace advice given to you by your health care provider. Make sure you discuss any questions you have with your health care provider. Document Revised: 09/05/2020 Document Reviewed: 09/05/2020 [employer] Patient Education ? 2022 [employer]at.[facility] ED Patient Summaryon [id number] Patient Summary [place] [id number] Patient Discharge Instructions Person Information Name: BRAXTON GREEN Age: 17 Years Arrival Date: 02/26/2023 20:43:29 Discharge Diagnosis: Threatened miscarriage Primary Care Physician: ALVAREZ SANABRIA CNP Provider Information Primary Provider: Marcus Salazar DO Advanced Bristle Machine Operator:None The exam and treatment you received in the Emergency Department were for an urgent problem and are not intended as complete care. It is important that you follow up with a doctor, nurse practitioner,or physician?s plumber's assistant for ongoing care. If your symptoms become worse or you do not improve as expected and you are unable to reach your usual health care provider, you should return to the Emergency Department. We are available 24 hours a day. BRAXTON GREEN has been given the following list of patient education materials, prescriptions and follow-up instructions: Follow-up Instructions: With: Address: When: Your established OBGYN In 2 days 02/28/2023 With: Address: When: ALVAREZ SANABRIA [address] [place] [phone] Business (1) In 3 days In the event that this physician does not participate in your insurance network, please consult with your insurance company to find a nearby participating provider. Patient Education Materials: Threatened Miscarriage A MESSAGE TO ALL PATIENTS REGARDING OPIOIDS PRESCRIPTION OPIOIDS: WHAT YOU NEED TO KNOW Prescription opioids can be used to help relieve splsurrg-ox-royjrl pain and are often prescribed following a surgery or injury, or for certain health conditions. These medications can be an important part of the treatment but also come with serious risks. It is important to work with your healthcare provider to make sure you are getting the safest, most effective care. WHAT ARE THE RISKS AND SIDE EFFECTS OF OPIOID USE? Prescription opioids carry serious risks of addiction and overdose, especially with prolonged use. An opioid overdose, often marked by slowed breathing, can cause sudden . The use of prescription opioids can have a number of side effects as well, even when taken as directed: ? Tolerance?meaning you might need to take more of the medication for the same pain relief ? Physical dependence?meaning you have symptoms of withdrawal when a medication is stopped ? Increased sensitivity to pain ? Constipation ? Nausea, vomiting, and dry mouth ? Sleepiness and dizziness ? Confusion ? Depression ? Low levels of testosterone that can result in lower sex drive, energy, and strength ? Itching and sweating RISKS ARE GREATER WITH: ? History of drug misuse, substance use disorder, or overdose ? Mental health conditions (such as depression or anxiety) ? Sleep apnea ? Older age (65 years and older) ? Avoid alcohol while taking prescription opioids. Also, unless specifically advised by your health care provider, medications to avoid include: ? Benzodiazepines (such as Xanax or Valium) ? Muscle relaxants (such as Soma or Flexeril) ? Hypnotics (such as Ambien or Lunesta) ? Other prescription opioids KNOW YOUR OPTIONS Talk to your health care provider about ways to manage your pain that don?t involve prescription opioids. Some of these options may actually work better and have fewer risks and side effects. Optionsmay include: ? Pain relievers such as acetaminophen, ibuprofen, and naproxen ? Some medication that are also used for depression or seizures ? Physical therapy and exercise ? Cognitive behavioral therapy, a psychological, goal-directed approach, in which patients learn how to modify physical, behavioral, and emotional triggers of pain and stress. IF YOU ARE PRESCRIBED OPIOIDS FOR PAIN: ? Never take opioids in greater amounts or more often than prescribed. ? Follow up with your primary health care provider. o Work together to create a plan on how to manage your pain. o Talk about ways to help manage your pain that don?t involve prescription opioids. o Talk about any and all concerns and side effects. ? Help prevent misuse and abuse o Never sell or share prescription opioids. o Never use another person?s prescription opioids. ? Store prescription opioids in a secure place and out of reach of others (this may include visitors, children, friends, and family). ? Safely dispose of unused prescription opioids: Find your community drug take- back program or [employer] mail-back program, or flush them down the toilet, following guidance from the Food and Drug Administration (www.fda.gov/Drugs/ResourcesForYou). ? Visit www.cdc.gov/drugoverdose to learn about the risks of opioids abuse and overdose. ? If you believe you may be struggling with addiction, tell your health housekeeper child care and ask for guidance or call [facility] (more content not included)...[facility] HospitalHEMATOLOGYOrdered By: SYSTEM SYSTEM on 77-39-8388Kziugncrr/100 WBC (Bld)1.3 %Normal0.0 - 2.0 %[facility] HemeAutoSS Basophils/Leukocytes Auto (Bld) [Pure # fraction]0.1 E9/LNormal0.0 - 0.2 E9/L [facility] HemeAutoSSEosinophils/100 WBC (Bld)4.5 %Normal0.0 - 8.0 %[facility] HemeAutoSS Eosinophils/Leukocytes Auto (Bld) [Pure # fraction]0.3 E9/LNormal0.0 - 0.5 E9/L [facility] HemeAutoSSLymphocytes/100 WBC (Bld)34.1 %Pgtonz05.0 - 50.0 %[facility] HemeAutoSS Lymphocytes/Leukocytes Auto (Bld) [Pure # fraction]2.6 E9/LNormal1.0 - 4.0 E9/L [facility] HemeAutoSSMonocytes/100 WBC (Bld)9.7 %Normal4.0 - 14.0 %[facility] HemeAutoSS Monocytes/Leukocytes Auto (Bld) [Pure # fraction]0.7 E9/LNormal0.2 - 1.0 E9/L [facility] HemeAutoSSNeutrophils/100 WBC (Bld)50.4 %Aofwam67.0 - 75.0 %[facility] HemeAutoSS Neutrophils/Leukocytes Auto (Bld) [Pure # fraction]3.9 E9/LNormal2.0 - 7.5 E9/L [facility] HemeAutoSSHEMATOLOGYOrdered By: Marilyn Uriarte on 16-39-8682Trvvwbduuij distribution width (RBC) [Ratio]12.5 %Uuusrj83.9 - 14.2 %[facility] HemeAutoSS Hematocrit (Bld) [Volume fraction]39.5 %Haefxc11.0 - 46.0 %[facility] HemeAutoSS Hemoglobin (Bld) [Mass/Vol]13.4 g/dKXjkjge16.0 - 16.0 gm/dLFTMC HemeAutoSSMCH (RBC) [Entitic mass]28.1 twRuxfcv05.0 - 34.0 pgFTMC HemeAutoSSMCHC (RBC) [Mass/Vol]34.0 g/xGJdxrqi25.4 - 36.0 gm/dLFTMC HemeAutoSSMCV (RBC) [Entitic vol] 82.7 wNAryudl91.0 - 100.0 fLFTMC HemeAutoSSPlatelet mean volume (Bld) [Entitic vol]7.7 fLNormal6.4 - 10.8 fLFTMC HemeAutoSSPlatelets (Bld) [#/Vol]357.0 E9/L Fnzfke369.0 - 500.0 E9/L[facility] HemeAutoSSRBC (Bld) [#/Vol]4.8 E12/LNormal4.3 - 5.9 E12/LFT[facility] HemeAutoSSWBC corrected for nucl RBC Auto (Bld) [#/Vol]7.7 E9/LNormal 4.0 - 11.0 E9/LFTMC HemeAutoSSHep Func Panelon 37-72-1405Heowtlo [Mass/Vol]3.9 g/dLNormal3.3-5.0[facility] Rita'S Medical CenterComment on above:Performed By: #### 9540432, 9217169, 8681973, 4567732, 61869720 ####[address] [address]Mogxokm/Globulin (S) [Mass conc ratio]1.7Bvpcph1.1-2.2FTriHealth Good Samaritan HospitalComment on above:Performed By: #### 7479644, 0217175, 3781891, 2332355, 11893207 ####[address] [address]YBT [Catalytic activity/Vol]51 Int._Unit/SJmayqy08-54MmsanvMercy Health St. Rita'S Medical CenterComment on above:Performed By: #### 9109226, 8923502, 5868150, 3292470, 07057627 ####[address] [address]YYR No additional P-5'-P [Catalytic activity/Vol]25 Int._Unit/LNormal6-46[facility] Comment on above:Performed By: #### 0305688, 6805675, 7161048, 5847953, 61209032 ####[address] [address]RQQ [Catalytic activity/Vol]21 Int._Unit/LNormal5-43[facility] Comment on above:Performed By: #### 1797456, 1191355, 6286872, 7849299, 50495533 ####[address] [address] Bilirubin [Mass/Vol]0.6 mg/dLNormal0.0-1.1FTriHealth Good Samaritan HospitalComment on above:Performed By: #### 8558422, 0186522, 6354898, 4653258, 07785512 ####[address] [address] Bilirubin.direct [Mass/Vol]0.1 mg/dLNormal0.1-0.4FTriHealth [facility]ar[facility] Hospital Comment on above:Performed By: #### 4640791, 5662241, 4784183, 1604765, 36657110 ####[address] [address] Bilirubin.indirect [Mass or moles/Vol]0.5 mg/dLNormal0.1-0.9[facility] Rita'S Medical CenterComment on above:Performed By: #### 7581014, 3961180, 0641376, 0201486, 73317752 ####[address] [address]Tvnvyocc (S) [Mass/Vol]3.1 g/dLNormal1.4-4.0[facility] Comment on above:Performed By: #### 6446302, 0472002, 6045713, 9885255, 86259716 ####[address] [address] Protein [Mass/Vol]7.0 g/dLNormal6.0-7.8[facility] Rita'S Medical CenterComment on above:Performed By: #### 7010938, 3008706, 7669290, 4116378, 68020881 ####[address] [address]Rqfsdk Levelon 81-84-0465Yyuujy [Catalytic activity/Vol]36 U/TVlrwgn41-29BtdqabMercy Health St. Rita'S Medical CenterComment on above:Performed By: #### 6602921, 6445738, 9646988, 0542089, 43423361 ####[address] [address]QE With Cult Reflexon 05-44-1794Qqafhdyl LM Ql (Urine sed)1+ /HPFAbnormal TraceMercy Health St. Rita'S Medical CenterComment on above:Performed By: #### 99332700 ####[address] [address] Bilirubin Ql (U)NegativeNormalNegativeMercy Health St. Rita'S Medical CenterComment on above:Performed By: #### 81707458 ####[address], [place] [address]Ivzbbhz (U)CLEARNormalClearMercy Health St. Rita'S Medical CenterComment on above:Performed By: #### 60133246 ####[address] [address]Nhrok (U)YELLOWNormalYellow [facility]'S Medical CenterComment on above:Performed By: #### 09431300 ####[address] [address] Crystals LM Ql (Urine sed)PresentNormalMercy Health St. Rita'S Medical CenterComment on above:Performed By: #### 26694338 ####[address] [address]Ikrddwqtpa cells.squamous LM.HPF (Urine sed) [#/Area]5-0Hszphh0-2Wclmhh [facility] InstituteComment on above:Performed By: #### 06518125 ####[address] [address]Kuxrhhb Test strip (U) [Mass/Vol]NegativeNormalNegativeMercy Health St. Rita'S Medical CenterComment on above:Performed By: #### 49309008 ####[address] [address]Lbhajzqgki Ql (U)3+ AbnormalNegativeMercy Health St. Rita'S Medical CenterComment on above:Performed By: #### 69510313 ####[address] [address]Mudzyby (U) [Mass/Vol]NegativeNormalNegativeMercy Health St. Rita'S Medical Center Comment on above:Performed By: #### 74703596 ####[address] [address]Odmzoek.plasma/Shipman.RBC (Bld) [Mass ratio]1-65Gddztr0-0Eubqmg [facility] InstituteComment on above:Performed By: #### 86262748 ####[address] [address]Bmyhc Ql (Urine sed)TRACEHigh[facility] Comment on above:Performed By: #### 63775902 ####[address] [address]Iodywwh Ql (U)NegativeNormalNegative [facility]'S Medical CenterComment on above:Performed By: #### 76198812 ####[address] [address]jK (U)6.0 [pH]Invalid Interpretation Code5.0-9.0[facility]. Rita'S Medical CenterComment on above:Performed By: #### 57344110 ####[address] [address]Yvgsbpf (U) [Mass/Vol]NegativeNormal NegativeMercy Health St. Rita'S Medical CenterComment on above:Performed By: #### 22801775 ####[address] [address] Specific gravity (U) [Rel density]1.020Invalid Interpretation Code1.005-1.[address] Rita'S Medical CenterComment on above:Performed By: #### 46521004 ####[address] [address]Pwkg of Urine collection methodClean CatchHighland District HospitalComment on above:Performed By: #### 20229860 ####[address] [address]Zvsbmofpziqh Qn (U)0.2 {Blayne'U}/dLNormal0.0-1.[address] Rita'S Medical CenterComment on above:Performed By: #### 05384471 ####[address] [address]YVI Auto Ql (U)NegativeNormalNegativeMercy Health St. Rita'S Medical CenterComment on above: Performed By: #### 07424265 ####[address] [address]NEH LM.HPF (Urine sed) [#/Area]6-1Nbsqag6-0Lmwidi [facility] InstituteComment on above:Performed By: #### 50927745 ####[facility] [address] [place], [place] [address]Cfavg LM Ql (Urine sed)TRACENormalFisher [facility] InstituteComment on above:Performed By: #### 95775680 ####[facility] [address] [place], [place] [address]TGNABZQSBCJuekejb By: [place] on 37-02-1315Wtceftlo LM Ql (Urine sed)1+ /HPFInvalid Interpretation CodeTrace/HPFBEAVER [facility] UA Auto SSBilirubin Ql (U) Negative (02/26/23 9:57 PM)NormalNegativeBEAVER [facility] UA Auto SSClarity (U)Clear (02/26/23 9:57 PM)NormalClearFSEILING REGIONAL [facility] UA Auto SSColor (U)Yellow (02/26/23 9:57 PM)NormalYellowBEAVER COUNTY [facility]ORIAL [facility] UA Auto SSCrystals LM Ql (Urine sed)Present (02/26/23 9:57 PM)NormalBEAVER COUNTY MEMORIAL [facility]OSP[facility] UA Auto SSEpithelial cells.squamous LM.HPF (Urine sed) [#/Area]3-4 /HPFNormal0-2/HPFBEAVER COUNTY [facility] UA Auto SSGlucose Test strip (U) [Mass/Vol]Negative (02/26/23 9:57 PM)NormalNegativeBEAVER [facility] UA Auto SSHemoglobin Ql (U)3+ *ABN* (02/26/23 9:57 PM)Invalid Interpretation CodeNegativeBEAVER [facility] UA Auto SSKetones (U) [Mass/Vol]Negative (02/26/23 9:57 PM)NormalNegativeBEAVER [facility] UA Auto SSLithium.plasma/Shipman.RBC (Bld) [Mass ratio]4-20 /HPFNormal0-3/HPFBEAVER COUNTY [facility]ORIAL [facility] UA Auto SSMucus Ql (Urine sed)Trace (02/26/23 9:57 PM)NormalBEAVER COUNTY [facility]ORIAL [facility] UA Auto SSNitrite Ql (U)Negative (02/26/23 9:57 PM)NormalNegativeBEAVER [facility] UA Auto SSpH (U)6.0 *NA* (02/26/23 9:57 PM)Invalid Interpretation Code5.0 - 9.0[facility] UA Auto SSProtein (U) [Mass/Vol]Negative (02/26/23 9:57 PM)NormalNegativeBEAVER [facility] UA Auto SSSpecific gravity (U) [Rel density] 1.020 *NA* (02/26/23 9:57 PM)Invalid Interpretation Code1.005 - 1.030[facility] UA Auto SSUA Spec DescClean Catch (02/26/23 9:57 PM)NormalBEAVER COUNTY MEMORIAL [facility]OSP[facility] UA Auto SSUrobilinogen Qn (U)0.1494002 {Blayne'U}/dLNormal0.0 - 1.0 EU/dLBEAVER COUNTY [facility]ORIAL [facility]OSP[facility] UA Auto SSWBC Auto Ql (U)Negative (02/26/23 9:57 PM)NormalNegativeBEAVER [facility] UA Auto SSWBC LM.HPF (Urine sed) [#/Area]0-5 /HPFNormal0-5/HPFBEAVER COUNTY [facility] UA Auto SSYeast LM Ql (Urine sed)Trace (02/26/23 9:57 PM)NormalBEAVER COUNTY MEMORIAL HOSPITAL [facility] UA Auto SSeGFRon 79-49-1488KDN/1.73 sq M.predicted among non-blacks MDRD (S/P/Bld) [Vol rate/Area]133 mL/min/1.73 m0Qvpvcr>=[address] [facility]'S Medical CenterComment on above:Order Comment: Order added by Discern Expert.Result Comment: Chronic kidney disease could be indicated at eGFR's of less than 60 mL/min/1.73m2. Kidney failure is indicated at less than 15 mL/min/1.73m2.Performed By: #### 6766013, 9302362, 8713251, 7471650, 12584833 ####[facility] [address] [place], [place] [address]SzWK Quanton 98-60-2871BTX.beta subunit [id number] m[IU]/mLHigh1-3FTriHealth Good Samaritan HospitalComment on above:Result Comment: GESTATIONAL AGE HCG RANGE (mIU/mL) NON- <1-3 0.2-1 WEEKS 5-50 1-2 WEEKS 50-500 2-3 WEEKS 100-5,000 3-4 WEEKS 500-10,000 4-5 WEEKS 1,000-50,000 5-6 WEEKS 10,000-100,000 6-8 WEEKS 15,000-200,000 8-12 WEEKS 10,000-100,000Performed By: #### [id number] ####[facility] [address] [place], [place] [address]LTHLDMELTUmmgwbx By: SYSTEM SYSTEM on 21-92-6998ZDR.beta subunit [id number] m[IU]/mLHigh1 - 3 mIU/mLBEAVER COUNTY [facility] RemisolComment on above:Interpretive Data: GESTATIONAL AGE HCG RANGE (mIU/mL) NON- <1-3 0.2-1 WEEKS 5-50 1-2 WEEKS 50-500 2-3 WEEKS 100-5,000 3-4 WEEKS 500-10,000 4-5 WEEKS 1,000-50,000 5-6 WEEKS 10,000-100,000 6-8 WEEKS 15,000-200,000 8-12 WEEKS 10,000-100,000Consent for Treatmenton 68-00-7253Zkkpqmk for Treatment [id number]#1.00TIFKindred Hospital LimaPhysician Orderon 72-00-6008Xobdlgxuc Order [id number]#1.00[facility]ult[facility] HospitalBhCG Quanton 84-34-1430SOC.beta subunit Zi83456 m[IU]/mLHigh1-3Fisher [facility] InstituteComment on above:Result Comment: GESTATIONAL AGE HCG RANGE (mIU/mL) NON- <1-3 0.2-1 WEEKS 5-50 1-2 WEEKS 50-500 2-3 WEEKS 100-5,000 3-4 WEEKS 500-10,000 4-5 WEEKS 1,000-50,000 5-6 WEEKS 10,000-100,000 6-8 WEEKS 15,000-200,000 8-12 WEEKS 10,000-100,000Performed By: #### [id number] ####[facility] [address] [place], [place] [address]NUMDUBCNXHihnply By: SYSTEM SYSTEM on 16-10-1933TNI.beta subunit [id number] m[IU]/mLHigh1 - 3 mIU/mLBEAVER COUNTY [facility] RemisolComment on above:Interpretive Data: GESTATIONAL AGE HCG RANGE (mIU/mL) NON- <1-3 0.2-1 WEEKS 5-50 1-2 WEEKS 50-500 2-3 WEEKS 100-5,000 3-4 WEEKS 500-10,000 4-5 WEEKS 1,000-50,000 5-6 WEEKS 10,000-100,000 6-8 WEEKS 15,000-200,000 8-12 WEEKS 10,000-100,000Consent for Treatmenton 43-07-3053Oieqwge for Treatment [id number]#1.00[facility] HospitalPhysician Orderon 26-55-6619Tiatfylss Order [id number]#1.00Aultman HospitalAuto Diffon 47-78-7359Qkwnkndpg/100 WBC (Bld)0.6 %Normal0.0-2.0[facility]. Rita'S Medical CenterComment on above:Order Comment: Order Added by Discern Expert.Performed By: #### [id number], 2013480, 0796432, 63423227, 9987891, 1281044, 2856156 ####[facility] [address] [place], [place] [address]Cpsqxxcaa/Leukocytes Auto (Bld) [Pure # fraction]0.1 E9/L Normal0.0-0.2FTriHealth Good Samaritan HospitalComment on above:Order Comment: Order Added by Discern Expert.Performed By: #### 75979908, 2358995, 1704288, 11413263, 0353480, 9599933, 1318424 ####[facility] [address] [place], [place] [address]Zbeizvndagy/100 WBC (Bld)2.9 %Normal0.0-8.0[facility]. Rita'S Medical CenterComment on above:Order Comment: Order Added by Discern Expert. Performed By: #### 89516189, 6797471, 5198983, 58324418, 4600969, 5776811, 7966393 ####[address] [address]Hcugeihhrgo/Leukocytes Auto (Bld) [Pure # fraction]0.2 E9/LNormal0.0-0.[address] [facility]'S Medical CenterComment on above:Order Comment: Order Added by Discern Expert.Performed By: #### 71881033, 4484766, 3322439, 53647333, 8336319, 5604390, 9049673 ####[address] [address]Uaibizmgsur/100 WBC (Bld)11.8 %Low14.0-50.0[facility] Rita'S Medical CenterComment on above:Order Comment: Order Added by Discern Expert. Performed By: #### 08003798, 0721588, 4135605, 99370177, 7302180, 2272659, 9559998 ####[address] [address]Felfecejmey/Leukocytes Auto (Bld) [Pure # fraction]1.0 E9/LNormal1.0-4.[address] [facility]'S Medical CenterComment on above:Order Comment: Order Added by Discern Expert.Performed By: #### 51867451, 6768648, 5968967, 59365007, 7303542, 6440399, 6717922 ####[address] [address]Alsvyeael/100 WBC (Bld)10.9 %Normal4.0-14.0[facility] Rita'S Medical CenterComment on above:Order Comment: Order Added by Discern Expert. Performed By: #### 19820465, 9799025, 4591958, 78254472, 5449498, 8591645, 2595220 ####[place] [address] [place], [place] [address]Qtexyfxje/Leukocytes Auto (Bld) [Pure # fraction]0.9 E9/LNormal0.2-1.[address] [facility]'S Medical CenterComment on above:Order Comment: Order Added by Discern Expert.Performed By: #### 09417163, 7016652, 6506611, 27566052, 3905134, 1896487, 7978543 ####[address] [address]Zccggbkhihb/100 WBC (Bld)73.8 %Rsgvfg27.0-75.0[facility] Rita'S Medical CenterComment on above:Order Comment: Order Added by Discern Expert. Performed By: #### 35239113, 6584666, 3705283, 87836273, 9460632, 0648958, 2922455 ####[address] [address]Knkigxntsqs/Leukocytes Auto (Bld) [Pure # fraction]6.2 E9/LNormal2.0-7.[address] [facility]'S Medical CenterComment on above:Order Comment: Order Added by Discern Expert.Performed By: #### 99481653, 8427813, 8504090, 48992262, 4770456, 8179884, 6966387 ####[address] [address]A hCG Qualon 82-04-6514Crrv hCG QlNegativeNormalMercy Health St. Rita'S Medical CenterComment on above:Performed By: #### 10466226, 5719740, 9320983, 65569068, 2388704, 2477115, 2482312 ####[address] [address]HWVke 73-49-3546Clnaoijnyp [Mass/Vol]0.6 mg/dL Normal0.5-1.3FTriHealth Good Samaritan HospitalComment on above:Performed By: #### 37250027, 1990908, 6998449, 98330438, 2924331, 8701752, 3042609 ####[place] [address] [place], [place] [address]Qtzf nitrogen [Mass/Vol]6 mg/dLNormal5-21[facility] Rita'S Medical CenterComment on above:Performed By: #### 51750736, 4448003, 1018533, 81311219, 2762256, 1043816, 2269015 ####[facility] [address] [place], [place] [address]Apvp nitrogen/Creatinine [Mass ratio]10 No BmhlkRmxvzl15-86GfkhunMercy Health St. Rita'S Medical CenterComment on above:Performed By: #### 87370682, 5648784, 9087834, 37093770, 4207541, 3610879, 5947887 ####[facility] [address] [place], [place] [address]Ahimu gap [Moles/Vol]13 mmol/LNormal6-16[facility] Rita'S Medical CenterComment on above:Performed By: #### 18187029, 7632877, 5151303, 04600035, 8002553, 6732583, 4124090 ####[address] [address]Ashgqdi [Mass/Vol]9.0 mg/dLNormal8.9-11.1FTriHealth Good Samaritan HospitalComment on above:Performed By: #### 23086512, 8848398, 2693674, 63886355, 4467294, 6732520, 8248045 ####[address] [address]Xfmymqvg [Moles/Vol]99 mmol/CFde658-946MdmrlfMercy Health St. Rita'S Medical CenterComment on above:Performed By: #### 34700628, 3475069, 6936228, 21668427, 9010980, 1719021, 8954195 ####[facility] [address] [place], [place] [address]PA6 [Moles/Vol]26 mmol/WPmbcxh34-[address] Rita'S Medical CenterComment on above:Performed By: #### 19705326, 3784186, 1084114, 14178365, 0172751, 8902574, 9810416 ####[facility] [address] [place], [place] [address]Knsusuz [Mass/Vol]90 mg/dL Xsrlhl93-382FosaxbMercy Health St. Rita'S Medical CenterComment on above:Result Comment: If this glucose result represents a fasting glucose, interpretation should refer tothe following reference range: 55-99 mg/dLPerformed By: #### 58632265, 0201270, 2670275, 05734474, 0909607, 1725237, 5135389 ####[address] [address]Hfabnbkbi [Moles/Vol]3.7 mmol/LNormal 3.5-5.3FTriHealth Good Samaritan HospitalComment on above:Performed By: #### 28412933, 3603611, 2771889, 28478283, 8882697, 1333937, 6453797 ####[place] [address] [place], [place] [address]Knobzc [Moles/Vol]134 mmol/L Ekz159-230OaboloMercy Health St. Rita'S Medical CenterComment on above:Performed By: #### 81860085, 7456508, 0105362, 20442592, 7581318, 5633684, 3982953 ####[address] [address]SNG w/ Auto Diffon 43-23-3864Jhpewhnytgb distribution width (RBC) [Ratio]12.6 %Bsynqk13.9-14.[address] [facility]'S Medical CenterComment on above:Performed By: #### 45323924, 2537065, 0848169, 30339984, 9803679, 8366508, 4248857 ####[address] [address]Ryyautcfun (Bld) [Volume fraction]37.0 %Sijhba15.0-46.0[facility] Rita'S Medical CenterComment on above: Performed By: #### 79360848, 5641987, 0367721, 60139440, 4078088, 5208435, 4945613 ####[address] [address]Dxcpqtxcpy (Bld) [Mass/Vol]12.6 g/aEEhkxbd73.0-16.0[facility] Rita'S Medical CenterComment on above:Performed By: #### 56348003, 6300150, 8821236, 48021394, 7604373, 2652410, 0388388 ####[facility] [address] [place] [address]YKZ (RBC) [Entitic mass]27.4 onIehxix77.0-34.0[facility] Rita'S Medical CenterComment on above:Performed By: #### 19636347, 2330595, 7096874, 05383707, 2084796, 7666428, [id number] ####[place] [id number] (RBC) [Mass/Vol]34.0 g/nYHbgigs09.4-36.0[facility] Medical CenterComment on above:Performed By: #### [id number], [id number], [id number], [id number], [id number], [id number], [id number] ####[place] [address] [address]CYT (RBC) [Entitic vol]80.8 fLNormal 80.0-100.0[facility] Medical CenterComment on above:Performed By: #### [id number], [id number], 8641851, [id number], [id number], 1318155, [id number] ####[place] [address] [address]Zlcpncgm mean volume (Bld) [Entitic vol]7.9 fLNormal6.4-10.8[facility] Rita'S Medical CenterComment on above:Performed By: #### [id number], [id number], [id number], 75156145, 7434787, 5464798, 6927360 ####[place] [address] [address]Aiilnfkgz (Bld) [#/Vol]256.0 E9/ETfaqcm377.0-500.0[facility] Rita'S Medical CenterComment on above:Performed By: #### [id number], [id number], 5763794, [id number], 9273963, 3001948, 4627760 ####[facility] [address] [place], [place] [address]LWL (Bld) [#/Vol]4.6 E12/LNormal4.3-5.9[facility] Rita'S Medical CenterComment on above:Performed By: #### [id number], 5451794, 6385670, 74851380, 1307938, 2823361, 3676711 ####[facility] [address] [place], [place] [address]DDB corrected for nucl RBC Auto (Bld) [#/Vol]8.4 E9/LNormal 4.0-11.0[facility] Rita'S Medical CenterComment on above:Performed By: #### [id number], 7826471, 7220287, 61219316, 5115915, 1700216, 8733761 ####[facility] [address] [place], [place] [address]KBNYTOINIBwqjxtn By: SYSTEM SYSTEM on 17-77-9791Ycxsyry [Mass/Vol]4.0 g/dLNormal3.3 - 5.0 gm/dLFTMC Remisol Albumin/Globulin [Mass ratio]1.4 {ratio}Normal1.1 - 2.2[facility] RemisolALP [Catalytic activity/Vol]53 [iU]/iDyuunv43 - 98 Int._Unit/LFTMC RemisolALT No additional P-5'-P [Catalytic activity/Vol]21 [iU]/dNormal6 - 46 Int._Unit/LFTMC RemisolAnion gap [Moles/Vol]13 mmol/LNormal6 - 16 mEq/LFTMC RemisolAST [Catalytic activity/Vol]19 [iU]/dNormal5 - 43 Int._Unit/LFTMC RemisolBilirubin [Mass/Vol]0.6 mg/dLNormal0.0 - 1.1 mg/dLFTMC RemisolBilirubin.direct [Mass/Vol] 0.1 mg/dLNormal0.1 - 0.4 mg/dLFTMC RemisolBilirubin.indirect [Mass or moles/Vol] 0.5 mg/dLNormal0.1 - 0.9 mg/dLFTMC RemisolCalcium [Mass/Vol]9.0 mg/dLNormal8.9 - 11.1 mg/dLFTMC RemisolChloride [Moles/Vol]99 mmol/WFck347 - 111 mmol/LFTMC RemisolCO2 [Moles/Vol]26 mmol/CHjrick05 - 31 mmol/LFTMC RemisolCreatinine [Mass/Vol]0.6 mg/dLNormal0.5 - 1.3 mg/dLFTMC RemisolGFR/1.73 sq M.predicted among non-blacks MDRD (S/P/Bld) [Vol rate/Area]133 mL/min/1.73 v6Ztqcea >=59mL/min/1.73 m2FTMC Chem SGlobulin (S) [Mass/Vol]2.9 g/dLNormal1.4 - 4.0 gm/dLFTMC RemisolGlucose [Mass/Vol]90 mg/xRGhjsso85 - 199 mg/dLFTMC Remisol Lipase [Catalytic activity/Vol]27 U/ZQmttqq65 - 58 unit/LFTMC RemisolPotassium [Moles/Vol]3.7 mmol/LNormal3.5 - 5.3 mmol/LFTMC RemisolProtein [Mass/Vol]6.9 g/dLNormal6.0 - 7.8 gm/dLFTMC RemisolSodium [Moles/Vol]134 mmol/LEbu404 - 145 mmol/LFTMC RemisolUrea nitrogen [Mass/Vol]6 mg/dLNormal5 - 21 mg/dLFTMC Remisol Urea nitrogen/Creatinine [Mass ratio]10 mg/jgYulqpu05 - 20FT[facility] RemisolCT Abdomen/Pelvis w/ Contraston [id number] Abdomen/Pelvis w/ ContrastExam Date/Time: 08/18/2022 16:03 EDT Reason for Exam: Abdominal pain, acute, nonlocalized;Other (please specify) Report IMPRESSION: SMALL AMOUNT OF FREE FLUID IN THE PELVIC CUL-DE-SAC, WHICH MAY BE PHYSIOLOGIC. OTHERWISE UNREMARKABLE CT SCAN OF THE ABDOMEN AND PELVIS. CLINICAL HISTORY: Abdominal pain, acute, nonlocalized. COMMENT: Images were obtained following the administration of Intravenous contrast. The liver, spleen, pancreas, gallbladder, adrenal glands, and kidneys are normal in appearance. The renal collecting systems are not dilated. No retroperitoneal lymphadenopathy is evident. The abdominal aorta is normal. No aneurysm is noted. Evaluation of bowel is limited. The bowel loops are not dilated, and there is no evidence of bowel obstruction. The appendix is normal. Fecal material in the colon limits evaluation. There is no evidence of diverticulitis. No abdominal inflammatory complex nor free air is noted. There is a small amount of free fluid in the pelvic cul-de-sac. The uterus is anteverted. There are small follicular ovarian cysts bilaterally. There is not much fluid in the lumen of urinary bladder, which limits evaluation. No bladder calculus is evident. No pelvic mass nor pelvic lymphadenopathy is noted. There is mild lumbar levoscoliosis. Bony structures are otherwise unremarkable. All CT scans at this facility use dose modulation, iterative reconstruction, and/or weight based dosing when appropriate to reduce radiation dose to as low as reasonably achievable. Ordering Provider: Shyam Gallegos FINAL REPORT Dictated: 08/18/2022 4:15 pm Manny Landin M.D. Signed (Electronic Signature): 08/18/2022 4:15 pm Signed by: Manny Landin M.D. Transcribed by: LILIA Technologist: BRAXTON Technical Comments GFR (mL/min/1/73m2) na Contrast: Isovue 300 Contrast amount in ml's: 100 Rectal Contrast Given? NoNormalMercy Health St. Rita'S Medical CenterConsent for Treatment on 74-42-5484Vifrhhq for Treatment [id number]:127NoTriHealth McCull[facility]-Hyde Memorial HospitalDischarge Instructionson 44-05-7090Ilgmlunpl Instructions [id number]:127NoK[facility] Clinical Summaryon [id number] Clinical Summary [place] [id number] ED Clinical Summary Person Information Name: GREENBRAXTON/[facility] Age: 17 Years : 2005 Sex: Female Language: Chilean PCP: ALVAREZ SANABRIA CNP Marital Status: Single Phone: [phone] Visit Id: Visit Reason: Urinary frequency; Flank pain; Back pain; BACK PAIN Speciality: Acuity: 3 Enc Type: Emergency Med Service: Emergency Arrival: 08/18/2022 15:05:21 Discharge: 08/18/2022 17:32:00 LOS: 000 02:27 Checkin: 08/18/2022 15:05:21 Checkout: 08/18/2022 17:32:00 Dispo Type: Home (Routine DC) EVENTS: Event Name Event Status Request Date/Time Start Date/Time Complete Date/Time Arrive Complete 08/18/2022 15:05:21 08/18/2022 15:05:21 08/18/2022 15:05:21 Document Home Meds Request 08/18/2022 15:05:21 Triage Complete 08/18/2022 15:05:21 08/18/2022 15:11:52 08/18/2022 15:11:52 Bed Assign Complete 08/18/2022 15:12:10 08/18/2022 15:12:10 08/18/2022 15:12:10 Dr Exam Complete 08/18/2022 15:12:10 08/18/2022 15:15:00 08/18/2022 15:15:00 RN Exam Request 08/18/2022 15:12:10 Registration Complete 08/18/2022 15:15:00 08/18/2022 15:16:13 08/18/2022 15:16:13 Reg Complete Request 08/18/2022 15:16:13 Reg Bed Request Complete 08/18/2022 15:16:13 08/18/2022 15:16:13 08/18/2022 15:16:13 Meds Admin Complete 08/18/2022 15:24:36 08/18/2022 16:18:17 Pending Labs Complete 08/18/2022 15:24:36 08/18/2022 16:57:04 Lab Complete 08/18/2022 15:24:36 08/18/2022 16:53:28 Urine Collect Complete 08/18/2022 15:24:36 08/18/2022 16:53:28 CT Complete 08/18/2022 15:24:36 08/18/2022 15:58:17 08/18/2022 16:03:17 Dr Exam Complete 08/18/2022 15:25:07 08/18/2022 15:25:07 08/18/2022 15:25:07 Registration Request 08/18/2022 15:25:07 Pending Labs Complete 08/18/2022 16:26:50 08/18/2022 16:26:50 08/18/2022 16:51:00 Lab Complete 08/18/2022 16:26:50 08/18/2022 16:26:50 08/18/2022 16:51:00 Pending Labs Complete 08/18/2022 16:37:22 08/18/2022 16:37:22 08/18/2022 16:37:31 Lab Complete 08/18/2022 16:37:22 08/18/2022 16:37:22 08/18/2022 16:37:31 Discharge Complete 08/18/2022 17:04:08 08/18/2022 17:34:34 08/18/2022 17:34:34 Transfer Complete 08/18/2022 17:34:34 08/18/2022 17:34:34 08/18/2022 17:34:34 ADDRESS: [address] [place] [phone] PHYS DOC NOTES: MEDICAL INFORMATION: Prescriptions Given: New Medications [id number], [address] [place], [place] [id number], [phone] naproxen (naproxen 500 mg Tab) 1 Tablets By Mouth 2 times a day as needed Pain. with food. Refills:0. ondansetron (Zofran ODT 4 mg Tab-Dis) 1 Tablets By Mouth every 8 hours as needed Nausea/Vomiting. Refills: 0. Medications to Continue with No Changes Other Medications dextromethorphan-guaifenesin (Robitussin Cough + Chest Congestion DM 20 mg-200 mg/20 mL oral liquid) 20 Milliliter By Mouth every 4 hours. Refills: 0. ibuprofen (ibuprofen 600 mg Tab) 1 Tablets By Mouth every 6 hours. Refills: 0. PATIENT EDUCATION INFORMATION: Instructions: Flank Pain, Adult, Lfps-sg-Uqee Follow up: With: Address: When: ALVAREZ SANABRIA [address] [facility] [place] [phone] Business (1) In 3 days 08/21/2022 Comments: Follow-up with your primary care provider in 3 to 5 days. If symptoms worsen, do not improve, or new symptoms arise please report back to emergency department for further evaluation. DIAGNOSIS: Right flank painNormalFisher Bao Medical CenterED Note-Physicianon 08-18-2022 ED Note-PhysicianBasic Information Time Seen: [place] HERNANDEZ, Shyam Hendrickson. 08/18/2022 15:15 Chief Complaint Pt presents to ED with complaints of right flank pain radiating up back and to ABD with frequency onset tuesday. History of Present Illness 17-year-old female reports to the emergency department with a chief complaint of right-sided flank pain that goes up to her back, down into her right side of her abdomen. Reports that she has little urinary frequency as well. Reports symptoms started Tuesday. States that she has not taken anything for this. States that she feels little nauseous with this. Denies any fevers chills or vomiting. Denies any constipation or diarrhea. States that she is no abdominal surgeries before. Denies any known allergies. Review of Systems A 10 point review of systems is negative except as noted above. Medical and Surgical History: Reviewed and noted Social history: Lives at home Family History: Reviewed. Tobacco: Denies Physical Exam Vitals & Measurements T: 36.5 ?C(Oral) HR: 101(Peripheral) RR: 18 BP: 119/76 SpO2: 98% HT: 154 cm WT: 73 kg BMI: 30.78 General: The patient appears well and in no apparent distress. Patient is resting comfortably on bed. Afebrile Skin: Warm, dry, no pallor noted. Head: Normocephalic, atraumatic Neck: No JVD Eye: PERRLA, EOMI ENT: Moist mucus membranes Cardiovascular: Regular rate normal peripheral perfusion. Radial pulses +2 bilaterally Respiratory: No respiratory distress no accessory muscle use no obvious audible wheezing. Lung sounds clear to auscultation Chest Wall: no deformity Musculoskeletal: normal ROM, no deformity, no swelling GI: No obvious distention soft. Mild tenderness in the right lower quadrant, extending to the rightflank. No rebound tenderness or guarding noted. Right- sided CVA tenderness. Neurological: A&O moves all extremities equal strength and symmetry Psychiatric: Cooperative and appropriate Medical Decision Making MEDICAL DECISION MAKING Number and Complexity of Problems Differential Diagnosis: [] [facility] Data External documents reviewed: [] My EKG interpretation: [] My CT interpretation: Reviewed My X-ray interpretation: [] My Ultrasound interpretation: [] Decision rules/scores evaluated: [] Discussed with: [] Treatment and Disposition ED Course: 17-year-old female reports to the emergency department with a chief complaint of right-sided flank pain. Reports that started on Tuesday. Reports has this not getting any better. States that goes into her back as well as the right lower abdomen. On physical exam, she does have tenderness from her right lower quadrant that extends up to her right-sided CVA area. No rebound tenderness or guarding noted. Patient states that she does have a little increased urinary frequency as well as nausea. Denies any history of kidney stones. Rest of physical exam is benign. Based on the patient's symptoms we did do lab work as well as a CT of her abdomen. Lab work reviewed and noted. No acute changes seen there. No signs of UTI. CT of her abdomen showed a small amount of free fluid in the pelvic cul-de-sac which is likely physiologic. Otherwise unremarkable CT. I discussed with the patient. Patient did feel improved after Toradol dose. I did will write prescription for naproxen to help her with her pain. Discussed return precautions. Follow-up with your primary care provider in 3 to 5 days. If symptoms worsen, do not improve, or new symptoms arise please report back to emergency department for further evaluation. The patient was understanding and agreeable to plan moving forward. Shared decision making: [] Code status: [] Assessment/Plan Right flank pain (R10.9: Unspecified abdominal pain) Orders: ketorolac, 30 mg = 1 mL, Injection, IV Push, Once, Stop date 08/18/22 15:24:00 EDT, STAT, Start date 08/18/22 15:24:00 EDT, 08/18/22 15:24:00 EDT naproxen, 500 mg = 1 tab(s), Oral, BID, PRN Pain, with food, # 20 tab(s), Refills(s) 0, Pharmacy: [facility] #[id number], 154, cm, 08/18/22 15:11:00 EDT, Height/Length Dosing, 73, kg, 08/18/22 15:11:00 EDT, Weight Dosing ondansetron, 4 mg = 2 mL, Injection, IV Push, Once, Stop date 08/18/22 15:24:00 EDT, STAT, Start date 08/18/22 15:24:00 EDT, 08/18/22 15:24:00 EDT ondansetron, 4 mg = 1 tab(s), Oral, q8hr, PRN Nausea/Vomiting, # 12 tab(s), Refills(s) 0, Pharmacy:[facility] #[id number], 154, cm, 08/18/22 15:11:00 EDT, Height/Length Dosing, 73, kg, 08/18/2314:11:00 EDT, Weight Dosing Sodium Chloride 0.9% intravenous solution, 1,000 mL, Soln-IV, IV, Once, Stop date 08/18/22 15:24:00EDT, STAT, Start date 08/18/22 15:24:00 EDT, Infuse over 61, minute(s) Automated Diff Basic Metabolic Panel Beta hCG Qual CBC w/ Auto Diff CT Abdomen/Pelvis w/ Contrast eGFR Hepatic Function Panel Lipase Level UA With Cult Reflex Medications Administered Given ketorolac 30 mg/mL Inj 1 mL, 30 mg, IV Push NS 1000 ml Bolus, 1000 mL, IV ond (more content not included)...[facility] HospitalComment on above:Result Comment: Electronically Signed By: Shyam Gallegos PA-C.br\Date and Time Signed: 08/18/2316:49 EDT\.br\Electronically Co-Signed By: Miky Sanders M.D.\.br\Date and Time Co-Signed: 08/18/22 18:14 EDTED Patient Education Noteon [id number] Patient Education NoteOrthopedics Flank Pain, Adult Flank pain is pain in your side. The flank is the area on your side between your upper belly (abdomen) and your spine. The pain may occur over a short time (acute), or it may be long-term or come back often (chronic). It may be mild or very bad. Pain in this area can be caused by many different things. Follow these instructions at home: ? Drink enough fluid to keep your pee (urine) pale yellow. ? Rest as told by your doctor. ? Take msug-jxs-milihpt and prescription medicines only as told by your doctor. ? Keep a journal to keep track of: ? What has caused your flank pain. ? What has made your flank pain feel better. ? Keep all follow-up visits. Contact a doctor if: ? Medicine does not help your pain. ? You have new symptoms. ? Your pain gets worse. ? Your symptoms last longer than 2?3 days. ? You have trouble peeing. ? You are peeing more often than normal. Get help right away if: ? You have trouble breathing. ? You are short of breath. ? Your belly hurts, or it is swollen or red. ? You feel like you may vomit (nauseous). ? You vomit. ? You feel faint, or you faint. ? You have blood in your pee. ? You have flank pain and a fever. These symptoms may be an emergency. Get help right away. Call your local emergency services (911 int [place] ? Do not wait to see if the symptoms will go away. ? Do not drive yourself to the hospital. Summary ? Flank pain is pain in your side. The flank is the area of your side between your upper belly (abdomen) and your spine. ? Flank pain may occur over a short time (acute), or it may be long-term or come back often (chronic). It may be mild or very bad. ? Pain in this area can be caused by many different things. ? Contact your doctor if your symptoms get worse or last longer than 2?3 days. This information is not intended to replace advice given to you by your health care provider. Make sure you discuss any questions you have with your health care provider. Document Revised: 05/18/2021 Document Reviewed: 05/18/2021 Elsevier Patient Education ? 2022 [employer].[facility] ED Patient Summaryon [id number] Patient Summary [place] [id number] Patient Discharge Instructions Person Information Name: BRAXTON GREEN Age: 17 Years Arrival Date: 08/18/2022 15:05:21 Discharge Diagnosis: Right flank pain Primary Care Physician: ALVAREZ SANABRIA CNP Provider Information Primary Provider: Miky Sanders M.D. Advanced Bristle Machine Operator:None The exam and treatment you received in the Emergency Department were for an urgent problem and are not intended as complete care. It is important that you follow up with a doctor, nurse practitioner,or physician?s plumber's assistant for ongoing care. If your symptoms become worse or you do not improve as expected and you are unable to reach your usual health care provider, you should return to the Emergency Department. We are available 24 hours a day. BRAXTON GREEN has been given the following list of patient education materials, prescriptions and follow-up instructions: Follow-up Instructions: With: Address: When: ALVAREZ SANABRIA [address] [place] [id number] [phone] Business (1) In 3 days 08/21/2022 Comments: Follow-up with your primary care provider in 3 to 5 days. If symptoms worsen, do not improve, or new symptoms arise please report back to emergency department for further evaluation. In the event that this physician does not participate in your insurance network, please consult with your insurance company to find a nearby participating provider. Patient Education Materials: Flank Pain, Adult, Brrt-wg-Vcpx A MESSAGE TO ALL PATIENTS REGARDING OPIOIDS PRESCRIPTION OPIOIDS: WHAT YOU NEED TO KNOW Prescription opioids can be used to help relieve imlzjduq-zi-keqtvh pain and are often prescribed following a surgery or injury, or for certain health conditions. These medications can be an important part of the treatment but also come with serious risks. It is important to work with your healthcare provider to make sure you are getting the safest, most effective care. WHAT ARE THE RISKS AND SIDE EFFECTS OF OPIOID USE? Prescription opioids carry serious risks of addiction and overdose, especially with prolonged use. An opioid overdose, often marked by slowed breathing, can cause sudden . The use of prescription opioids can have a number of side effects as well, even when taken as directed: ? Tolerance?meaning you might need to take more of the medication for the same pain relief ? Physical dependence?meaning you have symptoms of withdrawal when a medication is stopped ? Increased sensitivity to pain ? Constipation ? Nausea, vomiting, and dry mouth ? Sleepiness and dizziness ? Confusion ? Depression ? Low levels of testosterone that can result in lower sex drive, energy, and strength ? Itching and sweating RISKS ARE GREATER WITH: ? History of drug misuse, substance use disorder, or overdose ? Mental health conditions (such as depression or anxiety) ? Sleep apnea ? Older age (65 years and older) ? Avoid alcohol while taking prescription opioids. Also, unless specifically advised by your health care provider, medications to avoid include: ? Benzodiazepines (such as Xanax or Valium) ? Muscle relaxants (such as Soma or Flexeril) ? Hypnotics (such as Ambien or Lunesta) ? Other prescription opioids KNOW YOUR OPTIONS Talk to your health care provider about ways to manage your pain that don?t involve prescription opioids. Some of these options may actually work better and have fewer risks and side effects. Optionsmay include: ? Pain relievers such as acetaminophen, ibuprofen, and naproxen ? Some medication that are also used for depression or seizures ? Physical therapy and exercise ? Cognitive behavioral therapy, a psychological, goal-directed approach, in which patients learn how to modify physical, behavioral, and emotional triggers of pain and stress. IF YOU ARE PRESCRIBED OPIOIDS FOR PAIN: ? Never take opioids in greater amounts or more often than prescribed. ? Follow up with your primary health care provider. o Work together to create a plan on how to manage your pain. o Talk about ways to help manage your pain that don?t involve prescription opioids. o Talk about any and all concerns and side effects. ? Help prevent misuse and abuse o Never sell or share prescription opioids. o Never use another person?s prescription opioids. ? Store prescription opioids in a secure place and out of reach of others (this may include visitors, children, friends, and family). ? Safely dispose of unused prescription opioids: Find your community drug take- back program or [facility] mail-back program, or flush them down the toilet, following guidance from the Food and Drug Administration (www.fda.gov/Drugs/ResourcesForYou). ? Visit www.cdc.gov/drugoverdose to learn about the risks of opioids abuse and over (more content not included)...[facility] HospitalHEMATOLOGY Ordered By: SYSTEM SYSTEM on 44-74-8346Oiwvtjxhp/100 WBC (Bld)0.6 %Normal0.0 - 2.0 %[facility] HemeAutoSSBasophils/Leukocytes Auto (Bld) [Pure # fraction]0.1 E9/L Normal0.0 - 0.2 E9/LFTMC HemeAutoSSEosinophils/100 WBC (Bld)2.9 %Normal0.0 - 8.0 %[facility] HemeAutoSSEosinophils/Leukocytes Auto (Bld) [Pure # fraction]0.2 E9/L Normal0.0 - 0.5 E9/LFTMC HemeAutoSSLymphocytes/100 WBC (Bld)11.8 %Low14.0 - 50.0 %[facility] HemeAutoSSLymphocytes/Leukocytes Auto (Bld) [Pure # fraction]1.0 E9/L Normal1.0 - 4.0 E9/LFT[facility] HemeAutoSSMonocytes/100 WBC (Bld)10.9 %Normal4.0 - 14.0 %[facility] HemeAutoSSMonocytes/Leukocytes Auto (Bld) [Pure # fraction]0.9 E9/LNormal 0.2 - 1.0 E9/LFTMC HemeAutoSSNeutrophils/100 WBC (Bld)73.8 %Ssyzsk71.0 - 75.0 % [facility] HemeAutoSSNeutrophils/Leukocytes Auto (Bld) [Pure # fraction]6.2 E9/LNormal 2.0 - 7.5 E9/LFTMC HemeAutoSSHEMATOLOGYOrdered By: Sheila Aguila on 08-18-2022 Erythrocyte distribution width (RBC) [Ratio]12.6 %Tmnoxm06.9 - 14.2 %[facility] HemeAutoSSHematocrit (Bld) [Volume fraction]37.0 %Ogrvii48.0 - 46.0 %[facility] HemeAutoSSHemoglobin (Bld) [Mass/Vol]12.6 g/sTBihopw67.0 - 16.0 gm/dLBEAVER [facility] HemeAutoSSMCH (RBC) [Entitic mass]27.4 glVmeywf30.0 - 34.0 pgFSEILING REGIONAL [facility] [place] HemeAutoSSMCHC (RBC) [Mass/Vol]34.0 g/zJErontx64.4 - 36.0 gm/dLFT HemeAutoSSMCV (RBC) [Entitic vol]80.8 yPSfexov39.0 - 100.0 fLBEAVER COUNTY MEMORIAL [facility] [place] HemeAutoSSPlatelet mean volume (Bld) [Entitic vol]7.9 fLNormal6.4 - 10.8 fLBEAVER COUNTY MEMORIAL [facility] [place] HemeAutoSSPlatelets (Bld) [#/Vol]256.0 E9/BKtktdq348.0 - 500.0 E9/LFSEILING REGIONAL MEDICAL [facility] [place] HemeAutoSSRBC (Bld) [#/Vol]4.6 E12/LNormal4.3 - 5.9 E12/[facility] HemeAutoSSWBC corrected for nucl RBC Auto (Bld) [#/Vol]8.4 E9/LNormal4.0 - 11.0 E9/LFSEILING REGIONAL MEDICAL [facility] – [place] HemeAutoSSHep Fun Panelon 08-18-2022 Albumin [Mass/Vol]4.0 g/dLNormal3.3-5.0[facility]'S Medical CenterComment on above:Performed By: #### [id number], [id number], 5730553, 55566616, 9332151, 6454334, 2571826 ####[facility] [address] [place], [place] [address]Mmehgkp/Globulin (S) [Mass conc ratio]1.0Uebtgn8.1-2.2FTriHealth Good Samaritan HospitalComment on above:Performed By: #### [id number], 0957767, 5559839, 43272055, 5521261, 7078886, 5101449 ####[facility] [address]hb[address] [place], [place] [address]FDJ [Catalytic activity/Vol]53 Int._Unit/MDvfdld39-12EutainMercy Health St. Rita'S Medical CenterComment on above:Performed By: #### [id number], 2990910, 3414001, 77383897, 9489249, 5929557, 1076590 ####[address] [address]YCV No additional P-5'-P [Catalytic activity/Vol]21 Int._Unit/LNormal6-46[facility] Rita'S Medical CenterComment on above:Performed By: #### [id number], 5268306, 1203482, 53399330, 1616109, 6238218, 8263720 ####[address] [address]PWB [Catalytic activity/Vol]19 Int._Unit/LNormal5-43[facility] Rita'S Medical CenterComment on above:Performed By: #### [id number], 4661065, 1199218, 80684875, 2305631, 7681521, 0266808 ####[address] [address]Lnaflvzfh [Mass/Vol]0.6 mg/dLNormal0.0-1.1FTriHealth Good Samaritan HospitalComment on above:Performed By: #### 85153674, 1705524, 2006522, 26168415, 0077814, 3349819, 0745233 ####[address] [address]Puhhlszgo.direct [Mass/Vol]0.1 mg/dLNormal0.1-0.[address] Rita'S Medical CenterComment on above:Performed By: #### [id number], 5169821, 8268144, 15172443, 5366038, 1837977, 9267382 ####[address] [address]Uzssbctwv.indirect [Mass or moles/Vol]0.5 mg/dLNormal0.1-0.9[facility] Rita'S Medical CenterComment on above: Performed By: #### [id number], 1576742, 5540687, 47247859, 8543488, 4068780, 5618059 ####[place] [address] [place], [place] [address]Cvufqrlj (S) [Mass/Vol]2.9 g/dLNormal1.4-4.0[facility] Comment on above:Performed By: #### [id number], 9711680, 0519728, 64638089, 9916670, 5755360, 7556057 ####[address] [address]Jzxkunb [Mass/Vol]6.9 g/dLNormal6.0-7.8[facility] Rita'S Medical CenterComment on above:Performed By: #### 95533065, 2772002, 9890927, 65567678, 5191984, 5120942, 5086870 ####[address] [address]Synryo Levelon 04-02-6924Sroyas [Catalytic activity/Vol]27 U/XBwwbrr72-95NdujekMercy Health St. Rita'S Medical CenterComment on above:Performed By: #### 90495432, 3798709, 5763273, 60097178, 8251215, 5599846, 9649707 ####[address] [address]BDCSFTTOIvpytss By: Aishwarya Case on 04-20-8434Msiy hCG QlNegative (08/18/22 4:12 PM)NormalBE[facility] Man SeroUA With Cult Reflexon 37-42-3146Ixlqfobx LM Ql (Urine sed)TRACENormalTraceMercy Health St. Rita'S Medical CenterComment on above: Performed By: #### [id number] ####[facility] [address] [place], [place] [address]Ulfroxfvh Ql (U)NegativeNormalNegativeMercy Health St. Rita'S Medical CenterComment on above:Performed By: #### [id number] ####[address] [place], [place] [address]Jyysdyy (U)SL CLOUDY AbnormalClearFTriHealth Good Samaritan HospitalComment on above:Performed By: #### [id number] ####[address] [address]Pwxuz (U)YELLOWNormalYellowMercy Health St. Rita'S Medical CenterComment on above: Performed By: #### [id number] ####[address] [address]Rsmurrcc LM Ql (Urine sed)PresentNormalMercy Health St. Rita'S Medical CenterComment on above:Performed By: #### [id number] ####[address] [address]Ddudcxqnqh cells.squamous LM.HPF (Urine sed) [#/Area]8-3Xrjrdk8-8Hcgvsx [facility] InstituteComment on above:Performed By: #### [id number] ####[address] [address]Ctplabi Test strip (U) [Mass/Vol]NegativeNormalNegativeMercy Health St. Rita'S Medical CenterComment on above: Performed By: #### [id number] ####[address] [address]Ktgxngzqdf Ql (U)NegativeNormalNegTriHealthComment on above:Performed By: #### [id number] ####[address] [address]Ksaogcc (U) [Mass/Vol] TRACEAbnormalNegativeMercy Health St. Rita'S Medical CenterComment on above:Performed By: #### 05330356 ####[address] [address]Smvydui.plasma/Shipman.RBC (Bld) [Mass ratio]5-7Rdlukn0-5Jkxbst [facility] InstituteComment on above:Performed By: #### 92675334 ####[address] [address]Ojflz Ql (Urine sed)3+ NormalMercy Health St. Rita'S Medical CenterComment on above:Performed By: #### [id number] ####[address] [address] Nitrite Ql (U)NegativeNormalNegativeMercy Health St. Rita'S Medical CenterComment on above: Performed By: #### 23988137 ####[address] [address]pN (U)7.0 [pH]Invalid Interpretation Code5.0-9.[address] Rita'S Medical CenterComment on above:Performed By: #### [id number] ####[address] [address] Protein (U) [Mass/Vol]NegativeNormalNegativeMercy Health St. Rita'S Medical CenterComment on above:Performed By: #### [id number] ####[address] [address]Cgjylcoq gravity (U) [Rel density] 1.020Invalid Interpretation Code1.005-1.030[facility]. Rita'S Medical CenterComment on above:Performed By: #### [id number] ####[address] [address]Tupf of Urine collection methodClean CatchNormal [facility] Rita'S Medical CenterComment on above:Performed By: #### 76960819 ####[address] [address] Urobilinogen Qn (U)1.0 {Blayne'U}/dLNormal0.0-1.0[facility] Comment on above:Performed By: #### [id number] ####[address] [address]LJY Auto Ql (U)TRACEAbnormalNegative [facility] Rita'S Medical CenterComment on above:Performed By: #### [id number] ####[address] [address]URS LM.HPF (Urine sed) [#/Area]3-2Hlydrl7-2OgzulpTriHealth Good Samaritan HospitalComment on above:Performed By: #### [id number] ####[address] [address]UJGGODNIGRHzwxrww By: Aishwarya Case on 08-18-2022 Bacteria LM Ql (Urine sed)Trace /HPFNormalTrace/HPFBEAV[facility] UA Auto SSBilirubin Ql (U)Negative (08/18/22 4:12 PM)NormalNegativeBEAVER [facility] UA Auto SSClarity (U)Slightly Cloudy *ABN* (08/18/22 4:12 PM)Invalid Interpretation CodeClearFTM UA Auto SSColor (U)Yellow (08/18/22 4:12 PM)NormalYellowBEAVER COUNTY [facility] UA Auto SSCrystals LM Ql (Urine sed)Present (08/18/22 4:12 PM)NormalBE[facility]ER [facility] UA Auto SSEpithelial cells.squamous LM.HPF (Urine sed) [#/Area]0-2 /HPFNormal0-2/HPFBEAVER COUNTY [facility] UA Auto SSGlucose Test strip (U) [Mass/Vol]Negative (08/18/22 4:12 PM)NormalNegativeBEAVER [facility] UA Auto SSHemoglobin Ql (U)Negative (08/18/22 4:12 PM)NormalNegativeBEAV[facility] UA Auto SSKetones (U) [Mass/Vol]Trace *ABN* (08/18/22 4:12 PM)Invalid Interpretation CodeNegativeBEAVER [facility] UA Auto SS Shipman.plasma/Shipman.RBC (Bld) [Mass ratio]0-3 /HPFNormal0-3/HPFBEAVER COUNTY [facility] UA Auto SSMucus Ql (Urine sed)3+ (08/18/22 4:12 PM)NormalBE[facility] UA Auto SSNitrite Ql (U)Negative (08/18/22 4:12 PM)NormalNegativeBEAVER [facility] UA Auto SSpH (U)7.0 *NA* (08/18/22 4:12 PM)Invalid Interpretation Code5.0 - 9.0[facility] UA Auto SSProtein (U) [Mass/Vol]Negative (08/18/22 4:12 PM)NormalNegativeBEAVER [facility] UA Auto SSSpecific gravity (U) [Rel density] 1.020 *NA* (08/18/22 4:12 PM)Invalid Interpretation Code1.005 - 1.030[facility] UA Auto SSUA Spec DescClean Catch (08/18/22 4:12 PM)NormalBE[facility]ER [facility] UA Auto SSUrobilinogen Qn (U)1.1115350 {Blayne'U}/dLNormal0.0 - 1.0 EU/dLBEAVER COUNTY [facility] UA Auto SSWBC Auto Ql (U)Trace *ABN* (08/18/22 4:12 PM)Invalid Interpretation CodeNegativeBEAVER [facility] UA Auto SSWBC LM.HPF (Urine sed) [#/Area]0-5 /HPFNormal0-5/HPFFT UA Auto SSeGFRon 08-18-2022 GFR/1.73 sq M.predicted among non-blacks MDRD (S/P/Bld) [Vol rate/Area]133 mL/min/1.73 b3Rljuba>=59[address] [address] Rita'S Medical CenterComment on above:Order Comment: Order added by Discern Expert.Result Comment: Chronic kidney disease could be indicated at eGFR's of less than 60 mL/min/1.73m2. Kidney failure is indicated at less than 15 mL/min/1.73m2.Performed By: #### [id number], 5056003, 2371119, 57012090, 0052741, 4294378, 4786765 ####[facility] [address] [place], [place] [address]Ksflmm Summary.on 69-62-5896Iwbnvn Summary. CD:[id number]+PGhlYWQ+TF9WLPIhI73trUFlcW5cL9FFRNdGJpsmDCLITTxURwOdumHnO S0ebAWxKBDd [file] bGxhcHNl (more content not included)...NormalMercy Health St. Rita'S Medical CenterAmylase on 99-09-2198Drkbkxk [Catalytic activity/Vol]53 U/JTqajvh89-141DnzpcnMercy Health St. Rita'S Medical CenterComment on above:Performed By: #### 5516840, 4302499, 9320635, 1450872, 42076659, 3588642, 81092533, 5333307, 9247920 ####[facility] [address] [place], [place] [address]Txsr Diffon 07-16-2022 Basophils/100 WBC (Bld)0.8 %Normal0.0-2.0[facility]. Rita'S Medical CenterComment on above:Order Comment: Order Added by Discern Expert.Performed By: #### 0114083, 7176540, 7583034, 7661189, 52204320, 4798998, 20651663, 8731273, 0299626 ####[address] [address] Basophils/Leukocytes Auto (Bld) [Pure # fraction]0.0 E9/LNormal0.0-0.2FTriHealth Good Samaritan HospitalComment on above:Order Comment: Order Added by Discern Expert.Performed By: #### 7849433, 7912528, 4096051, 8071650, 37298293, 3351238, 24304246, 2171532, 2770624 ####[address] [address]Ixoamlzgjic/100 WBC (Bld)3.8 %Normal0.0-8.0[facility]. Rita'S Medical CenterComment on above:Order Comment: Order Added by Discern Expert.Performed By: #### 7477348, 6074574, 6681715, 7039748, 88805355, 8738708, 84709342, 0752149, 1781116 ####[address] [address]Whsoiwjlkkk/Leukocytes Auto (Bld) [Pure # fraction] 0.2 E9/LNormal0.0-0.5FTriHealth Good Samaritan HospitalComment on above:Order Comment: Order Added by Discern Expert.Performed By: #### 1801712, 8681068, 4651292, 0476539, 52029139, 8380034, 23551929, 5316299, 4372748 ####[address] [address]Snxmfrkwabh/100 WBC (Bld)24.3 %Iulpuw87.0-50.0[facility] Rita'S Medical CenterComment on above:Order Comment: Order Added by Discern Expert.Performed By: #### 1051320, 3833398, 3693952, 4138741, 77148806, 5246948, 97442373, 5831837, 4952587 ####[address] [place], [place] [address]Qgfbzlzopni/Leukocytes Auto (Bld) [Pure # fraction]1.4 E9/LNormal1.0-4.0[facility]. Rita'S Medical CenterComment on above:Order Comment: Order Added by Discern Expert.Performed By: #### 7227995, 9126969, 4794435, 3986849, 22425966, 8910163, 29653439, 8656057, 4846038 ####[address] [address] Monocytes/100 WBC (Bld)8.2 %Normal4.0-14.0[facility] Rita'S Medical CenterComment on above:Order Comment: Order Added by Discern Expert.Performed By: #### 9327768, 4193736, 0222765, 2698059, 18195931, 0719066, 76619283, 5097593, 8288825 ####[address] [address] Monocytes/Leukocytes Auto (Bld) [Pure # fraction]0.5 E9/LNormal0.2-1.0[facility] Rita'S Medical CenterComment on above:Order Comment: Order Added by Discern Expert.Performed By: #### 7371756, 2065328, 6274559, 8482941, 11590750, 2151468, 12363832, 8419784, 4241289 ####[address] [address]Ppdzztxfxmc/100 WBC (Bld)62.9 %Vsznxo88.0-75.[address] Rita'S Medical CenterComment on above:Order Comment: Order Added by Discern Expert.Performed By: #### 6798366, 6095830, 4839769, 0955722, 34548044, 0123901, 01131341, 3026050, 4546677 ####[address] [address]Gzpgaapdmgr/Leukocytes Auto (Bld) [Pure # fraction]3.6 E9/LNormal2.0-7.5FTriHealth Good Samaritan HospitalComment on above:Order Comment: Order Added by Discern Expert.Performed By: #### 5145679, 9496017, 9281073, 2710894, 51608001, 0827923, 50123409, 7410732, 8062051 ####[address] [place], [place] [address]O hCG Qualon 83-25-0321Zchw hCG QlNegativeNormalMercy Health St. Rita'S Medical CenterComment on above:Performed By: #### 6617156, 3339334, 1777546, 0261506, 25337230, 7763488, 48163355, 4321810, 2011169 ####[address] [address]ZWKkp 86-68-3070Xxvbmulnzd [Mass/Vol]0.6 mg/dL Normal0.5-1.3FTriHealth Good Samaritan HospitalComment on above:Performed By: #### 4130029, 7477918, 9428142, 0424528, 84589225, 0032319, 91054499, 3633540, 2152011 ####[facility] [address] [place] [address]Fzwt nitrogen [Mass/Vol]10 mg/dLNormal5-21[facility] Comment on above:Performed By: #### 1920172, 5945194, 3499495, 6532270, 66072748, 3613438, 51425852, 3363111, 6438549 ####[facility] [address] [place], [place] [address]Uonw nitrogen/Creatinine [Mass ratio] 17 No WcqogOuosba37-80JwqmcxMercy Health St. Rita'S Medical CenterComment on above:Performed By: #### 0005539, 6460997, 4940564, 7028815, 80635538, 6660077, 21353206, 2566246, 8610223 ####[address] [place], [place] [address]Hbhsa gap [Moles/Vol]12 mmol/LNormal6-16[facility] Rita'S Medical CenterComment on above:Performed By: #### 7364977, 2406571, 5929285, 7762515, 16949749, 2145112, 36062992, 5232476, 6006200 ####[facility] [address] [place], [place] [address]Xjxebhk [Mass/Vol]9.6 mg/dLNormal 8.9-11.1FTriHealth Good Samaritan HospitalComment on above:Performed By: #### 1269975, 5388516, 3619789, 2201903, 75708842, 9755277, 93735687, 0277957, 2132137 ####[facility] [address] [place] [address] Chloride [Moles/Vol]105 mmol/JJkqthj510-022ZlenadMercy Health St. Rita'S Medical CenterComment on above:Performed By: #### 1392418, 1996565, 2377627, 4522807, 42985111, 7110924, 82958224, 9802831, 2360732 ####[facility] [address] [place], [place] [address]HG0 [Moles/Vol]25 mmol/KXkjacc61-96NgfmpdMercy Health St. Rita'S Medical CenterComment on above:Performed By: #### 8380813, 8978426, 6393859, 5333538, 09016592, 2328619, 02843838, 7659716, 8730944 ####[facility] [address] [place], [place] [address]Mdebbvi [Mass/Vol]95 mg/dL Tovcnb08-758OusnjuMercy Health St. Rita'S Medical CenterComment on above:Result Comment: If this glucose result represents a fasting glucose, interpretation should refer tothe following reference range: 55-99 mg/dLPerformed By: #### 2501173, 3982303, 0902428, 0330264, 22951450, 1342123, 90152783, 5500260, 2258870 ####[facility] [address] [place], [place] [address]Pyodtoqyi [Moles/Vol] 4.0 mmol/LNormal3.5-5.3[facility] Medical CenterComment on above:Performed By: #### 4755145, 8692929, 1320690, 8878569, 83929834, 2974205, 19484641, 1835266, 8732308 ####[facility] [address] [place], [place] [address]Ieuudf [Moles/Vol]138 mmol/FGeneev570-448ObgcokMercy Health St. Rita'S Medical CenterComment on above:Performed By: #### 2016463, 7415629, 3344394, 6803278, 96109150, 5483144, 92448132, 6951839, 4466549 ####[facility] [address] [place], [place] [address]GSV w/ Auto Diffon 07-16-2022 Erythrocyte distribution width (RBC) [Ratio]13.2 %Vicevc48.9-14.2FTriHealth Good Samaritan HospitalComment on above:Performed By: #### 8719667, 5124950, 8523822, 4880221, 58295140, 1405552, 29607053, 1760121, 3261868 ####[facility] [address] [place], [place] [address]Jgwjvplbyx (Bld) [Volume fraction]43.5 %Sehawk52.0-46.0[facility] Rita'S Medical CenterComment on above: Performed By: #### 2936496, 4590094, 1012650, 0939324, 36066491, 1313752, 22564045, 6238810, 6091100 ####[facility] [address] [place], [place] [address]Xreeijsypu (Bld) [Mass/Vol]14.5 g/eNSpukif88.0-16.[address] Rita'S Medical CenterComment on above:Performed By: #### 1944888, 9446010, 8681237, 4181217, 90824834, 3314620, 98202922, 7990499, 8991412 ####[facility] [address] [place] [address]WPX (RBC) [Entitic mass]27.5 rcCbrxkw98.0-34.0[facility] Rita'S Medical CenterComment on above: Performed By: #### 6473468, 5850358, 2597238, 1045085, 83420891, 3563640, 37758816, 8949536, 5299772 ####[facility] [address] [place] [address]TOIP (RBC) [Mass/Vol]33.4 g/qTMnhmuj96.4-36.0[facility] Rita'S Medical CenterComment on above:Performed By: #### 8955032, 1601132, 5338417, 3852426, 79601920, 5655759, 06248589, 8840757, 2254561 ####[address] [address]EUC (RBC) [Entitic vol]82.4 vLBmqtgb46.0-100.0[facility] Rita'S Medical CenterComment on above:Performed By: #### 8556587, 2931356, 7378060, 9065059, 96978158, 0071954, 05193452, 1686397, 1844549 ####[address] [address]Fbisstsq mean volume (Bld) [Entitic vol]8.0 fLNormal6.4-10.[address] Rita'S Medical CenterComment on above:Performed By: #### 7727461, 6328803, 8479376, 3003840, 37572943, 3200880, 21454531, 0789264, 6966510 ####[address] [address]Cjzuhvlcr (Bld) [#/Vol]258.0 E9/FMcidrr211.0-500.0[facility] Rita'S Medical CenterComment on above: Performed By: #### 5127805, 5403573, 6540102, 0105205, 73912204, 2080260, 34415211, 8917519, 2226448 ####[address] [address]UIC (Bld) [#/Vol]5.3 E12/LNormal4.3-5.9[facility] Rita'S Medical CenterComment on above:Performed By: #### 1812731, 3669827, 4395551, 8137208, 41306808, 3737322, 40675062, 7819481, 0530171 ####[facility] [address] [place], [place] [address]CHJ corrected for nucl RBC Auto (Bld) [#/Vol]5.7 E9/LNormal4.0-11.0[facility] Rita'S Medical CenterComment on above:Performed By: #### 3693909, 6820020, 0393289, 9191609, 74174554, 8801509, 43873264, 8651222, 3293404 ####[facility] [address] [place], [place] [address]KQJza 01-11-0539ORP [Mass/Vol]1.0 mg/dLNormal<=1.[address] Rita'S Medical CenterComment on above:Performed By: #### 9211700, 4721334, 5510449, 4336968, 10313260, 3398992, 47983732, 9073559, 3227627 ####[facility] [address] [place], [place] [address]Uiypzof for Treatmenton 75-77-9102Kbatynu for Treatment [id number]:127NormGreene Memorial HospitalDischarge Instructionson 19-24-7080Ubeupzymk Instructions [id number]:127NormSelect [facility] Clinical Summaryon 25-17-3047IL Clinical Summary [address] [address] ED Clinical Summary Person Information Name: PAULINA GREENTIANA [place] Age: 17 Years : 2005 Sex: Female Language: Chilean PCP: ALVAREZ SANABRIA CNP Marital Status: Single Phone: [phone] Visit Id: Visit Reason: Nausea; Abdominal pain; ABD PAIN Speciality: Acuity: 3 Enc Type: Emergency Med Service: Emergency Arrival: 07/16/2022 09:21:14 Discharge: 07/16/2022 11:36:40 LOS: 000 02:15 Checkin: 07/16/2022 09:21:14 Checkout: 07/16/2022 11:36:40 Dispo Type: Home (Routine DC) EVENTS: Event Name Event Status Request Date/Time Start Date/Time Complete Date/Time Arrive Complete 07/16/2022 09:21:14 07/16/2022 09:21:14 07/16/2022 09:21:14 Document Home Meds Request 07/16/2022 09:21:14 Triage Complete 07/16/2022 09:21:14 07/16/2022 09:33:58 07/16/2022 09:33:58 Dr Exam Complete 07/16/2022 09:25:15 07/16/2022 09:25:15 07/16/2022 09:25:15 Registration Complete 07/16/2022 09:25:15 07/16/2022 09:26:35 07/16/2022 10:01:53 Bed Assign Complete 07/16/2022 09:26:35 07/16/2022 09:26:35 07/16/2022 09:26:35 RN Exam Complete 07/16/2022 09:26:35 07/16/2022 09:37:26 07/16/2022 09:37:26 Pending Labs Complete 07/16/2022 09:57:06 07/16/2022 10:58:01 Lab Complete 07/16/2022 09:57:06 07/16/2022 10:58:01 Urine Collect Complete 07/16/2022 09:57:06 07/16/2022 10:58:01 Meds Admin Complete 07/16/2022 09:57:06 07/16/2022 10:04:44 Reg Complete Request 07/16/2022 10:01:53 Reg Bed Request Complete 07/16/2022 10:01:53 07/16/2022 10:01:53 07/16/2022 10:01:53 Pending Labs Complete 07/16/2022 10:16:03 07/16/2022 10:16:03 07/16/2022 10:41:44 Lab Complete 07/16/2022 10:16:03 07/16/2022 10:16:03 07/16/2022 10:41:44 Pending Labs Complete 07/16/2022 10:16:18 07/16/2022 10:16:18 07/16/2022 10:16:19 Pending Labs Complete 07/16/2022 10:22:09 07/16/2022 10:22:09 07/16/2022 10:22:19 Lab Complete 07/16/2022 10:22:09 07/16/2022 10:22:09 07/16/2022 10:22:19 Discharge Complete 07/16/2022 11:29:08 07/16/2022 11:36:53 07/16/2022 11:36:53 Transfer Complete 07/16/2022 11:36:53 07/16/2022 11:36:53 07/16/2022 11:36:53 ADDRESS: [address] [place] [phone] PHYS DOC NOTES: MEDICAL INFORMATION: Prescriptions Given: New Medications Printed Prescriptions dextromethorphan-guaifenesin (Robitussin Cough + Chest Congestion DM 20 mg-200 mg/20 mL oral liquid) 20 Milliliter By Mouth every 4 hours. Refills: 0. ibuprofen (ibuprofen 600 mg Tab) 1 Tablets By Mouth every 6 hours. Refills: 0. PATIENT EDUCATION INFORMATION: Instructions: Umbilical Hernia, Adult; Abdominal Pain, Adult, Dlyy-vy-Ovje Follow up: With: Address: When: ALVAREZ SANCHEZ[address] [phone] Business (1) In 3 days 07/19/2022, only if needed DIAGNOSIS: 1:Abdominal tenderness, periumbilicalNormalFisher Bao Medical CenterED Note-Physicianon 60-92-2585PX Note-PhysicianBasic Information Time Seen: Lacho Andrade MD 07/16/2022 09:25 Chief Complaint Pt states that she has been having abdominal pain for a while and as of yesterday her pain has gotten worse around umbilical area. History of Present Illness 17-year-old female presents with a complaint of umbilical pain which started last evening. She states that when she presses on the umbilicus or into the invagination it is painful. She states that she commonly has diffuse rather migratory abdominal pain but this is different. She does have nausea but again this is not a new finding for her in the evenings. She states her bowel movements have beennormal. She denies any dysuria. Her last menstrual period was 4 weeks ago. She is on control.She has had no previous abdominal surgery. Review of Systems A 10 point review of systems is negative except as noted above. Medical and Surgical History: Reviewed and noted Social history: Lives at home Tobacco: Denies Physical Exam Vitals & Measurements T: 36.9 ?C(Oral) HR: 88(Peripheral) RR: 18 BP: 133/90 SpO2: 100% HT: 154.94 cm WT: 73 kg BMI: 30.41 Pleasant mildly overweight 17-year-old alert and oriented skin warm and dry color is pink on room air. Lungs are clear to auscultation but she does have a frequent smoker's cough. Heart is regular without murmur gallop or rub. The abdomen is flat soft there is very mild tenderness in the epigastrium principally but no guarding rebound or masses. Direct palpation into the umbilicus is the area of maximum tenderness. With the Valsalva maneuver I do not detect a protrusion or definite hernia defect but this is the area of maximum tenderness. Medical Decision Making The patient's laboratory studies do not point to any intra-abdominal process that would be producing the umbilical pain. I do think that the cough probably has aggravated the small hernia site. I do not detect any evidence of any entrapment. I do not believe that a CT scan at this point will be diagnostic or helpful. We will try and suppress the cough somewhat placed on medication for the pain. Patient states that the pain shot helped considerably Assessment/Plan 1. Abdominal tenderness, periumbilical (R10.815: Periumbilic abdominal tenderness) Orders: dextromethorphan-guaifenesin, 20 mL, Oral, q4hr, 200 mL, Refill(s) 0 ibuprofen, 600 mg = 1 tab(s), Oral, q6hr, # 20 tab(s), Refills(s) 0 ketorolac, 60 mg = 2 mL, Injection, IntraMuscular, Once, Stop date 07/16/22 9:56:00 EDT, STAT, Start date 07/16/22 9:56:00 EDT, 07/16/22 9:56:00 EDT Amylase Level Automated Diff Basic Metabolic Panel Beta hCG Qual C-Reactive Protein CBC w/ Auto Diff eGFR Extra Blue Tube Hepatic Function Panel Lipase Level UA With Cult Reflex Medications Administered Given ketorolac 60 mg/2 mL Injection, 60 mg, IntraMuscular Disposition Plan Patient Discharge Condition Improved Discharge Disposition Home but off work today Discharge Prescription List Prescriptions ibuprofen 600 mg Tab, 600 mg= 1 tab(s), Oral, q6hr Robitussin Cough + Chest Congestion DM 20 mg-200 mg/20 mL oral liquid, 20 mL, Oral, q4hr Follow-up With When Contact Information ALVAREZ SANABRIA In 3 days 07/19/2022 EDT, only if needed [address] [place] [phone] Business (1) Additional Instructions: Patient Education Umbilical Hernia, Adult Abdominal Pain, Adult, Gxsa-sf-Hfeb Problem List/Past Medical History Ongoing No qualifying data Historical No qualifying data Medications Inpatient No active inpatient medications Home ibuprofen 600 mg Tab, 600 mg= 1 tab(s), Oral, q6hr Robitussin Cough + Chest Congestion DM 20 mg-200 mg/20 mL oral liquid, 20 mL, Oral, q4hr Allergies No Known Allergies Social History Alcohol - Denies Alcohol Use, 07/16/2022 Substance Abuse - Denies Substance Abuse, 07/16/2022 Tobacco - Denies Tobacco Use, 07/16/2022 Lab Results WBC: 5.7 E9/L (07/16/22 10:12:00) RBC: 5.3 E12/L (07/16/22 10:12:00) HGB: 14.5 gm/dL (07/16/22 10:12:00) Hct: 43.5 % (07/16/22 10:12:00) MCV: 82.4 fL (07/16/22 10:12:00) MCH: 27.5 pg (07/16/22 10:12:00) MCHC: 33.4 gm/dL (07/16/22 10:12:00) RDW: 13.2 % (07/16/22 10:12:00) Platelet: 258 E9/L (07/16/22 10:12:00) MPV: 8 fL (07/16/22 10:12:00) Neutro Auto: 62.9 % (07/16/22 10:12:00) Lymph Auto: 24.3 % (07/16/22 10:12:00) [place] Auto: 8.2 % (07/16/22 10:12:00) Eos Auto: 3.8 % (07/16/22 10:12:00) Basophil Auto: 0.8 % (07/16/22 10:12:00) Neutro Absolute: 3.6 E9/L (07/16/22 10:12:00) Lymph Absolute: 1.4 E9/L (07/16/22 10:12:00) [place] Absolute: 0.5 E9/L (07/16/22 10:12:00) Eos Absolute: 0.2 E9/L (07/16/22 10:12:00) Basophil Absolute: 0 E9/L (07/16/22 10:12:00) Glucose Lvl: 95 mg/dL (07/16/22 10:12:00) BUN: 10 mg/dL (07/16/22 10:12:00) Creatinine: 0.6 mg/dL (07/16/22 10:12:00) eGFR: 133 mL/min/1.73 m2 (07/16/22 10:12:00) BUN/Creat Ratio: 17 (07/16/22 10:12:00) Sodium Lvl: 138 mmol/L (07/16/22 10:12:00) P (more content not included)...[facility]Comment [facility] above:Result Comment: Electronically Signed By: Lacho Andrade MD\.br\Date and Time Signed: 07/16/22 11:30 EDTED Patient Education Noteon [id number] Patient Education NoteGastroenterology Umbilical Hernia, Adult A hernia is a bulge of tissue that pushes through an opening between muscles. An umbilical hernia happens in the abdomen, near the belly button (umbilicus). The hernia may contain tissues from the small intestine, large intestine, or fatty tissue covering the intestines. Umbilical hernias in adultstend to get worse over time, and they require surgical treatment. There are different types of umbilical hernias, including: ? Indirect hernia. This type is located just above or below the umbilicus. It is the most common type of umbilical hernia in adults. ? Direct hernia. This type forms through an opening formed by the umbilicus. ? Reducible hernia. This type of hernia comes and goes. It may be visible only when you strain, lift something heavy, or cough. This type of hernia can be pushed back into the abdomen (reduced). ? Incarcerated hernia. This type traps abdominal tissue inside the hernia. This type of hernia cannot be reduced. ? Strangulated hernia. This type of hernia cuts off blood flow to the tissues inside the hernia. The tissues can start to if this happens. This type of hernia requires emergency treatment. What are the causes? An umbilical hernia happens when tissue inside the abdomen presses on a weak area of the abdominal muscles. What increases the risk? You may have a greater risk of this condition if you: ? Are obese. ? Have had several pregnancies. ? Have a buildup of fluid inside your abdomen. ? Have had surgery that weakens the abdominal muscles. What are the signs or symptoms? The main symptom of this condition is a painless bulge at or near the belly button. A reducible hernia may be visible only when you strain, lift something heavy, or cough. Other symptoms may include: ? Dull pain. ? A feeling of pressure. Symptoms of a strangulated hernia may include: ? Pain that gets increasingly worse. ? Nausea and vomiting. ? Pain when pressing on the hernia. ? Skin over the hernia becoming red or purple. ? Constipation. ? Blood in the stool. How is this diagnosed? This condition may be diagnosed based on: ? A physical exam. You may be asked to cough or strain while standing. These actions increase the pressure inside your abdomen and can force the hernia through the opening in your muscles. Your health care provider may try to reduce the hernia by pressing on it. ? Your symptoms and medical history. How is this treated? Surgery is the only treatment for an umbilical hernia. Surgery for a strangulated hernia is done assoon as possible. If you have a small hernia that is not incarcerated, you may need to lose weight before having surgery. Follow these instructions at home: ? Lose weight, if told by your health care provider. ? Do not try to push the hernia back in. ? Watch your hernia for any changes in color or size. Tell your health care provider if any changesoccur. ? You may need to avoid activities that increase pressure on your hernia. ? Do not lift anything that is heavier than 10 lb (4.5 kg), or the limit that you are told, until your health care provider says that it is safe. ? Take etfk-knz-qewjxns and prescription medicines only as told by your health care provider. ? Keep all follow-up visits. This is important. Contact a health care provider if: ? Your hernia gets larger. ? Your hernia becomes painful. Get help right away if: ? You develop sudden, severe pain near the area of your hernia. ? You have pain as well as nausea or vomiting. ? You have pain and the skin over your hernia changes color. ? You develop a fever or chills. Summary ? A hernia is a bulge of tissue that pushes through an opening between muscles. An umbilical herniahappens near the belly button. ? Surgery is the only treatment for an umbilical hernia. ? Do not try to push your hernia back in. ? Keep all follow-up visits. This is important. This information is not intended to replace advice given to you by your health care provider. Make sure you discuss any questions you have with your health care provider. Document Revised: 10/13/2020 Document Reviewed: 10/13/2020 [employer] Patient Education ? 2022 [employer] Abdominal Pain, Adult Many things can cause belly (abdominal) pain. Most times, belly pain is not dangerous. Many cases of belly pain can be watched and treated at home. Sometimes, though, belly pain is serious. Your doctor will try to find the cause of your belly pain. Follow these instructions at home: Medicines ? Take jdgw-wwi-pakixpw and prescription medicines only as told by your doctor. ? Do not take medicines that help you poop (laxatives) unless told by your doctor. General instructions ? Watch your belly pain for any changes. ? Drink enough fluid to keep your pee (urine) pale yellow. ? Keep all follow-up visits as told by your doctor. This is importa (more content not included)...[facility] Patient Summaryon [id number] Patient Summary [address] [address] Patient Discharge Instructions Person Information Name: BRAXTON GEREN Age: 17 Years Arrival Date: 07/16/2022 09:21:14 Discharge Diagnosis: 1:Abdominal tenderness, periumbilical Primary Care Physician: ALVAREZ SANABRIA CNP Provider Information Primary Provider: Lacho Andrade MD Advanced Bristle Machine Operator:None The exam and treatment you received in the Emergency Department were for an urgent problem and are not intended as complete care. It is important that you follow up with a doctor, nurse practitioner,or physician?s plumber's assistant for ongoing care. If your symptoms become worse or you do not improve as expected and you are unable to reach your usual health care provider, you should return to the Emergency Department. We are available 24 hours a day. BRAXTON GREEN has been given the following list of patient education materials, prescriptions and follow-up instructions: Follow-up Instructions: With: Address: When: ALVAREZ SANABRIA [facility] [place] [address] [phone] Business (1) In 3 days 07/19/2022, only if needed In the event that this physician does not participate in your insurance network, please consult with your insurance company to find a nearby participating provider. Patient Education Materials: Umbilical Hernia, Adult; Abdominal Pain, Adult, Ytep-wi-Bqlh A MESSAGE TO ALL PATIENTS REGARDING OPIOIDS PRESCRIPTION OPIOIDS: WHAT YOU NEED TO KNOW Prescription opioids can be used to help relieve pkdmxpyy-bk-alvhhs pain and are often prescribed following a surgery or injury, or for certain health conditions. These medications can be an important part of the treatment but also come with serious risks. It is important to work with your healthcare provider to make sure you are getting the safest, most effective care. WHAT ARE THE RISKS AND SIDE EFFECTS OF OPIOID USE? Prescription opioids carry serious risks of addiction and overdose, especially with prolonged use. An opioid overdose, often marked by slowed breathing, can cause sudden . The use of prescription opioids can have a number of side effects as well, even when taken as directed: ? Tolerance?meaning you might need to take more of the medication for the same pain relief ? Physical dependence?meaning you have symptoms of withdrawal when a medication is stopped ? Increased sensitivity to pain ? Constipation ? Nausea, vomiting, and dry mouth ? Sleepiness and dizziness ? Confusion ? Depression ? Low levels of testosterone that can result in lower sex drive, energy, and strength ? Itching and sweating RISKS ARE GREATER WITH: ? History of drug misuse, substance use disorder, or overdose ? Mental health conditions (such as depression or anxiety) ? Sleep apnea ? Older age (65 years and older) ? Avoid alcohol while taking prescription opioids. Also, unless specifically advised by your health care provider, medications to avoid include: ? Benzodiazepines (such as Xanax or Valium) ? Muscle relaxants (such as Soma or Flexeril) ? Hypnotics (such as Ambien or Lunesta) ? Other prescription opioids KNOW YOUR OPTIONS Talk to your health care provider about ways to manage your pain that don?t involve prescription opioids. Some of these options may actually work better and have fewer risks and side effects. Optionsmay include: ? Pain relievers such as acetaminophen, ibuprofen, and naproxen ? Some medication that are also used for depression or seizures ? Physical therapy and exercise ? Cognitive behavioral therapy, a psychological, goal-directed approach, in which patients learn how to modify physical, behavioral, and emotional triggers of pain and stress. IF YOU ARE PRESCRIBED OPIOIDS FOR PAIN: ? Never take opioids in greater amounts or more often than prescribed. ? Follow up with your primary health care provider. o Work together to create a plan on how to manage your pain. o Talk about ways to help manage your pain that don?t involve prescription opioids. o Talk about any and all concerns and side effects. ? Help prevent misuse and abuse o Never sell or share prescription opioids. o Never use another person?s prescription opioids. ? Store prescription opioids in a secure place and out of reach of others (this may include visitors, children, friends, and family). ? Safely dispose of unused prescription opioids: Find your community drug take- back program or [employer] mail-back program, or flush them down the toilet, following guidance from the Food and Drug Administration (www.fda.gov/Drugs/ResourcesForYou). ? Visit www.cdc.gov/drugoverdose to learn about the risks of opioids abuse and overdose. ? If you believe you may be struggling with addiction, tell your health housekeeper child care and ask for guidance or call [facility]?S Jeannine (more content not included)...NormalMercy Health St. Rita'S Medical CenterHep Func Panelon 07-16-2022 Bilirubin.indirect [Mass or moles/Vol]UTCAbnormal0.1-0.9[facility]'S Medical CenterComment on above:Result Comment: Result verified by Discern Rule. Performed result UTC (Unable to Calculate) was sent as an Alpha code due the inability to calculate a valid numeric value.Performed By: #### [id number], 9780307, 5798043, 3320584, 91126162, 5200382, 53325677, 7771150, 2641777 ####[facility] [address] [place] [address] Albumin [Mass/Vol]4.2 g/dLNormal3.3-5.0[facility] Rita'S Medical CenterComment on above:Performed By: #### 9187287, 5261324, 2312575, 2723412, 58126560, 3528642, 13730843, 3253289, 6810823 ####[facility] [address] [place], [place] [address]Sdjhjfp/Globulin (S) [Mass conc ratio]1.1Normal 1.1-2.2FTriHealth Good Samaritan HospitalComment on above:Performed By: #### 0836974, 1655079, 3268873, 7007366, 05694247, 1203204, 51556450, 3418743, 3119596 ####[facility] [address] [place], [place] [address]ZQR [Catalytic activity/Vol]56 Int._Unit/MHdksoq26-06TmcktzMercy Health St. Rita'S Medical Center Comment on above:Performed By: #### 4825593, 2424328, 9238044, 5319864, 45766098, 1708672, 20118969, 6997469, 0600858 ####[address] [place], [place] [address]GNE No additional P-5'-P [Catalytic activity/Vol]24 Int._Unit/LNormal6-46[facility] Rita'S Medical CenterComment on above:Performed By: #### 8194241, 1963906, 2482534, 7523686, 74325209, 8000901, 49204243, 4977365, 8992597 ####[facility] [address] [place] [address]NBN [Catalytic activity/Vol]25 Int._Unit/LNormal 5-43[facility] Rita'S Medical CenterComment on above:Performed By: #### 8764206, 2384151, 3791349, 8870764, 94838448, 2316490, 79455124, 8871278, 2923664 ####[address] [address] Bilirubin [Mass/Vol]0.3 mg/dLNormal0.0-1.1FTriHealth Good Samaritan HospitalComment on above:Performed By: #### 7099062, 6677327, 7771277, 4952654, 09771558, 7460473, 64784233, 0114236, 3866533 ####[address] [address] (S) [Mass/Vol]3.8 g/dLNormal1.4-4.0[facility] Rita'S Medical CenterComment on above:Performed By: #### 5394714, 2212474, 6678653, 3030076, 77754549, 7743181, 62485497, 4864426, 3381561 ####[address] [address]Thwjxvx [Mass/Vol]8.0 g/dLHigh6.0-7.8[facility] Rita'S Medical CenterComment on above:Performed By: #### 6760331, 2931944, 4856728, 6699906, 33287574, 9536208, 64837883, 4807495, 8237836 ####[address] [address]Sbfrxljmh.direct [Mass/Vol]mg/dLNormal0.1-0.4[facility] Comment on above:Performed By: #### 7145109, 1646463, 4751600, 2010767, 08640542, 5051774, 33412498, 4585975, 3662060 ####[facility] [address] [place], [place] [address]Gvcngb Levelon 68-36-8589Ywfvol [Catalytic activity/Vol]32 U/MTciozb48-69BmsibbMercy Health St. Rita'S Medical CenterComment on above:Performed By: #### 3260002, 1538152, 9372750, 5785406, 79434130, 3620436, 16479839, 8211574, 8479939 ####[address] [place], [place] [address]Jhkgrbmzphygg/Work Noteson 07-16-2022 Prescriptions/Work [id number]#1.00CD:[address] Rita'S Medical CenterUA With Cult Reflexon 35-37-3366Twhlxtbp LM Ql (Urine sed)TRACENormalTraceMercy Health St. Rita'S Medical CenterComment on above:Performed By: #### [id number] ####[address] [address]Mqugxvwms Ql (U)NegativeNormalNegativeMercy Health St. Rita'S Medical CenterComment on above:Performed By: #### 78483751 ####[address] [address]Vcqcqxb (U)CLEARNormalClear [facility] Rita'S Medical CenterComment on above:Performed By: #### 08190392 ####[address] [place], [place] [address]Ojcwx (U)YELLOWNormalYellowMercy Health St. Rita'S Medical CenterComment on above:Performed By: #### [id number] ####[address] [address]Smfplkkhdl cells.squamous LM.HPF (Urine sed) [#/Area]5-8Aemhou7-3Vkvuax [facility] InstituteComment on above:Performed By: #### 03468976 ####Abel [address] [address]Dcigocz Test strip (U) [Mass/Vol]NegativeNormalNegativeMercy Health St. Rita'S Medical CenterComment on above:Performed By: #### [id number] ####[address] [address]Xdjawyxqkx Ql (U)NegativeNormalNegativeMercy Health St. Rita'S Medical CenterComment on above:Performed By: #### 00212962 ####[address] [address]Eekkqoz (U) [Mass/Vol] NegativeNormalNegativeMercy Health St. Rita'S Medical CenterComment on above:Performed By: #### 02291364 ####[address] [address]Tquanif.plasma/Shipman.RBC (Bld) [Mass ratio]6-1Mzpeav9-9Nhxahp [facility] InstituteComment on above:Performed By: #### 48900179 ####[address] [address]Ovnvmkg Ql (U)Negative NormalNegTriHealthComment on above:Performed By: #### 73241898 ####[address] [address]xY (U)7.5 [pH]Invalid Interpretation Code5.0-9.0[facility] Comment on above:Performed By: #### 57678958 ####[address] [address]Wagvxnk (U) [Mass/Vol]NegativeNormal NegativeMercy Health St. Rita'S Medical CenterComment on above:Performed By: #### 73556325 ####[address] [address] Specific gravity (U) [Rel density]1.020Invalid Interpretation Code1.005-1.[address] Rita'S Medical CenterComment on above:Performed By: #### [id number] ####[address] [place], [place] [address]Xlkt of Urine collection methodClean CatchNormalMercy Health St. Rita'S Medical CenterComment on above:Performed By: #### [id number] ####[address] [place], [place] [address]Zdaqupferpxn Qn (U)0.2 {Blayne'U}/dLNormal0.0-1.[address] Rita'S Medical CenterComment on above:Performed By: #### 47232170 ####[address] [address]YVX Auto Ql (U)NegativeNormalNegativeMercy Health St. Rita'S Medical CenterComment on above: Performed By: #### 12261178 ####[address] [address]BOA LM.HPF (Urine sed) [#/Area]6-5Pzujrs9-6Ynfvql [facility] InstituteComment on above:Performed By: #### 37525635 ####[address] [address]rSCBtb 24-64-8473PHU/1.73 sq M.predicted among non-blacks MDRD (S/P/Bld) [Vol rate/Area]133 mL/min/1.73 l6Bzpzhe>=59[address] [facility] [address] Rita'S Medical CenterComment on above:Order Comment: Order added by Discern Expert.Result Comment: Chronic kidney disease could be indicated at eGFR's of less than 60 mL/min/1.73m2. K idney failure is indicated at less than 15 mL/min/1.73m2.Performed By: #### 6019354, 6798362, 8601260, 4994759, 91972076, 7801044, 48186345, 0364012, 0043525 ####[address] [place], [place] [address]Ruxwrcub Noteon 70-70-0858Brgonvkcyhlra Authentication Interface Message TextI spoke with mom, as Braxton was at her father's house. She told mom before the call this morning that she has been feeling great since the last visit. It has been weeks since her last headache. She is still taking vitamin B2 but has weaned off of periactin and magnesium. Mom asked about weaning all the way off and taking a multivitamin instead Her balance is better and she has not been dizzy. Her glasses are broken though show she can't wear them, so she does have some blurry vision because of that. Physically she has been playing outside, running and prior to gyms closing she was going to the gym for workouts, all without symptoms. School work has been a challenge still. 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 She had no other concerns. I discussed that based on this recent history, Braxton has likely recovered from her concussion and can be cleared. She no longer needs physical activity restrictions nor classroom accommodations when she returns. If she weans off of all preventatives and headaches return to a frequency of >=2 headaches per week, then she should likely be on at least magnesium and vitamin B2 for continuous churn buttermaker management of headache. Mom will contact me at the office with any future questions or concerns. No visit follow-up needed. 9 minute visit; > 50% of the telephone visit time was dedicated to counseling and coordination of medical care. This note or partial portions of this note may have been created using a copy forward or copy paste feature, but these portions have been verified and re-edited for accuracy and any portions not in need of editing or review are not being used to generate any component necessary for billing purposes. Elements necessary for proper CPT code selection are based only on elements of the visit that are truly unique to this visit.Normal [facility] CenterMRI BRAIN WITHOUT CONTRASTon 61-34-3056ZWN BRAIN WITHOUT CONTRASTCLINICAL HISTORY: persistent headache post history of multiple concussions despite medications TECHNIQUE: MRI of the brain was performed at 1.5 Loly without intravenous contrast. COMPARISON: None. FINDINGS: Orthodontic hardware is present causing susceptibility artifact in the face and orbits region. Artifact severely limits diffusion-weighted imaging and susceptibility-weighted imaging. CEREBRAL PARENCHYMA: No focal or diffuse abnormality. No mass effect or shift of midline structures. No edema.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 trimester; Obesity in , antepartum; Elevated blood pressure reading without diagnosis of hypertension; History of renal anomalyStart: 05-08-2024 End: 94-74-4140Ebzrvmqzf encounterSRogers Memorial Hospital - OconomowocComment on above: 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 DempseyFacility:FTMCStart: 02-08-2024 End: 54-41-7785Ejzxqvk encounter Gerry Arora 280-5537Vhkfii-EinufTrinity Health System [facility] Start: 12-29-2023 End: 52-53-2781azvjnlucavSILLDRIX E POOLShannontrinidad Baileyfin HospitalStart: 12-26-2023 End: 52-47-1260wvweqafsfnOVEPKAXM E Shelli [facility] HospitalStart: 10-25-2023 End: 59-13-3763Zchzwzv encounter procedureFormerly [facility] [place] Work Phone: Start: 10-25-2023 End: 70-37-7635gcorwixdvuSuaw J [facility] Work Phone: Start: 10-25-2023 End: 12-62-4178Ywgiondv ReferredAPRN Alvarez [facility] Work Phone: [facility] Main [place] Work Phone: Start: 04-01-2023 End: 62-57-6535aywzrafvbiZNYMXFDC E RORYChitra [facility] HospitalStart: 03-18-2023 End: 64-55-5041plzrndvpfiLERTIDCD E Shiraztrinidad [facility] HospitalStart: 03-18-2023 End: 81-25-7074Gplvblzpyw hospital visit by Faisal Sanabria [facility] Work Phone: mWHZ LaboratoryComment on above:SAB (spontaneous )Start: 03-07-2023 End: 89-14-4989fhlgkfzsagSQUBPNPI Karlos Weldontrinidad [facility] HospitalStart: 02-27-2023 End: 13-01-8811Nsoatamxx department patient visitDALETI Morrow HospitalStart: 02-26-2023 End: 20-47-5360Rlwuazkqk department patient visitMarcus Salazar [facility] Start: 67-01-7477Xtovcgojn Malaika Lux PA-C Work Phone: Infectious DiseaseStart: 02-20-2023 End: 32-43-9490vwhmgsayrhEHQX [facility]ELFA[facility] CLINICFacility:FTMCStart: 02-20-2023 End: 23-15-9325Jpeczqr encounter procedureDALETI AFSHINLEAKEY [facility] Start: 02-17-2023 End: 92-05-7511Ugutfye encounter procedureDALETI [facility]FA[facility] Start: 02-17-2023 End: 52-85-9128zyfhtsfuhpJTBZ [facility] [employer] Other Start: 14-94-9419Zzmdxptve encounterDaleti SanchezTracy Medical Center Family [facility] Hospitaltart: 93-60-0117Quyxlurrb encounterSandra Lux I Had Cancer Work Phone: Obstetrics/GynecologyComment on above:STD (Chlamydia ) Start: 02-09-2023 End: 78-06-6224Webygqs encounter procedureSandra Lux PA-C Work Phone: Obstetrics/GynecologyComment on above:Initial obstetric visit, first trimester (Primary Dx); with uncertain viability, single or unspecified fetusStart: 71-62-3665Igpnpukzo encounterSand [employer] Groupmarianne PA-FPSI Work Phone: Obstetrics/GynecologyComment on above:Medication QuestionStart: 01-12-2023 End: 36-98-9567dcofdwicaoEyir [facility] Other [employer] Other Start: 50-12-7359Lbuxgzqoo encounterDaleti [facility] Referral CoordinatorStart: 12-01-2022 End: 27-89-0829yjlzurauqwAmlr [facility] Other VR1 Other Start: 87-15-1821Wfnradisi encounterDana [facility] Hospitaltart: 11-29-2022 End: 67-04-4848qzsrpoebfqNihq [facility] Other [employer] mascotsecret Other Start: 80-20-1214Javtbb outpatient visit 15 minutes Alvarez [facility] Hospitaltart: 11-29-2022 End: 64-98-9630Oikhqxb encounter procedureALVAREZ [facility] Start: 08-18-2022 End: 73-86-9943Vkdwlwxrh department patient visitAstrit Pablo Blandvencor hospitalFacility:[facility] Start: 08-18-2022 End: 20-46-6971Wglbzwdla department patient visitAstrit [facility] Start: 07-16-2022 End: 12-56-3796Zivmvqjzd department patient visitTim ThomasFacility:[facility]tart: 06-16-2022 End: 64-99-4512oydhttfrmwHcco [facility] Other [facility] mascotsecret Other Start: 65-12-9857Dypsdu outpatient visit 15 minutes Alvarez [facility] Hospitaltart: 11-30-2021 End: 74-38-6036Pvdwboabv department patient visitQuoc Rogers [facility] Procedures DateProcedureProcedure DetailPerforming ClinicianStart: 66-39-9755Ikdqdgyjuloea metabolic panelKathleen E Pool PROFESSIONAL BONDSMAN - CNM Work Phone: Start: 77-81-1775Ysnbpdy total xcpt refractometry urineRomulo Viera MD Work Phone: Start: 51-72-2591Uhzbfbiqbr microscopic onlyRomulo Viera MD Work Phone: Start: 99-66-2041Gbcrt dip stick/tablet rgnt auto w/o microscopyRomulo Viera MD Work Phone: Start: 31-60-1264Tjsjrpygbvqli metabolic panelRomulo Viera MD Work Phone: Start: 40-33-7463Ydv routine ecg w/least 12 lds trcg only w/o i&Sanchez Sánchez MD Work Phone: Start: 45-80-4274Ovdtj count complete automatedCarmen F Yonis-Mota DO Work Phone: Start: 07-31-2024 End: 44-31-4350Nqzjnmrfspulr metabolic panelJusteen Golden PROFESSIONAL BONDSMAN - CNM Work Phone: Start: 54-01-3985Qluof typing serologic aboJusteen Golden PROFESSIONAL BONDSMAN - CNM Work Phone: Start: 20-97-2777Zcgqwmzwgpikn metabolic panelJusteen Golden PROFESSIONAL BONDSMAN - CNM Work Phone: Start: 07-23-2024 End: 86-91-1307Zwjvdfdygijto metabolic panelKathleen E Pool PROFESSIONAL BONDSMAN - CNM Work Phone: Start: 42-17-4155MT OB BPP W NON-STRESSCorey Cali DO Work Phone: Start: 60-17-3298Yxttu dip stick/tablet rgnt non-auto w/o micrscpAmy Syeda Gleason MD Work Phone: Start: 56-98-3254DHHJN-19, Tom Canada MD Work Phone: Start: 94-27-1730Xxrn ia streptococcus group Stacy Canada MD Work Phone: Start: 58-02-1185Nzaevgwycoiy chorionic quantitative Yi E Pool PROFESSIONAL BONDSMAN - CNM Work Phone: 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: 08-02-2034 DTaP/Tdap/Td vaccine (5 - Td or Tdap)DTaP/Tdap/Td vaccine (5 - Td or Tdap)[facility]: 59-97-8765Ubgmguwxwy ScreenDepression ScreenBuchanan General Hospital: 45-98-6002Wmtjnbxsir ScreenDepression ScreenBuchanan General Hospital: 05-45-8342Jirrozvee for Chlamydia trachomatis Chlamydia/GC screenBuchanan General Hospital: 63-08-7662Dnrdjbslr vaccinationFlu vaccine (Season Ended)[facility]: 09-11-2024 End: 07-65-3141qjxvjglrcw19/24/2025 2:00 PM EDT Visit [facility] OBSTETRICS & GYNECOLOGY [address] [place] [id number] Yi Valadez, PROFESSIONAL BONDSMAN - CNOj [address] [place] [address] Dr [address] [place] [id number] PPV from [facility] OBSTETRICS GYNECOLOGY [facility] Comment on above:PPV from [facility]: 50-10-9964Ihgn Vaccine during Tdap Vaccine during PregnancyBon Secours Richmond Community HospitalComment on above:Postponed from 05/20/2024 (Patient Refused)Start: 08-14-2024 End: 99-82-5884Hvophpj encounter mxoibstjh26/27/2025 1:20 PM EDT Routine [facility] OBSTETRICS & GYNECOLOGY [address] [place] [address] Yi Valadez, PROFESSIONAL BONDSMAN - CNOj [address] [place] [address] Dr [address] [place] [address] 39wk [facility] OBSTETRICS & GYNECOLOGY Part of [facility] HospitalComment on above:39wk OBStart: 08-09-2024 End: 16-41-0778aerrqaxefsOQIOF HEALTH TIFFIN OBSTETRICS & GYNECOLOGY Part of [facility] HospitalComment on above:inc check from c secincision check, BP check Start: 08-06-2024 End: 44-75-8286Lzcihxz encounter asuwjzxnv86/19/2025 1:30 PM EDT Routine [facility] OBSTETRICS & GYNECOLOG[facility] Part of [address] [place] [address] Yi Valadez APRN - CNOj [address] [place] [address] [address] [place] [address] 38wk [facility] OBSTETRICS & GYNECOLOGY Part [facility] CenterComment on above:38wk OBStart: 07-30-2024 End: 09-43-5650Wxapisc encounter [facility] OBSTETRICS & GYNECOLOGY Part of [facility] HospitalComment on above:37wk OB37wk OB, repeat labs and urineStart: 07-23-2024 End: 22-19-5937Adgylzz encounter sfwggpeky02/05/2025 1:00 PM EDT Routine [facility] OBSTETRICS & GYNECOLOGY Part of [address] [place] [address] Yi Valadez APRN - CNOj [address] [place] [address] Dr [address] [place] [address] 36wk OB -- GBSDETW[facility]ER [facility] Part [facility] Medical CenterComment on above:36wk OB -- GBSStart: 06-29-2024 End: 59-39-5047Pixfpzt encounter polookztw15/11/2025 11:45 AM EDT Routine Office Visit Obstetrics/Gynecology [address] [place] [address] Marline Mcleod, PROFESSIONAL BONDSMAN.INTERNET MARKETING SPECIALIST [address] [place] [address] obObstetrics/GynecologyComment on above:obStart: 06-11-2024 End: 77-57-6064Tsauugu encounter gzwpbwumq79/24/2025 11:30 AM EDT Routine [facility] OBSTETRICS & GYNECOLOGY Part [address] [place] [address] Yi Valadez APRN -LEIA [address] [place] [address] [address] [place] [address] Ob 30 week U/[facility] OBSTETRICS & GYNECOLOGY [facility] HospitalComment on above:Ob 30 week U/SStart: 06-11-2024 End: 12-30-8083Ceobepftxusz / ancillary services kmtgzdcokk83/24/2025 11:00 AM EDT Ancillary Procedure [facility] OBSTETRICS & GYNECOLOGY [address] [place] [address] OB 30 [facility] Comment on above:OB 30 weekStart: 06-05-2024 End: 81-59-3464Pmlpyza encounter kmyxjcxfa17/18/2025 2:50 PM EDT Routine Office Visit Obstetrics/Gynecology [address] [place] [address] [place] [address] [place] [address] obObstetrics/GynecologyComment on above:ob Start: 40-19-7753Ocjh Vaccine during PregnancyTdap Vaccine during PregnancyBon SecVeterans Health AdministrationStart: 05-15-2024 End: 53-95-8846WZJHRK REFLEX PANELANEMIA REFLEX PANEL Lab Routine 26 weeks gestation of Supervision of other normal Encounter for supervision of other normal in second trimester Expected: 05/15/2024, Expires: 08/14/2024leveland ClinicComment on above:Expected: 05/15/2024, Expires: 08/14/2024Start: 05-15-2024 End: 34-44-0314Fvwuhsdbgxkbz metabolic 2000 panel - Serum or PlasmaCOMPREHENSIVE METABOLIC PANEL Lab Routine 26 weeks gestation of Supervision of other normal Screening for diabetes mellitus Encounter for supervision of other normal in second trimester BMI 37.0-37.9, adult Supervision of normal first in second trimester Elevated blood pressure reading without diagnosis of hypertension Expected: 05/15/2024, Expires: 08/14/2024 [facility] HospitalComment on above:Expected: 05/15/2024, Expires: 08/14/2024Start: 05-15-2024 End: 92-44-0805YVVUNGUOXNB GLUCOSE SCREEN, 1-HOUR, 50 GRAM, NON-FASTING GESTATIONAL GLUCOSE SCREEN, 1-HOUR, 50 GRAM, NON-FASTING Lab Routine Screening for diabetes mellitus Expected: 05/15/2024, Expires: 05/15/2025[facility] Work Phone: Comment on above:Expected: 05/15/2024, Expires: 05/15/2025Start: 05-15-2024 End: 01-89-0915OVBORWZVN ULTRASOUND WHIOBSTETRIC ULTRASOUND WHI Anc Imaging Routine 26 weeks gestation of Supervision of other normal Encounter for supervision of other normal in second trimester Supervision of normal first in second trimester Obesity in , antepartum History of renal anomaly Expected: 05/15/2024, Expires: 05/15/2025 [facility] HospitalComment on above:Expected: 05/15/2024, Expires: 05/15/2025Start: 05-15-2024 End: 91-01-9548Yycgcmz/Creatinine [Mass Ratio] in UrinePROTEIN / CREATININE RATIO Lab Routine 26 weeks gestation of Supervision of other normal p regnancy Encounter for supervision of other normal in second trimester Elevated blood pressure reading without diagnosis of hypertension Expected: 05/15/2024, Expires: 08/14/2024[facility] HospitalComment on above:Expected: 05/15/2024, Expires: 08/14/2024Start: 05-15-2024 End: 43-95-4343AOIVMYUT TREPONEMAL W/REFLEXSYPHILIS TREPONEMAL W/REFLEX Lab Routine Encounter for supervision of other normal in second trimester Expected: 05/15/2024, Expires: 05/15/2025[facility] ClinicComment on above: Expected: 05/15/2024, Expires: 05/15/2025Start: 05-15-2024 End: 58-54-4711SMLC + SCREEN PRENATALTYPE + SCREEN Blood Bank Routine Encounter for supervision of other normal in second trimester Expected: 05/15/2024, Expires: 5[facility] ClinicComment on above: Expected: 05/15/2024, Expires: 08/14/2024Start: 05-15-2024 End: 07-22-8281Ftswcrz encounter yzyhkkggk36/25/2025 1:20 PM EST Routine Office Visit Obstetrics/Gynecology [address] [place] [address] [place] [address] [place] [address] NOB transfer alessandro 08/19 Obstetrics/GynecologyComment on above:NOB transfer alessandro 08/19Start: 04-03-2024 End: 28-16-3797Xnhxcvf encounter sacuzmwyd70/14/2025 11:00 AM EST Routine [facility] OBSTETRICS GYNECOLOGY [address] [place] [address] Yi Valadez APRN -MANUELA[address] [place], [place] [address] Ob 20 week [facility] OBSTETRICS [facility] HealthComment on above:Ob 20 week scanStart: 04-03-2024 End: 33-94-1600Ohralgotafta / ancillary services sxtnxauvuz88/14/2025 10:00 AM EST Ancillary Procedure [facility] OBST[facility]RICS [address] [place] [address] OB 20 week [facility] OBSTETRICS & GYNECOLOGY [facility] Comment on above:OB 20 week scanStart: 62-23-5900Salhmdbif for Chlamydia trachomatisChlamydia/GC screenCentra Healthart: 40-53-3797Rmkkhkboo Screening (18-24)Chlamydia Screening (18-24)[facility] Centertart: 48-42-5036YQ (Gonorrhea) Screening (18-)GC (Gonorrhea) Screening (18-24)[facility] Start: 38-18-4046Mlreutszm for Chlamydia trachomatisChlamydia Screening () [facility] Centertart: 44-62-9022ADYVV-19 Vaccine ( season)COVID-19 Vaccine ( season)[facility] VCUart: 79-77-6173Miemh-19 Vaccine ( season)Covid-19 Vaccine ()[facility]ertart: 34-35-4118Ikscbltgl vaccinationMercy Health St. Rita's Medical Centertart: 10-25-2023 End: 08-33-5917LouwuhhshPike Community Hospitaltart: 87-49-9028Usfyfwbw identified in Urine by CulturePike Community Hospitaltart: 10-20-2023 Influenza vaccinationFlu vaccine (#1)[facility] VCUart: 2023 DTaP/Tdap/Td vaccine (4 - Tdap)DTaP/Tdap/Td vaccine (4 - Tdap)[facility]: 62-04-6199Xurnt microalbumin profileDTaP,Tdap,Td Vaccine (4 - Tdap) [facility]ertart: 27-76-7794Pbehpvhmjy AssessmentDepression Assessment [facility]ertart: 02-09-2023 End: 23-43-3355KRD panel - Blood by Automated countCBC Lab Routine Initial obstetric visit, first trimester Expected: 02/09/2023, Expires: 05/11/[address] [facility] Work Phone: Comment on above:Expected: 02/09/2023, Expires: 05/11/2023Start: 02-09-2023 End: 29-00-8192Vtarnbbtg B virus surface Ag [Presence] in SerumHEP B SURF AG SCRN Lab Routine Initial obstetric visit, first trimester Expected: 02/09/2023, Expires: 05/11/2023[facility] Work Phone: Comment on above:Expected: 02/09/2023, Expires: 05/11/2023Start: 02-09-2023 End: 50-90-4957Imhkwffkv C virus Ab [Presence] in SerumHEPATITIS C ANTIBODY IA WITH CONFIRMATION Lab Routine Initial obstetric visit, first trimester Expected: 02/09/2023, Expires: [address] [place] [address] Work Phone: Comment on above:Expected: 02/09/2023, Expires: 05/11/2023Start: 02-09-2023 End: 07-73-2446ZLK 1+2 Ab [Presence] in Serum or Plasma by ImmunoassayHIV 1 2 COMBO(AG/AB),WITH REFLEX TO DIFFERENTIATION Lab Routine Initial obstetric visit, first trimester Expected: 02/09/2023, Expires: [address] [place] [address] Work Phone: Comment on above:Expected: 02/09/2023, Expires: 05/11/2023Start: 02-09-2023 End: 46-85-9923WSOIFK US WHIPELVIC US WHI Anc Imaging Routine with uncertain viability, single or unspecified fetus Expected: 02/09/2023, Expires: 02/10/2024[facility] Work Phone: Comment on above:Expected: 02/09/2023, Expires: 02/10/2024Start: 02-09-2023 End: 57-21-5691LOKEATI IGG ABRUBELLA IGG AB Lab Routine Initial obstetric visit, first trimester Expected: 02/09/2023, Expires: [address] [place] [address] Work Phone: Comment on above:Expected: 02/09/2023, Expires: 05/11/2023Start: 02-09-2023 End: 35-38-0116OQWEFANS TOTAL W/REFLEXSYPHILIS TOTAL W/REFLEX Lab Routine Initial obstetric visit, first trimester Expected: 02/09/2023, Expires: [address] [place] [address] Work Phone: Comment on above:Expected: 02/09/2023, Expires: 05/11/2023Start: 02-09-2023 End: 90-91-4830NWFP + SCREEN PRENATALTYPE + SCREEN Blood Bank Routine Initial obstetric visit, first trimester Expected: 02/09/2023, Expires: 05/11/2023[facility] Work Phone: Comment on above:Expected: 02/09/2023, Expires: 05/11/2023Start: 93-18-3247Rsmhj-19 Vaccine ( season)Covid-19 Vaccine ( season)[facility]: 23-68-4921Nfdmumudg vaccination Influenza Vaccine (#1)[facility]: 00-34-0673Ufdlldwmr vaccinationFlu vaccine (#1)[facility] Healthart: 46-52-0185Anyzfhw ScreeningAnxiety ScreeningMercy Health St. Rita's Medical Centertart: 23-56-6830Fqsqzzyjx Screening (18-24)Chlamydia Screening (18-24)[facility]: 32-58-2515Smfalmuqiw ScreeningDepression ScreeningMercy Health St. Rita's Medical Centertart: 70-76-2579AL (Gonorrhea) Screening (18-24)GC (Gonorrhea) Screening (18-24)[facility]: 65-10-2950Pjxmptqtw C ScreeningHepatitis C ScreeningCleRegency Hospital Cleveland Easttart: 69-59-2483Ewozdhrfg C screeningHepatitis C ScreeningMercy Health St. Rita's Medical Centertart: 36-40-0384ZIN ScreeningHIV ScreeningCleRegency Hospital Cleveland Easttart: 15-81-0207XAD screeningHIV ScreeningMercy Health St. Rita's Medical Centertart: 39-90-0679Irxxfjsnsd AssessmentDepression AssessmentCleRegency Hospital Cleveland Easttart: 60-33-1873Yfueuzyfxihjh (ACWY) vaccine (2 - 2-dose series) Meningococcal (ACWY) vaccine (2 - 2-dose series)[facility] Healthart: 88-26-1733Wxcwcufzvrbur B Vaccine (1 of 2 - Standard)Meningococcal B Vaccine (1 of 2 - Standard)[facility]rt: 50-02-9241Obefttzayqsqz Conjugate Vaccine (1 - 2-dose series)Meningococcal Conjugate Vaccine (1 - 2-dose series)[facility]: 68-00-2069MFI Vaccine (1 - 3-dose series)HPV Vaccine (1 - 3-dose series)[facility]: 93-20-3586Eqxu To Adult Transition Annual AssessmentPeds To Adult Transition Annual AssessmentUniversity Hospitals Health Systemrt: 32-59-8219Bmotvghmu vaccine (1 of 2 - 13+ 2-dose series)Varicella vaccine (1 of 2 - 13+ 2-dose series)[facility]: 23-67-1272Dnzsgapkoa Screen Depression ScreenBON [facility]: 36-65-9848Bnkc To Adult Transition Initial DiscussionPeds To Adult Transition Initial Discussion [facility]: 44-07-7382EKJ vaccine (1 - 2-dose series)HPV vaccine (1 - 2-dose series)[facility]: 17-21-8517HKT Vaccine (1 - 2-dose series)HPV Vaccine (1 - 2-dose series)[facility]: 2011 DTaP/Tdap/Td vaccine (4 - Tdap)DTaP/Tdap/Td vaccine (4 - Tdap)[facility]: 82-91-6108Fyrvs microalbumin profileDTaP,Tdap,Td Vaccine (4 - Tdap) [facility]: 91-55-8690Dgigs vaccine (5 of 5 - 5-dose series)Polio vaccine (5 of 5 - 5-dose series)[facility]: 2005 Hepatitis A vaccine (1 of 2 - 2-dose series)Hepatitis A vaccine (1 of 2 - 2-dose series)[facility]: 87-74-1500Kxxlzgn,Mumps,Rubella (MMR) vaccine (1 of 2 - Standard series)Measles,Mumps,Rubella (MMR) vaccine (1 of 2 - Standard series)[facility]: 95-22-0542Jwarjhhpz vaccine (1 of 2 - 2-dose childhood series)Varicella vaccine (1 of 2 - 2-dose childhood series)[facility] AllokaStart: 08-56-7093Whhjj-19 Vaccine (#1)Covid-19 Vaccine (#1)[facility] HospitalBacteria identified in Urine by CultureURINE CULTURE Microbiology Routine Initial obstetric visit, first trimester Ordered: 02/09/2023[facility] Work Phone: Comment on above:Ordered: 02/09/2023acteria identified in Urine by CultureBACTERIAL CULTURE, URINE Microbiology Routine 26 weeks gestation of Supervision of other normal Encounter for supervision of other normal in second trimester Ordered: 05/15/2024 [facility] HospitalComment on above:Ordered: 05/15/2024hlamydia trachomatis DNA [Presence] in Unspecified specimen by CADY with probe detectionDelaware County HospitalChlamydia trachomatis+Neisseria gonorrhoeae DNA [Presence] in Unspecified specimen by CADY with probe detectionGONORRHEA/CHLAMYDIA NAAT Lab Routine Initial obstetric visit, first trimester Ordered: 02/09/2023[facility] Work Phone: Comment on above:Ordered: 02/09/2023 End: 18-23-4499Qnucpuq, Strep B Screen, Vaginal/RectalBon [facility] Comment on above:1 Occurrences starting 07/23/2024 until 07/23/2024 End: 86-51-9265WKGC SCREEN MULTI URINEDRUG SCREEN MULTI URINE Lab STAT One Time for 1 Occurrences starting 08/01/2024 until 08/01/2024[facility] Comment on above:One Time for 1 Occurrences starting 08/01/2024 until 08/01/2024 End: 95-15-3615Hyghpwux cardiac holter monitor (3 days-14 day)[facility] Information NetworkComment on above:1 Occurrences starting 05/22/2024 until 05/22/2024 End: 67-60-1122Thaxwaiomxap pulse oximetryPulse Oximetry Spot Check Respiratory Care Routine One Time for 1 Occurrences starting 08/01/2024 until 08/01/2024on [facility] NetworkComment on above:One Time for 1 Occurrences starting 08/01/2024 until 08/01/2024Neisseria gonorrhoeae DNA [Presence] in Unspecified specimen by CADY with probe detectionDelaware County Hospital Nonrebreather mask oxygenNonrebreather mask oxygen Respiratory Care Routine As Needed until discontinued starting 08/01/2024 [employer] [facility] on above:As Needed until discontinued starting 08/01/2024Nonrebreather mask oxygen Nonrebreather mask oxygen Respiratory Care Routine As Needed until discontinued starting 08/04/2024on [facility] on above:As Needed until discontinued starting 08/04/2024Oxygen therapy [Minimum Data Set]Initiate Oxygen Therapy Protocol Respiratory Care Routine As Needed until discontinued starting 07/31/2024on [facility] HospitalGreen[facility] on above:As Needed until discontinued starting 07/31/2024Trichomonas vaginalis DNA [Presence] in Unspecified specimen by CADY with probe detectionDelaware County Hospital End: 87-17-3688Iptvqozzl DNA ProbeBon [facility] HospitalAtl[facility] HealthcareSoc[facility] on above:1 Occurrences starting 07/09/2024 until 5[facility] Immunizations Immunization DateImmunizationNotesCare SyxxithgTlkmirfb52-20-2947sdxnwzh toxoid, reduced diphtheria toxoid, and acellular pertussis vaccine, adsorbedJusteen [facility] PROFESSIONAL BONDSMAN - CN Work Phone: bon [facility] HospitalEfhqky75-93-4232zjhqtyr, mumps and rubella virus vaccineJusteen Golden PROFESSIONAL BONDSMAN - CNM Work Phone: Bon [facility] HospitalDewrmb28-21-0542glgvrezyefeao ACWY vaccine, unspecified formulationJohn Sue [phone]-KrvqaOhio State Harding Hospital 82-45-2060krgnjtt toxoid, unspecified formulationJohn Sue [phone]-JtbgmOhio State Harding Hospital 03-14-7378gjvjaiurftyip vaccine of unknown formulation and unknown serogroups Alvarez Sanabria [facility] Work Phone: bon [facility] MEDICAL CENTERCKTGDG07-77-5433dtojiqjvcm, tetanus toxoids and acellular pertussis vaccineJohn Sue [phone]-WbefhOhio State Harding Hospital 73-27-9615ASoV-hepatitis B and poliovirus vaccineSandra Sadid PA-C Work Phone: [facility] HospitalHtcnpt80-47-6519rficwkphc B vaccine, pediatric or pediatric/adolescent dosageJohn Sue [phone]-RhitbOhio State Harding Hospital 92-21-1495pwyaggvilr vaccine, unspecified formulationJohn Sue [phone]-ZzgdqOhio State Harding Hospital 24-44-4939eohpsagwyq, tetanus toxoids and acellular pertussis vaccineJohn Sue [phone]-YgiipOhio State Harding Hospital 26-10-6781KCqW-hepatitis B and poliovirus vaccineSandra Sadid PA-C Work Phone: [facility] HospitalVhaqyc41-65-1600kyayqymxevl influenzae type b vaccine, conjugate unspecified formulationSandra Sadid PA-C Work Phone: [facility] HospitalRpwkcx14-52-9145slydvwwqpcl influenzae type b vaccine, PRP-OMP conjugateJohn Seu [phone]-VipsaOhio State Harding Hospital 95-78-5705bvijdshqi B vaccine, pediatric or pediatric/adolescent dosageJohn Sue [phone]-ZszauOhio State Harding Hospital 39-66-3358oqasurbwlpko conjugate vaccine, 13 valentJohn Sue [phone]-FidhmOhio State Harding Hospital 30-25-2830melnvrippfiv conjugate vaccine, 7 valentSandra Sadid PA-C Work Phone: [facility] HospitalClsusl37-73-3929iazufjorlc vaccine, unspecified formulationJohn Sue [phone]-LutvwOhio State Harding Hospital 15-83-7150zsltzvtizm, tetanus toxoids and acellular pertussis vaccineJohn Sue [phone]-YkuzcOhio State Harding Hospital 14-13-3891TTcE-hepatitis B and poliovirus vaccineSandra Sadid PA-C Work Phone: [facility] HospitalTvoueh54-23-4007gsnztagwnfi influenzae type b vaccine, conjugate unspecified formulationSandra Jose J HERNANDEZ Work Phone: [facility] HospitalLnmqzt36-60-2074qwjtmfvmtiv influenzae type b vaccine, PRP-OMP conjugateJohn Sue [phone]-OrjzwOhio State Harding Hospital 38-10-1338vhqkblyrl B vaccine, pediatric or pediatric/adolescent dosageJohn Sue [phone]-OjkjjOhio State Harding Hospital 46-67-1170rsmehyeqdcjg conjugate vaccine, 13 valentJohn Sue [phone]-FzimnOhio State Harding Hospital 71-04-8312slcigwruwqlf conjugate vaccine, 7 valentSandra Jose J HERNANDEZ Work Phone: [facility] HospitalDzoqym95-61-7565tlozkyumpe vaccine, unspecified formulationJohn Sue [phone]-FexgxOhio State Harding Hospital NEGATED: Highlighted row has not occurred!51-42-2050vhsujnahf virus vaccine, unspecified formulationJohn Sue [phone]-MvobbOhio State Harding Hospital Payers DatePayer CategoryPayerPolicy [id number] of Defense ( and others)[id number]-xed [id number] of Defense ( and others)19-10-9939Ftxkrihzag (not Medicare or Medicaid)[id number] Unknown1.2.840.395884.1.13.159.2.7.3.373536.16448-06-5678Spkeuwmdlr of Defense ( and others)[id number] 1.2.840.725516.1.13.239.2.7.3.855817.315 [id number] 2.16.840.1.420907.3.57[id number] 2.16.840.1.101788.3.57[id number] 2.840.1.773673.3.57[id number] 2..840.1.065496.3.57[id number] 2.840.1.335888.3.57[id number] 2.840.1.240606.3.57[id number] 2.840.1.487283.3.57[id number] 2.840.1.993656.3.57[id number] 2.840.1.890311.3.57[id number] 2.840.1.624580.3.57[id number] 2.840.1.157701.3.57[id number] 2.840.1.890204.3.57[id number] 2..840.1.957596.3.57[id number] 2.840.1.254802.3.57[id number] 2.16.840.1.330259.3.57[id number] 2.16.840.1.521806.3.57[id number] 2.16.840.1.626360.3.57[id number] 2.16.840.1.806193.3.57[id number] 2.16.840.1.928696.3.57[id number] 2.16.840.1.507037.3.57[id number] 2.16.840.1.540935.3.579.2.175Department of Defense ( and others)[id number] 2.1[id number] 2.16.840.1.162954.3.579.2.531Unknown [id number] 2.840.1.479853.3.579.2.531 Social History DateTypeDetailFacilityStart: 10-20-2020 End: 21-51-3477Zpbbdmy smoking statusNever smoked tobacco (finding)[facility] smoking statusNeverWestern [facility] Start: 12-29-2022 End: 31-31-5180Rjh Assigned At BirthFemalThe [facility] smoking statusNo Smoking Status EnteredWestern Reserve HospitalToconnecticut valley hospital smoking status NHISTobacco smoking consumption unknownMercy Health St. Rita's Medical Centertart: 12-29-2022 End: 50-53-2902Eztmidf of Social functionBON CINCINNATI CHILDR[facility] MEDICAL CENTERStart: 93-88-3860Ctz Assigned At BirthNot on fileKansas City ClinicStart: 02-09-2023 Tobacco smoking status NHISOccasional tobacco smokerMercy Health St. Rita's Medical Centertart: 32-69-1275Qswahms use and exposureUser of smokeless tobaccoAultman Orrville Hospital Start: 02-09-2023 End: 42-77-7110Rvxjzks intakeEx-drinker (finding)[facility] Centertart: 23-77-5890Hovkmvj CommentvapingMercy Health St. Rita's Medical Centertart: 34-41-9236Zjqqmrr Comment pregMercy Health St. Rita's Medical Centertart: 45-71-3242QdlfuirsfApyqmwrfc ClinicStart: 02-21-2023 End: 52-18-5130Plofwcd use and exposureSmokeless tobacco non-userBON AllokaHow often to you have a drink containing alcohol?NeverBON AllokaStart: 28-37-9091Wkh Assigned At BirthFeUniversity of [facility] Health Alloka Start: 45-78-8088Zpxjts identityIdentifies as female gender (finding)[employer](I/We) worried whether (my/our) food would run out before (I/we) got money to buy more.Never trueBon Extended Care Information NetworkAt any time in the past 12 months, were you homeless or living in senior care [including now]?NoBon [facility] Care Information NetworkStart: 01-03-3036Wqpwsvs smoking status NHISEx-smokerAultman Orrville HospitalHistory of tobacco useCurrent smokerAultman Orrville HospitalHistory of tobacco use Cigarette SmokerMercy Health St. Rita's Medical Centertart: 53-16-4250NsvCwbbkc (finding)Wandrian Functional Status MwqtOmctzjfjcnKjumgfYnfwatcj41-94-0823Bisjxicpzf StatusN/[facility] Con[facility]ient Fcyw77-20-5335Dvsmxjfcgj StatusN/[facility]05-31-2023Functional StatusN/[facility]09-12-2022 Functional StatusN/[facility] Clinical Notes 11-30-2021 to 08-05-2024 Note Date & NimeUzrkMjgquthz00-18-3755 Hospital Discharge instructions* Discharge Instructions* Sherry Arroyo RN - 08/05/2024 10:05 AM EDT Call for blood pressure equal to or greater than 160/110. * Attachments The following attachments cannot be sent through Care Everywhere. * Preeclampsia: : General Info (Chilean) * Preeclampsia (Chilean) documented in this encounterBon [facility] History of Present illness Narrative* Marissa Gongora MD - 08/05/2024 1:05 AM EDT Resident Rounding Note Braxton Green is a 19 y.o. female POD#5 s/p PLTCS at [place] with preeclampsia with severe features The patient is resting comfortably. She denies headache, visual changes, and abdominal pain in the right upper quadrant. She denies any shortness of breath or chest pain. She denies change in her extremities, regarding swelling. Continuous Medications: sodium chloride magnesium sulfate 2,000 mg/hr (08/05/24 0032) lactated ringers 50 mL/hr at 08/04/24 1830 Vitals: Vitals: 08/04/24 2145 08/04/24 2245 08/04/24 2345 08/05/24 0046 BP: 136/84 133/80 130/80 117/69 Pulse: 92 88 80 74 Resp: 16 16 16 16 Temp: 98 F (36.7 C) 97.9 F (36.6 C) TempSrc: Oral Oral SpO2: 100% 98% Weight: Height: Physical Exam: Chest: No increased work of breathing or conversational dyspnea Heart: RRR no murmur Abdomen: soft, nontender, nondistended Extremities: DTR normal Bilateral lower extremities Right: 2+/4 Left: 2+/4 Urine Output: 700 ml over 3 hours; Clear urine Labs: Last Magnesium Level: Lab Results Component Value Date/Time MG 1.5 07/03/2024 01:10 PM BMP: Recent Labs 08/04/24 0202 NA 138 K 3.9 CL 106 CO2 21 BUN 9 CREATININE 0.6 GLUCOSE 101* ASSESSMENT/PLAN Braxton Green is a 19 y.o. female POD#5 s/p PLTCS at [place] with preeclampsia with severe features - Continue Magnesium Sulfate Treatment 2g/hr, off @ 0209 on 08/05/24 - BPs normotensive - Patient denies any s/s PreE - UOP adequate - PreE labs wnl, P/C 0.27 - Currently controlled on Labetalol 400 mg every 8 hours - Last IV anti-hypertensive was at 0226 on 08/04 - Continue to monitor closely - Plan is for DC today if BP remains stable PP state - Prevena dressing in place - Motrin/Tylenol/Deirdre PRN - Continue to monitor closely Anemia - Hgb on admission 8.9 - Clinically asymptomatic - PO iron prescribed BMI 40 - Ambulation encouraged - SCDs for DVT prophylaxis Marissa Gongora MD Fire Prevention Chief Resident 08/05/2024, 1:05 AM * Masha Kathleen DO - 08/04/2024 10:49 PM EDT Resident Interval Magnesium Sulfate Note Braxton Green is a 19 y.o. female POD# 4 s/p PLTCS in [place] The patient is resting comfortably. She denies BLAND, VC and abdominal pain in the right upper quadrant. She denies any shortness of breath or chest pain. She denies change in her extremities, regardingswelling. Continuous Medications: sodium chloride magnesium sulfate 2,000 mg/hr (08/04/24 1415) lactated ringers 50 mL/hr at 08/04/24 1830 Vitals: Vitals: 08/04/24 1745 08/04/24 1946 08/04/24 2046 08/04/24 2145 BP: 134/85 116/63 132/79 136/84 Pulse: 82 71 90 92 Resp: 14 16 16 16 Temp: 97.8 F (36.6 C) TempSrc: Oral SpO2: 95% 96% Weight: Height: Physical Exam: Chest: Lungs CTA Heart: RRR no murmur Abdomen: soft, nontender, nondistended Extremities: DTR normal Bilateral lower extremities Right: 2/4 Left: 2/4 Clonus: absent Urine Output: not measured Labs: Last Magnesium Level: Lab Results Component Value Date/Time MG 1.5 07/03/2024 01:10 PM BMP: Recent Labs 08/04/24 0202 NA 138 K 3.9 CL 106 CO2 21 BUN 9 CREATININE 0.6 GLUCOSE 101* ASSESSMENT/PLAN Braxton Green is a 19 y.o. female POD# 4 s/p PLTCS in [place] - Continue Magnesium Sulfate Treatment 2g/hr, off @ 0209 on 08/15/24 - BPs normotensive - Patient reports resolution of BLAND and vision blurring. Denies RUQ pain, SOB, CP. - UOP adequate - Motrin/Tylenol/Deirdre - Labetalol 200 BID > 400 TID (08/04) - PreE labs wnl, P/C 0.27 - Labetalol IV 20, 40 last @ 0226 (08/04) - Strict Is & Os - Continue to monitor closely Masha Kathleen DO Fire Prevention Chief Resident 08/04/2024, 10:49 PM * Masha Kathleen DO - 08/04/2024 6:15 PM EDT Resident Interval Magnesium Sulfate Note Braxton Green is a 19 y.o. female POD# 4 s/p PLTCS in [place] The patient is resting comfortably. She currently admits to a mild headache and vision blurring, and abdominal pain in the right upper quadrant. She denies any shortness of breath or chest pain. She denies change in her extremities, regarding swelling. Continuous Medications: lactated ringers 125 mL/hr at 08/04/24 1103 sodium chloride magnesium sulfate 2,000 mg/hr (08/04/24 1415) Vitals: Vitals: 08/04/24 1446 08/04/24 1631 08/04/24 1645 08/04/24 1745 BP: 116/67 138/81 134/82 134/85 Pulse: 80 84 77 82 Resp: 16 14 Temp: 97.5 F (36.4 C) TempSrc: Oral SpO2: 100% Weight: Height: Physical Exam: Chest: Lungs CTA Heart: RRR no murmur Abdomen: soft, nontender, nondistended Extremities: DTR normal Bilateral lower extremities Right: 2/4 Left: 2/4 Clonus: absent Urine Output: not measured Labs: Last Magnesium Level: Lab Results Component Value Date/Time MG 1.5 07/03/2024 01:10 PM BMP: Recent Labs 08/04/24 0202 NA 138 K 3.9 CL 106 CO2 21 BUN 9 CREATININE 0.6 GLUCOSE 101* ASSESSMENT/PLAN Braxton Green is a 19 y.o. female POD# 4 s/p PLTCS in [place] - Continue Magnesium Sulfate Treatment 2g/hr, off @ 0209 on 08/15/24 - BPs normotensive - Patient reports mild BLAND and vision blurring, patient is not due for Motrin/Tyelnol until 1999. Reglan/Benadryl ordered. Denies RUQ pain, SOB, CP. - UOP adequate - Motrin/Tylenol/Deirdre - Labetalol 200 BID > 400 TID (08/04) - PreE labs wnl, P/C 0.27 - Next mag note @ 1820 - Labetalol IV 20, 40 last @ 0226 (08/04) - Strict Is & Os - Continue to monitor closely Masha Kathleen DO Fire Prevention Chief Resident 08/04/2024, 6:15 PM * Marissa Gongora MD - 08/04/2024 2:22 PM EDT Resident Interval Magnesium Sulfate Note Braxton Green is a 19 y.o. female POD# 4 s/p PLTCS in [place] The patient is resting comfortably. She currently admits to a mild headache, denies visual changes,and abdominal pain in the right upper quadrant. She denies any shortness of breath or chest pain. She denies change in her extremities, regarding swelling. Continuous Medications: lactated ringers 125 mL/hr at 08/04/24 1103 sodium chloride magnesium sulfate 2,000 mg/hr (08/04/24 1415) Vitals: Vitals: 08/04/24 0946 08/04/24 1046 08/04/24 1145 08/04/24 1245 BP: 122/65 (!) 117/59 127/76 117/71 Pulse: (!) 103 77 75 77 Resp: 14 14 16 16 Temp: TempSrc: SpO2: 91% 98% 91% 100% Weight: Height: Physical Exam: Chest: Lungs CTA Heart: RRR no murmur Abdomen: soft, nontender, nondistended Extremities: DTR normal Bilateral lower extremities Right: 2/4 Left: 2/4 Clonus: absent Urine Output: 750 ml over last 4 hours, 188 ml/hr Labs: Last Magnesium Level: Lab Results Component Value Date/Time MG 1.5 07/03/2024 01:10 PM BMP: Recent Labs 08/04/24 0202 NA 138 K 3.9 CL 106 CO2 21 BUN 9 CREATININE 0.6 GLUCOSE 101* ASSESSMENT/PLAN Braxton Green is a 19 y.o. female POD# 4 s/p PLTCS in [place] - Continue Magnesium Sulfate Treatment 2g/hr, off @ 0209 on 08/15/24 - BPs normotensive - Patient reports mild BLAND, but states she just took Motrin/Tylenol, otherwise denies s/sx of PreE - UOP adequate - Motrin/Tylenol/Deirdre - Labetalol 200 BID > 400 TID (08/04) - PreE labs wnl, P/C 0.27 - Next mag note @ 1820 - Labetalol IV 20, 40 last @ 0226 (08/04) - Strict Is & Os - Continue to monitor closely Marissa Gongora MD Fire Prevention Chief Resident 08/04/2024, 2:25 PM * Marissa Gongora MD - 08/04/2024 10:19 AM EDT Resident Interval Magnesium Sulfate Note Braxton Green is a 19 y.o. female POD# 4 s/p PLTCS in [place] The patient is resting comfortably. She currently denies headache, visual changes, and abdominal pain in the right upper quadrant. She denies any shortness of breath or chest pain. She denies change in her extremities, regarding swelling. Continuous Medications: lactated ringers 125 mL/hr at 08/04/24 0344 sodium chloride magnesium sulfate 2,000 mg/hr (08/04/24 0344) Vitals: Vitals: 08/04/24 0745 08/04/24 0800 08/04/24 0852 08/04/24 0946 BP: 130/76 139/63 122/65 Pulse: 78 91 (!) 103 Resp: 14 Temp: 97.7 F (36.5 C) TempSrc: Oral SpO2: 98% 99% 91% Weight: Height: Physical Exam: Chest: Lungs CTA Heart: RRR no murmur Abdomen: soft, nontender, nondistended Extremities: DTR normal Bilateral lower extremities Right: 2/4 Left: 2/4 Clonus: absent Urine Output: 200 ml in hat from this AM Labs: Last Magnesium Level: Lab Results Component Value Date/Time MG 1.5 07/03/2024 01:10 PM BMP: Recent Labs 08/04/24 0202 NA 138 K 3.9 CL 106 CO2 21 BUN 9 CREATININE 0.6 GLUCOSE 101* ASSESSMENT/PLAN Braxton Green is a 19 y.o. female POD# 4 s/p PLTCS in [place] - Continue Magnesium Sulfate Treatment 2g/hr, off @ 0209 on 08/15/24 - BPs normotensive - Patient denies any s/s PreE - UOP adequate - Motrin/Tylenol/Deirdre - Labetalol 200 BID > 400 TID (08/04) - PreE labs wnl, P/C 0.27 - Next mag note @ 1420 - Labetalol IV 20, 40 last @ 0226 - Strict Is & Os - Continue to monitor closely Marissa Gongora MD Fire Prevention Chief Resident 08/04/2024, 10:19 AM * Oanh Vela, DO - 08/04/2024 7:17 AM EDT Resident Interval Magnesium Sulfate Note Braxton Green is a 19 y.o. female POD# 4 s/p PLTCS in [place] The patient is resting comfortably. She currently denies headache, visual changes, and abdominal pain in the right upper quadrant. She denies any shortness of breath or chest pain. She denies change in her extremities, regarding swelling. Continuous Medications: lactated ringers 125 mL/hr at 08/04/24 0344 sodium chloride magnesium sulfate 2,000 mg/hr (08/04/24 0344) Vitals: Vitals: 08/04/24 0530 08/04/24 0545 08/04/24 0600 08/04/24 0700 BP: (!) 141/74 (!) 150/74 128/73 136/80 Pulse: 82 82 76 71 Resp: 19 24 21 23 Temp: SpO2: 99% 98% 94% 97% Weight: Height: Physical Exam: Chest: clear to auscultation bilaterally Heart: RRR no murmur Abdomen: soft, nontender, nondistended Extremities: DTR normal Bilateral upper extremities Right: 2/4 Left: 2/4 Clonus: absent Urine Output: not documented Labs: Last Magnesium Level: Lab Results Component Value Date/Time MG 1.5 07/03/2024 01:10 PM BMP: Recent Labs 08/04/24 0202 NA 138 K 3.9 CL 106 CO2 21 BUN 9 CREATININE 0.6 GLUCOSE 101* ASSESSMENT/PLAN Braxton Green is a 19 y.o. female POD# 4 s/p PLTCS in [place] - Continue Magnesium Sulfate Treatment 2g/hr, off @ 0209 on 08/15/24 - BPs elevated overnight - Patient denies any s/s PreE - UOP not yet documented - Motrin/Tylenol/Deirdre - Labetalol 200 BID > 400 TID (08/04) - PreE labs wnl, P/C 0.27 - Next mag note @ 1000 - Labetalol IV 20, 40 last @ 0226 - Strict Is & Os - Continue to monitor closely Oanh Vela DO Fire Prevention Chief Resident 08/04/2024, 7:17 AM documented in this encounterBon [facility] Hospital Discharge instructions* Discharge Instructions* Cece Kelly, RN - 08/02/2024 9:21 AM EDT Follow up with your OB provider as specified. [facility] DO Katie Cheung, LEIA Macdonald CNM [address] [facility] [address] [place], [place] [address] [place] Office: [place] Office: Physical Changes Afterbirth pains are cramps that occur in your lower abdomen; these occur due to the uterus shrinking back to its pre- size. Will likely be stronger during . Usually starts to go away after the 1st week . Empty your bladder often and frequently to reduce abdominal cramps. This allows room for your uterus to shrink back to normal. If the bladder remains full it can cause increased bleeding. Kegel Exercises will help restore bladder control. The 1st bowel movement may take 2-3 days. To avoid constipation, add a mild stool softener. To assist with bowel movement, try putting your feet on a stool, rest your elbows on your knees, and take deep breaths. Hemorrhoids may develop. If they do, avoid straining, use pre-moistened wipes, and apply ice packs and/or witch jenna pads. Eat a well-balanced diet focusing on foods high in fiber and protein. Drink 6-8 glasses of water a day. Swelling is common but should subside in time. Keep your legs elevated when possible. Wear stockings or socks; make sure they are not too tight. Hair loss may occur. Your hair goes through a resting phase. Therefore, you lose less during . Losing hair in large amounts is not unusual for the first 5 months after . Perineal Care/Bleeding Use the ishan-bottle after toileting until the bleeding stops. Always cleanse from front to back. If a tear occurred, stitches would dissolve in 4-6 weeks. Use Epsom salts/sitz baths to alleviate any pain, burning, or itching. Vaginal Bleeding will decrease in amount over the next few weeks. First 1-3 days = Bright to dark red, heavy to medium flow, may have small clots. Blood clots shouldnot be larger than an egg. Days 3-10 = [place] or Brown-tinged, medium to light flow, very few or no small clots. Days 10-14 (but may last longer) = Yellowish-white color, very light flow, no clots or bright red color. You may notice as your activity increases, your flow increases. Listen to your body; this is your body's way of telling you to take things easier and rest. A hemorrhage may occur at any time up to 12 weeks following . Call your provider ifyou are soaking through more than 1 pad in an hour and resting does not help. Incisional Care If you have a dressing, leave any dressing following a in place until your 1-2 week follow up. Your provider will remove the dressing in the office and discuss further care. If you have a negative pressure dressing (Prevena), follow up in 2 weeks. You may shower as normal with a dressing following a . Keep the shower water to your back and turn around only to rinse. Wash around the dressing with antibacterial soap and water. Do not allow dressing to be submerged in water. When shower is complete, towel dry, but be careful not to disrupt the dressing. If you have a Negative Pressure dressing (Prevena or LAUREN), the pump will need disconnected prior to showering. To disconnect the Prevena pump, press the power button to pause the device, clamp the tubing with the provided clamp (if applicable), unscrew the two ports connected, and place the pump somewhere it cannot get wet. Allow the tubing to dangle. Keep it facing downward to ensure water does not enter the tubing. When finished, reconnect the ports, unclamp the tubing, and press the power button to turn back on. Make sure to keep your pump charged. The battery is good for 6-8 hours and takes about a half hour or so to charge. It is best to charge it while you are napping or sleeping. If having issues with the Prevena dressing/pump, call the brewery representative stone cutter for further instructions: [place] Phone number: [phone] If the dressing starts to peel off or becomes soiled before your follow up appointment, call the office, and make an appointment to have your dressing removed. Clean your incision with CHG bath. To disconnect the LAUREN pump, press the orange button to pause the device, unscrew the two ports connected and place the pump somewhere it cannot get wet. Allow the tubing to dangle, keep it facing downward to ensure water does not enter the tubing. When finished, reconnect the ports and press the orange button to turn back on, ensure the green light is flashing. If having issues with the LAUREN dressing/pump, call the OB office for further instructions. If the dressing starts to peel up or becomes soiled before your appointment, you may remove the dressing and clean your incision with CHG bath. Shower every day. Once dressing is removed, wash your abdomen and incision every day with Chlorhexadine Gluconate (CHG) foam/gel wash that was given to you by the hospital at discharge. After showering, pat the incision area dry, allow to dry completely, and allow the area to remain open to air. Use the CHG foam/gel wash daily until all of it is gone. If steri-strips were used, they should be completely removed by 2 weeks, but you may remove them asthey become loose or soiled. An abdominal binder may be used to provide support for your incision. Use as needed and as desired,but make sure you take it off while you are sleeping at night. Activity Gradually increase your activity; resume regular exercise regimen only after advised by your provider. If you had a , the best way to get out of bed is to roll to your side and use your top armto push yourself up, sit at the side of the bed, use your arm to support your weight, and stand. For support, place a pillow over your incision when coughing or moving. Avoid lifting anything heavier than a gallon of milk for [address] until you are cleared by your provider. Rise slowly from lying to sitting; give yourself time before standing. Climb stairs one at a time and limit the number of times you are using your stairs if able. No sexual activity or anything into the vagina for 4-6 weeks. This includes intercourse, tampons, or douching. Once you are cleared to have intercourse by your provider, if you experience difficulty or discomfort with intercourse you may want to add a water-based lubricant. Women often experience dryness and reduced lubrication due to the hormones associated with and . You may feel tired or have a lack of energy. Continue taking your vitamins to replenish nutrients after delivery. Nap when the baby naps. Managing Pain Take medications as prescribed by your provider; rotate medications to allow for optimal pain management. Rotate Tylenol and Motrin. Use the Clock Method = 12:00/6:00 Tylenol, 3:00/9:00 Motrin. Use topical sprays such as Dermo-plast or witch jenna pads (example: Tucks) as needed. Use ice pads as needed on perineum for any tears. Gas pains can be extremely uncomfortable. Walk, rock, or lay on your left side. Drink warm fluids. Avoid carbonated drinks. Avoid gassy foods. Emotions Baby Blues are normal. About 70-80% of new parents experience some negative feelings, thoughts, or mood swings. However, these feelings should only last for a few days. Common symptoms of Baby Blues: weepiness, impatience, irritability, restlessness, anxiety, feeling tired, insomnia, sadness, mood changes, poor concentration Roughly 1 in 7 people will experience moderate to severe Depression (PPD) or Anxiety (PPA). Symptoms usually develop in the first 3 months but can happen anytime during the 1st year after delivery. Same or similar symptoms to Baby Blues but emotions are felt more intensely, emotions last all day,more bad days than good, and/or emotions are strong enough they make it difficult to function, carefor your , or change your feelings towards your . This can be a serious condition. Follow up with your provider if you have any of these symptoms. Post- Obsessive Compulsive Disorder (OCD) can involve things like excessively washing your hands or repeatedly checking on your due to all-consuming thoughts; these thoughts and concerns take up more than 1 hour a day. Call your OB for help if you are concerned. Post- Psychosis is a rare condition but requires immediate intervention and professional help. This usually occurs within 3-14 days after delivery. If there is a concern that a mother may be experiencing Psychosis, they should not be left alone with the . Get immediate help if you feel the following: Agitation or confusion, feeling afraid and not likinghow you feel, rapid or nonsense speaking pattern, feeling like someone else is controlling you, hearing or seeing things no one else dose, thoughts of hurting yourself or others, feeling like something is crawling on you, having a lot of energy, racing thoughts and not sleeping, and/or forgetting things you have done in the past. If your infant will not stop crying, contact another adult to help or place infant in crib/bassineton their back and walk away. Never shake your infant. Breast Care Take medication as prescribed by physician for pain. If you develop a warm, red, tender area on your breast or develop a fever, contact your OB provider. This could indicate mastitis which is an infection of breast tissue. For Moms: Your milk supply usually comes in 2-5 days after delivery. When this occurs, your breasts may become engorged. Feeding may be more difficult or painful for 1-2 days. To ease discomfort, hand express some milk so that the can latch on more easily. Apply warm compresses for a few minutes prior to feeding. If you notice a pea-size lump or an area on your breast that feels engorged, you may have developeda clogged milk duct. Feed your on the side of the clogged duct as usual. Use a cool compress and tap lightly over affected area. While , continue taking your vitamins as directed by your provider. Refer to your booklet given during your stay for more information. If you need assistance or have questions, reach out to Savanna MARQUEZ, RN, IBCLC for an appointment or phone consult by calling . For Non- Moms: Apply ice packs to your breasts over your bra for 20mins at a time for comfort. Avoid stimulation to your breasts; when showering, allow the warm water to hit your back, not your breasts. Wear a good fitting bra until your milk dries up. Most women who give recover without problems. But any woman can have complications after giving . Watch for these post- warning signs and seek medical attention: Call 911 if you have: Pain in your chest Difficulty breathing or shortness of breath. Seizures Thoughts of hurting yourself or someone else Call your provider if you have: Bleeding, soaking through one pad an hour or blood clots the size of an egg or bigger. Incision that is not healing Red or swollen leg that is painful or warm to the touch. Temperature of 100.4oF or higher. Headache that does not get better even after taking medicine, or a bad headache with vision changes. Call your physician for the following as well: If your abdomen is tender to the touch If you are experiencing extreme weakness or dizziness If you are having flu-like symptoms or muscle aches and pains If there is a foul smell or green color to your vaginal bleeding or discharge If you have pain that cannot be relieved If you have frequency and burning with urination If your incision is not healing and you notice swelling, bleeding, drainage, foul odor, redness, orwarmth in/around the area. If you have concerns about your personal well-being, if you are unable to sleep and eat, or are having thoughts of harming yourself of your baby. [facility] History of Present illness Narrative* Andrzej Powers, - 08/02/2024 9:01 AM EDT C Section Progress Note Subjective: 19 y.o. @ 37w2d Day 2: Delivery for 07/31/2024 The patient feels well. The patient denies emotional concerns. Pain is well controlled with currentmedications. Urinary output is adequate. The patient is ambulating well. The patient is tolerating a normal diet. Flatus denies been passed. Objective: Patient Vitals for the past 8 hrs: BP Temp Temp src Pulse Resp SpO2 08/02/24 0808 130/74 -- -- -- -- -- 08/02/24 0807 130/74 97.5 F (36.4 C) Oral 95 16 99 % General: alert, appears stated age, and cooperative Bowel Sounds: active Lochia: appropriate Uterine Fundus: firm Incision: healing well, no significant drainage, no dehiscence, no significant erythema DVT Evaluation: No evidence of DVT seen on physical exam. Assessment: Status post section. Doing well postoperatively. Plan: 1.Routine post op care Discharge home with standard precautions and return to clinic in 1 week. Andrzej Powers DO, KYAW, FACOOG, FACOG August 02, 2024 9:01 AM * Linnette Bhatti RN - 08/01/2024 8:04 PM EDT Taxation Inspector calls Dr. Somers to report pt experiencing gas pain. Taxation Inspector requests Simethicone. Provider approves. See orders. * Lorena Green APRN - [facility] - 08/01/2024 8:00 AM EDT C/S Labor and Delivery Post Progress Note SUBJECTIVE: 1st day postop/ s/p primary for failure to progress. Was induced for gHTN at 37 weeks. She was off antihypertensives after delivery and pressures overnight stayed elevated, not in severe range, labetalol restarted this a.m. Patient's baby was transferred to tertiary care and per patient reports is doing well this am. Patient is up to chair but is uncomfortable and was just medicated for pain. Flatus:Present BM:yes Diet: Tolerating regular diet Ambulation: Ambulates with assist only up to chair OBJECTIVE: Vitals: BP (!) 143/93 Pulse 99 Temp 98 F (36.7 C) (Oral) Resp 14 Ht 1.549 m (5' 1 ) Wt 97.1 kg (214 lb) LMP 10/22/2023 SpO2 97% Unknown BMI 40.43 kg/m Patient Vitals for the past 24 hrs: BP Temp Temp src Pulse Resp SpO2 08/01/24 0728 -- -- -- -- 14 -- 08/01/24 0723 (!) 143/93 98 F (36.7 C) Oral 99 18 97 % 08/01/24 0445 (!) 141/95 98.2 F (36.8 C) Oral 80 16 -- 08/01/24 0000 (!) 143/82 -- -- 84 -- 92 % 07/31/24 2345 (!) 143 -- -- 96 -- (!) 89 % 07/31/24 2330 135/77 -- -- 100 -- 93 % 07/31/24 2315 123/78 -- -- 95 -- 98 % 07/31/24 2300 112/71 -- -- 100 -- 99 % 07/31/24 2245 127/75 -- -- 99 -- 98 % 07/31/24 2230 123/76 -- -- (!) 111 -- 100 % 07/31/24 2215 130/81 -- -- -- -- 100 % 07/31/24 1915 134/82 98.4 F (36.9 C) Oral 82 18 98 % 07/31/24 1850 133/78 -- -- 95 -- 99 % 07/31/24 1820 132/84 -- -- 86 -- 97 % 07/31/24 1750 115/60 98.2 F (36.8 C) -- 90 -- (!) 88 % 07/31/24 1650 120/72 98.1 F (36.7 C) -- 91 -- 100 % 07/31/24 1621 136/75 -- -- 86 -- 99 % 07/31/24 1550 129/75 98.2 F (36.8 C) -- (!) 101 -- -- 07/31/24 1520 121/75 -- -- (!) 109 -- 99 % 07/31/24 1451 131/77 98 F (36.7 C) -- (!) 121 -- 100 % 07/31/24 1420 125/67 -- -- 83 -- -- 07/31/24 1348 124/67 -- -- (!) 104 -- -- 07/31/24 1333 122/66 -- -- 87 -- 98 % 07/31/24 1310 130/68 98.1 F (36.7 C) -- (!) 101 -- 99 % 07/31/24 1305 134/71 -- -- 88 -- 99 % 07/31/24 1301 125/72 98 F (36.7 C) -- 82 -- -- 07/31/24 1300 125/72 -- -- 82 -- 100 % 07/31/24 1255 128/75 -- -- 91 -- 98 % 07/31/24 1251 137/71 -- -- 90 -- 100 % 07/31/24 1245 124/72 -- -- 91 -- 100 % 07/31/24 1242 128/79 -- -- 93 -- 98 % 07/31/24 1235 134/75 -- -- 96 -- 99 % 07/31/24 1233 124/70 -- -- 98 -- 100 % 07/31/24 1231 130/76 -- -- 92 -- -- 07/31/24 1229 136/82 -- -- 96 -- 99 % 07/31/24 1226 137/72 -- -- (!) 113 -- 100 % 07/31/24 1221 (!) 141/87 -- -- (!) 113 -- 100 % 07/31/24 1016 137/80 98.1 F (36.7 C) -- (!) 106 -- -- 07/31/24 0908 129/79 98 F (36.7 C) Oral 100 18 99 % ABDOMEN: No scars, normal bowel sounds, soft, non-distended, non-tender, no masses palpated, no hepatosplenomegally INCISION: dressing in place, clean, dry, and intact GENITAL/URINARY: External Genitalia: General appearance; normal, Hair distribution; normal, Lesionsabsent Cor: RRR no Murmurs Pulmonary: clear to auscultation anterior and posterior Extremities: no Clubbing cyanosis or ecchymosis DATA: CBC with Differential: Lab Results Component Value Date/Time WBC 15.3 08/01/2024 06:50 AM RBC 3.90 08/01/2024 06:50 AM HGB 10.0 08/01/2024 06:50 AM HCT 30.5 08/01/2024 06:50 AM PLT 266 08/01/2024 06:50 AM MCV 78.2 08/01/2024 06:50 AM MCH 25.6 08/01/2024 06:50 AM MCHC 32.8 08/01/2024 06:50 AM RDW 13.9 08/01/2024 06:50 AM LYMPHOPCT 15 07/31/2024 05:18 AM MONOPCT 7 07/31/2024 05:18 AM EOSPCT 2 07/31/2024 05:18 AM BASOPCT 0 07/31/2024 05:18 AM MONOSABS 0.86 07/31/2024 05:18 AM LYMPHSABS 1.77 07/31/2024 05:18 AM EOSABS 0.23 07/31/2024 05:18 AM BASOSABS 0.05 07/31/2024 05:18 AM CMP: Lab Results Component Value Date/Time NA 137 07/31/2024 05:18 AM K 3.6 07/31/2024 05:18 AM CL 103 07/31/2024 05:18 AM CO2 19 07/31/2024 05:18 AM BUN 4 07/31/2024 05:18 AM CREATININE 0.5 07/31/2024 05:18 AM LABGLOM >90 07/31/2024 05:18 AM GLUCOSE 91 07/31/2024 05:18 AM CALCIUM 8.9 07/31/2024 05:18 AM BILITOT 0.4 07/31/2024 05:18 AM ALKPHOS 196 07/31/2024 05:18 AM AST 18 07/31/2024 05:18 AM ALT 9 07/31/2024 05:18 AM LDH: Lab Results Component Value Date/Time LDH 172 07/30/2024 04:20 PM Uric Acid: No results found for: LABURIC , URICACID ASSESSMENT: Principal Problem: HTN (hypertension) with goal to be determined Plan: delivered and return to labetalol this am Active Problems: Third trimester Plan: delivered 37 weeks gestation of Plan: delivered Failure to progress in first stage of labor Plan: delivered by Gestational hypertension, third trimester Plan: return to labetalol this am delivery delivered S/P C/S post op day # 1 PLAN: Continue routine orders and instructions. Restart labetalol this am. * Cece Pierre DO - 07/31/2024 8:04 PM EDT Pt tearful Sve /-1 Pit at 13 Requesting to just go to section Team notified * Cece Pierre DO - 07/31/2024 5:27 PM EDT Pt comfortable with epidural Cat 1 tracing /-2 Pit at 9 * Cece Pierre DO - 07/31/2024 2:58 PM EDT Came to [facility] pt but grossly ruptured upon sve 2-3/-2 Cat 1 tracing * Maxwell Guaman RN - 07/31/2024 2:[address] Somers comes to [facility], patient is clearly grossly ruptured upon check. Will assume SROM time was when patient initially felt leaking but tested negative. * Elke Gallegos RN - 07/31/2024 6:09 AM EDT Kaylyn Franks CNM updated on pt recent SVE with cytotec placement and recent BP's. See new orders. * Elke Gallegos RN - 07/31/2024 2:08 AM EDT J. Golden CNM called at this time. Taxation Inspector updated CNM on pt request for Nubain rating contraction pain 4/10 and SVE results. OK to give Nubain. CNM also updated on pt's recent BP's. No new orders. CNMupdated on pt potassium of 3.4, verbal orders received. * Elke Gallegos RN - 07/30/2024 8:00 PM EDT Pt updated on plan of care. Pt agreeable. Pt anxious about the process, emotional support provided.All questions answered. * Ayanna Gill RN - 07/30/2024 7:40 PM EDT Call made to [facility] Suárez informed of most recent BP readings. Provider reported to admit patient and move forward with induction d/t elevated BP readings for 4 consecutive hours. Provider gave orders for cytotec x3 with Pitocin to be started in the AM as well as AM lab work to be collected. building components designer RN notified and working on admission process. * Ayanna Gill RN - 07/30/2024 5:43 PM EDT Taxation Inspector to bedside to update pt on POC and answer any questions or concerns. Informed pt that she isallowed to eat at this time as we will continue to monitor BP readings. Pt denies needs or concernsat this time. Pt requested to use restroom, educated on how to unplug and re-plug monitor if needing to use restroom urgently, otherwise call light within reach and family at bedside. * Ayanna Gill RN - 07/30/2024 5:20 PM EDT Call made to [facility] Suárez informed of labs, discussed monitoring pt for additional 2 hours. Provider reported that pt may need induced if she continues with elevated BP readings. * Melody Franks APRN - CNM - 07/30/2024 4:15 PM EDT Braxton Green is here in L&D at 37w1d for:-induced hypertension, patient reassurance, and rule out uterine contractions Maternal Vitals Temp: 98.2 F (36.8 C) Temp Source: Oral BP: (!) 143/95 Pulse: (!) 115 Respirations: 18 Findings Baseline: 125 BPM Baseline Classification: Normal Variability: Moderate Decelerations: None Accelerations: Yes Acoustic Stimulator: No Movement: Yes Multiple Gestation?: No Uterine contractions/10 min.: 0 Interpretation: Reactive Interpreted by: KHUSHBOO Alston & KHUSHBOO Ledesma $Non Stress Test Charge : Yes NST Time start: 1555 NST Time stop: 1615 NST is reactive. Quality of tracing is satisfactory. * Melody Franks APRN - CNM - 07/30/2024 4:05 PM EDT Braxton Green is here in L&D at 37w1d for:-induced hypertension, patient reassurance, and rule out uterine contractions Maternal Vitals Temp: 98.1 F (36.7 C) Temp Source: Oral BP: 137/80 Pulse: (!) 106 Respirations: 18 Findings Baseline: 125 BPM Baseline Classification: Normal Variability: Moderate Decelerations: None Accelerations: Yes Acoustic Stimulator: No Movement: Yes Multiple Gestation?: No Uterine contractions/10 min.: 0 Interpretation: Reactive Interpreted by: KHUSHBOO Alston & KHUSHBOO Ledesma $Non Stress Test Charge : Yes NST Time start: 1545 NST Time stop: 1605 NST is reactive. Quality of tracing is satisfactory. * Ayanna Gill RN - 07/30/2024 3:55 PM EDT Call made to [facility] Suárez informed of elevated BP levels and asked if provider wanted any oral medication ordered. Provider reported to continue to monitor, no medications started at this time. Will reevaluate once labs are resulted. * Ayanna Gill RN - 07/30/2024 3:35 PM EDT 19yo F arrives ambulatory to [facility] with c/o elevated BP readings. Pt was seen in the office and had elevated BP's down there and was sent for PIH work up. Pt educated on labs orderedby LEIA Suárez. Pt instructed to change into gown and provide clean urine specimen. Pt instructed on NST and reason for testing. Pt denies needs at this time. Denies LOF or vaginal bleeding. Pt reports +FM. Call light within reach, pt denies needs at this time. [facility] course Narrative* Andrzej Powers DO - 08/02/2024 8:55 AM EDT Obstetric Discharge Summary Reasons for Admission on 07/30/2024 3:29 PM 19 y.o. female at 37w2d Failure to progress Suspect CPD Procedures None Intrapartum Procedures Primary low transverse section Procedures None Minerva Data Information for the patient's : Daniel Green [[id number]] male Weight: 3.402 kg (7 lb 8 oz) Discharge Transferred Discharge Diagnosis Patient Active Problem List Diagnosis Date Noted 37 weeks gestation of 07/31/2024 Failure to progress in first stage of labor 07/31/2024 Gestational hypertension, third trimester 07/31/2024 delivery delivered 07/31/2024 HTN (hypertension) with goal to be determined 07/30/2024 Third trimester 07/30/2024 Hx of one miscarriage 01/30/2024 Impulsiveness 02/21/2023 ADHD 02/09/2023 Discharge Information Current Discharge Medication List START taking these medications Details oxyCODONE (ROXICODONE) 5 MG immediate release tablet Take 1 tablet by mouth every 8 hours as neededfor Pain for up to 3 days. Max Daily Amount: 15 mg Qty: 8 tablet, Refills: 0 Comments: Reduce doses taken as pain becomes manageable Associated Diagnoses: delivery delivered acetaminophen (TYLENOL) 500 MG tablet Take 2 tablets by mouth every 8 hours Qty: 120 tablet, Refills: 3 ibuprofen (ADVIL;MOTRIN) 800 MG tablet Take 1 tablet by mouth in the morning and 1 tablet at noon and 1 tablet in the evening. Qty: 120 tablet, Refills: 3 docusate sodium (COLACE, DULCOLAX) 100 MG CAPS Take 100 mg by mouth 2 times daily Qty: 30 capsule, Refills: 1 CONTINUE these medications which have NOT CHANGED Details omeprazole (PRILOSEC) 20 MG delayed release capsule Take by mouth daily ondansetron (ZOFRAN) 4 MG tablet Take 1 tablet by mouth 3 times daily as needed for Nausea or Vomiting Qty: 30 tablet, Refills: 2 STOP taking these medications terconazole (TERAZOL 7) 0.4 % vaginal cream Comments: Reason for Stopping: omeprazole (PRILOSEC OTC) 20 MG tablet Comments: Reason for Stopping: FLUoxetine (PROZAC) 10 MG capsule Comments: Reason for Stopping: VYVANSE 60 MG CAPS Comments: Reason for Stopping: MV-Min-Fe Fum-FA-DHA ( 1 PO) Comments: Reason for Stopping: Discharge to: Home Condition on discharge: Stable Discharge Date: August 02, 2024 Andrzej Powers DO, MBA, LATRICIAOOG, LATRICIAOG August 02, 2024 8:58 AM documented in this [facility] NoteHNO ID: [id number] Author: CINDY GLEASON MD Service: ? Author Type: Physician Type: Progress Notes Filed: 05/15/2024 15:24 Note Text: INITIAL OB ASSESSMENT HPI: Braxton is a 19 year old White here to establish Obstetrical Care. Patient's last menstrual period was 10/22/2023. from OB Dating Form. was unplanned but accepted Complaints: (!) Abdominal pain; Shortness of breath; Heart racing or skipping beats OB History Gravida2 Para0 Term0 Preterm0 AB1 Living0 SAB1 IAB0 Ectopic0 Multiple0 Live Births0 Previous history: Prior : never History of 4th degree laceration: No History of shoulder dystocia: No History of Hypertensive disorders including pre-eclampsia or gestational hypertension: No History of gestational diabetes: No Patient's Risk Screening for delivery: Have you had a prior jiang between 20w and 36w6d? No How many pregnancies have you had before? 2022 Did you have a previous baby with a GBS Infection? No Please select all that apply for any prior : N/A MEDICAL/PSYCHOSOCIAL HISTORY: History of hemorrhage or bleeding concerns: No Thyroid Disease: No History of chronic hypertension: No History of pre-existing diabetes: No No results found for: ABORHD BMI 37.20 kg/(m2) Last Pap: History of abnormal pap: No Prior treatment for cervical dysplasia: none. Last HPV: History of STDs: chlamydia- 01/2023 - triny 12/29/2023 urine neg Partner History of STDs: None Did you have a partner with Herpes? No Tobacco use: No E-Cigarette/Vaping Use: No Caffeine use: No Drug use: No Alcohol use: No Multivitamin with Folic acid: No- flintstone vitamin Would refuse blood transfusion if medically necessary: No Social Needs: How often does this describe you? I don't have enough money to pay my bills: Never Within the past 12 months, have you worried that your food would run out before you had money to buy more? Never In the past 12 months, has lack of reliable transportation kept you from going to medical appointments or work, or from getting things needed for daily living? Never In the past 12 months, have you had any concerns about having a place to live, or about the condition or quality of your housing? Never Would you like more information on any of the following (please check all that apply)? Not interested Social History: Do you have any history of depression, anxiety, PTSD, or other mood problems? No Do you have a history of abuse or trauma that may impact your experience? 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 OB Depression and Anxiety Screening- This Encounter (since 05/14/2024) Over the past 2 weeks have you felt down, depressed, or hopeless? Negative Over the past two weeks, have you felt little interest or pleasure in doing things?? Negative Feeling nervous, anxious or on edge 1-Several days Not being able to stop or control worrying 0-Not al all Anxiety Pre-Screening Total (If >/= 3 additional questions will be reviewed) 1 Genetic Screening: Partner present: No Patient verbalized knowledge of partner family health history: Yes - fused kidney and svt Do you or your partner have any personal or family history of defects not previously discussed: Yes, fused kidney Do you have history of a complicated by anomaly, genetic condition, or demise: No Preeclampsia Risk Screening: Screening for prevention of preeclampsia: High risk factors: None Moderate risk ractors: Nulliparity Late transfer OB Risk Screening: Completed, no positive findings documented. 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 vits62/FA/om3/dha/epa ( GUMMY ORAL) Take by mouth. (Patient not taking: Reported on 05/15/2024) No current facility-administered medications for this visit. Allergies As of Date: 05/15/2024 (No Known Allergies) Fully Assessed 05/15/2024 Does patient have penicillin allergy: No REVIEW OF SYSTEMS: GENERAL: Negative for: Fever or Chills HEENT: Negative for: Headache, Impaired Vision, Ringing in Ears, Nosebleeds NECK: Negative for: Swelling, Pain, Stiffness RESPIRATORY: Negative for: Cough, Shortness of breath, Wheezing GASTROINTESTINAL: Negative for: Heartburn, Constipation, D (more content not included)...[facility]02-25-[facility]25 History of Present illness Narrative* Cindy Gleason MD - 05/15/2024 2:12 PM EST INITIAL OB ASSESSMENT HPI: Braxton is a 19 year old White here to establish Obstetrical Care. Patient's last menstrual period was 10/22/2023. from OB Dating Form. was unplanned but accepted Complaints: (!) Abdominal pain; Shortness of breath; Heart racing or skipping beats OB History Gravida2 Para0 Term0 Preterm0 AB1 Living0 SAB1 IAB0 Ectopic0 Multiple0 Live Births0 Previous history: Prior : never History of 4th degree laceration: No History of shoulder dystocia: No History of Hypertensive disorders including pre-eclampsia or gestational hypertension: No History of gestational diabetes: No Patient's Risk Screening for delivery: Have you had a prior jiang between 20w and 36w6d? No How many pregnancies have you had before? 2022 Did you have a previous baby with a GBS Infection? No Please select all that apply for any prior : N/A MEDICAL/PSYCHOSOCIAL HISTORY: History of hemorrhage or bleeding concerns: No Thyroid Disease: No History of chronic hypertension: No History of pre-existing diabetes: No No results found for: ABORHD BMI 37.20 kg/(m^2) Last Pap: History of abnormal pap: No Prior treatment for cervical dysplasia: none. Last HPV: History of STDs: chlamydia- 01/2023 - triny 12/29/2023 urine neg Partner History of STDs: None Did you have a partner with Herpes? No Tobacco use: No E-Cigarette/Vaping Use: No Caffeine use: No Drug use: No Alcohol use: No Multivitamin with Folic acid: No- flintstone vitamin Would refuse blood transfusion if medically necessary: No Social Needs: How often does this describe you? I don't have enough money to pay my bills: Never Within the past 12 months, have you worried that your food would run out before you had money to buy more? Never In the past 12 months, has lack of reliable transportation kept you from going to medical appointments or work, or from getting things needed for daily living? Never In the past 12 months, have you had any concerns about having a place to live, or about the condition or quality of your housing? Never Would you like more information on any of the following (please check all that apply)? Not interested Social History: Do you have any history of depression, anxiety, PTSD, or other mood problems? No Do you have a history of abuse or trauma that may impact your experience? 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 OB Depression and Anxiety Screening- This Encounter (since 05/14/2024) Over the past 2 weeks have you felt down, depressed, or hopeless? Negative Over the past two weeks, have you felt little interest or pleasure in doing things? Negative Feeling nervous, anxious or on edge 1-Several days Not being able to stop or control worrying 0-Not al all Anxiety Pre-Screening Total (If >/= 3 additional questions will be reviewed) 1 Genetic Screening: Partner present: No Patient verbalized knowledge of partner family health history: Yes - fused kidney and svt Do you or your partner have any personal or family history of defects not previously discussed: Yes, fused kidney Do you have history of a complicated by anomaly, genetic condition, or demise: No Preeclampsia Risk Screening: Screening for prevention of preeclampsia: High risk factors: None Moderate risk ractors: Nulliparity Late transfer OB Risk Screening: Completed, no positive findings documented. 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 vits62/FA/om3/dha/epa ( GUMMY ORAL) Take by mouth. (Patient not taking: Reported on 05/15/2024) No current facility-administered medications for this visit. Allergies As of Date: 05/15/2024 (No Known Allergies) Fully Assessed 05/15/2024 Does patient have penicillin allergy: No REVIEW OF SYSTEMS: GENERAL: Negative for: Fever or Chills HEENT: Negative for: Headache, Impaired Vision, Ringing in Ears, Nosebleeds NECK: Negative for: Swelling, Pain, Stiffness RESPIRATORY: Negative for: Cough, Shortness of breath, Wheezing GASTROINTESTINAL: Negative for: Heartburn, Constipation, Diarrhea, Blood in stool, Vomiting MUSCULOSKELETAL: Negative for: Muscle or joint pain, stiffness, Joint swelling NEUROLOGIC/PSYCHIATRIC: Negative for: Weakness, Paralysis, Numbness, Tingling, Tremor, Anxiety, Depression, Memory loss SKIN: Negative for: Rash, Itching GENITOURINARY: Negative for: vaginal itching, vaginal discharge, hematuria or dysuria SENSITIVE EXAM: The sensitive examination was discussed with the Patient or Patient's Authorized Park Warden. As applicable, any other physician, advance practice provider, medical student, or other health professional student that will be observing or involved in the sensitive examination for educational or training purposes was discussed with the Patient or Authorized Park Warden. The Patient or Authorized Park Warden has agreed to proceed with the sensitive examination. (Sensitive examination includes inspection and/or palpation of the breasts, pelvis, prostate and anorectal regions). PHYSICAL EXAM: BP 118/78 Pulse 114 Ht 5' 1 (1.55m) Wt 196 lb 13.9 oz (89.3kg) LMP 10/22/2023 BMI 37.22 kg/(m^2). GENERAL: pleasant in no apparent distress DERMATOLOGY: Normal, without lesions, non-icteric, and non-hirsute NECK: Supple, full range of motion, no adenopathy, and thyroid normal CHEST: Normal inspiratory effort ABDOMEN: soft, non-tender, and no masses NEURO: alert and oriented x3,exam grossly non-focal PELVIS: deferred Clinical Pelvimetry: deferred Limited OB ultrasound exam: not performed SBIRT Braxton Green was given the 4P's screening tool. Braxton answered No to all the questions, the result is determined to be negative. ASSESSMENT: 19 year old at 26w2d wks gestational age PLAN: 1) Patient oriented to practice. 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 Late transfer 2) Screening: Hemoglobin A1C: declined Baby Aspirin: The patient has been counseled about the potential benefits of low dose aspirin in and our recommendation that this be offered to all patients, regardless of whether they meet the high risk criteria specified above. She late transfer Aneuploidy Screening: Discussed aneuploidy screening, nuchal translucency/first trimester early anatomy ultrasound and NIPT. The risks/benefits and limitations of NIPT/aneuploidy screening were reviewed including the potential for false negative and false positive results. The availability of genetic counseling was reviewed. Information on aneuploidy screening was provided. The patient chooses toproceed with had screening at [facility] late transfer Myriad Carrier Screening: Discussed myriad carrier screening. We discussed the availability of professional-society guided carrier screening and reviewed the conditions screened and limitations of screening. The availability of genetic counseling was reviewed. Information on carrier screening was provided. The patient Declines 3) Patient offered option of Virtual Visits. Patient prefers in person visits. 4) Obesity (BMI >30), late transfer glucola 5) fob with kidney anomaly , growth ultrasound and 28 week labs ordered. Follow up in 3 weeks or sooner prn. Cindy Gleason MD I spent a total of 40 minutes on the date of the service which included preparing to see the patient, [id number] patient care, completing clinical documentation, performing a medically appropriate examination, counseling and educating the patient/family/caregiver, and ordering medications, tests,or procedures. [facility] encounter Note * Telephone Encounter - Fawn Marquez - 05/09/2024 3:37 PM EST The patient is scheduled for 05/15. [facility] Miscellaneous Notes* Telephone Encounter - Fawn Marquez - 05/09/2024 3:37 PM EST The patient is scheduled for 05/15. * Telephone Encounter - Ange Hill - 05/09/2024 3:28 PM EST Lvm for patient to call and get scheduled for her NOB appt shipping lead person or Doctor. * Telephone Encounter - Marline Stevens RN - 05/09/2024 8:10 AM EST Call placed to patient to triage for new OB appt. Name and verified. Patient wishes to transfer to [facility] for OB care. ALESSANDRO? 08/19/2024 Gestational age? 25w Patient aware to sign up for My Chart so she can receive the healthcare marketer messages. What [facility] she [facility] When was her last office visit or will be the last visit with the current facility? 05/01/2024. Does patient have records she is bringing with her? In [place] Any current pelvic pain/vaginal bleeding or any medical concerns that affect the ? No - patient is not happy with care Has patient tested + for GDM or HTN with this ? No glucose yet. BP is 140's over 80's. Patient checks at home with BLAND. No meds at this time. Have you had your anatomy scan? WNL Which office/provider would the patient like to establish in? Vo Will route this encounter to the desired office. * Telephone Encounter - Marline Stevens RN - 05/08/2024 4:23 PM EST Call placed to patient to triage for new OB appt. No answer, LMTCB. * Telephone Encounter - Kayy Vidales - 05/08/2024 3:29 PM EST Patient calling wanting to transfer care to [facility]. Currently 25 weeks . documented [facility] Telephone encounter Note * Telephone Encounter - Ange Hill - 05/09/2024 3:28 PM EST Lvm for patient to call and get scheduled for her NOB appt shipping lead person or Doctor. [facility] Telephone encounter Note* Telephone Encounter - Marline Stevens RN - 05/09/2024 8:10 AM EST Call placed to patient to triage for new OB appt. Name and verified. Patient wishes to transfer to [facility] for OB care. ALESSANDRO? 08/19/2024 Gestational age? 25w Patient aware to sign up for My Chart so she can receive the healthcare marketer messages. What [facility] she [facility] When was her last office visit or will be the last visit with the current facility? 05/01/2024. Does patient have records she is bringing with her? In [facility] Any current pelvic pain/vaginal bleeding or any medical concerns that affect the ? No - patient is not happy with care Has patient tested + for GDM or HTN with this ? No glucose yet. BP is 140's over 80's. Patient checks at home with BLAND. No meds at this time. Have you had your anatomy scan? WNL Which office/provider would the patient like to establish in? Vo Will route this encounter to the desired office. [facility] Telephone encounter Note* Telephone Encounter - Marline Stevens RN - 05/08/2024 4:23 PM EST Call placed to patient to triage for new OB appt. No answer, LMTCB. [facility] Tele[facility] encounter Note* Telephone Encounter - Kayy Vidales - 05/08/2024 3:29 PM EST Patient calling wanting to transfer care to [facility]. Currently 25 weeks . [facility]12[facility] Hospital Discharge instructions* Discharge Instructions* Meryl Hernandez II, PA-C - 03/16/2024 3:23 PM EST You will receive a survey in the next couple days regarding your experience in the ED. We are constantly striving to improve our care and welcome your feedback. Thank you very much for your time. The emergency department evaluation is not a complete evaluation, you're always required to followup with another doctor within the next few days to assess how your symptoms are progressing and to ensure that there is no indication for further testing or returning to the hospital. Even with treatment sometimes your condition worsens and you will need to return to the hospital. If you are having pain and it is getting worse you should return to the hospital. If you have any new symptoms that were not addressed at your original visit you should return to the hospital. If you're having difficulty breathing but it is getting worse you should return to the hospital. If you're vomiting and cannottake the medicines that were prescribed you should return to the hospital. If you're having persistent fevers you should return to the hospital. If you have any question of whether or not your symptoms are serious enough or for any other urgent concerns- always return to the hospital for repeat evaluation. * Attachments The following attachments cannot be sent through Care Everywhere. * URI (Upper Respiratory Infection): Viral (Chilean) [facility] NoteMicrobiology PROCEDURE: Strep Screen Culture [R1] SOURCE: Throat BODY SITE: COLLECTED DATE/TIME: 02/08/2024 13:32 EST RECEIVED DATE/TIME: 02/08/2024 15:54 EST START DATE/TIME: 02/08/2024 15:55 EST FREE TEXT SOURCE: Ulysses HERNANDEZ, Nic Arora PA-C, Nic Castillo FINAL REPORTS Final Report [] Verified Date/Time: 02/10/2024 11:49 EST Streptococcus Group A screen negative Performing Locations R1: This test was performed at: [facility], [address] [place] [address], [id number], Olxqmm[facility]S Medical CenterComment on above:Performed By: #### [id number] #### [facility] [address] [place] [address] [id number] NoteMicrobiology PROCEDURE: Strep Screen Culture [R1] SOURCE: Throat BODY SITE: COLLECTED DATE/TIME: 02/08/2024 13:32 EST RECEIVED DATE/TIME: 02/08/2024 15:54 EST START DATE/TIME: 02/08/2024 15:55 EST FREE TEXT SOURCE: Ulysses HERNANDEZ, Nic Butts. Ulysses HERNANDEZ, Nic Butts. FINAL REPORTS Final Report [] Verified Date/Time: 02/10/2024 11:49 EST Streptococcus Group A screen negative Performing Locations R1: This test was performed at: [facility], [address] [place] [address], [id number], YyltvnMer[facility] Health St[facility] Rita'S Medical CenterComment on above:Performed By: #### [id number] #### [address] [id number] Hospital Discharge instructions Patient Education 02/08/2024 13:39:11 Upper Respiratory Infection, Adult Upper Respiratory Infection, Adult An upper respiratory infection (URI) is a common viral infection of the nose, throat, and upper airpassages that lead to the lungs. The most common type of URI is the common cold. URIs usually get better on their own, without medical treatment. What are the causes? A URI is caused by a virus. You may catch a virus by: Breathing in droplets from an infected person's cough or sneeze. Touching something that has been exposed to the virus (is contaminated) and then touching your mouth, nose, or eyes. What increases the risk? You are more likely to get a URI if: You are very young or very old. You have close contact with others, such as at work, school, or a health care facility. You smoke. You have long-term (chronic) heart or lung disease. You have a weakened disease-fighting system (immune system). You have nasal allergies or asthma. You are experiencing a lot of stress. You have poor nutrition. What are the signs or symptoms? A URI usually involves some of the following symptoms: Runny or stuffy (congested) nose. Cough. Sneezing. Sore throat. Headache. Fatigue. Fever. Loss of appetite. Pain in your forehead, behind your eyes, and over your cheekbones (sinus pain). Muscle aches. Redness or irritation of the eyes. Pressure in the ears or face. How is this diagnosed? This condition may be diagnosed based on your medical history and symptoms, and a physical exam. Your health care provider may use a swab to take a mucus sample from your nose (nasal swab). This sample can be tested to determine what virus is causing the illness. How is this treated? URIs usually get better on their own within 7 10 days. Medicines cannot cure URIs, but your health care provider may recommend certain medicines to help relieve symptoms, such as: Hjie-cwr-fixrrlc cold medicines. Cough suppressants. Coughing is a type of defense against infection that helps to clear the respiratory system, so take these medicines only as recommended by your health care provider. Fever-reducing medicines. Follow these instructions at home: Activity Rest as needed. If you have a fever, stay home from work or school until your fever is gone or until your health care provider says your URI cannot spread to other people (is no longer contagious). Your health care provider may have you wear a face mask to prevent your infection from spreading. Relieving symptoms Gargle with a mixture of salt and water 3 4 times a day or as needed. To make salt water, completely dissolve 1 tsp (3 6 g) of salt in 1 cup (237 mL) of warm water. Use a cool-mist humidifier to add moisture to the air. This can help you breathe more easily. Eating and drinking Drink enough fluid to keep your urine pale yellow. Eat soups and other clear broths. General instructions Take owaw-qqd-buvdlmu and prescription medicines only as told by your health care provider. These include cold medicines, fever reducers, and cough suppressants. Do not use any products that contain nicotine or tobacco. These products include cigarettes, chewing tobacco, and vaping devices, such as e-cigarettes. If you need help quitting, ask your health careprovider. Stay away from secondhand smoke. Stay up to date on all immunizations, including the yearly (annual) flu vaccine. Keep all follow-up visits. This is important. How to prevent the spread of infection to others URIs can be contagious. To prevent the infection from spreading: Wash your hands with soap and water for at least 20 seconds. If soap and water are not available, use hand pan operator. Avoid touching your mouth, face, eyes, or nose. Cough or sneeze into a tissue or your sleeve or elbow instead of into your hand or into the air. Contact a health care provider if: You are getting worse instead of better. You have a fever or chills. Your mucus is brown or red. You have yellow or brown discharge coming from your nose. You have pain in your face, especially when you bend forward. You have swollen neck glands. You have pain while swallowing. You have white areas in the back of your throat. Get help right away if: You have shortness of breath that gets worse. You have severe or persistent: ?Headache. ?Ear pain. ?Sinus pain. ?Chest pain. You have chronic lung disease along with any of the following: ?Making high-pitched whistling sounds when you breathe, most often when you breathe out (wheezing). ?Prolonged cough (more than 14 days). ?Coughing up blood. ?A change in your usual mucus. You have a stiff neck. You have changes in your: ?Vision. ?Hearing. ?Thinking. ?Mood. These symptoms may be an emergency. Get help right away. Call 911. Do not wait to see if the symptoms will go away. Do not drive yourself to the hospital. Summary An upper respiratory infection (URI) is a common infection of the nose, throat, and upper air passages that lead to the lungs. A URI is caused by a virus. URIs usually get better on their own within 7 10 days. Medicines cannot cure URIs, but your health care provider may recommend certain medicines to help relieve symptoms. This information is not intended to replace advice given to you by your health care provider. Make sure you discuss any questions you have with your health care provider. Document Revised: 10/07/2021 Document Reviewed: 10/07/2021 Elsevier Patient Education 2023 [employer]. Follow Up Care 02/08/2024 09:30:27 With:Esther Carson [facility] Address: [address] [place] [phone] When:7 to 10 days Comments:Call today to schedule your follow up [facility] 11-20-2024 Evaluation + Plan note Diagnostic Tests Pending * Strep Screen Culture 02/08/24 [facility] 11-20-2024 NotePatient Education Infectious Disease Upper Respiratory Infection, Adult An upper respiratory infection (URI) is a common viral infection of the nose, throat, and upper airpassages that lead to the lungs. The most common type of URI is the common cold. URIs usually get better on their own, without medical treatment. What are the causes? A URI is caused by a virus. You may catch a virus by: ??? Breathing in droplets from an infected person's cough or sneeze. ??? Touching something that has been exposed to the virus (is contaminated) and then touching your mouth, nose, or eyes. What increases the risk? You are more likely to get a URI if: ??? You are very young or very old. ??? You have close contact with others, such as at work, school, or a health care facility. ??? You smoke. ??? You have long-term (chronic) heart or lung disease. ??? You have a weakened disease-fighting system (immune system). ??? You have nasal allergies or asthma. ??? You are experiencing a lot of stress. ??? You have poor nutrition. What are the signs or symptoms? A URI usually involves some of the following symptoms: ??? Runny or stuffy (congested) nose. ??? Cough. ??? Sneezing. ??? Sore throat. ??? Headache. ??? Fatigue. ??? Fever. ??? Loss of appetite. ??? Pain in your forehead, behind your eyes, and over your cheekbones (sinus pain). ??? Muscle aches. ??? Redness or irritation of the eyes. ??? Pressure in the ears or face. How is this diagnosed? This condition may be diagnosed based on your medical history and symptoms, and a physical exam. Your health care provider may use a swab to take a mucus sample from your nose (nasal swab). This sample can be tested to determine what virus is causing the illness. How is this treated? URIs usually get better on their own within 7?10 days. Medicines cannot cure URIs, but your health care provider may recommend certain medicines to help relieve symptoms, such as: ??? Gubi-ujf-uhuacuv cold medicines. ??? Cough suppressants. Coughing is a type of defense against infection that helps to clear the respiratory system, so take these medicines only as recommended by your health care provider. ??? Fever-reducing medicines. Follow these instructions at home: Activity ??? Rest as needed. ??? If you have a fever, stay home from work or school until your fever is gone or until your health care provider says your URI cannot spread to other people (is no longer contagious). Your health care provider may have you wear a face mask to prevent your infection from spreading. Relieving symptoms ??? Gargle with a mixture of salt and water 3?4 times a day or as needed. To make salt water, completely dissolve ??1 tsp (3?6 g) of salt in 1 cup (237 mL) of warm water. ??? Use a cool-mist humidifier to add moisture to the air. This can help you breathe more easily. Eating and drinking ??? Drink enough fluid to keep your urine pale yellow. ??? Eat soups and other clear broths. General instructions ??? Take bwew-eiy-teycpbh and prescription medicines only as told by your health care provider. These include cold medicines, fever reducers, and cough suppressants. ??? Do not use any products that contain nicotine or tobacco. These products include cigarettes, chewing tobacco, and vaping devices, such as e-cigarettes. If you need help quitting, ask your health care provider. ??? Stay away from secondhand smoke. ??? Stay up to date on all immunizations, including the yearly (annual) flu vaccine. ??? Keep all follow-up visits. This is important. How to prevent the spread of infection to others URIs can be contagious. To prevent the infection from spreading: ??? Wash your hands with soap and water for at least 20 seconds. If soap and water are not available, use hand pan operator. ??? Avoid touching your mouth, face, eyes, or nose. ??? Cough or sneeze into a tissue or your sleeve or elbow instead of into your hand or into the air. Contact a health care provider if: ??? You are getting worse instead of better. ??? You have a fever or chills. ??? Your mucus is brown or red. ??? You have yellow or brown discharge coming from your nose. ??? You have pain in your face, especially when you bend forward. ??? You have swollen neck glands. ??? You have pain while swallowing. ??? You have white areas in the back of your throat. Get help right away if: ??? You have shortness of breath that gets worse. ??? You have severe or persistent: ? Headache. ? Ear pain. ? Sinus pain. ? Chest pain. ??? You have chronic lung disease along with any of the following: ? Making high-pitched whistling sounds when you breathe, most often when you breathe out (wheezing). ? Prolonged cough (more than 14 days). ? Coughing up blood. ? A change in your usual mucus. ??? You have a stiff neck. ? (more content not included)...[facility]12-10-2023 Hospital Discharge instructions Patient Education 02/26/2023 22:37:56 Threatened Miscarriage Your Hcg today: 20,869 Threatened Miscarriage A threatened miscarriage occurs when a woman has vaginal bleeding during the first 20 weeks of but the has not ended. If vaginal bleeding occurs during this time, the health care provider will do tests to make sure the woman is still . The woman's condition may be considered a threatened miscarriage if the tests show: That she is still . That the embryo or unborn baby (fetus) inside the uterus is still growing. A threatened miscarriage does not mean your will end, but it does increase the risk of losing your (miscarriage). What are the causes? The cause of this condition is usually not known. What increases the risk? The following factors may make a woman more likely to have a miscarriage: Certain medical conditions Conditions that affect the hormone balance in the body, such as thyroid disease or polycystic ovarysyndrome. Diabetes. Autoimmune disorders. Infections. Bleeding disorders. Obesity. Lifestyle factors Using products with tobacco or nicotine or being exposed to tobacco smoke. Having alcohol. Having large amounts of caffeine. Recreational drug use. Problems with reproductive organs or structures Cervical insufficiency. This is when the the lowest part of the uterus (cervix) opens and thins before is at term. Having a condition called Asherman syndrome, which causes scarring in the uterus or causes the uterus to be abnormal in structure. Fibrous growths, called fibroids, in the uterus. Congenital abnormalities. These problems are present at . Infection of the cervix or uterus. Personal or medical history Injury (trauma). Having had a miscarriage before. Being younger than age 18 or older than age 35. Exposure to harmful substances in the environment. This may include radiation or heavy metals, suchas lead. Using certain medicines. What are the signs or symptoms? Symptoms of this condition include: Vaginal bleeding or spotting, with or without cramps or pain. Mild pain or cramps in your abdomen. How is this diagnosed? You may have tests to check whether you are still . These tests will be done if you have bleeding, with or without pain, in your abdomen before the 20th week of . These tests include: Ultrasound. A physical exam. Measurement of your baby's heart rate. Lab tests, such as blood tests, urine tests, or swabs for infection. You may be diagnosed with a threatened miscarriage if: Ultrasound testing shows that you are still . Your baby's heart rate is strong. A physical exam shows that your cervix is closed. Blood tests confirm that you are still . How is this treated? No treatments have been shown to prevent a threatened miscarriage from going on to a complete miscarriage. However, the right home care is important. Follow these instructions at home: Get plenty of rest. Do not have sex, douche, or put anything in your vagina, such as tampons, until your health care provider says it is okay. Do not smoke or use recreational drugs. Do not drink alcohol. Avoid caffeine. Keep all follow-up visits. This is important. Contact a health care provider if: You have light vaginal bleeding or spotting while . You have pain or cramping in your abdomen. You have a fever. Get help right away if: Heavy bleeding soaks through 2 large sanitary pads an hour for more than 2 hours. Blood clots come out of your vagina. Tissue comes out of your vagina. You leak fluid, or you have a gush of fluid from your vagina. You have severe low back pain or cramps in your abdomen. You have a fever, chills, and severe pain in the abdomen. Summary A threatened miscarriage occurs when a woman bleeds from the vagina during the first 20 weeks of but the has not ended. The cause of a threatened miscarriage is usually not known. Symptoms of this condition may include vaginal bleeding and mild pain or cramps in your abdomen. No treatments have been shown to prevent a threatened miscarriage from going on to a complete miscarriage. Keep all follow-up visits. This is important. This information is not intended to replace advice given to you by your health care provider. Make sure you discuss any questions you have with your health care provider. Document Revised: 09/05/2020 Document Reviewed: 09/05/2020 [employer] Patient Education 2022 [employer]. Follow Up Care 02/26/2023 20:44:48 With:Your established OBGYN Address:Unknown When:02/28/2023 With:ALVAREZ SANABRIA Address: [address] [place] [phone] Business (1) When:Within 3 Day(s) [facility]12-09-2023 Evaluation + Plan noteExtracted from: Title:ED NoteAuthor:Marcus Salazar DODate:02/26/23 Threatened miscarriage (O20. 0: Threatened ) Orders: acetaminophen, 650 mg = 2 tab(s), Tab, Oral, Once, Stop date 02/26/23 22:25:00 EST, STAT, Start date 02/26/23 22:25:00 EST, 02/26/23 22:25:00 EST Sodium Chloride 0.9% intravenous solution, 1,000 mL, Soln-IV, IV, Once, Stop date 02/26/23 20:53:00EST, STAT, Start date 02/26/23 20:53:00 EST, Infuse over 61, minute(s) ABO/Rh Automated Diff Basic Metabolic Panel Beta hCG Quantitative CBC w/ Auto Diff eGFR Hepatic Function Panel Lipase Level Saline Lock Insert UA With Cult Reflex [facility]12-04-2023 Miscellaneous Notes* Telephone Encounter - Alyson Kelly MA - 02/21/2023 11:15 AM EST Fax received 02/14/23 from [facility]. Form placed in ID mailbox for signature. 02/21/23 [facility]* Encounter Date Diagnosis Assessment Notes Treatment Notes Treatment Clinical Notes Jan, Less than 8 weeks gestation of p regnancy (ICD-10 - Z3A.01) VR1 Other 11-27-2023 Miscellaneous Notes* Telephone Encounter - Kaylan Joshi RN - 02/14/2023 9:03 AM EST Pt call office, identified by name and . , pt's mother is also on the call. Pt asking to verify results and mother asking questions regarding tx. All questions answered to pt and mom's satisfaction. Kaylan Joshi RN * Telephone Encounter - Kaylan Joshi RN - 02/14/2023 8:50 AM EST Pt return office phone call, identified by name and . Message from Debi reviewed with the pt, understanding verbalized. Kaylan Joshi RN * Telephone Encounter - Kaylan Joshi RN - 02/14/2023 8:30 AM EST Lm on for pt to return the office phone call. Kaylan Joshi RN * Telephone Encounter - Debi Lux PA-C - 02/14/2023 8:09 AM EST This pt tested positive for Chlamydia and is currently Azithromycin sent Please inform the pt and that her partner(s) will need treatment No sexual contact until negative TRINY due in 3-4 weeks post treatment Debi Lux PA-C documented in this encounterA[facility]11-[facility] History of Present illness Narrative* Debi Lux PA-C - 02/09/2023 11:50 AM EST Images from the original note were not included. HPI: Braxton is a 17 year old White here to establish Obstetrical Care. Patient's last menstrual period was 12/12/2022. from OB Dating Form. Cycles regular was unplanned but accepted Complaints: None OB History T0 L0 SAB0 IAB0 Ectopic0 Multiple0 Live Births0 Patient's Risk Screening for delivery: Have you had a prior jiang between 20w and 36w6d?: No MEDICAL/PSYCHOSOCIAL HISTORY: History of hemorrhage or bleeding concerns: No Thyroid Disease: No History of chronic hypertension: No History of pre-existing diabetes: No No results found for: ABORHD There is no height on file. Depression/Anxiety Screening: denies symptoms of depression. OB Depression and Anxiety Screening- This Encounter (since 02/08/2023) Over the past 2 weeks have you felt down, depressed, or hopeless? Negative Over the past two weeks, have you felt little interest or pleasure in doing things? Negative Feeling nervous, anxious or on edge 0-Not at all Not being able to stop or control worrying 0-Not al all Anxiety Pre-Screening Total (If >/= 3 additional questions will be reviewed) 0 PAST MEDICAL HISTORY Diagnosis Date PMH - PAST MEDICAL HISTORY OF None Scoliosis PAST SURGICAL HISTORY Procedure Laterality Date PAST SURGICAL HISTORY OF none Current Outpatient Medications Medication Sig Dispense Refill vits62/FA/om3/dha/epa ( GUMMY ORAL) Take by mouth. No current facility-administered medications for this visit. Allergies As of Date: 02/09/2023 (No Known Allergies) Fully Assessed 02/09/2023 Does patient have penicillin allergy: No REVIEW OF SYSTEMS: GENERAL: Negative for: Fever or Chills HEENT: Negative for: Headache, Impaired Vision, Ringing in Ears, Nosebleeds NECK: Negative for: Swelling, Pain, Stiffness RESPIRATORY: Negative for: Cough, Shortness of breath, Wheezing GASTROINTESTINAL: Negative for: Heartburn, Constipation, Diarrhea, Blood in stool, Vomiting MUSCULOSKELETAL: Negative for: Muscle or joint pain, stiffness, Joint swelling NEUROLOGIC/PSYCHIATRIC: Negative for: Weakness, Paralysis, Numbness, Tingling, Tremor, Anxiety, Depression, Memory loss SKIN: Negative for: Rash, Itching GENITOURINARY: Negative for: vaginal itching, vaginal discharge, hematuria or dysuria PHYSICAL EXAM: BP 123/61 Pulse 90 Wt 144 lb (65.3kg) LMP 12/12/2022 GENERAL: pleasant in no apparent distress DERMATOLOGY: Normal, without lesions, non-icteric, and non-hirsute NECK: Supple, full range of motion, no adenopathy, and thyroid normal CHEST: Normal inspiratory effort BREAST: soft, non-tender, symmetric, no dominant mass, normal nipple-areolar complex, no lymphadenopathy, and no nipple discharge ABDOMEN: soft, non-tender, and no masses NEURO: alert and oriented x3,exam grossly non-focal PELVIS: External genitalia normal without lesions. Perineal body intact. No vaginal or cervical lesions. Cervix closed. Uterus normal size. No adnexal masses or tenderness. Clinical Pelvimetry: Pelvimetry clinically assessed as adequate Limited OB ultrasound exam: not performed OB Risk Screening: Completed, positive findings include: Patient answered 'Yes' to other abnormalities of the uterus not otherwise mentioned. See comments in OB Risk Screening. SBIRT Braxton Green was given the 4P's screening tool. Braxton answered as follows: OB Opioid Screening - Last Recorded (since 05/15/2022) Did any of your parents have a problem with alcohol or other drug use? Yes father - alcohol Does your partner have a problem with alcohol or other drug use? No In the past, have you had difficulties in your life because of alcohol or other drugs, including prescription medications? No In the past month have you drunk any alcohol or used other drugs? No Are you taking medication for pain during the either prescribed or not? No Based on the screen and further questions, she is considered at Low risk due to:No past or current use. Positive reinforcement of current behavior. Debi Lux PA-C ASSESSMENT: 17 year old at 8w3d wks gestational age PLAN: GC/CT and urine culture obtained NOB labs ordered Pelvic US ordered to determine viability and dating THE PT LEFT AFTER EXAM COMPLETED AND BEFORE NOB INFORMATION COMPLETED . SHE WAS UPSET THAT POCUS WAS NOT DONE . I EXPLAINED THAT SINCE SHE WAS 19 MINUTES LATE , I WILL NEED TO ORDER A SEPARATE SCAN THERE WILL NOT BE ENOUGH TIME TO PERFORM POCUS DURING THE VISIT Debi Lux, I spent a total of 33 minutes on the date of the service which included preparing to see the patient, [id number] patient care, completing clinical documentation, obtaining and/or reviewing separately obtained history, performing a medically appropriate examination, counseling and educating the pat ient/family/caregiver, and ordering medications, tests, or procedures. documented in this encounterA[facility]11-22-2023 Instructions* Patient Instructions* Debi Lux PA-C - 02/09/2023 11:50 AM EST Please select the following link to access the [facility] Your Guide to a Healthy . [email or web address] documented in this encounterA[facility]11-17-2023 Miscellaneous Notes* Telephone Encounter - Kaylan Joshi RN - 02/04/2023 8:53 AM EST Lm on identified vm for pt to return the office phone call. Kaylan Joshi RN * Telephone Encounter - Debi Lux PA-C - 02/04/2023 8:08 AM EST Of the medications used to treat ADHD , the amphetamine group is considered the safest . If the pt can tolerate being off medication especially in the first trimester ,that would be optimal . Otherwise, she can continue Lisdexamfetamine ( Vyvanse ) as there is no substantial evidence supporting harmful risks to the fetus. Debi Lux PA-C * Telephone Encounter - Kaylan Joshi RN - 02/03/2023 8:13 AM EST Pt return office phone call, identified by name and . Pt is 7w4d gest and currently using vyvanse. The prescriber has instructed the pt to ask the ob provider if it is safe to continue during . It is a category C med. Pt instructed it is not considered safe and the prescriber should find an alternative medication. Pt verbalizes understanding and message forwarded to Yvonne RIDDLE for review. Pt has a new ob appt scheduled. Kaylan Joshi RN * Telephone Encounter - Kaylan Joshi RN - 02/03/2023 8:10 AM EST Lm on identified vm for pt to return the office phone call regarding her medication question. Kaylan Joshi RN * Telephone Encounter - Meme Israel RN - 02/02/2023 4:23 PM EST Receive call from patient who was identified by name and . 7.3 wga. Patient calling to see if Vyvanse (lisdexamfetamine dimesylate) ok to take in , prescribing provider told her to check with OB. Patient takes 50mg/day. FOB with Debi Lux PA-C 02/09/2023, no further appts scheduled. Message forwarded to Debi Lux PA-C and [facility]. Meme Israel RN documented in this encounterA[facility]09-13-2023 Evaluation note* Encounter Date Diagnosis Assessment Notes Treatment Notes Treatment Clinical Notes Nov, Scoliosis of thoraco lumbar spine, unspecified scoliosis type (ICD- 10 - M41.9) VR1 Other 09-11-2023 Evaluation note* Encounter Date Diagnosis Assessment Notes Treatment Notes Treatment Clinical Notes Nov, Acute left-sided low back pain w ithout sciatica (ICD-10 - M54.50) Left low back pain continues. Given the fact that this is triggered by activity and relieved with positional changes, I again would encourage her to obtain the x-ray for further evaluation. I would suggest either evaluation by physical therapy and or chiropractor for adjustment. Patient verbalizes understanding. Would like to try medications first. I did discuss with her pathology behind scoliosis. There was scoliosis noted on imaging to the lumbar spine when CT abdomen was completed in August. Take medication as prescribed. Please take with food. May make you feel jittery, hungry and give you extra energy. If you feel that your heart is racing uncontrollably, please contact PCP right away. Take entire course of steroid for pain reduction. Caution when using steroids with NSAIDS. Watch for GI upset. Take muscle relaxer as directed. Do not drink with alcohol or use with other recreational drugs. May cause severe drowsiness. Do not operate a motor vehicle until you know how this medication will effect you. Can call patient on x-ray results. Declines formal referral to physical therapy today however if pain persist, changes or worsens, physical therapy would be the next step. She can call me to follow-up and for physical therapy order if needed in the near future. Of note, I would strongly discourage taking the Vyvanse with the steroid. I do feel that the medications would be very conflicting in regards to her heart rate, mental status, anxiety, energy, and disposition. I would highly recommend her discontinuing the Vyvanse until the steroid is completed. Patient verbalizes understanding. Nov,Other*Progress note was completed with the assistance of voice recognition software for dictation purposes. Please excuse any grammatical errors that were not corrected during review process. VR1 Other 05-31-2023 Hospital Discharge instructions Patient Education 08/18/2022 17:34:34 Flank Pain, Adult, Iidt-vd-Rkiu Flank Pain, Adult Flank pain is pain in your side. The flank is the area on your side between your upper belly (abdomen) and your spine. The pain may occur over a short time (acute), or it may be long-term or come back often (chronic). It may be mild or very bad. Pain in this area can be caused by many different things. Follow these instructions at home: Drink enough fluid to keep your pee (urine) pale yellow. Rest as told by your doctor. Take xfml-ehd-vzxxxnf and prescription medicines only as told by your doctor. Keep a journal to keep track of: ?What has caused your flank pain. ?What has made your flank pain feel better. Keep all follow-up visits. Contact a doctor if: Medicine does not help your pain. You have new symptoms. Your pain gets worse. Your symptoms last longer than 2 3 days. You have trouble peeing. You are peeing more often than normal. Get help right away if: You have trouble breathing. You are short of breath. Your belly hurts, or it is swollen or red. You feel like you may vomit (nauseous). You vomit. You feel faint, or you faint. You have blood in your pee. You have flank pain and a fever. These symptoms may be an emergency. Get help right away. Call your local emergency services (911 int [place] Do not wait to see if the symptoms will go away. Do not drive yourself to the hospital. Summary Flank pain is pain in your side. The flank is the area of your side between your upper belly (abdomen) and your spine. Flank pain may occur over a short time (acute), or it may be long-term or come back often (chronic). It may be mild or very bad. Pain in this area can be caused by many different things. Contact your doctor if your symptoms get worse or last longer than 2 3 days. This information is not intended to replace advice given to you by your health care provider. Make sure you discuss any questions you have with your health care provider. Document Revised: 05/18/2021 Document Reviewed: 05/18/2021 [employer] Patient Education 2022 [employer]. Follow Up Care 08/18/2022 15:06:22 With:ALVAREZ SANABRIA Address: [address] [place] [phone] Business (1) When:08/21/2022 17:04:00 Comments:Follow-up with your primary care provider in 3 to 5 days. If symptoms worsen, do not improve, or new symptoms arise please report back to emergency department for further evaluation. [facility]05-31-2023 Evaluation + Plan noteExtracted from: Title:ED NoteAuthor:El HERNANDEZ, Shyam PatiñoDate:08/18/22 Right flank pain (R10.9: Uns pecified abdominal pain) Orders: ketorolac, 30 mg = 1 mL, Injection, IV Push, Once, Stop date 08/18/22 15:24:00 EDT, STAT, Start date 08/18/22 15:24:00 EDT, 08/18/22 15:24:00 EDT naproxen, 500 mg = 1 tab(s), Oral, BID, PRN Pain, with food, # 20 tab(s), Refills(s) 0, Pharmacy: [facility] #[id number], 154, cm, 08/18/22 15:11:00 EDT, Height/Length Dosing, 73, kg, 08/18/22 15:11:00 EDT, Weight Dosing ondansetron, 4 mg = 2 mL, Injection, IV Push, Once, Stop date 08/18/22 15:24:00 EDT, STAT, Start date 08/18/22 15:24:00 EDT, 08/18/22 15:24:00 EDT ondansetron, 4 mg = 1 tab(s), Oral, q8hr, PRN Nausea/Vomiting, # 12 tab(s), Refills(s) 0, Pharmacy:[facility] #[id number], 154, cm, 08/18/22 15:11:00 EDT, Height/Length Dosing, 73, kg, 08/18/2314:11:00 EDT, Weight Dosing Sodium Chloride 0.9% intravenous solution, 1,000 mL, Soln-IV, IV, Once, Stop date 08/18/22 15:24:00EDT, STAT, Start date 08/18/22 15:24:00 EDT, Infuse over 61, minute(s) Automated Diff Basic Metabolic Panel Beta hCG Qual CBC w/ Auto Diff CT Abdomen/Pelvis w/ Contrast eGFR Hepatic Function Panel Lipase Level UA With Cult Reflex [facility]03-29-2023 Evaluation note* Encounter Date Diagnosis Assessment Notes Treatment Notes Treatment Clinical Notes May, Encounter for noe lewis prescription of transdermal patch hormonal contraceptive device (ICD-10 - Z30.016) Discussed initiation of medication, 1 patch to be applied in appropriate location, weekly x3 weeks and then discontinue patch x1 week. Did discuss when to initiate the medication based on the first 24 hours of her menstrual cycle. Reiterated that control does not protect from STDs. Is aware of the rare but serious side effect of hormone related cancers and blood clots.Does not require pelvic or Pap testing today.Will trial for 90 days. Patient can call after 3 months if medication is working well, for refills x1 year. Made her aware of symptoms that may improve or worsen with hormonal control. If you do not have a period, please take a test and reach out to the office right away. Medication information printed and provided to patient in office today via up-to-date. All questions answered and patient sent home stable. May,Other*Progress note was completed with the assistance of voice recognition software for dictation purposes. Please excuse any grammatical errors that were not corrected during review process. VR1 Other 09-12-2022 Evaluation + Plan noteExtracted from:Title: ED NoteAuthor:Sue NORIEGAQuocDate:11/30/21 Pharyngitis (J02.9: Acute ph aryngitis, unspecified) Orders: cefdinir, 300 mg = 1 cap(s), Oral, q12hr, X 7 day(s), # 14 cap(s), Refills(s) 0, Pharmacy: [facility] #[id number], 152, cm, 11/30/21 8:27:00 EDT, Height/Length Dosing, 67.9, kg, 11/30/21 8:27:00EDT, Weight Dosing dexamethasone, 10 mg = 2.5 mL, Injection, Oral, Once, Stop date 11/30/21 8:26:00 EDT, STAT, Start date 11/30/21 8:26:00 EDT, 11/30/21 8:26:00 EDT Throat Culture Diagnostic Tests Pending * Throat Culture 11/30/21 [facility]09-12-2022 Hospital Discharge instructions Patient Education 11/30/2021 08:41:41 Pharyngitis Pharyngitis Pharyngitis is redness, pain, and swelling (inflammation) of the throat (pharynx). It is a very common cause of sore throat. Pharyngitis can be caused by a bacteria, but it is usually caused by a virus. Most cases of pharyngitis get better on their own without treatment. What are the causes? This condition may be caused by: Infection by viruses (viral). Viral pharyngitis spreads from person to person (is contagious) through coughing, sneezing, and sharing of personal items or utensils such as cups, forks, spoons, and toothbrushes. Infection by bacteria (bacterial). Bacterial pharyngitis may be spread by touching the nose or faceafter coming in contact with the bacteria, or through more intimate contact, such as kissing. Allergies. Allergies can cause buildup of mucus in the throat (post-nasal drip), leading to inflammation and irritation. Allergies can also cause blocked nasal passages, forcing breathing through themouth, which dries and irritates the throat. What increases the risk? You are more likely to develop this condition if: You are 5 24 years old. You are exposed to crowded environments such as daycare, school, or dormitory living. You live in a cold climate. You have a weakened disease-fighting (immune) system. What are the signs or symptoms? Symptoms of this condition vary by the cause (viral, bacterial, or allergies) and can include: Sore throat. Fatigue. Low-grade fever. Headache. Joint pain and muscle aches. Skin rashes. Swollen glands in the throat (lymph nodes). Plaque-like film on the throat or tonsils. This is often a symptom of bacterial pharyngitis. Vomiting. Stuffy nose (nasal congestion). Cough. Red, itchy eyes (conjunctivitis). Loss of appetite. How is this diagnosed? This condition is often diagnosed based on your medical history and a physical exam. Your health care provider will ask you questions about your illness and your symptoms. A swab of your throat may be done to check for bacteria (rapid strep test). Other lab tests may also be done, depending on the suspected cause, but these are rare. How is this treated? This condition usually gets better in 3 4 days without medicine. Bacterial pharyngitis may be treated with antibiotic medicines. Follow these instructions at home: Take rsat-ikc-qtgonqn and prescription medicines only as told by your health care provider. ?If you were prescribed an antibiotic medicine, take it as told by your health care provider. Do not stop taking the antibiotic even if you start to feel better. ?Do not give children aspirin because of the association with Martha syndrome. Drink enough water and fluids to keep your urine clear or pale yellow. Get a lot of rest. Gargle with a salt-water mixture 3 4 times a day or as needed. To make a salt- water mixture, completely dissolve -1 tsp of salt in 1 cup of warm water. If your health care provider approves, you may use throat lozenges or sprays to soothe your throat. Contact a health care provider if: You have large, tender lumps in your neck. You have a rash. You cough up green, yellow-brown, or bloody spit. Get help right away if: Your neck becomes stiff. You drool or are unable to swallow liquids. You cannot drink or take medicines without vomiting. You have severe pain that does not go away, even after you take medicine. You have trouble breathing, and it is not caused by a stuffy nose. You have new pain and swelling in your joints such as the knees, ankles, wrists, or elbows. Summary Pharyngitis is redness, pain, and swelling (inflammation) of the throat (pharynx). While pharyngitis can be caused by a bacteria, the most common causes are viral. Most cases of pharyngitis get better on their own without treatment. Bacterial pharyngitis is treated with antibiotic medicines. This information is not intended to replace advice given to you by your health care provider. Make sure you discuss any questions you have with your health care provider. Document Released: 03/07/2006 Document Revised: 02/17/2018 Document Reviewed: 04/12/2017 [employer] Patient Education 2020 [employer]. Follow Up Care 11/30/2021 08:17:13 With:ТАТЬЯНА CANNON Address: [facility] [address] [place] [address] Business (1) When:Within 3 Day(s) [facility]Evalunemours foundation noteNo [employer] Other Evaluation note* Diagnosis Initial obstetric visit, first trimester- Primary with uncertain viability, single or unspecified fetus documented in this encounter [facility] note* Diagnosis Chlamydia infection during documented in this encounter [facility] note* Diagnosis SAB (spontaneous ) Unspecified spontaneous without mention of complication documented in this encounter [facility] [employer] [facility] note* Diagnosis Onset Date Resolution Status Dysuria [facility] Work Phone: Evaluation note* Diagnosis Acute upper respiratory infection- Primary Acute upper respiratory infections of unspecified site documented in this encounter [facility] [employer] [facility] note* Diagnosis 26 weeks gestation of - Primary state, incidental Encounter for supervision of other normal in second trimester Screening for diabetes mellitus BMI 37.0-37.9, adult Body Mass Index 37.0-37.9, adult Obesity in , antepartum Obesity complicating , childbirth, or the puerperium, antepartum condition or complication Elevated blood pressure reading without diagnosis of hypertension 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 documented in this encounter [facility] note* Diagnosis 27 weeks gestation of state, incidental SOB (shortness of breath) Shortness of breath documented in this encounter [facility] [employer] note* Diagnosis Vagina, candidiasis Candidiasis of vulva and vagina documented in this encounter [facility] [employer] note* Diagnosis 36 weeks gestation of state, incidental Other proteinuria Swelling of lower extremity during in third trimester documented in this encounter [facility] [employer] note* Diagnosis HTN (hypertension) with goal to be determined- Primary Unspecified essential hypertension delivery delivered delivery, without mention of indication, delivered, with or without mention of antepartum condition Third trimester 37 weeks gestation of state, incidental Failure to progress in first stage of labor Gestational hypertension, third trimester delivery delivered delivery, without mention of indication, delivered, with or without mention of antepartum condition documented [facility] Diagnosis Preeclampsia in period- Primary Pre-eclampsia in period documented in this encounter [facility]* Diagnosis Pre-eclampsia in period [facility] in [facility] N[facility]ative - Reported* Type Description Date Medical History ADHD Medical HistoryAcute herpanginaSurgical HistoryTubes in [id number] History I & D left [id number] CheckInOn.Me [facility] pMDsoft Other History general Narrative - Reported* Type Description Date Medical History Acute herpangina Medical HistoryUmbilical hernia without obstruction and without gangreneMedical HistoryCyst of ovary, unspecified lateralityMedical HistoryMild scoliosisMedical HistoryADHDSurgical HistoryTubes in [id number] HistoryI & D left [id number] Other Hospital course Narrative No data available for this section [facility] Discharge instructions No data available for this section [facility] No data available for this section [facility] (narrative)* Reason cardiac rehabilitation specialist- CC F, please attach last progress note and recent XRAY result Diagnosis 1 Scoliosis of thoraco lumbar spine, unspecified scoliosis type (M41.9) Referral Organization [facility] Referring Provider First Name Alvarez Referring Provider Last Name Wong Referring Provider Specialty Nurse Nicolat jarrod Referred Provider Specialty Specialist Referral Priority Routine [facility] pMDsoft Other Reason for referral (narrative)* Diagnostic Procedure Only (Routine) - Pending ReviewSpecialtyDiagnoses / ProceduresReferred By ContactReferred To [facility] Diagnoses with uncertain viability, single or unspecified fetus Procedures PELVIC US WHI US PELVIC NONOBSTETRIC REAL-TIME IMAGE COMPLETE Debi Lux PA-C [address] [place] [address] [facility][Note 3] [address] [place] [address] Referral IDStatusReasonStart DateExpiration DateVisits RequestedVisits [id number] Review Auto-Generated Referral / [facility] Summary Purpose Family History No Family History Records Found Relationship Condition Age at Onset Recorded Date/T magdalena father Hypertension Unknown grandparentMalignant neoplasmUnknown Advance Directives No Advanced Directives Records Found Date ActivatedDate InactivatedComments08/04/2024 2:57 AM08/05/2024 1:10 PMDate ActivatedDate InactivatedComments08/01/2024 7:40 AM08/02/2024 1:16 PMDate ActivatedDate InactivatedComments07/30/2024 7:48 PM07/31/2024 11:49 PM Advance Directive Response Recorded Date/ Time Advance Directives No October 20 10:47am Date ActivatedDate InactivatedComments08/01/2024 7:40 AMDate ActivatedDate InactivatedComments07/30/2024 7:48 PM07/31/2024 11:49 PMDate ActivatedDate InactivatedComments08/04/2024 2:57 AM Chief Complaint and Reason for Visit Chief Complaint possible uti Reason for Visit Dysuria Chief Complaint R30.0 possible utiReason for VisitDysuria Reason for Referral SpecialtyDiagnoses / ProceduresReferred By ContactReferred To ContactCardiology Diagnoses 27 weeks gestation of SOB (shortness of breath) Procedures Extended cardiac holter monitor (3 days-14 day) [place] EXTERNAL ECG REC>48HR<7D REVIEW & INTERPRETATION [place] EXTERNAL ECG REC>48HR<7D RECORDING [place] EXTERNAL ECG REC>7D<15D RECORDING [place] EXTERNAL ECG REC>7D<15D REVIEW & INTERPRETATION Yi Valadez, PROFESSIONAL BONDSMAN - CNM [address] [place] [address] Referral IDStatusReasonStart DateExpiration DateVisits RequestedVisits [id number]/3/20253/ Additional Source Comments INFORMATION SOURCE (unrecogn ized section and content) DATE CREATED AUTHOR 03/25/2020 [facility] DATE CREATED AUTHOR AUTHOR'S ORGANIZ ATION 08/27/[address] [facility] DATE CREATED AUTHOR AUTHOR'S ORGANIZ ATION 11/03/2023 [facility] DATE CREATED AUTHOR AUTHOR'S ORGANIZ ATION 12/28/2023 [facility] DATE CREATED AUTHOR AUTHOR'S ORGANIZ ATION 02/11/[address] [facility] DATE CREATED AUTHOR AUTHOR'S ORGANIZ ATION 02/13/[address] [facility] DATE CREATED AUTHOR AUTHOR'S ORGANIZ ATION 02/14/[address] [facility] DATE CREATED AUTHOR AUTHOR'S ORGANIZ ATION 05/17/2024 [facility] DATE CREATED AUTHOR AUTHOR'S ORGANIZ ATION 08/09/2024 [facility] DATE CREATED AUTHOR AUTHOR'S ORGANIZ ATION 10/10/2024 [facility] Care Team (unrecognized sect ion and content) Team MemberRelationshipSpecialtyStart DateEnd Date Alvarez Sanabria CNP [address] [address] ReferringFamily Medicine12/02/22Team MemberRelationshipSpecialtyStart DateEnd Date Alvarez Sanabria CNP [address] [address] ReferringFamily Medicine12/02/22Team MemberRelationshipSpecialtyStart DateEnd Date Alvarez Sanabria CNP [address] [address] ReferringFamily Medicine12/02/22Team MemberRelationshipSpecialtyStart DateEnd Date Alvarez Sanabria CNNP [address] [address] PCP - Rfmqill90/4/23Team MemberRelationshipSpecialtyStart DateEnd Date Alvarez Sanabria CNP [address] [address] ReferringFamily Medicine12/02/22 Team Status: Active Member Role Status Dates Alvarez Sanabria APRN Primary Care Provider Active Team Status: Inactive Member Role Status Dates Alvarez Sanabria APRN Primary Care Pr ovider, Attending Provider Active Start: October 25, 2023 End: October 25, 2023 Team Status: Inactive Member Role Status Dates Alvarez Sanabria APRN Attending Provider Active Start: October 25, 2023 End: October 25, 2023Team MemberRelationshipSpecialtyStart DateEnd Date Alvarez Sanabria, CNNP [address] [address] PCP - Byketys37/4/23Team MemberRelationshipSpecialtyStart DateEnd Date Alvarez Sanabria, INTERNET MARKETING SPECIALIST [address] [address] ReferringFamily Medicine12/02/22Team MemberRelationshipSpecialtyStart DateEnd Date Alvarez Sanabria INTERNET MARKETING SPECIALIST [address] [address] [facility]erringFachoate [facility] hospital Medicine12/02/22Team MemberRelationshipSpecialtyStart DateEnd Date Alvarez Sanabria, CNNP [address] [address] PCP - Lzdkenz21/4/23Team MemberRelationshipSpecialtyStart DateEnd Date Dangelo Flores DO [address] [facility] [address] [place] [address] PCP - GeneralFamily Medicine07/27/22Team MemberRelationshipSpecialtyStart DateEnd Date Alvarez Sanabria, CNNP [address] [address] PCP - Nksdasr60/4/23Te MemberRelationshipSpecialtyStart DateEnd Date Alvarez Sanabria CNNP [address] [address] PCP - Zxsesrq05/4/23Te MemberRelationshipSpecialtyStart DateEnd Date Alvarez Sanabria CNNP [address] [address] PCP - Zlitpdq01/4/23[facility] MemberRelationshipSpecialtyStart DateEnd Date Alvarez Sanabria CNNP [address] [address] PCP - Rxuvrpm18/4/23 REASON FOR VISIT (unrecogniz ed section and content) ReasonCommentsMedication QuestionReasonCommentsPrenatal CareReasonCommentsSTD ChlamydiaReasonCommentsCoughPatient complains of body aches, sore throat and runny nose with cough. Onset yesterday.ReasonCommentsCare Coordinator - Other Initial OB RN CC poolReasonCommentsPrenatal CareOb transfer of care at 26 weeks and 2 days --SpecialtyDiagnoses / ProceduresReferred By ContactReferred To [facility] Diagnoses Procedures ROUTINE OB CARE VAG DLVRY & CARE VB CCF LAN PTE [facility] [address] [place] [address] Phone: [place]: [place] [address] [place] [address] Phone: tel: fax: Referral IDStatusReasonStart DateExpiration DateVisits RequestedVisits [id number] OON/Self Pay Override [id number] / ProceduresReferred By ContactReferred To ContactCardiology Diagnoses 27 weeks gestation of SOB (shortness of breath) Procedures Extended cardiac holter monitor (3 days-14 day) [place] EXTERNAL ECG REC>48HR<7D REVIEW & INTERPRETATION [place] EXTERNAL ECG REC>48HR<7D RECORDING [place] EXTERNAL ECG REC>7D<15D RECORDING [place] EXTERNAL ECG REC>7D<15D REVIEW & INTERPRETATION Yi Valadez, PROFESSIONAL BONDSMAN - [facility] [address] [facility] [address] [place] [address] Referral IDStatusReasonStart DateExpiration DateVisits RequestedVisits [id number]azQoigymhmp Diagnoses / ProceduresReferred By ContactReferred To Contact Diagnoses HTN (hypertension) with goal to be determined Third trimester Melody Franks APRN - [facility] [address] [place] [address] Phone: tel: fax: [facility] [id number] [place] [phone] Referral IDStatusReasonStart DateExpiration DateVisits RequestedVisits [id number]wybwFmnvhtsht / ProceduresReferred By ContactReferred To Contact Diagnoses Preeclampsia in period Lorrie Sánchez MD [address] [facility] [address] [place] [address] Phone: tel: fax: [facility] [address] [place] [phone] Referral IDStatusReasonStart DateExpiration DateVisits RequestedVisits [id number] Source Comments (unrecognize d section and content) In the event this informatio n is protected by the Federal Confidentiality of Alcohol and Drug Abuse Patient Records regulations: The Federal rules restrict any use of the information to criminally investigate or prosecute any alcohol or drug abuse patient.[facility] the event this information is protected by the Federal Confidentiality of Alcohol and Drug Abuse Patient Records regulations: The Federal rules restrict any use of the information to criminally investigate or prosecute any alcohol or drug abuse patient.[facility] the event this information is protected by the Federal Confidentiality of Alcohol and Drug Abuse Patient Records regulations: The Federal rules restrict any use of the information to criminally investigate or prosecute any alcohol or drug abuse patient.[facility] Hospital[facility] the event this information is protected by the Federal Confidentiality of Alcohol and Drug Abuse Patient Records regulations: The Federal rules restrict any use of the information to criminally investigate or prosecute any alcohol or drug abuse patient.[facility] Hospital[facility] the event this information is protected by the Federal Confidentiality of Alcohol and Drug Abuse Patient Records regulations: The Federal rules restrict any use of the information to criminally investigate or prosecute any alcohol or drug abuse patient.[facility]In the event this information is protected by the Federal Confidentiality of Alcohol and Drug Abuse Patient Records regulations: The Federal rules restrict any use of the information to criminally investigate or prosecute any alcohol or drug abuse patient.[facility] Goals (unrecognized section and content) Goals may be documented in a n alternate section Ordered Prescriptions (unrec ognized section and content) PrescriptionSigDispensedRefillsStart DateEnd Date guaiFENesin (MUCINEX) 600 MG extended release tablet Take 1 tablet by mouth 2 times daily for 5 days 10 tablet PrescriptionSigDispense QuantityRefillsLast FilledStart Date End Date docusate (COLACE, DULCOLAX) 100 MG CAPS Take 100 mg by mouth 2 times daily 30 capsule ibuprofen (ADVIL;MOTRIN) 800 MG tablet Take 1 tablet by mouth in the morning and 1 tablet at noon and 1 tablet in the evening. 120 tablet acetaminophen (TYLENOL) 500 MG tablet Take 2 tablets by mouth every 8 hours 120 tablet oxyCODONE (ROXICODONE) 5 MG immediate release tablet Indications: delivery deliveredTake 1 tablet by mouth every 8 hours as needed for Pain for up to 3 days. Max Daily Amount: 15 mg 8 tablet / labetalol (NORMODYNE) 200 MG tablet Take 1 tablet by mouth every 12 hours 60 tablet docusate sodium (COLACE, DULCOLAX) 100 MG CAPS Take 100 mg by mouth 2 times daily 30 capsule ibuprofen (ADVIL;MOTRIN) 800 MG tablet Take 1 tablet by mouth in the morning and 1 tablet at noon and 1 tablet in the evening. 120 tablet acetaminophen (TYLENOL) 500 MG tablet Take 2 tablets by mouth every 8 hours 120 tablet oxyCODONE (ROXICODONE) 5 MG immediate release tablet Indications: delivery deliveredTake 1 tablet by mouth every 8 hours as needed for Pain for up to 3 days. Max Daily Amount: 15 mg 8 tablet PrescriptionSigDispense QuantityRefillsLast FilledStart Date End Date labetalol 400 MG TABS Take 400 mg by mouth every 8 hours 60 tablet ferrous sulfate (IRON 325) 325 (65 Fe) MG tablet Take 1 tablet by mouth daily (with breakfast) 90 tablet Scheduled Active and Recently Administ ered Medications (unrecognized section and content) Medication Order/ acetaminophen (TYLENOL) tablet 1,000 mg 1,000 mg, Oral, EVERY 8 HOURS SCHEDULED (3 times per day), First dose on Tue08/01/24 at 0330, UntilDiscontinued, Maximum dose of acetaminophen is 4000mg from all sources in 24 hours. Alternate ibuprofen and acetaminophen every 4 hours., * 0544 (Given - Provider: Angela Barrow RN) * 1225 (Given - Provider: Nicole Wintson RN) * 1957 (Given - Provider: Linnette Bhatti RN) * 041 (Given - Provider: Soniya Renae RN) * 113 (Due - Provider: Quoc Clarke [facility]) * 1929 (Due - Provider: Quoc Clarke [facility]) acetaminophen (TYLENOL) tablet 975 mg (COMPLETED) 975 mg, Oral, ONCE, 1 dose, On Tue07/31/24 at 2030, Administer with sips of water., Labor and Delivery * 2025 (Given - Provider: Miranda Harrell RN) cefOXitin (MEFOXIN) 2,000 mg in sterile water 20 mL IV syringe (COMPLETED) 2,000 mg, IntraVENous, REMARKETING MANAGER TO O.R., 1 dose, On Tue07/31/24 at 2030, Antimicrobial Indications: Surgical Prophylaxis, Administer within 1 hour of incision. Administer as slow IV Push over 5 mins Reconstitute 2 gram vial with 20mL Sterile Water, Labor and Delivery * 2026 (Given - Provider: Miranda Harrell, KHUSHBOO) cephALEXin (KEFLEX) capsule 500 mg(Linked Group 1) 500 mg, Oral, EVERY 8 HOURS SCHEDULED (3 times per day), 6 doses, First dose on Tue08/01/24 at 0015, Last dose on Tue08/02/24 at 1400, Antimicrobial Indications: Surgical Prophylaxis, * 0121 (Given - Provider: Russ Beltre, RN) * 0543 (Given - Provider: Angela Barrow, RN) * 1357 (Given - Provider: Nicole Winston, KHUSHBOO) * 220 (Given - Provider: Linnette Bhatti, KHUSHBOO) * 0616 (Given - Provider: Soniya Renae RN) * 1400 (Due) citric acid-sodium citrate (BICITRA) solution 30 mL (COMPLETED) 30 mL, Oral, ONCE, 1 dose, On Tue07/31/24 at 2030, Give prior to epidural placement., Labor and Delivery * 2026 (Given - Provider: Miranda Harrell, KHUSHBOO) docusate sodium (COLACE) capsule 100 mg 100 mg, Oral, 2 TIMES DAILY, First dose on Tue08/01/24 at 0015, Until Discontinued, Do not crush orbreak., * 0122 (Not Given - Provider: Russ Beltre RN - Reason: Patient/family refused - Comment: hx IBS) * 0926 (Given - Provider: Nicole Winston, KHUSHBOO) * 2208 (Not Given - Provider: Linnette Bhatti, KHUSHBOO - Reason: Patient/family refused) * 0903 (Given - Provider: Cece Kelly, KHUSHBOO) * 2100 (Due) enoxaparin (LOVENOX) injection 40 mg 40 mg, SubCUTAneous, DAILY, First dose on Tue08/01/24 at 0900, Until Discontinued, Indication of Use: Prophylaxis-DVT/PE, Administer by deep subCUTAneous injection with pt lying down. Alternate injection sites on abdominal wall. Do not rub site after injection. Check with provider prior to any invasive procedure., * 0927 (Given - Provider: Nicole Winston, KHUSHBOO) * 0903 (Given - Provider: Cece Kelly RN) famotidine (PEPCID) 20 MG/2ML 20 mg in sodium chloride (PF) 0.9 % 10 mL injection (COMPLETED) 20 mg, IntraVENous, ONCE, 1 dose, On Tue07/31/24 at 2030, Give 60 minutes before surgery., Labor and Delivery * 2026 (Given - Provider: Miranda Harrell, KHUSHBOO) ibuprofen (ADVIL;MOTRIN) tablet 800 mg(Linked Group 2) 800 mg, Oral, EVERY 8 HOURS, First dose on Tue08/02/24 at 0400, Until Discontinued, Notify pharmacyto coordinate scheduled Tylenol and ibuprofen alternating every 4 hours, * 0413 (Given - Provider: Soniya Renae RN) * 1199 (Due - Provider: Kavon Rodriguez [facility]) * 1999 (Due - Provider: Kavon Rodriguez [facility]) ketorolac (TORADOL) injection 30 mg (COMPLETED)(Linked Group 2) 30 mg, IntraVENous, EVERY 6 HOURS, 4 doses, First dose on Tue08/01/24 at 0300, Last dose on Tue08/01/24 at 2100, Discontinue when able to take PO ibuprofen., * 0357 (Given - Provider: Rsus Beltre RN) * 0926 (Given - Provider: Nicole Winston RN) * 150 (Given - Provider: Nicole Winston RN) * 2208 (Given - Provider: Linnette Bhatti, KHUSHBOO) labetalol (NORMODYNE) tablet 200 mg (CANCELED) 200 mg, Oral, 2 times daily, First dose (after last modification) on Tue07/31/24 at 0900, Until Discontinued, Hold for BP that is less than 120/80 * 0907 (Given - Provider: Maxwell Guaman RN) * 2032 (Held - Provider: Miranda Harrell RN - Reason: Other - Comment: patient getting c/s, hold perDr. Somers) labetalol (NORMODYNE) tablet 200 mg 200 mg, Oral, EVERY 12 HOURS SCHEDULED (2 times per day), First dose on Tue08/01/24 at 0800, Until Discontinued * 0815 (Given - Provider: Nicole Winston RN) * 1958 (Given - Provider: Linnette Bhatti, RN) * 0808 (Given - Provider: Cece Kelly, KHUSHBOO) * 1999 (Due) lactated ringers bolus 1,000 mL (COMPLETED) 1,000 mL, IntraVENous, at 1,000 mL/hr, Administer over 1 Hours, ONCE, On Tue07/31/24 at 2030, For 1dose, Labor and Delivery. Administer bolus one hour prior to surgery., Labor and Delivery * 2030 (New Bag - Provider: Miranda Harrell, RN) * 2130 (Due: Stopped - Provider: Miranda Harrell, RN) measles, mumps & rubella vaccine (MMR) injection 0.5 mL 0.5 mL, SubCUTAneous, PRIOR TO DISCHARGE, 1 dose, Starting on Tue07/31/24 at 2349, Until Discontinued, PRN prior to discharge if patient is known to be rubella non-immune or equivocal status. , metoclopramide (REGLAN) injection 10 mg (COMPLETED) 10 mg, IntraVENous, ONCE, 1 dose, On Tue07/31/24 at 2030, Give 60 minutes before surgery., Labor and Delivery * 2027 (Given - Provider: Miranda Harrell, KHUSHBOO) metroNIDAZOLE (FLAGYL) tablet 500 mg(Linked Group 1) 500 mg, Oral, EVERY 8 HOURS SCHEDULED (3 times per day), 6 doses, First dose on Tue08/01/24 at 0015, Last dose on Tue08/02/24 at 1400, Antimicrobial Indications: Surgical Prophylaxis, * 0121 (Given - Provider: Russ Beltre, KHUSHBOO) * 0543 (Given - Provider: Angela Barrow, KHUSHBOO) * 1357 (Given - Provider: Nicole Winston, KHUSHBOO) * 2208 (Given - Provider: Linnette Bhatti, RN) * 0616 (Given - Provider: Soniya Renae, KHUSHBOO) * 1400 (Due) miSOPROStol (CYTOTEC) pre-split tablet TABS 25 mcg (COMPLETED) 25 mcg, Vaginal, EVERY 4 HOURS, 3 doses, First dose (after last modification) on Tue07/30/24 at 2030, Last dose on Tue07/31/24 at 0430 * 0040 (Given - Provider: Elke Gallegos, RN) * 0450 (Given - Provider: Elke Gallegos, RN) penicillin G potassium 2.5 million units in 0.9% sodium chloride 100 mL IVPB (CANCELED)(Linked Group 3) 2.5 Million Units, IntraVENous, EVERY 4 HOURS, First dose (after last modification) on Tue07/31/24 at 1300, Until Discontinued, Antimicrobial Indications: GBS Prophylaxis, Begin 4 hours after loadingdose. Continue until delivery., Labor and Delivery * 1540 (New Bag - Provider: Maxwell Guaman RN) * 1600 (Held - Provider: Maxwell Guaman RN - Reason: Contraindicated - Comment: 1599) * 1610 (Stopped - Provider: Maxwell Guaman RN) * 2000 (Due - Provider: Maxwell Guaman RN) penicillin G potassium 5 Million Units in sodium chloride 0.9 % 100 mL IVPB (COMPLETED) 5 Million Units, IntraVENous, ONCE, 1 dose, On Tue07/31/24 at 0630, Antimicrobial Indications: GBS Prophylaxis, Labor and Delivery * 0855 (New Bag - Provider: Maxwell Guaman RN) * 0925 (Stopped - Provider: Maxwell Guaman RN) potassium chloride (KLOR-CON M) extended release tablet 20 mEq (CANCELED) 20 mEq, Oral, 2 TIMES DAILY, First dose on Tue07/31/24 at 0230, Until Discontinued, Do not crush, chew, or suck on tablet. Tablet may also be broken in half and each half swallowed separately. * 0237 (Given - Provider: Elke Gallegos RN) * 0907 (Given - Provider: Maxwell Guaman RN) * 2100 (Due) sodium chloride flush 0.9 % injection 5-40 mL 5-40 mL, IntraVENous, EVERY 12 HOURS SCHEDULED (2 times per day), First dose on Tue08/01/24 at 0900, Until Discontinued, For Line Patency: Peripheral IV = 5 mL; Midline or Central Line = 10 mL/lumen.If following IV push medication, administer flush at same rate as the IV push. Flush volume is determined by type of infusion therapy being given. For non-viscous solutions use: Peripheral IV = 5 mL Midline or Central Line = 10 mL/lumen For viscous solutions (i.e. blood components, parenteral nutrition, contrast media, or after obtaining blood sample) use: Peripheral IV = 10 mL Midline or CentralLine = 20 mL/lumen, * 0900 (Not Given - Provider: Nicole Winston, KHUSHBOO - Reason: IV Fluid Infusing) * 0024 (Not Given - Provider: Soniya Renae RN - Reason: Loss of IV access) * 0900 (Not Given - Provider: Cece Kelly RN - Reason: Loss of IV access) * 2100 (Due) Medication Order07/31//// lactated ringers infusion (CANCELED) IntraVENous, at 125 mL/hr, CONTINUOUS, Starting on Tue07/30/24 at 2015, Labor and Delivery * 0440 (Paused - Provider: Maxwell Guaman RN) * 0447 (Restarted - Provider: Maxwell Guaman RN) * 0511 (Rate/Dose Verify - Provider: Maxwell Guaman RN) * 0524 (New Bag - Provider: Elke Gallegos RN) * 0906 (Paused - Provider: Maxwell Guaman RN) * 1006 (Restarted - Provider: Maxwell Guaman RN) * 1026 (Rate/Dose Verify - Provider: Maxwell Guaman RN) * 1438 (Rate/Dose Change - Provider: Maxwell Guaman RN) * 1439 (Paused - Provider: Maxwell Guaman RN) * 1441 (Rate/Dose Change - Provider: Maxwell Guaman RN) * 1519 (Paused - Provider: Maxwell Guaman RN) * 1533 (Restarted - Provider: Maxwell Guaman RN) * 1612 (Rate/Dose Verify - Provider: Maxwell Guaman RN) * 1621 (Rate/Dose Change - Provider: Maxwell Guaman RN) * 1634 (Rate/Dose Verify - Provider: Maxwell Guaman RN) * 1651 (Rate/Dose Change - Provider: Nicole Winston, RN) * 1653 (Rate/Dose Change - Provider: Nicole Winston, RN) * 202 (Paused - Provider: Nicole Winston, RN) * 202 (Rate/Dose Change - Provider: Nicole Winston, RN) lactated ringers infusion (CANCELED) IntraVENous, at 125 mL/hr, CONTINUOUS, Starting on Tue08/01/24 at 0100 * 0030 (New Bag - Provider: Angela Danial, RN) * 0809 (Rate/Dose Change - Provider: Nicole Winston RN) * 0814 (New Bag - Provider: Nicole Winston RN) * 1358 (Rate/Dose Verify - Provider: Nicole Winston RN) * 1400 (Stopped - Provider: Nicole Winston RN) oxytocin (PITOCIN) 30 units in 500 mL infusion (CANCELED) 1-24 tye-units/min (1-24 mL/hr), IntraVENous, CONTINUOUS, Starting on Tue07/31/24 at 0900, Until Tue07/31/24 at 2349, Begin infusion at 1 tye-unit/min (1 tye-unit per min = 1 mL per hour) . Then increase by 2 tye-units/min as needed, no faster than every 30 minutes, until labor is achieved.Labor is defined as contractions every 2-3 minutes with cervical changes or Mcgregor units (MVU) greater than 200 in a 10-minute window. Maximum infusion rate: 24 tye-unit/min. Contact provider if maximum rate does not achieve desired response. Provider may order alternative titration goal or other clinically appropriate goal of titration rate (s). Smaller titration increments of 1 tye-units/min, not faster than every 30 minutes, may be used when approaching therapeutic goal after discussion with provider. If unable to increase call provider and let them know. At time of needed increase, Labor and Delivery * 0914 (New Bag - Provider: Maxwell Guaman RN) * 0944 (Rate/Dose Change - Provider: Maxwell Guaman RN) * 1018 (Rate/Dose Change - Provider: Maxwell Guaman RN) * 1234 (Rate/Dose Change - Provider: Maxwell Guaman RN) * 1323 (Rate/Dose Change - Provider: Maxwell Guaman, RN) * 1355 (Rate/Dose Change - Provider: Maxwell Guaman, RN) * 1431 (Rate/Dose Change - Provider: Maxwell Guaman, RN) * 1532 (Rate/Dose Change - Provider: Maxwell Guaman, RN) * 1603 (Rate/Dose Change - Provider: Maxewll Guaman, RN) * 1631 (Rate/Dose Change - Provider: Maxwell Guaman, RN) ROPivacaine (NAROPIN) 0.2% injection 0.2% (CANCELED) 10 mL/hr, Epidural, CONTINUOUS, Starting on Tue07/31/24 at 1330, Until Tue07/31/24 at 2349, Labor and Delivery * 1232 (New Bag - Provider: Savanna Whitmore APRN - [employer]) * 1854 (New Bag - Provider: Maxwell Guaman, KHUSHBOO) * 2028 (Stopped - Provider: Keila Esparza APRN - [employer]) Medication Order// 0.9 % sodium chloride infusion IntraVENous, at 5-250 mL/hr, PRN, if patient receiving piggyback infusions and maintenance fluids are not ordered, Starting on Tue07/31/24 at 2349, For piggyback infusion, administer at same rate as piggyback for a total of 25 mL. Enter 25 mL into dose field and piggyback rate into rate field of order. If piggyback is infusing at a rate less than 100 mL/hr, enter 25 mL into dose field and 100 mL/hr into rate field of order., acetaminophen (TYLENOL) tablet 650 mg (CANCELED) 650 mg, Oral, EVERY 4 HOURS PRN, Starting on Tue07/30/24 at 1941, Until Tue07/31/24 at 2349, Pain Mild (1-3), allowed for higher pain score per patient request, Fever, Fever >100.5 F (38 C), Maximum dose of acetaminophen is 4000 mg from all sources in 24 hours., Labor and Delivery * 1021 (Given - Provider: Maxwell Guaman, KHUSHBOO) * 193 (Given - Provider: Angela Barrow RN) lansinoh lanolin ointment Topical, EVERY 1 HOUR PRN, Dry Skin, nipple discomfort, Starting on Tue07/31/24 at 2349, methylergonovine (METHERGINE) injection 200 mcg 200 mcg, IntraMUSCular, PRN, Starting on Tue07/31/24 at 2349, Until Discontinued, Bleeding, for Hemorrhage, PRN for post- hemorrhage, if not hypertensive. The provider responding to the event will provide direction as to sequencing of hemorrhage medications based on patient's clinical condition. , miSOPROStol (CYTOTEC) tablet 800 mcg 800 mcg, Rectal, PRN, 1 dose, Starting on Tue07/31/24 at 2349, Until Discontinued, for Hemorrhage, Notify Physician prior to administration. The provider responding to the event will provide direction as to sequencing of hemorrhage medications based on patient's clinical condition. , nalbuphine (NUBAIN) injection 10 mg (CANCELED) 10 mg, IntraVENous, EVERY 2 HOURS PRN, Starting on Tue07/30/24 at 1941, Until Tue07/31/24 at 2349, Pain Moderate (4-6), allowed for higher pain score per patient request, Pain Severe (7-10), For moderate pain 4-6, PRN for pain, Labor and Delivery * 0231 (Given - Provider: Elke Gallegos, RN) * 0750 (Given - Provider: Charmaine Skinner RN) ondansetron (ZOFRAN) injection 4 mg (CANCELED)(Linked Group 4) 4 mg, IntraVENous, EVERY 6 HOURS PRN, Starting on Tue07/30/24 at 1941, Until Tue07/31/24 at 2349, Nausea, Labor and Delivery * 0510 (Given - Provider: Elke Gallegos, RN) * 1952 (Given - Provider: Angela Barrow, RN) ondansetron (ZOFRAN) injection 4 mg(Linked Group 5) 4 mg, IntraVENous, EVERY 6 HOURS PRN, Starting on Tue07/31/24 at 2349, Until Discontinued, Nausea, Vomiting, Administer if oral route cannot be used., ondansetron (ZOFRAN-ODT) disintegrating tablet 4 mg(Linked Group 5) 4 mg, Oral, EVERY 8 HOURS PRN, Starting on Tue07/31/24 at 2349, Until Discontinued, Nausea, Vomiting, oxyCODONE (ROXICODONE) immediate release tablet 10 mg(Linked Group 6) 10 mg, Oral, EVERY 4 HOURS PRN, Starting on Tue08/01/24 at 0014, Until Discontinued, Pain Severe (7-10), * 0024 (Given - Provider: Angela Barrow, RN) * 0728 (See Alternative - Provider: Nicole Winston, RN) * 1407 (See Alternative - Provider: Nicole Winston, KHUSHBOO) * 1019 (See Alternative - Provider: Cece Kelly RN) oxyCODONE (ROXICODONE) immediate release tablet 5 mg(Linked Group 6) 5 mg, Oral, EVERY 4 HOURS PRN, Starting on Tue08/01/24 at 0014, Until Discontinued, Pain Moderate (4-6), allowed for higher pain score per patient request, * 0024 (See Alternative - Provider: Angela Barrow RN) * 0728 (Given - Provider: Nicole Winston, RN) * 1407 (Given - Provider: Nicole Winston, KHUSHBOO) * 1019 (Given - Provider: Cece Kelly RN) oxytocin (PITOCIN) 10 unit bolus from the bag (COMPLETED)(Linked Group 7) 999 mL/hr, IntraVENous, PRN, 1 dose, Starting on Tue07/30/24 at 194, Until Tue07/31/24 at 2118, Bleeding, For Post Use Only. Give after delivery of placenta. Bolus for bag to infuse at 999ml/20 minutes., Post Delivery * 2105 (New Bag - Provider: RAQUEL Cam CRNA) * 2118 (Stopped - Provider: RAQUEL Cam CRNA) oxytocin (PITOCIN) 30 units in 500 mL infusion (COMPLETED)(Linked Group 7) 166 tye-units/min (166 mL/hr), IntraVENous, PRN, 1 dose, Starting on Tue07/30/24 at 194, Until Tue07/31/24 at 2118, Bleeding, For Post Use Only. Give after delivery of placenta. Following Bolus from bag administration, reduce the rate to 166 mL/hr and administer remaining bag, Post Delivery * 2118 (New Bag - Provider: RAQUEL Cam CRNA) simethicone (MYLICON) chewable tablet 80 mg 80 mg, Oral, EVERY 6 HOURS PRN, Starting on Tue08/01/24 at 2005, Until Discontinued, Cramping * 2008 (Given - Provider: Linnette Bhatti RN) sodium chloride flush 0.9 % injection 5-40 mL 5-40 mL, IntraVENous, PRN, Starting on Tue07/31/24 at 2349, Until Discontinued, Line Care, After every IV line use, For Line Patency: Peripheral IV = 5 mL; Midline or Central Line = 10 mL/lumen. If following IV push medication, administer flush at same rate as the IV push. Flush volume is determined by type of infusion therapy being given. For non-viscous solutions use: Peripheral IV = 5 mL Midline or Central Line = 10 mL/lumen For viscous solutions (i.e. blood components, parenteral nutrition,contrast media, or after obtaining blood sample) use: Peripheral IV = 10 mL Midline or Central Line= 20 mL/lumen, * 1359 (Given - Provider: Nicole Winston RN) * 1502 (Given - Provider: Nicole Winston RN) tranexamic acid (CYKLOKAPRON) 1,000 mg in sodium chloride 0.9 % 100 mL IVPB ([id number]) 1,000 mg, IntraVENous, at 600 mL/hr, Administer over 10 Minutes, ONCE PRN, for Hemorrhage, Starting on Tue07/31/24 at 2349, For 2 doses, If bleeding continues, may give an additional 1 gram within 3 hours of . The provider responding to the event will provide direction as to sequencing of hemorrhage medications based on patient's clinical condition. Use 20mm (Blue) [id number] Adapter Preparation instructions: Attach medication vial to one 20mm (Blue) [id number] adapter. Ifeanyi fluid bag with adapter, mix, and administer per order., Order Group 1: cephALEXin (KEFLEX) capsule 500 mgJump to med 500 mg, Oral, EVERY 8 HOURS SCHEDULED (3 times per day), 6 doses, First dose on Tue08/01/24 at 0015, Last dose on Tue08/02/24 at 1400, Antimicrobial Indications: Surgical Prophylaxis, And metroNIDAZOLE (FLAGYL) tablet 500 mgJump to med 500 mg, Oral, EVERY 8 HOURS SCHEDULED (3 times per day), 6 doses, First dose on Tue08/01/24 at 0015, Last dose on Tue08/02/24 at 1400, Antimicrobial Indications: Surgical Prophylaxis, Group 2: ketorolac (TORADOL) injection 30 mg (COMPLETED)Jump to med 30 mg, IntraVENous, EVERY 6 HOURS, 4 doses, First dose on Tue08/01/24 at 0300, Last dose on Tue08/01/24 at 2100, Discontinue when able to take PO ibuprofen., Followed by ibuprofen (ADVIL;MOTRIN) tablet 800 mgJump to med 800 mg, Oral, EVERY 8 HOURS, First dose on Deepa 08/02/24 at 0400, Until Discontinued, Notify pharmacyto coordinate scheduled Tylenol and ibuprofen alternating every 4 hours, Group 3: penicillin G potassium 2.5 million units in 0.9% sodium chloride 100 mL IVPB (CANCELED)Jump to med 2.5 Million Units, IntraVENous, EVERY 4 HOURS, First dose (after last modification) on Tue07/31/24 at 1300, Until Discontinued, Antimicrobial Indications: GBS Prophylaxis, Begin 4 hours after loadingdose. Continue until delivery., Labor and Delivery Group 4: ondansetron (ZOFRAN) injection 4 mg (CANCELED)Jump to med 4 mg, IntraVENous, EVERY 6 HOURS PRN, Starting on Tue07/30/24 at 1941, Until Tue07/31/24 at 2349, Nausea, Labor and Delivery Or ondansetron (ZOFRAN-ODT) disintegrating tablet 4 mg (CANCELED) 4 mg, Oral, EVERY 6 HOURS PRN, Starting on Tue07/30/24 at 1941, Until Tue07/31/24 at 2349, Nausea, Labor and Delivery Group 5: ondansetron (ZOFRAN-ODT) disintegrating tablet 4 mgJump to med 4 mg, Oral, EVERY 8 HOURS PRN, Starting on Tue07/31/24 at 2349, Until Discontinued, Nausea, Vomiting, Or ondansetron (ZOFRAN) injection 4 mgJump to med 4 mg, IntraVENous, EVERY 6 HOURS PRN, Starting on Tue07/31/24 at 2349, Until Discontinued, Nausea, Vomiting, Administer if oral route cannot be used., Group 6: oxyCODONE (ROXICODONE) immediate release tablet 5 mgJump to med 5 mg, Oral, EVERY 4 HOURS PRN, Starting on Tue08/01/24 at 0014, Until Discontinued, Pain Moderate (4-6), allowed for higher pain score per patient request, Or oxyCODONE (ROXICODONE) immediate release tablet 10 mgJump to med 10 mg, Oral, EVERY 4 HOURS PRN, Starting on Tue08/01/24 at 0014, Until Discontinued, Pain Severe (7-10), Group 7: oxytocin (PITOCIN) 30 units in 500 mL infusion (COMPLETED)Jump to med 166 tye-units/min (166 mL/hr), IntraVENous, PRN, 1 dose, Starting on Tue07/30/24 at 1941, Until Tue07/31/24 at 2118, Bleeding, For Post Use Only. Give after delivery of placenta. Following Bolus from bag administration, reduce the rate to 166 mL/hr and administer remaining bag, Post Delivery And oxytocin (PITOCIN) 10 unit bolus from the bag (COMPLETED)Jump to med 999 mL/hr, IntraVENous, PRN, 1 dose, Starting on Tue07/30/24 at 1941, Until Tue07/31/24 at 2118, Bleeding, For Post Use Only. Give after delivery of placenta. Bolus for bag to infuse at 999ml/20 minutes., Post Delivery Medication Order// docusate sodium (COLACE) capsule 100 mg 100 mg, Oral, 2 TIMES DAILY, First dose on Tue08/04/24 at 0900, Until Discontinued, Do not crush orbreak. * 1106 (Not Given - Provider: Sherry Arroyo RN - Reason: Patient/family refused) * 2131 (Not Given - Provider: Ariana Faria RN - Reason: Patient/family refused) * 1015 (Held - Provider: Sherry Arroyo RN - Reason: Patient/family refused) * 2100 (Due) ferrous sulfate (FE TABS 325) EC tablet 325 mg 325 mg, Oral, DAILY WITH BREAKFAST, First dose on 08/05/24 at 0800, Until Discontinued * 0815 (Given - Provider: Sherry Arroyo RN) labetalol (NORMODYNE) tablet 400 mg (CANCELED) 400 mg, Oral, 3 times daily, First dose on 08/04/24 at 0300, Until Discontinued * 0344 (Given - Provider: Rocco Martinez RN) * 0852 (Given - Provider: Sherry Arroyo RN) * 1631 (Given - Provider: Sherry Arroyo RN) labetalol (NORMODYNE) tablet 400 mg 400 mg, Oral, EVERY 8 HOURS SCHEDULED (3 times per day), First dose (after last modification) on 08/05/24 at 0000, Until Discontinued * 0001 (Given - Provider: Ariana Faria RN) * 0815 (Given - Provider: Sherry Arroyo RN) * 1400 (Due) * 2200 (Due) labetalol (NORMODYNE;TRANDATE) injection 20 mg (COMPLETED) 20 mg, IntraVENous, ONCE, 1 dose, On 08/04/24 at 0200 * 0203 (Given - Provider: Rocco Martinez RN) labetalol (NORMODYNE;TRANDATE) injection 40 mg (COMPLETED) 40 mg, IntraVENous, ONCE, 1 dose, On 08/04/24 at 0230 * 0226 (Given - Provider: Rocco Martinez, KHUSHBOO) loperamide (IMODIUM) capsule 2 mg (COMPLETED) 2 mg, Oral, Once, 1 dose, On 08/04/24 at 0500, After each loose stool. * 0512 (Given - Provider: Rocco Martinez RN) magnesium sulfate 4000 mg in 100 mL IVPB premix (COMPLETED) 4,000 mg, IntraVENous, at 300 mL/hr, Administer over 20 Minutes, ONCE, On 08/04/24 at 0200, For 1 dose, Pre-Infusion: Assess baseline vital signs, breath sounds, oxygen saturation level, intake and output, and neurologic status (deep tendon reflexes, presence or absence of clonus, and level of consciousness (LOC). Vitals to include baseline temperature. Temperature to be reassessed every 4 hours if membranes are intact or every 2 hours if membranes have ruptured. Loading Dose/Infusion: Stay with the patient during the loading dose to monitor for adverse drug reactions. - Monitor pulse oximetry continuously throughout the infusion - Monitor vital signs, deep tendon reflexes, and LOC every15 minutes for one hour, then every 30 minutes for one hour, then hourly while infusing Notify careprovider immediately of absent deep tendon reflexes, a urine output of less than 30 mL/hour, respirations of less than 12 breaths/minute, or an oxygen saturation level of less than 90%. * 0209 (New Bag - Provider: Rocco Martinez RN) * 0232 (Stopped - Provider: Rocco Martinez RN) metoclopramide (REGLAN) tablet 10 mg 10 mg, Oral, 3 TIMES DAILY BEFORE MEALS, First dose on 08/04/24 at 1830, Until Discontinued * 1827 (Given - Provider: Sherry Arroyo RN) * 0815 (Given - Provider: Sherry Arroyo RN) * 1600 (Due - Provider: Sherry Arroyo RN) ondansetron (ZOFRAN) injection 4 mg (COMPLETED) 4 mg, IntraVENous, ONCE, 1 dose, On 08/04/24 at 0200 * 0203 (Given - Provider: Rocco Martinez RN) sodium chloride flush 0.9 % injection 10 mL 10 mL, IntraVENous, EVERY 12 HOURS SCHEDULED (2 times per day), First dose on 08/04/24 at 0900, Until Discontinued * 1105 (Not Given - Provider: Sherry Arroyo RN - Reason: Order parameters not met) * 0100 (Not Given - Provider: Ariana Faria RN - Reason: IV Fluid Infusing) * 0900 (Due) * 2100 (Due) Medication Order08/03/// lactated ringers infusion (CANCELED) IntraVENous, at 125 mL/hr, CONTINUOUS, Starting on 08/04/24 at 0300 * 0344 (New Bag - Provider: Rocco Martinez RN) * 1103 (New Bag - Provider: Sherry Arroyo RN) lactated ringers infusion (CANCELED) IntraVENous, at 50 mL/hr, CONTINUOUS, Starting on 08/04/24 at 1845 * 1830 (New Bag - Provider: Sherry Arroyo RN) magnesium sulfate (02437 mg/500mL infusion) (CANCELED) 2,000 mg/hr (50 mL/hr), IntraVENous, CONTINUOUS, Starting on 08/04/24 at 0230, Until 08/04/24at 0259, Pre-Infusion: Assess baseline vital signs, breath sounds, oxygen saturation level, intake and output, and neurologic status (deep tendon reflexes, presence or absence of clonus, and level ofconsciousness (LOC), presence of headaches or visual disturbances, presence or absence of epigastric pain. Vitals to include baseline temperature. Temperature to be reassessed every 4 hours if membranes are intact or every 2 hours if membranes have ruptured. Loading Dose/Infusion: Stay with the patient during the loading dose to monitor for adverse drug reactions. - Monitor pulse oximetry continuo usly throughout the infusion - Monitor vital signs, deep tendon reflexes, and LOC every 15 minutes for one hour, then every 30 minutes for one hour, then hourly while infusing Notify care provider immediately of absent deep tendon reflexes, a urine output of less than 30 mL/hour, respirations of less than 12 breaths/minute, or an oxygen saturation level of less than 90%. Grams to milligrams conversion table: 1 gram = 1000 mg 2 grams = 2000 mg 4 grams = 4000 mg 6 grams = 6000 mg 20 grams = 20,000 mg * 0233 (New Bag - Provider: Rocco Martinez RN) * 0357 (Not Given - Provider: Rocco Martinez RN - Reason: Other - Comment: order dc) * 0358 (Not Given - Provider: Rocco Martinez RN - Reason: Other - Comment: order dc) * 0721 (Stopped - Provider: Nellie Camarillo RN) magnesium sulfate (40240 mg/500mL infusion) (CANCELED) 2,000 mg/hr (50 mL/hr), IntraVENous, CONTINUOUS, Starting on 08/04/24 at 0315, Until 08/05/24at 0200, Pre-Infusion: Assess baseline vital signs, breath sounds, oxygen saturation level, intake and output, and neurologic status (deep tendon reflexes, presence or absence of clonus, and level ofconsciousness (LOC), presence of headaches or visual disturbances, presence or absence of epigastric pain. Vitals to include baseline temperature. Temperature to be reassessed every 4 hours if membranes are intact or every 2 hours if membranes have ruptured. Loading Dose/Infusion: Stay with the patient during the loading dose to monitor for adverse drug reactions. - Monitor pulse oximetry continuo usly throughout the infusion - Monitor vital signs, deep tendon reflexes, and LOC every 15 minutes for one hour, then every 30 minutes for one hour, then hourly while infusing Notify care provider immediately of absent deep tendon reflexes, a urine output of less than 30 mL/hour, respirations of less than 12 breaths/minute, or an oxygen saturation level of less than 90%. Grams to milligrams conversion table: 1 gram = 1000 mg 2 grams = 2000 mg 4 grams = 4000 mg 6 grams = 6000 mg 20 grams = 20,000 mg * 0344 (New Bag - Provider: Rocco Martinez, KHUSHBOO) * 0735 (Handoff - Provider: Nellie Camarillo, KHUSHBOO) * 1415 (New Bag - Provider: Sherry Arroyo, KHUSHBOO) * 1858 (Handoff - Provider: Sherry Arroyo, RN) * 0032 (New Bag - Provider: Ariana Faria, RN) Medication Order// 0.9 % sodium chloride infusion IntraVENous, at 5-250 mL/hr, PRN, if patient receiving piggyback infusions and maintenance fluids are not ordered OR KVO fluids to protect IV site / prevent frequent line interruptions/ long duration, Starting on 08/04/24 at 0252, For piggyback infusion, administer at same rate as piggyback for a total of 25 mL. Enter 25 mL into dose field and piggyback rate into rate field of order. If piggyback is infusing at a rate less than 100 mL/hr, enter 25 mL into dose field and 100 mL/hr into rate field of order. For KVO fluids, enter rate of 20 mL/hr or less into rate field of order. acetaminophen (TYLENOL) tablet 1,000 mg 1,000 mg, Oral, EVERY 6 HOURS PRN, Starting on 08/04/24 at 0254, Until Discontinued, Pain Mild (1-3), allowed for higher pain score per patient request, Maximum dose of acetaminophen is 4000 mg from all sources in 24 hours. * 0807 (Given - Provider: Sherry Arroyo RN) * 1412 (Given - Provider: Sherry Arroyo, KHUSHBOO) * 2131 (Given - Provider: Ariana Faria, RN) * 0358 (Given - Provider: Ariana Faria, RN) * 1014 (Given - Provider: Sherry Arroyo, RN) calcium gluconate 10 % injection 1,000 mg 1,000 mg, IntraVENous, PRN, Starting on 08/04/24 at 0253, Until Discontinued, For suspected magnesium toxicity or for respiratory rate less than 6 per minute., Administer slow IV push over 5 minutes. diphenhydrAMINE (BENADRYL) tablet 25 mg 25 mg, Oral, EVERY 6 HOURS PRN, Starting on 08/04/24 at 1814, Until Discontinued, Itching * 1827 (Given - Provider: Sherry Arroyo, KHUSHBOO) ibuprofen (ADVIL;MOTRIN) tablet 600 mg 600 mg, Oral, EVERY 6 HOURS PRN, Starting on 08/04/24 at 0254, Until Discontinued, Pain Mild (1-3), allowed for higher pain score per patient request * 0807 (Given - Provider: Sherry Arroyo RN) * 1412 (Given - Provider: Sherry Arroyo RN) * 2130 (Given - Provider: Ariana Faria, RN) * 0358 (Given - Provider: Ariana Faria, RN) * 1014 (Given - Provider: Sherry Arroyo RN) ondansetron (ZOFRAN) injection 4 mg(Linked Group 1) 4 mg, IntraVENous, EVERY 6 HOURS PRN, Starting on 08/04/24 at 0252, Until Discontinued, Nausea, Vomiting, Administer if oral route cannot be used. * 0807 (See Alternative - Provider: Sherry Arroyo RN) ondansetron (ZOFRAN-ODT) disintegrating tablet 4 mg(Linked Group 1) 4 mg, Oral, EVERY 6 HOURS PRN, Starting on 08/04/24 at 0252, Until Discontinued, Nausea, Vomiting * 0807 (Given - Provider: Sherry Arroyo RN) oxyCODONE (ROXICODONE) immediate release tablet 5 mg 5 mg, Oral, EVERY 6 HOURS PRN, Starting on 08/04/24 at 2038, Until Discontinued, Pain Severe (7-10) sodium chloride flush 0.9 % injection 10 mL 10 mL, IntraVENous, PRN, Starting on 08/04/24 at 0252, Until Discontinued, Line Care, After every IV line use Order Group 1: ondansetron (ZOFRAN-ODT) disintegrating tablet 4 mgJump to med 4 mg, Oral, EVERY 6 HOURS PRN, Starting on 08/04/24 at 0252, Until Discontinued, Nausea, Vomiting Or ondansetron (ZOFRAN) injection 4 mgJump to med 4 mg, IntraVENous, EVERY 6 HOURS PRN, Starting on 08/04/24 at 0252, Until Discontinued, Nausea, Vomiting, Administer if oral route cannot be used. FOR RECORDS PERTAINING TO PATIENTS WHO ARE OR HAVE BEEN ENROLLED IN A CHEMICAL DEPENDENCY/SUBSTANCEABUSE PROGRAM, SOME INFORMATION MAY BE OMITTED. This clinical summary was aggregated from multiple sources. Caution should be exercised in using it in the provision of clinical care. This summary normalizes information from multiple sources, and as a consequence, information in this document may materially change the coding, format and clinical context of patient data. In addition, data may be omitted in some cases. CLINICAL DECISIONS SHOULD BE BASED ON THE PRIMARY CLINICAL RECORDS. [employer] [facility]. provides no warranty or guarantee of the accuracy or completeness of information in this document.
--- OUTSIDE RECORDS SUMMARY | 2025-01-20 21:31 | XMS_ITS | Clinical Summary ---
Author Organization [facility] Address [address] [place] [address] Care Team Providers Care Arranging Funeral Director Name Role Phone Olivia Back FRONT END TECHNICIAN Unavailable [phone] Allergies No known active allergies Medications MedicationSigDispense QuantityRefillsLast FilledStart DateEnd DateStatus vits62/FA/om3/dha/epa ( GUMMY ORAL) Take by mouth.Active pediatric multivitamin no.49 (FLINTSTONES GUMMIES ORAL) Take by mouth.Active Active Problems ProblemNoted DateDiagnosed DateSupervision of normal first in second viayxnvft55/25/2025 Overview (05/15/2024): Late transfer from [facility] Care Checklist Vaccines: [x] Flu vaccine [] declined [] RSV vaccine 32 0/7 - 36 6/7 (Nov - Apr) [] declined [] COVID vaccine [] declined [] TDaP 27-36 [] declined First trimester: [] Dating US [] 1st tri labs [] Pap smear [] Carrier screening [] declined [] NIPT screening [] declined [] First trimester anatomy scan [] declined [] universal ASA ordered (start 12w-16w) [] declined [] M Power Consult [] not indicated [] declined Second trimester: [x] Anatomy scan [x] Mode of Delivery - [x] Feeding - [] Pump ordered [x] Diabetes screen [x] CBC, RPR [] Behavioral Health Screening Third trimester (28-30 weeks): [] Consent [] Contraception [] Ticket Agent [] TeamBirth handout Third trimester (36-40 weeks): [] GBS [] Presentation - [] Scheduled [] yes - Hibiclens, pre-op instructions, CBC, T&S ordered [] no [] H&P [] Preferences worksheet [] Scanned in EMR [] Patient to bring copy to hospital [] Declined Obesity in , kgtkzhfyvu98/25/2025History of renal mswihcf4305/15/2024 Overview (05/15/2024): FOB with fused pelvic kidney Chlamydia infection during oxxhmlshe40/27/7180YWPD44/22/2023 Immunizations ImmunizationAdministration DatesNext DueHaemophilus influenzae b (Hib) vaccine, unspecified riwlibbpdxs36/14/2005,2004diphtheria tetanus pertussis- hepatitis B-poliovirus (KCfK-KrmS-XON) vaccine (PEDIARIX)2004,2004, 2004pneumococcal (PCV7) vaccine, 7 valent (PREVNAR 7)2004,2004 Family History Medical HistoryRelationCommentsLung CancerMaternal GrandfatherHypertension Maternal GrandmotherDiabetesMaternal great-grandmotherRelationStatusComments BrotherAliveFatherAliveMaternal GrandfatherAliveMaternal GrandmotherAlive Maternal great-grandmotherDeceasedMotherAlivePaternal GrandfatherAlivePaternal GrandmotherAliveSisterAlive Social History Tobacco UseTypesPacks/DayYears UsedDateSmoking Tobacco: FormerCigarettes Smokeless Tobacco: NeverAlcohol UseStandard Drinks/WeekCommentsNot Currently0 (1 standard drink = 0.6 oz pure alcohol)pregArea Deprivation IndexAnswerDate RecordedNational Score (1-100), lower number is lower qxcs733702/09/2023State Score (1-10), lower number is lower npms8293Data from: https://www.neighborhoodatlas.medicine.[facility].edu/. Last address used for qkwpaxfwdzi[address]/09/2023CommentsNoSex and Gender Information ValueDate RecordedSex Assigned at BirthNot on fileLegal AngXbuuft09/02/2012 7:35 AM ESTGender IdentityNot on fileSexual OrientationNot on file Last Filed Vital Signs Vital SignReadingTime TakenCommentsBlood Ueioqkcu993/7802/ 1:33 PM EST Gzpsu97207/25/2025 1:33 PM OHBActwejgupnf95.9 ??C (98.5 ??F)06/09/2005 1:00 PM ESTRespiratory Rate--Oxygen Ctgpynumdt914%06/09/2005 1:00 PM ESTInhaled Oxygen Concentration--Gurhtp73.3 kg (196 lb 13.9 oz)05/15/2024 1:33 PM STIDkcmyz266.9 cm (5' 1 )05/15/2024 1:33 PM ESTBody Mass Index37. 1:33 PM EST Plan of Treatment Health MaintenanceDue DateLast DoneCommentsPeds To Adult Transition Initial Uaokkdmcqj22/10/2017Peds To Adult Transition Annual Qxgeotlwui30/10/2019HPV Vaccine (1 - 3-dose series)2019Meningococcal B Vaccine (1 of 2 - Standard) 2020nxiety Kngmaulco20/10/2023epression Jihalvred95/10/2023HIV Screening 2022TaP,Tdap,Td Vaccine (4 - Tdap), 2004, 2004, Additional history existsChlamydia Screening (18-24)02/10/2024 02/09/2023C (Gonorrhea) Screening (18-24)ovid-19 Vaccine ( - season)2024Influenza Vaccine (#1)2024Hepatitis B EicnpeiTmxduazba96/04/2005, 2004, 2004, Additional history exists Hepatitis C QiwdrovxhSupgjqzxr79/10/2024, 02/21/2023 Procedures Procedure NamePriorityDate/TimeAssociated DiagnosisCommentsGONORRHEA/CHLAMYDIA UJROPubrknj78/22/2023 11:59 AM EST Initial obstetric visit, first trimester from Last 3 Months or Most Recently Relevant to Health Maintenance Results * (ABNORMAL) GONORRHEA/CHLAMYDIA NAAT (02/09/2023 11:59 AM EST)ComponentValueRef RangeTest MethodAnalysis TimePerformed AtPathologist SignatureNeisseria gonorrhoeae RNANegative for Neisseria gonorrhoeae by amplificationNegative for Neisseria gonorrhoeae by amplification [facility] 02/10/2023 6:11 AM [facility] tr[facility]omat[facility] Positive for Chlamydia trachomatis by amplification.(A)Negative for Chlamydia trachomatis by amplificaton [facility] 02/10/2023 6:11 AM [facility] LABSpec[facility] (Source) Anatomical Location / LateralityCollection Method / VolumeCollection Time Received TimeSwabVAGINAL SWAB / UnknownNon Blood / Qvebhhm0802/09/2023 11:59 AM EST02/09/2023 10:53 PM EST Narrative [facility] - 02/10/2023 6:11 AM EST In low prevalence populations, the likelihood of a false positive may be higher than a true positive. Retesting by another method may be appropriate for patients who lack risk factors or clinical signs and symptoms consistent with infection. Authorizing ProviderResult TypeResult StatusSandra Jose J BURKCMICROBIOLOGYFinal ResultPerforming OrganizationAddressCity/State/ZIP CodePhone Number [facility] [address] [place] [address], from Last 3 Months or Most Recently Relevant to Health Maintenance Insurance Care Teams Team MemberRelationshipSpecialtyStart DateEnd Date Olivia Back CNP [address] [place] [address] ReferringFamoly [facility]12/02/22
--- OUTSIDE RECORDS SUMMARY | 2025-01-20 21:31 | XMS_ITS | Clinical Summary ---
Author Organization [facility] Address [address], [address] [place] [address] Care Team Providers Care Housecleaner Floor Name Role Phone Olivia Back FAM Primary Care Provider Allergies No known active allergies Medications MedicationSigDispense QuantityRefillsLast FilledStart DateEnd DateStatus ondansetron (ZOFRAN) 4 MG tablet Take 1 tablet by mouth 3 times daily as needed for Nausea or Vomiting 30 tablet 4Active Additional Information Patient not taking.Reported on 10/08/2024 omeprazole (PRILOSEC) 20 MG delayed release capsule Take by mouth daily5Active ibuprofen (ADVIL;MOTRIN) 800 MG tablet Take 1 tablet by mouth in the morning and 1 tablet at noon and 1 tablet in the evening. 120 tablet 5Active Additional Information Patient not taking.Reported on 10/08/2024 Active Problems ProblemNoted DateDiagnosed DatePreeclampsia in jwelmx2608/04/2024 Failure to progress in first stage of labor07/31/2024esarean delivery delivered 07/31/2024 Assessment & Plan (08/09/2024 2:45 PM EDT): Chronic, at goal (stable), continue current treatment plan Hx of one kpvymomdwfg91/11/6827Btwrrrwvgdbug20/04/4169NFCJ59/22/2023 Resolved Problems ProblemNoted DateDiagnosed DateResolved Date37 weeks gestation of /Gestational hypertension, third qezoddnvy64/13/2025 08/04/2024HTN (hypertension) with goal to be eqrhlbzmkz79/12/202505/Third trimester fjbkyishw86/hlamydia infection during /oordination tdvjstq64Gait abnormality ellulitis of right foot due to methicillin-resistant Staphylococcus xdasmh23 Overview (02/21/2023): MRSA lt knee abscess 03/24/2012 Immunizations ImmunizationAdministration DatesNext DueTDaP, ADACEL (age 10y-64y), BOOSTRIX (age 10y+), IM, 0.5mL08/02/2024 Family History Medical HistoryRelationNameCommentsAsthmaBrotherHypertensionFatherNural Tube DefectFatherLymphomaMaternal GrandfatherHypertensionMaternal Grandmother MigrainesMaternal GrandmotherPreeclampsiaMotherNo Known ProblemsPaternal GrandfatherNo Known ProblemsPaternal GrandmotherAsthmaSisterPreeclampsiaSister RelationNameStatusCommentsBrotherAliveFatherAliveMaternal GrandfatherAlive Maternal GrandmotherAliveMotherAlivePaternal GrandfatherAlivePaternal GrandmotherAliveSisterAlive Social History Tobacco UseTypesPacks/DayYears UsedDateSmoking Tobacco: NeverSmokeless Tobacco: Never Tobacco Cessation:Counseling Given: Yes Alcohol UseStandard Drinks/WeekCommentsNot Currently0 (1 standard drink = 0.6 oz pure alcohol)[facility] UtilitiesAnswerDate RecordedIn the past 12 months has the [employer], gas, oil, or water [employer] threatened to shut off services in your home?No08/05/2024UDIT-CAnswerDate RecordedQ1: How often do you have a drink containing alcohol?Never02/27/2023Q2: How many drinks containing alcohol do you have on a typical day when you are drinking?Patient does not drink02/27/2023Q3: How often do you have six or more drinks on one occasion?Never02/27/2023Overall Financial Resource Strain (CARDIA)AnswerDate RecordedHow hard is it for you to pay for the very basics like food, housing, medical care, and heating?Not hard at all06/11/2024PHQ-2AnswerDate RecordedPHQ-9 Total Feskg327Hunger Vital SignAnswerDate RecordedWithin the past 12 months, you worried that your food would run out before you got the money to buymore.Never true08/05/2024Within the past 12 months, the food you bought just didn't last and you didn't have money to get more.Never true08/05/2024PRAPARE - TransportationAnswerDate RecordedIn the past 12 months, has lack of transportation kept you from medical appointments or from getting medications?No08/05/2024In the past 12 months, has lack of transportation kept you from meetings, work, or from getting things needed for daily living?No08/05/2024Edinburgh Depression ScaleAnswer Date RecordedEdinburgh Depression Scale Nwuwc552The thought of harming myself has occurred to me.Never08/26/2024Housing Stability Vital Sign AnswerDate RecordedIn the last 12 months, was there a time when you were not able to pay the mortgage or rent on time?No08/05/2024In the past 12 months, how many times have you moved where you were living?t any time in the past 12 months, were you homeless or living in a nursing home (including now)?No 08/05/2024Food InsecurityAnswerDate RecordedWithin the past 12 months, you worried that your food would run out before you got the money to buymore.1 08/05/2024Within the past 12 months, the food you bought just didn't last and you didn't have money to get more.Interpersonal Safety Domain Source: IP Abuse ScreeningAnswerDate RecordedPhysical kqtksZalzbo36/17/2025Verbal abuse Sbxhim1608/04/2024Emotional gnjvdYytgkz85/17/2025Financial catmkOfmcan11/17/2025 Sexual owozwElutwn21/17/2025CommentsNoSex and Gender InformationValue Date RecordedSex Assigned at MdeqcGlngyu22/10/2023 4:33 PM ESTLegal SexFemale 10/19/2012 6:50 PM EDTGender RcbdxdzzWehehc39/10/2023 4:33 PM ESTSexual OrientationNot on file Last Filed Vital Signs Vital SignReadingTime TakenCommentsBlood Bysbonkr602/8007 2:41 PM EDT Ltheu1746 2:22 PM PYHPfvuqruixrz20.1 ??C (98.8 ??F)08/05/2024 8:03 AM EDTRespiratory Znlj373408/05/2024 8:03 AM EDTOxygen Yuyixoizpc85%08/05/2024 8:03 AM EDTInhaled Oxygen Concentration--Cdfmqq86.8 kg (187 lb)10/08/2024 2:41 PM EDT Mmdent977.9 cm (5' 1 )10/08/2024 2:41 PM EDTBody Mass Index35.3307 2:41 PM EDT Plan of Treatment DateTypeDepartmentCare Team (Latest Contact Info)Fiofsyunvmc46/03/2026 1:10 PM ESTOffice Visit [facility] Part of [address] [place] [address] Yi Germain, PHOTOGRAPHIC PRINTER - [address] [place], [place] [id number] annualHealth MaintenanceDue DateLast DoneCommentsPolio vaccine (5 of 5 - 5-dose series), 2004, 2004, Additional history exists Varicella vaccine (1 of 2 - 13+ 2-dose series)2017HPV vaccine (1 - 3-dose series)2019Meningococcal B vaccine (1 of 2 - Standard)2020Flu vaccine (#1)5COVID-19 Vaccine ( - 2023- season)2024 Chlamydia/GC mrehpy07/12/2023, 12/04/2023Depression Vxjytu5704/03/2025 04/03/2024, 04/03/2024DTaP/Tdap/Td vaccine (6 - Td or Tdap), 10/26/2016, 2004, Additional history existsHib vaccineAged Out2004, 2004No longer eligible based on patient's age to complete this topic Pneumococcal 0-49 years VaccineAged Out2004, 2004No longer eligible based on patient's age to complete this topicHepatitis B vaccineCompleted 2004, 2004, 2004Meningococcal (ACWY) vaccineAged Out 10/26/2016, 10/26/2016No longer eligible based on patient's age to complete this topicHIV nxxhdjCqanhjwdr05/10/2024, 02/21/2023Hepatitis C screenCompleted 12/29/2023, 02/21/2023Hepatitis A vaccineAged OutNo longer eligible based on patient's age to complete this topic Procedures Procedure NamePriorityDate/TimeAssociated DiagnosisCommentsC.TRACHOMATIS N.GONORRHOEAE DNA, MIZWFNwncydg84/10/2024 4:00 PM EDT 6 weeks gestation of HIV RUCENHEpblhac87/10/2024 3:59 PM EDT 6 weeks gestation of HEPATITIS C RTCGRNCCFqjcjto30/10/2024 3:59 PM EDT 6 weeks gestation of from Last 3 Months or Most Recently Relevant to Health Maintenance Results * C.trachomatis N.gonorrhoeae DNA, Urine (12/29/2023 4:00 PM EDT)ComponentValue Ref RangeTest MethodAnalysis TimePerformed AtPathologist SignatureSpecimen Description.URINE12/29/2023 4:00 PM EDTMERCY LABORATORIESC. trachomatis DNA ,OzecfJNADPVDHFPAUMOZP72/10/2024 4:00 PM EDTMERCY LABORATORIESComment: CHLAMYDIA TRACHOMATIS DNA not detected by nucleic acid amplification. ? This test is intended for medical purposes only and is not valid for the evaluation of suspected sexual abuse or for other forensic purposes. In certain contexts, culture may be required to meet applicable laws and regulations for diagnosis of C. trachomatis and N. gonorrhoeae infections. Per 2014 ??CDC recommendations, this test does not include confirmation of positive results by an alternative nucleic acid target. N. gonorrhoeae DNA, AwtqcJZFFNUTDVDXIPJMW80/10/2024 4:00 PM EDTMERCY LABORATORIESComment: NEISSERIA GONORRHOEAE DNA not detected by nucleic acid amplification. ? This test is intended for medical purposes only and is not valid for the evaluation of suspected sexual abuse or for other forensic purposes. In certain contexts, culture may be required to meet applicable laws and regulations for diagnosis of C. trachomatis and N. gonorrhoeae infections. Per 2014 ??CDC recommendations, this test does not include confirmation of positive results by an alternative nucleic acid target. Specimen (Source)Anatomical Location / LateralityCollection Method / Volume Collection TimeReceived TimeUrine (Urine)12/29/2023 4:00 PM EDT1 4:00 PM EDT Narrative Authorizing ProviderResult TypeResult StatusKatunique Germain APRN - CNM MICROBIOLOGY - GENERAL ORDERABLESFinal ResultPerforming OrganizationAddress City/State/ZIP CodePhone Number [facility] [address] [place] [address], [facility] [phone] [facility] [address] [place] [address], [facility] [phone] * Hepatitis C Antibody (12/29/2023 3:59 PM EDT)ComponentValueRef RangeTest MethodAnalysis TimePerformed AtPathologist SignatureHepatitis C AbNONREACTIVE TZPZAFEXRHD77/10/2024 3:59 PM EDTMERCY LABORATORIESComment: ? The hepatitis C procedure used in our laboratory is a Chemiluminescent test specific for three recombinant HCV antigens. ??A negative anti-HCV result indicates that the antibodies to hepatitis C virus are not present at this time. Individuals with reactive anti-HCV should be considered infected and infectious until proven otherwise. ??Confirmation of all equivocal or reactive results is recommended by ordering HCV RNA by PCR. Specimen (Source)Anatomical Location / LateralityCollection Method / Volume Collection TimeReceived TimeBloodBLOOD SPECIMEN / Qszgaev5612/29/2023 3:59 PM EDT 12/29/2023 3:59 PM EDT Narrative Authorizing ProviderResult TypeResult StatusKathleen E Pool PHOTOGRAPHIC PRINTER - CNMIMMUNOLOGY ORDERABLESFinal ResultPerforming OrganizationAddressCity/State/ZIP CodePhone Number [facility] [address] [place] [address], [facility] [phone] [phone] * HIV Screen (12/29/2023 3:59 PM EDT)ComponentValueRef RangeTest MethodAnalysis TimePerformed AtPathologist SignatureHIV Ag/JpRBQYADJFVAMFHAOFSJQIFT55/10/2024 3:59 PM EDTMERCY LABORATORIESComment: No laboratory evidence of HIV infection. ??If acute HIV infection is suspected, consider testing for HIV-1 RNA. Specimen (Source)Anatomical Location / LateralityCollection Method / Volume Collection TimeReceived TimeBLOOD SPECIMEN / Bbidlig5612/29/2023 3:59 PM EDT 12/29/2023 3:59 PM EDT Narrative Authorizing ProviderResult TypeResult StatusKathldayton general hospital E Pool PHOTOGRAPHIC PRINTER - CNMIMMUNOLOGY ORDERABLESFinal ResultPerforming OrganizationAddressCity/State/ZIP CodePhone Number [facility] [address] [place] [address], [facility] [phone] [phone] from Last 3 Months or Most Recently Relevant to Health Maintenance Insurance Advance Directives * Full Code (Latest Code Status on File) Date ActivatedDate InactivatedComments08/04/2024 2:57 AM08/05/2024 1:10 PM * Full Code Date ActivatedDate InactivatedComments08/01/2024 7:40 AM08/02/2024 1:16 PM * Full Code Date ActivatedDate InactivatedComments07/30/2024 7:48 PM07/31/2024 11:49 PM Care Teams Team MemberRelationshipSpecialtyStart DateEnd Date Olivia Back CNNP [address] [address] PCP - Gqmjkux96/4/23
[2025-01-20] MEDS: HYDROXYZINE PAMOATE 25 MG CAPSULE 50 MG PO (21:42)
[2025-01-20 22:12] VITALS: BP 138/82; PULSE 98; O2SAT 99
== END 2025-01-20 22:27 | disposition home or self-care (01) ==
PROVIDERS: Emergency Provider Internal Medicine; PCP Nurse Practitioner Family
DX: F41.9 Anxiety disorder, unspecified (principal)
CPT/HCPCS: 99283; Q0177